=== PATIENT | female | born 1980 | race Caucasian/White ===

== ENCOUNTER 2021-01-16 18:05 | Emergency (ER) | payer OTHER, SELFPAY ==
[2021-01-16 19:24] VITALS: BP 138/78; PULSE 83; RESP 16; TEMP 36.1; O2SAT 100; BMI 36.2
[2021-01-16 20:00] LABS: COVID-19 Test Negative (Negative); IDNOW Serial# 9DD0AD1C
--- NOTE | 2021-01-16 20:04 | ED_ITS ---
HPI - General Adult General Chief complaint: General Medical Stated complaint: Medication making PT feel worse Time Seen by Provider: 01/16/21 20:04 Source: patient Mode of arrival: ambulatory Limitations: no limitations History of Present Illness HPI narrative: Patient history of hypertension been on medication for last 4 months started on lisinopril changed to amlodipine now changed to losartan for last 4-5 days as patient been come in complaining of cough with all 3 medications prior to taking this medication patient does not have any lung issues no cough no fever. 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 cough is mostly dry no other family member sick Related Data Previous Rx's Medication Instructions Recorded albuterol sulfate 90 mcg/actuation 2 puff INHALATION Q4-6H PRN #8.5 g 01/16/21 aerosol inhaler (ProAir HFA) benzonatate 100 mg capsule 100 mg PO TID PRN #20 cap 01/16/21 (Tessalon Perles) diltiazem HCl 120 mg 120 mg PO QAM #30 cap 01/16/21 capsule,extended release 24 hr (Cardizem CD) Allergies Allergy/AdvReac Type Severity Reaction Status Date / Time No Known Allergies Allergy Verified 01/16/21 19:35 Review of Systems Review of Systems: Yes all other systems are reviewed and are negative PMFSH Past Medical History Medical History HTN (hypertension) Prediabetes Social History Social History Advance Directives: No Advance Directives Information Provided: Yes Patient : No Physical Exam Vital Signs: Vital Signs: Last Vital Signs Temp 96.9 F 01/16/21 19:24 Pulse 83 01/16/21 19:24 Resp 16 01/16/21 19:24 BP 138/78 01/16/21 19:24 Pulse Ox 100 01/16/21 19:24 Body Mass Index 36.2 Appearance: Alert. Oriented X3. No acute distress. Eyes: No pallor icterus ENT: Pharynx normal. Oral Mucosa moist Neck: Normal inspection. Neck supple. CVS: Normal heart rate and rhythm. Pulses normal. Respiratory: No respiratory distress. Equal air entry bilateral, no wheezing/rales/rhonchi dry cough on deep inspiration Abdomen: Soft and nontender. Bowel sounds are present, no mass palpable, no CVA tenderness Skin: Skin warm and dry. Normal skin color. Normal skin turgor. Extremities: No lower extremity edema. No calf tenderness Neuro: Oriented X 3. Medical Decision Making Lab Data Labs: Lab Results 01/16/21 Range/Units 19:37 COVID-19 (SYLVIA) Negative (Negative) COVID-19 Clin Com See Note Discharge Plan Discharge Clinical Impression: Cough due to ADEOLA inhibitor Patient Disposition: Home, Self-Care Instructions: Chronic Cough (ED) Additional Instructions: Stop losartan and Start taking Cardizem 120 mg daily Medicine for cough and inhaler and advised Follow with PCP Detenga losart?n y Comience a fran Cardizem 120 mg al d?a Medicina para la tos e inhalador y aconsejado. Siga con quinn PCP Prescriptions: New diltiazem HCl [Cardizem CD] 120 mg capsule,extended release 24hr 120 mg PO QAM Qty: 30 RF: 0 benzonatate [Tessalon Perles] 100 mg capsule 100 mg PO TID PRN (Reason: cough) Qty: 20 RF: 0 albuterol sulfate [ProAir HFA] 90 mcg/actuation HFA aerosol inhaler 2 puff inhalation Q4-6H PRN (Reason: Wheezing) Qty: 8.5 RF: 0 Interventions: ED Discharge Assessment Last Done: 01/16/21 21:35 Discharge Date/Time: 01/16/21 21:36 Print Language: Cambodian
[2021-01-16] MEDS: guaiFEN/Codeine SF 200/20/10ML 10 ML LIQUID PO (20:42)
[2021-01-16] MEDS: Albuterol Sulfate 90 MCG 8 GM INHALER 4 PUFF INHALE (21:35)
== END 2021-01-16 21:36 | disposition home or self-care (01) ==
PROVIDERS: Emergency Provider Internal Medicine
DX: R05.9 Cough, unspecified (principal); Z20.822 Contact with and (suspected) exposure to COVID-19; Z79.899 Other long term (current) drug therapy
CPT/HCPCS: 36415; 87635; 99283; 99284

== ENCOUNTER 2022-02-10 13:21 | Emergency (ER) | payer OTHER, SELFPAY ==
[2022-02-10 13:33] VITALS: BP 142/88; PULSE 89; RESP 18; TEMP 37; O2SAT 98; BMI 35.9
--- NOTE | 2022-02-10 13:38 | ED.GENADULT ---
HPI - General Adult General Chief complaint: Urogenital-Female <Corina Melvin MD - Last Filed: 02/10/22 13:39> Stated complaint: vaginal itch. <Corina Melvin MD - Last Filed: 02/10/22 13:39> Time Seen by Provider: 02/10/22 14:06 <Corina Melvin MD - Last Filed: 02/10/22 13:39> Source: patient <PAKO Mohan - Last Filed: 02/10/22 16:32> Mode of arrival: ambulatory <PAKO Mohan - Last Filed: 02/10/22 16:32> Limitations: no limitations <PAKO Mohan - Last Filed: 02/10/22 16:32> History of Present Illness HPI narrative: 41-year-old female with a past medical history of yeast infections presenting to the ER with complaints of vaginal itching and dryness for the past few days worse today. She reports that she normally gets the intravaginal cream and the 2 pills of Diflucan and that usually helps her symptoms. She reports she needs both prescriptions usually. She reports she is sexually active with 1 partner. She denies any thoughts of STDs although is willing to be tested for gonorrhea chlamydia. She reports associated dysuria and increased urinary frequency/urgency. She admit to She denies any fevers, chills, abdominal pain, flank pain, back pain, hematuria, constipation or any other symptoms complaints or concerns at this time. <PAKO Mohan - Last Filed: 02/10/22 16:32> complaint: Vaginal symptoms <PAKO Mohan - Last Filed: 02/10/22 16:32> Related Data Home medications: Previous Rx's Medication Instructions Recorded albuterol sulfate 90 mcg/actuation 2 puff inhalation Q4-6H PRN 01/16/21 aerosol inhaler (ProAir HFA) Wheezing #8.5 grams benzonatate 100 mg capsule 100 mg PO TID PRN cough #20 caps 01/16/21 (Tessalon Perles) diltiazem HCl 120 mg 120 mg PO QAM #30 caps 01/16/21 capsule,extended release 24 hr (Cardizem CD) fluconazole 150 mg tablet 150 mg PO Q3D 2 doses #2 tabs 02/10/22 (Diflucan) metronidazole 500 mg tablet 500 mg PO BID 7 days #14 tabs 02/10/22 miconazole nitrate 200 mg/5 gram 1 appful vaginal BEDTIME 3 days 02/10/22 (4 %) vaginal cream #15 grams <Corina Melvin MD - Last Filed: 02/10/22 13:39> Allergies/adverse reactions: Allergies Allergy/AdvReac Type Severity Reaction Status Date / Time No Known Allergies Allergy Verified 01/16/21 19:35 <Corina Melvin MD - Last Filed: 02/10/22 13:39> Review of Systems Review of Systems: Constitutional : No Fever, No Chills ENT/Mouth : No sore throat, No Rhinorrhea Eyes: No Eye Pain, No Redness Cardiovascular : No Chest Pain, No SOB Respiratory : No Cough, No Sputum, No Wheezing Gastrointestinal : No Nausea, No Vomiting, + Diarrhea, No abdominal pain, Genitourinary : No irregular bleeding, + Dysuria, + Urinary Frequency, + vaginal discharge, No pelvic pain Musculoskeletal : No Myalgias Skin : No rash Neuro : No Weakness, No Headache Psych : No Anxiety/Panic, No Depression Heme/Lymph: No bruising, No Lymphadenopathy Endocrine : No Polyuria, No Polydipsia <PAKO Mohan - Last Filed: 02/10/22 16:32> Yes all other systems are reviewed and are negative <PAKO Mohan - Last Filed: 02/10/22 16:32> PMFSH Past Medical History Attestation statement: The following information was validated with the patient. <PAKO Mohan - Last Filed: 02/10/22 16:32> Source: old records reviewed and nursing notes reviewed <PAKO Mohan - Last Filed: 02/10/22 16:32> Medical History: Medical History HTN (hypertension) Prediabetes <Corina Melvin MD - Last Filed: 02/10/22 13:39> Social History Social History: Social History Advance Directives: No Advance Directives Information Provided: Yes <Corina Melvin MD - Last Filed: 02/10/22 13:39> Physical Exam ED Vital Signs: Vital Signs - 24 hr 02/10/22 13:33 Temperature 98.6 F Pulse Rate 89 Respiratory Rate 18 Blood Pressure 142/88 H Pulse Oximetry 98 Oxygen Delivery Method Room Air BMI result Body Mass Index 35.9 <Corina Melvin MD - Last Filed: 02/10/22 13:39> Vital Signs - 24 hr 02/10/22 13:33 Temperature 98.6 F Pulse Rate 89 Respiratory Rate 18 Blood Pressure 142/88 H Pulse Oximetry 98 Oxygen Delivery Method Room Air BMI result Body Mass Index 35.9 vital signs have been reviewed as normal and appeared to be correct. Blood pressure 142/88. Heart rate normal. Respiration rate normal. Temperature normal. Oxygen saturation normal. <PAKO Mohan - Last Filed: 02/10/22 16:32> Appearance: Alert. Oriented X3. No acute distress. Head: Normal external exam. Normocephalic. Atraumatic. Eyes: PERRLA. EOMI. Conjunctiva and sclera normal. Eyelids normal. ENT: Pharynx normal. Uvula midline. Moist mucous membranes. No lesions/ulcerations or masses noted on the tongue. Normal voice. No trismus noted. No drooling noted. No muffled voice noted. Neck: Normal inspection. Neck supple. FROM. No adenopathy. Thyroid Normal. No meningeal signs. CVS: Normal heart rate and rhythm. Respiratory: No respiratory distress. Painless inspiration. Abdomen: Soft and nontender. Bowel sounds normal in all 4 quadrants. No distention noted. No organomegaly noted. No visible injury noted. : Exam deferred pt refused wanted to self swab. Back: No CVA tenderness. Full range of motion noted. Nontender. No signs of trauma. Patient neuro intact bilaterally and distally on all 4 extremities. Patient's reflexes intact bilaterally and distally on all 4 extremities. No rashes/lesion/induration/fluctuance or signs of infection noted. Skin: Skin warm and dry. Normal skin color. Normal skin turgor. No rashes/lesions/lacerations noted. Extremities: Extremities exhibit normal range of motion and nontender. Neuro: Oriented X 3. No motor deficit. No sensory deficit. Reflexes normal. Normal steady gait. No focal neuro deficits noted. CN's II-XII intact bilaterally? <PAKO Mohan - Last Filed: 02/10/22 16:32> Course Reevaluation(s) Reevaluation #1: 41-year-old female came in with vaginal itching and dryness patient is prone to yeast infection, sexually active with 1 partner patient declined risk for STD, patient complaining of dysuria and frequency. <Corina Melvin MD - Last Filed: 02/10/22 13:39> Time: 13:38 <Corina Melvin MD - Last Filed: 02/10/22 13:39> Reevaluation #2: Patient wanted to self swab. Therefore she self swab for bacterial vaginosis/Trichomonas and yeast. She gave us a urine for gonorrhea chlamydia. UA returned and revealed trace of protein otherwise no evidence of UTI. Patient negative for . Gonorrhea/chlamydia/bacterial vaginal/Trichomonas and yeast pending. Will DC home with treatment for bacterial vaginosis and yeast and instructions to follow-up with PCP and to return if any new or worsening symptoms. Patient understands agrees with this plan. <PAKO Mohan - Last Filed: 02/10/22 16:32> Time: 16:30 <PAKO Mohan - Last Filed: 02/10/22 16:32> Medical Decision Making Medical Records Medical records reviewed: Yes I reviewed the patient's medical records. <PAKO Mohan - Last Filed: 02/10/22 16:32> Lab Data Lab results reviewed: Yes I reviewed the patient's lab results. <PAKO Mohan - Last Filed: 02/10/22 16:32> Labs: Lab Results 02/10/22 02/10/22 Range/Units 15:25 15:25 Urine Color Yellow Urine Appearance Clear Urine pH 5.5 (5.0-9.0) Ur Specific [place] 1.025 (1.005-1.025) Urine Protein Trace (Neg-Trace) mg/dL Urine Glucose (UA) Negative (Negative) mg/dL Urine Ketones Negative (Negative) mg/dL Urine Blood Negative (Negative) Urine Nitrite Negative (Negative) Ur Leukocyte Esterase Negative (Negative) Urine Test NEGATIVE (NEGATIVE) <Corina Melvin MD - Last Filed: 02/10/22 13:39> Lab Results 02/10/22 02/10/22 Range/Units 15:25 15:25 Urine Color Yellow Urine Appearance Clear Urine pH 5.5 (5.0-9.0) Ur Specific [place] 1.025 (1.005-1.025) Urine Protein Trace (Neg-Trace) mg/dL Urine Glucose (UA) Negative (Negative) mg/dL Urine Ketones Negative (Negative) mg/dL Urine Blood Negative (Negative) Urine Nitrite Negative (Negative) Ur Leukocyte Esterase Negative (Negative) Urine Test NEGATIVE (NEGATIVE) <PAKO Mohan - Last Filed: 02/10/22 16:32> Discharge Plan Discharge Clinical Impression: Vaginitis, Bacterial vaginosis <Corina Melvin MD - Last Filed: 02/10/22 13:39> Patient Disposition: Home, Self-Care <Corina Melvin MD - Last Filed: 02/10/22 13:39> Instructions: Bacterial Vaginosis (ED), Vaginal Discharge (ED) <Corina Melvin MD - Last Filed: 02/10/22 13:39> Additional Instructions: You have pending lab results if any are positive you will be contacted within 5-7 days. Tiene resultados de laboratorio pendientes, si alguno es positivo, lo contactaremos dentro de 5 a 7 d?as. <Corina Melvin MD - Last Filed: 02/10/22 13:39> Prescriptions: New fluconazole [Diflucan] 150 mg tablet 150 mg PO Q3D 0 Days Qty: 2 0RF Rx Instructions: may repeat second dose 72 hrs after first dose if symptoms persist metronidazole 500 mg tablet 500 mg PO BID 7 Days Qty: 14 0RF miconazole nitrate 200 mg/5 gram (4 %) cream 1 appful vaginal BEDTIME 3 Days Qty: 15 0RF No Action diltiazem HCl [Cardizem CD] 120 mg capsule,extended release 24hr 120 mg PO QAM Qty: 30 0RF benzonatate [Tessalon Perles] 100 mg capsule 100 mg PO TID PRN (Reason: cough) Qty: 20 0RF albuterol sulfate [ProAir HFA] 90 mcg/actuation HFA aerosol inhaler 2 puff inhalation Q4-6H PRN (Reason: Wheezing) Qty: 8.5 0RF <Corina Melvin MD - Last Filed: 02/10/22 13:39> Referrals: Physician,Nonstaff [Primary Care Provider] - 2 days (your pcp) <Corina Melvin MD - Last Filed: 02/10/22 13:39> Interventions: ED Discharge Assessment Last Done: 02/10/22 16:07 <Corina Melvin MD - Last Filed: 02/10/22 13:39> Discharge Date/Time: 02/10/22 16:08 <Corina Melvin MD - Last Filed: 02/10/22 13:39> Print Language: Croatian <Corina Melvin MD - Last Filed: 02/10/22 13:39>
--- OUTSIDE RECORDS SUMMARY | 2022-02-10 14:57 | XMS_ITS | Continuity of Care Document ---
:1980 Author Organization [facility] Address [address] [place] [id number]- Care Team Providers Name Role Phone Eric GRAY, Genesis Primary Care Physician Encounter [facility] Date(s): 01/16/21 - 02/26/[address] [address]- Attending Physician: Nannette Salmeron Admitting Physician: Nannette Salmeron Referring Physician: Nannette Salmeron Allergies, Adverse Reactions, Alerts Substance Reaction Severity Status codeine1 Active lisinopril2 Active amLODIPine3 [id number] after taking amlodipine 01/15. Medication discontinued, denied addl allergy sxs at that time. Immunizations Given and Recorded Vaccine Date Status Refusal Reason SARS-CoV-2 (COVID-19) mRNA BNT-162b2 vac 08/10/20 Recorde d SARS-CoV-2 (COVID-19) mRNA BNT-162b2 vac 07/20/20 Recorde d tetanus/diphtheria/pertussis, acel(Tdap) 11/17/19 Recorde d tetanus/diphtheria/pertussis, acel(Tdap) 04/30/18 Recorde d tetanus/diphtheria/pertussis, acel(Tdap) 11/16/17 Given influenza virus vaccine, inactivated 03/19/19 Recorded Not Given Vaccine Date Status Refusal Reason influenza virus vaccine, inactivated 02/12/20 Not Given Patient Refuses Medications cetirizine 10 mg oral tablet 1 tablet = 10 mg, By Mouth, Daily, # 90 tablet, 0 Refills, Maintenance, 01/20/21 16:11:00 EDT, Tablet, [id number], Partial fill upon patient request if the prescription is for a schedule II opioid drug., 175, cm, 01/20/21 15:42:00 EDT, Height Start Date: 01/20/21 Status: Orderedcyclobenzaprine 10 mg oral tablet 1, tablet, By Mouth, 3 times a day, PRN, # 30 tablet, Refills 1, NEEDED FOR SPASM, Route to Pharmacy Electronically, [id number], 175, cm, 08/26/20 13:36:00 EDT, Height Start Date: 11/13/20 Status: Ordereddocusate sodium 100 mg oral tablet 1 tablet = 100 mg, By Mouth, Daily, with plenty of water, # 30 tablet, 1 Refills, Maintenance, 01/04/19 13:17:03 EDT, Tablet Start Date: 01/04/19 Stop Date: 03/05/19 Status: Orderedduloxetine 30 mg oral enteric coated capsule See Instructions, TOME 1 CAPSULA POR VIA ORAL TODOS LOS MCRAE DO NOT CRUSH OR CHEW, # 30 capsule, 5 Refills, Maintenance, 02/10/21 11:58:00 EST, [id number], 175, cm, 01/20/21 15:42:00 EDT, Height Start Date: 02/10/21 Status: OrderedHome blood pressure machine and cuff Home blood pressure machine and cuff, See Instructions, # 1 each, Refills 0, Tot. Refills 0, Maintenance, Home blood pressure machine and cuff ICD 10: R03.0, 08/30/19 13:12:00 EDT, Supply Start Date: 08/30/19 Status: OrderedMiraLax oral powder for reconstitution = 17 Gm, By Mouth, Daily, PRN Constipation, dissolve in water before taking, # 255 Gm, 6 Refills, Maintenance, 07/05/18 8:11:28 EDT, REC Powder, 17 Gm By Mouth Daily,PRN:Constipation,Instr:dissolve in water before taking Start Date: 07/05/18 Status: OrderedNikki 3 mg-0.02 mg oral tablet See Instructions, TOME ODILIA TABLETA TODOS LOS MCRAE, # 28 tablet, 6 Refills, 12/26/20 10:00:00 EDT, [id number], 28, TOME ODILIA TABLETA TODOS LOS MCRAE, 175, cm, 12/26/20 9:15:00 EDT, Height Start Date: 12/26/20 Status: Orderedomeprazole 40 mg oral enteric coated capsule See Instructions, HUMERA HARTLEY CAPSULA DOS VECES AL BRANDIE, # 60 capsule, 2 Refills, [id number], 175, cm, 01/01/21 9:02:00 EDT, Height Start Date: 01/05/21 Status: Ordered Problem List Condition Effective Dates Status Health Status Informant Chronic constipation(Confirmed) Active Sigmoid diverticulosis(Confirmed) Active Endometrial thickening on Active ultrasound(Confirmed) Essential hypertension(Confirmed) Active Impaired fasting glucose(Confirmed) Active Hepatic cyst(Confirmed) Active Obesity(Confirmed) Active Pelvic pain(Confirmed) Active Post-nasal drip(Confirmed) Active Social History Social History Type Response Smoking Status Never (less than 100 in life time) entered on: 08/18/18 Sex Female
--- OUTSIDE RECORDS SUMMARY | 2022-02-10 14:57 | XMS_ITS | Continuity of Care Document ---
:1980 Author Organization [facility] Address [address] [place] [id number]- Care Team Providers Name Role Phone Eric GRAY, Genesis Primary Care Physician Encounter [facility] Date(s): 12/26/20 - 01/25/21 [facility] [address] [address]- Attending Physician: Kvng Lindsay Admitting Physician: AdmKvng dowling Referring Physician: Admtr ArYolanda Allergies, Adverse Reactions, Alerts Substance Reaction Severity Status codeine1 Active lisinopril2 Active amLODIPine3 Active [id number] itchy throat after taking amlodipine 01/15. [...] Refills, Maintenance, 01/20/21 16:11:00 EDT, Tablet, [id number], Partial fill upon patient request if the prescription is for a schedule II opioid drug., 175, cm, 01/20/21 15:42:00 EDT, Height Start Date: 01/20/21 Status: Orderedcyclobenzaprine 10 mg oral tablet 1, tablet, By Mouth, 3 times a day, PRN, # 30 tablet, Refills 1, NEEDED FOR SPASM, Route to Pharmacy Electronically, [id number], 175, cm, 08/26/20 13:36:00 EDT, Height Start Date: 11/13/20 Status: OrderedCymbalta 30 mg oral enteric coated capsule 1 capsule = 30 mg, By Mouth, Daily, do not crush or chew, # 30 capsule, 2 Refills, Maintenance, 11/17/20 14:33:00 EDT, CR Capsule, [facility] #[id number], Partial fill upon patient request if the prescription is for a schedule II opioid drug., 175, cm, 08... Start Date: 11/17/20 Status: Ordereddocusate sodium 100 mg oral tablet 1 tablet = 100 mg, By Mouth, Daily, with plenty of water, # 30 tablet, 1 Refills, Maintenance, 01/04/19 13:17:03 EDT, Tablet Start Date: 01/04/19 Stop Date: 03/05/19 Status: OrderedHome blood pressure machine and cuff Home blood pressure machine and cuff, See Instructions, # 1 each, Refills 0, Tot. Refills 0, Maintenance, Home blood pressure machine and cuff ICD 10: R03.0, 08/30/19 13:12:00 EDT, Supply Start Date: 08/30/19 Status: Orderedlosartan 25 mg oral tablet 25 mg, 1, tablet, By Mouth, Daily, # 90 tablet, Refills 0, Tot. Refills 0, Maintenance, 01/12/21 20:01:00 EDT, Route to Pharmacy Electronically, [facility] #[id number], Partial fill upon patient request ifthe prescription is for a schedule II opioid drug... Start Date: 01/12/21 Status: OrderedMiraLax oral powder for reconstitution = 17 Gm, By Mouth, Daily, PRN Constipation, dissolve in water before taking, # 255 Gm, 6 Refills, Maintenance, 07/05/18 8:11:28 EDT, REC Powder, 17 Gm By Mouth Daily,PRN:Constipation,Instr:dissolve in water before taking Start Date: 07/05/18 Status: OrderedNikki 3 mg-0.02 mg oral tablet See Instructions, HUMERA HARTLEY TABLETA TOS REJI MCRAE, # 28 tablet, 6 Refills, 12/26/20 10:00:00 EDT, [id number], 28, TOME ODILIA TABLETA TODOS LOS MCRAE, 175, cm, 12/26/20 9:15:00 EDT, Height Start Date: 12/26/20 Status: Orderedomeprazole 40 mg oral enteric coated capsule See Instructions, HUMERA HARTLEY CAPSULA DOS VECES AL BRANDIE, # 60 capsule, 2 Refills, [id number], 175, cm, 01/01/21 9:02:00 EDT, Height Start Date: 01/05/21 Status: Ordered Problem List Condition Effective Dates Status Health Status Informant Chronic constipation(Confirmed) Active Sigmoid diverticulosis(Confirmed) Active Endometrial thickening on Active ultrasound(Confirmed) Essential hypertension(Confirmed) Active Impaired fasting glucose(Confirmed) Active Hepatic cyst(Confirmed) Active Obesity(Confirmed) Active Pelvic pain(Confirmed) Active Social History Social History Type Response Smoking Status Never (less than 100 in life time) entered on: 08/18/18 Sex Female
--- OUTSIDE RECORDS SUMMARY | 2022-02-10 14:57 | XMS_ITS | Continuity of Care Document ---
:1980 Author Organization [facility] Address [address] [place] [address]- Care Team Providers Name Role Phone Milo WERNER, Uma Primary Care Physician Encounter [facility] Date(s): 10/16/19 - 11/15/[address] [id number]- [place] States Allergies, Adverse Reactions, Alerts Substance Reaction Severity Status codeine1 Active 1wheezes, chest congestion at [facility] Immunizations Given and Recorded Vaccine Date Status Refusal Reason tetanus/diphtheria/pertussis, acel(Tdap) 11/16/17 Given Medications docusate sodium 100 mg oral tablet 1 tablet [...] water before taking Start Date: 07/05/18 Status: Orderedomeprazole 20 mg oral enteric coated capsule 1 capsule = 20 mg, By Mouth, Daily, # 30 capsule, 2 Refills, Maintenance, 02/16/19 15:51:49 EST, EC Capsule, Instructions in [place] Start Date: 02/16/19 Status: OrderedYaz 3 mg-0.02 mg oral tablet 1 tablet, By Mouth, Daily, # 28 tablet, 11 Refills, Maintenance, 10/11/19 19:30:00 EDT, Tablet, [facility] #[id number], 1 tablet By Mouth Daily,x28 days, 175, cm, 09/25/19 9:27:00 EDT, Height Start Date: 10/11/19 Stop Date: 09/11/20 Status: Ordered Problem List Condition Effective Dates Status Health Status Informant Chronic constipation(Confirmed) Active Sigmoid diverticulosis(Confirmed) Active Endometrial thickening on Active ultrasound(Confirmed) Impaired fasting glucose(Confirmed) Active Non-Faroese speaking Active patient(Confirmed) Hepatic cyst(Confirmed) Active Obesity(Confirmed) Active Pelvic pain(Confirmed) Active Social History Social History Type Response Smoking Status Never (less than 100 in life time) entered on: 08/18/18 Sex Female
--- OUTSIDE RECORDS SUMMARY | 2022-02-10 14:57 | XMS_ITS | Continuity of Care Document ---
:1980 Author Organization [facility] Address [address] [place] [address]- Care Team Providers Name Role Phone Milo WERNER, Uma Primary Care Physician Encounter [facility] Date(s): 10/17/20 - 11/16/[address] [address]- Allergies, Adverse Reactions, Alerts Substance Reaction Severity Status codeine1 Active 1wheezes, chest congestion at [facility] Immunizations Given and Recorded Vaccine Date Status Refusal Reason SARS-CoV-2 (COVID-19) mRNA BNT-162b2 vac 07/20/20 Recorde d tetanus/diphtheria/pertussis, acel(Tdap) 11/17/19 Recorde d tetanus/diphtheria/pertussis, acel(Tdap) 04/30/18 Recorde d tetanus/diphtheria/pertussis, acel(Tdap) 11/16/17 Given influenza virus vaccine, inactivated 03/19/19 Recorded Not Given Vaccine Date Status Refusal Reason influenza virus vaccine, inactivated 02/12/20 Not Given Patient Refuses Medications cyclobenzaprine 10 mg oral tablet 1, tablet, By Mouth, 3 times a day, PRN, # 30 tablet, Refills 1, NEEDED FOR SPASM, Route to Pharmacy Electronically, [id number], 175, cm, 08/26/20 13:36:00 EDT, Height Start Date: 11/13/20 Status: OrderedDiflucan 150 mg oral tablet 1 tablet = 150 mg, By Mouth, Once, # 1 tablet, 0 Refills, Soft Stop, 04/27/20 20:58:00 EST, Tablet, [facility]/pharmacy #[id number], Partial fill upon patient request if the prescription is for a schedule II opioiddrug., 175, cm, 02/12/20 10:09:00 EST, Height Start Date: 04/27/20 Status: Ordereddocusate sodium 100 mg oral tablet [...] 13:12:00 EDT, Supply Start Date: 08/30/19 Status: Orderedlisinopril 10 mg oral tablet 10 mg, 1, tablet, By Mouth, Daily, # 30 tablet, Refills 2, Tot. Refills 2, Maintenance, 08/11/20 19:27:00 EDT, Route to Pharmacy Electronically, [facility]/pharmacy #[id number], Partial fill upon patient request ifthe prescription is for a schedule II opioid drug... Start Date: 08/11/20 Stop Date: 11/09/20 Status: OrderedMiraLax oral powder for reconstitution = 17 Gm, By Mouth, Daily, PRN Constipation, dissolve in water before taking, # 255 Gm, 6 Refills, Maintenance, 07/05/18 8:11:28 EDT, REC Powder, 17 Gm By Mouth Daily,PRN:Constipation,Instr:dissolve in water before taking Start Date: 07/05/18 Status: OrderedNikki 3 mg-0.02 mg oral tablet See Instructions, HUMERA ODILIA TABLETA TODOS LOS MCRAE, # 28 tablet, 6 Refills, Maintenance, [id number], 28, TOME ODILIA TABLETA TODOS LOS MCRAE, 175, cm, 08/26/20 13:36:00 EDT, Height Start Date: 10/17/20 Status: Orderedomeprazole 40 mg oral enteric coated capsule 1 capsule = 40 mg, By Mouth, 2 times a day, # 60 capsule, 2 Refills, Maintenance, 10/01/20 15:07:00 EDT, [id number], Partial fill upon patient request, please fill higher 40mg dose, 175, cm, 08/26/20 13:36:00 EDT, Height Start Date: 10/01/20 Stop Date: 12/30/20 Status: Ordered Problem List Condition Effective Dates Status Health Status Informant Chronic constipation(Confirmed) Active Sigmoid diverticulosis(Confirmed) Active Endometrial thickening on Active ultrasound(Confirmed) Essential hypertension(Confirmed) Active Impaired fasting glucose(Confirmed) Active Non-Ivorian speaking Active patient(Confirmed) Hepatic cyst(Confirmed) Active Obesity(Confirmed) Active Pelvic pain(Confirmed) Active Social History Social History Type Response Smoking Status Never (less than 100 in life time) entered on: 08/18/18 Sex Female
--- OUTSIDE RECORDS SUMMARY | 2022-02-10 14:57 | XMS_ITS | Continuity of Care Document ---
:1980 Author Organization [facility] Address [address] [place] [address]- Care Team Providers Name Role Phone Genesis Reyes NP Primary Care Physician Encounter [facility] Date(s): 10/07/21 - 11/08/[address] [address]- Attending Physician: Not on Staff, Attending MD Referring Physician: Genesis Reyes NP Allergies, Adverse Reactions, Alerts Substance Reaction Severity Status codeine1 Active lisinopril2 Active amLODIPine3 Active [facility], [id number] itchy throat after taking amlodipine 01/15. [...] inactivated 02/12/20 Not Given Patient Refuses Medications acetaminophen 325 mg oral tablet 650 mg, 2, tablet, By Mouth, Every 4 hours, PRN, not to exceed 4000 mg/day, # 30 tablet, Refills 0, Tot. Refills 0, Maintenance, Pain , Moderate, 07/27/22 16:56:00 EDT, Route to Pharmacy Electronically, [facility]/pharmacy #[id number], Partial fill upon patient re... Start Date: 10/21/21 Status: Orderedalbuterol 0.083% inhalation solution 3 mL = 2.5 mg, Inhalation, Every 6 hours, PRN for wheezing/shortness of breath, # 60 each, 0 Refills, Maintenance, 07/31/21 13:24:00 EDT, Solution, [facility]/pharmacy #[id number], Partial fill upon patient requestif the prescription is for a schedule II opioid d... Start Date: 07/31/21 Status: Orderedbaclofen 10 mg oral tablet 10 mg, 1, tablet, By Mouth, Daily at bedtime, # 90 tablet, Refills 2, Tot. Refills 2, Maintenance, 09/03/21 11:12:00 EDT, Route to Pharmacy Electronically, [id number], Partial fill upon patientrequest if the prescription is for a schedule II... Start Date: 09/03/21 Stop Date: 05/31/22 Status: Orderedcetirizine 10 mg oral tablet 1 tablet = 10 mg, By Mouth, Daily, # 30 tablet, 1 Refills, Maintenance, 08/17/21 13:33:00 EDT, Tablet, [facility]/pharmacy #[id number], Partial fill upon patient request if the prescription is for a schedule II opioid drug., 178, cm, 08/17/21 13:13:00 EDT, Height,... Start Date: 08/17/21 Status: Orderedclotrimazole 1% topical cream 1 application, Topically, 2 times a day, # 100 Gm, 0 Refills, Acute 11/20/21 18:43:00 EDT, 10/30/21 18:42:00 EDT, Cream, [id number], Partial fill upon patient request if the prescription is fora schedule II opioid drug., 1 application Topical... Start Date: 10/30/21 Stop Date: 11/20/21 Status: OrderedFlonase 50 mcg/inh nasal spray 1 sprays, Nares, Both, Daily in AM, # 16 Gm, 5 Refills, Maintenance, 08/17/21 14:11:00 EDT, Herod, [id number], Partial fill upon patient request if the prescription is for a schedule II opioid drug., 1 sprays Nares, Both Daily in AM, 178, cm,... Start Date: 08/17/21 Status: Orderedfluconazole 150 mg oral tablet 1 tablet = 150 mg, By Mouth, Once, epeat dose if still having symptoms in 72 hours, # 2 tablet, 0 Refills, Soft Stop, 10/30/21 18:39:00 EDT, Tablet, [facility]/pharmacy #[id number], Partial fill upon patient request if the prescription is for a schedule II opioid... Start Date: 10/30/21 Status: Orderedfluconazole 150 mg oral tablet 1 tablet = 150 mg, By Mouth, Once, # 1 tablet, 0 Refills, Soft Stop, 09/25/21 13:42:00 EDT, Tablet, [facility]/pharmacy #[id number], lithuanian instructions, 178, cm, 09/03/21 10:33:00 EDT, Height, 117.8, kg, 08/13/2209:43:00 EDT, Dry Weight Start Date: 09/25/21 Status: OrderedFLUoxetine 20 mg oral tablet 1 tablet = 20 mg, By Mouth, Daily, [place] bentley media tableta para bentley semana. Despues de bentley semana, tome bentley tableta completa., # 30 tablet, 2 Refills, Maintenance, 10/15/21 11:30:00 EDT, [facility]/pharmacy #[id number], Partial fill upon patient request if the pres... Start Date: 10/15/21 Stop Date: 01/13/22 Status: OrderedHome blood pressure machine and cuff Home blood pressure machine and cuff, See Instructions, # 1 each, Refills 0, Tot. Refills 0, Maintenance, Home blood pressure machine and cuff ICD 10: R03.0, 08/30/19 13:12:00 EDT, Supply Start Date: 08/30/19 Status: OrderedhydroCHLOROthiazide 12.5 mg oral capsule 1 capsule = 12.5 mg, By Mouth, Daily, # 30 capsule, 2 Refills, Maintenance, 09/03/21 11:10:00 EDT, [facility]/pharmacy #[id number], Partial fill upon patient request if the prescription is for a schedule II opioid drug., 178, cm, 09/03/21 10:33:00 EDT, Height, 117... Start Date: 09/03/21 Status: OrderedhydrOXYzine hydrochloride 50 mg oral tablet See Instructions, [place] bentley tableta antes de dormir y fang sea necesaria cada 6 horas para anxiedad luana al brandie., # 40 tablet, 0 Refills, Maintenance, 10/15/21 11:31:00 EDT, [facility]/pharmacy #[id number], Partial fill upon patient request if the prescription i... Start Date: 10/15/21 Status: Orderedibuprofen 600 mg oral tablet 600 mg, 1, tablet, By Mouth, Every 6 hours, PRN, not to exceed 3200 mg/day, # 30 tablet, Refills 0, Tot. Refills 0, Maintenance, Pain , Moderate, 10/21/21 16:57:00 EDT, Route to Pharmacy Electronically, [facility]/pharmacy #[id number], Partial fill upon patient re... Start Date: 10/21/21 Status: OrderedMapap Arthritis Pain 650 mg oral tablet, extended release 1 tablet = 650 mg, By Mouth, Every 8 hours, PRN Pain , Mild, # 50 tablet, 0 Refills, Acute 11/10/21 16:00:00 EDT, 10/26/21 16:00:00 EDT, ER Tablet, [facility]/pharmacy #[id number], Partial fill upon patient requestif the prescription is for a schedule II opioid d... Start Date: 10/26/21 Stop Date: 11/10/21 Status: OrderedmetFORMIN 500 mg oral tablet See Instructions, TOME BENTLEY TABLETA TODOS LOS MCRAE, # 30 tablet, 3 Refills, [id number], 178, cm,09/03/21 10:33:00 EDT, Height, 117.8, kg, 08/13/21 10:43:00 EDT, Dry Weight Start Date: 09/15/21 Status: OrderedmetFORMIN 500 mg oral tablet 1 tablet = 500 mg, By Mouth, Daily, # 30 tablet, 11 Refills, Maintenance, 09/15/21 12:13:00 EDT, [facility]/pharmacy #[id number], Partial fill upon patient request if the prescription is for a schedule II opioid drug., 178, cm, 09/03/21 10:33:00 EDT, Height, 117.8... Start Date: 09/15/21 Stop Date: 09/10/22 Status: Orderednorethindrone 0.35 mg oral tablet 1 tablet = 0.35 mg, By Mouth, Daily, # 28 tablet, 11 Refills, Maintenance, 09/03/21 11:11:00 EDT, Tablet, [facility]/pharmacy #[id number], Partial fill upon patient request if the prescription is for a schedule II opioid drug., 178, cm, 09/03/21 10:33:00 EDT, Heig... Start Date: 09/03/21 Status: Orderedomeprazole 40 mg oral enteric coated capsule See Instructions, HUMERA ROSENBERGA DOS VECES AL BRANDIE, # 60 capsule, 2 Refills, Maintenance, 03/31/21 12:25:00 EST, [facility]/pharmacy #[id number], 175, cm, 01/20/21 15:42:00 EDT, Height Start Date: 03/31/21 Status: Ordered Problem List Condition Effective Dates Status Health Status Informant Chronic constipation(Confirmed) Active Sigmoid diverticulosis(Confirmed) Active Endometrial thickening on Active ultrasound(Confirmed)1 Essential hypertension(Confirmed) Active Elevated hemoglobin A1c - 6.6 Active 05/19(Confirmed) Hepatic cyst(Confirmed) Active Obese class II(Confirmed) Active Sebaceous cyst of left Active axilla(Confirmed) 1In 2017, patient underwent a pelvic ultrasound that showed thickened endometrial stripe. She then underwent an EMB, which was negative for hyperplasia. Social History Social History Type Response Smoking Status Never (less than 100 in life time) entered on: 08/18/18 Sex Female
--- OUTSIDE RECORDS SUMMARY | 2022-02-10 14:57 | XMS_ITS | Continuity of Care Document ---
:1980 Author Organization [facility] Address [address] [place] [address]- Care Team Providers Name Role Phone Milo WERNER, Uma Primary Care Physician Encounter [facility] Date(s): 07/01/20 - 07/31/[address] [address]- Allergies, Adverse Reactions, Alerts Substance Reaction Severity Status codeine1 Active 1wheezes, chest congestion at [facility] Immunizations Given and Recorded Vaccine Date Status Refusal Reason tetanus/diphtheria/pertussis, acel(Tdap) 11/16/17 Given Not Given Vaccine Date Status Refusal Reason influenza virus vaccine, inactivated 02/12/20 Not Given Patient Refuses Medications cyclobenzaprine 10 mg oral tablet 10 mg, 1, tablet, By Mouth, 3 times a day, PRN, # 30 tablet, Refills 1, Tot. Refills 1, Maintenance,for spasm, 07/01/20 14:41:00 EDT, Route to Pharmacy Electronically, [facility]/pharmacy #[id number], Partial fillupon patient request if the prescription is for a... Start Date: 07/01/20 Status: OrderedDiflucan 150 mg oral tablet 1 tablet = 150 mg, By Mouth, Once, # 1 tablet, 0 Refills, Soft Stop, 04/27/20 20:58:00 EST, Tablet, [facility]/pharmacy #[id number], Partial fill upon patient request [...] before taking Start Date: 07/05/18 Status: Orderedomeprazole 40 mg oral enteric coated capsule 1 capsule = 40 mg, By Mouth, Daily, # 30 capsule, 2 Refills, Maintenance, 07/01/20 11:55:00 EDT, [id number], Partial fill upon patient request, please fill higher 40mg dose, 175, cm, 06/26/20 16:02:00 EDT, Height Start Date: 07/01/20 Stop Date: 09/29/20 Status: OrderedYaz 3 mg-0.02 mg oral tablet 1 tablet, By Mouth, Daily, # 28 tablet, 11 Refills, Maintenance, 10/11/19 19:30:00 EDT, Tablet, [id number], 1 tablet By Mouth Daily,x28 days, 175, cm, 09/25/19 9:27:00 EDT, Height Start Date: 10/11/19 Stop Date: 09/11/20 Status: Ordered Problem List Condition Effective Dates Status Health Status Informant Chronic constipation(Confirmed) Active Sigmoid diverticulosis(Confirmed) Active Endometrial thickening on Active ultrasound(Confirmed) Impaired fasting glucose(Confirmed) Active Non-Yoruba speaking Active patient(Confirmed) Hepatic cyst(Confirmed) Active Obesity(Confirmed) Active Pelvic pain(Confirmed) Active Social History Social History Type Response Smoking Status Never (less than 100 in life time) entered on: 08/18/18 Sex Female
--- OUTSIDE RECORDS SUMMARY | 2022-02-10 14:57 | XMS_ITS | Continuity of Care Document ---
:1980 Author Organization [facility] Address [address] [place] [address]- Care Team Providers Name Role Phone Uma Pedraza MD Primary Care Physician Encounter [facility] Date(s): 10/11/19 - 11/11/[address] [address]- [place] Attending Physician: Not on Staff, Attending MD Allergies, Adverse Reactions, Alerts Substance Reaction Severity Status codeine1 Active 1wheezes, chest congestion at [facility] Immunizations Given and Recorded Vaccine Date [...] 02/16/19 15:51:49 EST, EC Capsule, Instructions in Sinhala Start Date: 02/16/19 Status: OrderedYaz 3 mg-0.02 mg oral tablet 1 tablet, By Mouth, Daily, # 28 tablet, 11 Refills, Maintenance, 10/11/19 19:30:00 EDT, Tablet, [facility]/pharmacy #[id number], 1 tablet By Mouth Daily,x28 days, 175, cm, 09/25/19 9:27:00 EDT, Height Start Date: 10/11/19 Stop Date: 09/11/20 Status: Ordered Problem List Condition Effective Dates Status Health Status Informant Chronic constipation(Confirmed) Active Sigmoid diverticulosis(Confirmed) Active Endometrial thickening on Active ultrasound(Confirmed) Impaired fasting glucose(Confirmed) Active Non-Setswana speaking Active patient(Confirmed) Hepatic cyst(Confirmed) Active Obesity(Confirmed) Active Pelvic pain(Confirmed) Active Social History Social History Type Response Smoking Status Never (less than 100 in life time) entered on: 08/18/18 Sex Female
--- OUTSIDE RECORDS SUMMARY | 2022-02-10 14:57 | XMS_ITS | Continuity of Care Document ---
:1980 Author Organization [facility] Address [address] [place] [address]- Care Team Providers Name Role Phone Eric GRAY, Genesis Primary Care Physician Encounter [facility] Date(s): 10/09/21 - 11/11/[address] [address]- Attending Physician: Not on Staff, Attending MD Allergies, Adverse Reactions, Alerts Substance Reaction Severity Status codeine1 Active lisinopril2 Active amLODIPine3 [facility], [id number] after taking amlodipine 01/15. [...] Refills 0, Maintenance, Pain , Moderate, 10/21/21 16:56:00 EDT, Route to Pharmacy Electronically, [facility]/pharmacy #[id number], Partial fill upon patient re... Start Date: 10/21/21 Status: Orderedalbuterol 0.083% inhalation solution 3 mL = 2.5 mg, Inhalation, Every 6 hours, PRN for wheezing/shortness of breath, # 60 each, 0 Refills, Maintenance, 07/31/21 13:24:00 EDT, Solution, [facility]/pharmacy #[id number], Partial fill upon patient requestif the prescription is for a schedule II opioid d... Start Date: 07/31/21 Status: Orderedbaclofen 10 mg oral tablet 10 mg, 1, tablet, By Mouth, Daily at bedtime, # 90 tablet, Refills 2, Tot. Refills 2, Maintenance, 09/03/21 11:12:00 EDT, Route to Pharmacy Electronically, [facility]/pharmacy #[id number], Partial fill upon patientrequest if the prescription is for a schedule II... Start Date: 09/03/21 Stop Date: 05/31/22 Status: Orderedcetirizine 10 mg oral tablet 1 tablet = 10 mg, By Mouth, Daily, # 30 tablet, 1 Refills, Maintenance, 08/17/21 13:33:00 EDT, Tablet, [facility]/pharmacy #[id number], Partial fill upon patient request if the prescription is for a schedule II opioid drug., 178, cm, 08/17/21 13:13:00 EDT, Height,... Start Date: 08/17/21 Status: Orderedclotrimazole 1% topical cream 1 application, Topically, 2 times a day, # 100 Gm, 0 Refills, Acute 11/20/21 18:43:00 EDT, 10/30/21 18:42:00 EDT, Cream, [facility]/pharmacy #[id number], Partial fill upon patient request if the prescription is fora schedule II opioid drug., 1 application Topical... Start Date: 10/30/21 Stop Date: 11/20/21 Status: OrderedFlonase 50 mcg/inh nasal spray 1 sprays, Nares, Both, Daily in AM, # 16 Gm, 5 Refills, Maintenance, 08/17/21 14:11:00 EDT, [place], [facility]/pharmacy #[id number], Partial fill upon patient request if the prescription is for a schedule II opioid drug., 1 sprays Nares, Both Daily in AM, 178, cm,... Start Date: 08/17/21 Status: Orderedfluconazole 150 mg oral tablet 1 tablet = 150 mg, By Mouth, Once, epeat dose if still having symptoms in 72 hours, # 2 tablet, 0 Refills, Soft Stop, 10/30/21 18:39:00 EDT, Tablet, [facility]/pharmacy #[id number], Partial fill upon patient request if the prescription is for a schedule II opioid... Start Date: 10/30/21 Status: Orderedfluconazole 150 mg oral tablet 1 tablet = 150 mg, By Mouth, Once, # 1 tablet, 0 Refills, Soft Stop, 09/25/21 13:42:00 EDT, Tablet, [facility]/pharmacy #[id number], ukrainian instructions, 178, cm, 09/03/21 10:33:00 EDT, Height, 117.8, kg, 08/13/2209:43:00 EDT, Dry Weight Start Date: 09/25/21 Status: OrderedFLUoxetine 20 mg oral tablet 1 tablet = 20 mg, By Mouth, Daily, [place] bentley media tableta para bentley semana. Despues de bentley semana, tome bentley tableta completa., # 30 tablet, 2 Refills, Maintenance, 10/15/21 11:30:00 EDT, [id number], Partial fill upon patient request [...] capsule, 2 Refills, Maintenance, 09/03/21 11:10:00 EDT, [id number], Partial fill upon patient request if the prescription is for a schedule II opioid drug., 178, cm, 09/03/21 10:33:00 EDT, Height, 117... Start Date: 09/03/21 Status: OrderedhydrOXYzine hydrochloride 50 mg oral tablet See Instructions, [place] bentley tableta antes de dormir y fang sea necesaria cada 6 horas para anxiedad luana al brandie., # 40 tablet, 0 Refills, Maintenance, 10/15/21 11:31:00 EDT, [facility]/pharmacy #[id number], Partial fill upon patient request if the prescription i... Start Date: 10/15/21 Status: Orderedibuprofen 600 mg oral tablet 600 mg, 1, tablet, By Mouth, Every 6 hours, PRN, not to exceed 3200 mg/day, # 30 tablet, Refills 0, Tot. Refills 0, Maintenance, Pain , Moderate, 10/21/21 16:57:00 EDT, Route to Pharmacy Electronically, [facility]/pharmacy #[id number], Partial fill upon patient re... Start Date: 10/21/21 Status: OrderedmetFORMIN 500 mg oral tablet See Instructions, TOME BENTLEY TABLETA TODOS LOS MCRAE, # 30 tablet, 3 Refills, [id number], 178, cm,09/03/21 10:33:00 EDT, Height, 117.8, kg, 08/13/21 10:43:00 EDT, Dry Weight Start Date: 09/15/21 Status: OrderedmetFORMIN 500 mg oral tablet 1 tablet = 500 mg, By Mouth, Daily, # 30 tablet, 11 Refills, Maintenance, 09/15/21 12:13:00 EDT, [facility]/pharmacy #[id number], Partial fill upon patient request if the prescription is for a schedule II opioid drug., 178, cm, 09/03/21 10:33:00 EDT, Height, 117.8... Start Date: 09/15/21 Stop Date: 09/10/22 Status: Orderednorethindrone 0.35 mg oral tablet 1 tablet = 0.35 mg, By Mouth, Daily, # 28 tablet, 11 Refills, Maintenance, 09/03/21 11:11:00 EDT, Tablet, [facility]/pharmacy #[id number], Partial fill upon patient request if the prescription is for a schedule II opioid drug., 178, cm, 09/03/21 10:33:00 EDT, Heig... Start Date: 09/03/21 Status: Orderedomeprazole 40 mg oral enteric coated capsule See Instructions, HUMERA BENTLEY SHAKIRAA DOS VECES AL BRANDIE, # 60 capsule, 2 Refills, Maintenance, 03/31/21 12:25:00 EST, [id number], 175, cm, 01/20/21 15:42:00 EDT, Height [...]
--- OUTSIDE RECORDS SUMMARY | 2022-02-10 14:57 | XMS_ITS | Continuity of Care Document ---
:1980 Author Organization [facility] Address Unavailable , Care Team Providers Name Role Phone Eric GRAY, Genesis Primary Care Physician [place] [facility] [place] 07[place]14/21 [facility] Attending Physician: Pablo Coats MD Referring Physician: Nancy Lisa MD Allergies, Adverse Reactions, Alerts Substance Reaction Severity Status codeine1 Active lisinopril2 Active amLODIPine3 Active [facility]ezes[id number] itchy throat after taking amlodipine 01/15. [...] Refills, Maintenance, 01/20/21 16:11:00 EDT, Tablet, [id number], Partial fill upon patient request if the prescription is for a schedule II opioid drug., 175, cm, 01/20/21 15:42:00 EDT, Height Start Date: 01/20/21 Status: Orderedcyclobenzaprine 10 mg oral tablet 1, tablet, By Mouth, 3 times a day, PRN, # 30 tablet, Refills 1, NEEDED FOR SPASM, Route to Pharmacy Electronically, [id number], 175, cm, 08/26/20 13:36:00 EDT, Height Start [...] capsule, 5 Refills, Maintenance, 02/10/21 11:58:00 EST, [facility]/pharmacy #[id number], 175, cm, 01/20/21 15:42:00 EDT, Height Start Date: 02/10/21 Status: OrderedHome blood pressure machine and cuff Home blood pressure machine and cuff, See Instructions, # 1 each, Refills 0, Tot. Refills 0, Maintenance, Home blood pressure machine and cuff ICD 10: R03.0, 08/30/19 13:12:00 EDT, Supply Start Date: 08/30/19 Status: OrderedmetFORMIN 500 mg oral tablet 1 tablet = 500 mg, By Mouth, Daily, for 30 days, # 30 tablet, 3 Refills, Hard Stop 09/25/21 17:49:00EDT, 05/28/21 17:49:00 EST, [facility]/pharmacy #[id number], Partial fill upon patient request if the prescription is for a schedule II opioid drug., 175, cm, 0... Start Date: 05/28/21 Stop Date: 09/25/21 Status: OrderedmetFORMIN 500 mg oral tablet 1 tablet = 500 mg, By Mouth, Daily, # 30 tablet, 3 Refills, Maintenance, 09/25/21 17:49:00 EDT, [facility]/pharmacy #[id number], Partial fill upon patient request if the prescription is for a schedule II opioid drug., 175, cm, 04/30/21 10:06:00 EST, Height Start Date: 09/25/21 Stop Date: 01/23/22 Status: OrderedMiraLax oral powder for reconstitution = 17 Gm, By Mouth, Daily, PRN Constipation, dissolve in water before taking, # 255 Gm, 6 Refills, Maintenance, 07/05/18 8:11:28 EDT, REC Powder, 17 Gm By Mouth Daily,PRN:Constipation,Instr:dissolve in water before taking Start Date: 07/05/18 Status: OrderedNikki 3 mg-0.02 mg oral tablet See Instructions, TOME DOILIA TABLETA TODOS LOS MCRAE, # 28 tablet, 6 Refills, 12/26/20 10:00:00 EDT, [facility]/pharmacy #[id number], 28, TOME ODILAI TABLETA TODOS LOS MCRAE, 175, cm, 12/26/20 9:15:00 EDT, Height Start Date: 12/26/20 Status: Orderedomeprazole 40 mg oral enteric coated capsule See Instructions, TOME ODILIA CAPSULA DOS VECES AL BRANDIE, # 60 capsule, 2 Refills, Maintenance, 03/31/21 12:25:00 EST, [id number], 175, cm, 01/20/21 15:42:00 EDT, Height Start Date: 03/31/21 Status: Ordered Problem List Condition Effective Dates Status Health Status Informant Chronic constipation(Confirmed) Active COVID-19 virus infection(Confirmed) Active Sigmoid diverticulosis(Confirmed) Active Endometrial thickening on Active ultrasound(Confirmed) Essential hypertension(Confirmed) Active Elevated hemoglobin A1c(Confirmed) Active Hepatic cyst(Confirmed) Active Obese class II(Confirmed) Active Obesity(Confirmed) Active Sebaceous cyst of left Active axilla(Confirmed) Vital Signs Most recent to oldest [Reference Range]: 1 Height 178 cm (07/07/21 3:30 PM) Weight 119.6 kg (07/07/21 3:30 PM) Pulse Rate [55-90 bpm] 97 bpm *H* (07/07/21 3:30 PM) Body Mass Index [18.5-24.99] 37.75 *>HHI* (07/07/21 3:30 PM) Blood Pressure [90-138/55-84 mm Hg] 109/78 mm Hg (07/07/21 3:30 PM) Respiratory Rate [16-30 br/min] 16 br/min (07/07/21 3:30 PM) Temperature [96.8-100.4 DegF] 97.7 DegF (07/07/21 3:30 PM) Blood pressure sites Arm, left (07/07/21 3:30 PM) Temperature Route Temporal (07/07/21 3:30 PM) Weight Obtained Via Standing scale (07/07/21 3:30 PM) Social History Social History Type Response Smoking Status Never (less than 100 in life time) entered on: 08/18/18 Sex Female
--- OUTSIDE RECORDS SUMMARY | 2022-02-10 14:57 | XMS_ITS | Continuity of Care Document ---
:1980 Author Organization [facility] Address [address] [place] [address]- Care Team Providers Name Role Phone Eric GRAY, Genesis Primary Care Physician Encounter [facility] Date(s): 07/23/21 - 08/22/[address] [address]- Allergies, Adverse Reactions, Alerts Substance Reaction Severity Status codeine1 Active lisinopril2 Active amLODIPine3 Active [facility], [id number] itchy throat after taking amlodipine 01/15. [...] inactivated 02/12/20 Not Given Patient Refuses Medications albuterol 0.083% inhalation solution 3 mL = 2.5 mg, Inhalation, Every 6 hours, PRN for wheezing/shortness of breath, # 60 each, 0 Refills, Maintenance, 07/31/21 13:24:00 EDT, Solution, [id number], Partial fill upon patient requestif the prescription is for a schedule II opioid d... Start Date: 07/31/21 Status: Orderedcetirizine 10 mg oral tablet 1 tablet = 10 mg, By Mouth, Daily, # 30 tablet, 1 Refills, Maintenance, 08/17/21 13:33:00 EDT, Tablet, [facility]/pharmacy #[id number], Partial fill upon patient request if the prescription is for a schedule II opioid drug., 178, cm, 08/17/21 13:13:00 EDT, Height,... Start Date: 08/17/21 Status: Orderedduloxetine 30 mg oral enteric coated capsule See Instructions, TOME 1 CAPSULA POR VIA ORAL TODOS LOS MCRAE DO NOT CRUSH OR CHEW, # 30 capsule, 5 Refills, Maintenance, 02/10/21 11:58:00 EST, [facility]/pharmacy #[id number], 175, cm, 01/20/21 15:42:00 EDT, Height Start Date: 02/10/21 Status: OrderedFlonase 50 mcg/inh nasal spray 1 sprays, Nares, Both, Daily in AM, # 16 Gm, 5 Refills, Maintenance, 08/17/21 14:11:00 EDT, [place], [id number], Partial fill upon patient request if the prescription is for a schedule II opioid drug., 1 sprays Nares, Both Daily in AM, 178, cm,... Start Date: 08/17/21 Status: OrderedguaiFENesin 100 mg/5 mL oral liquid 10 mL = 200 mg, By Mouth, Every 4 hours, PRN for cough, for 10 days, SUGAR FREE please, # 240 mL, 0 Refills, Acute 08/27/21 13:46:00 EDT, 08/17/21 13:46:00 EDT, Liquid, [facility]/pharmacy #[id number], Partial fillupon patient request if the prescription is for a... Start Date: 08/17/21 Stop Date: 08/27/21 Status: OrderedHome blood pressure machine and cuff Home blood pressure machine and cuff, See Instructions, # 1 each, Refills 0, Tot. Refills 0, Maintenance, Home blood pressure machine and cuff ICD 10: R03.0, 08/30/19 13:12:00 EDT, Supply Start Date: 6/4/20 Status: Orderedibuprofen 600 mg oral tablet 600 mg, 1, tablet, By Mouth, 4 times a day, PRN, # 40 tablet, Refills 0, Tot. Refills 0, Maintenance, for pain, 07/31/21 13:23:00 EDT, [id number] fillupon patient request if the prescription is for a... Start Date: 07/31/21 Status: OrderedmetFORMIN 500 mg oral tablet 1 tablet = 500 mg, By Mouth, Daily, for 30 days, # 30 tablet, 3 Refills, Hard Stop 09/25/21 17:49:00EDT, 05/28/21 17:49:00 EST, [id number] Partial fill upon patient request if the prescription is for a schedule II opioid drug., 175, cm, 0... Start Date: 05/28/21 Stop Date: 09/25/21 Status: OrderedmetFORMIN 500 mg oral tablet 1 tablet = 500 mg, By Mouth, Daily, # 30 tablet, 3 Refills, Maintenance, 09/25/21 17:49:00 EDT, [id number] Partial fill upon patient request if the prescription is for a schedule II opioid drug., 175, cm, 04/30/21 10:06:00 EST, Height Start Date: 09/25/21 Stop Date: 01/23/22 Status: OrderedNikki 3 mg-0.02 mg oral tablet See Instructions, HUMERA ODILIA TABLETA TODOS LOS MCRAE, # 28 tablet, 6 Refills, 12/26/20 10:00:00 EDT, [facility]/pharmacy #[id number], 28, TOME ODILIA TABLETA TODOS LOS MCRAE, 175, cm, 12/26/20 9:15:00 EDT, Height Start Date: 12/26/20 Status: Orderedomeprazole 40 mg oral enteric coated capsule See Instructions, JAGDEEPE ODILIA CAPSULA DOS VECES AL BRANDIE, # 60 capsule, 2 Refills, Maintenance, 03/31/21 12:25:00 EST, [facility]/pharmacy #[id number], 175, cm, 01/20/21 15:42:00 EDT, Height Start Date: 03/31/21 Status: OrderedTylenol 325 mg oral tablet 650 mg, 2, tablet, By Mouth, Every 4 hours, PRN, May take scheduled for first few days, then as needed. Not to exceed 4000 mg/day, # 30 tablet, Refills 0, Tot. Refills 0, Maintenance, Pain , Mild, 08/13/21 13:10:00 EDT, Route to Pharmacy Electronicall... Start Date: 08/13/21 Status: Ordered Problem List Condition Effective Dates Status Health Status Informant Chronic constipation(Confirmed) Active COVID-19 virus infection(Confirmed) Active Sigmoid diverticulosis(Confirmed) Active Endometrial thickening on Active ultrasound(Confirmed) Essential hypertension(Confirmed) Active Elevated hemoglobin A1c(Confirmed) Active Hepatic cyst(Confirmed) Active Obese class II(Confirmed) Active Obesity(Confirmed) Active Sebaceous cyst of left Active axilla(Confirmed) Social History Social History Type Response Smoking Status Never (less than 100 in life time) entered on: 08/18/18 Sex Female
--- OUTSIDE RECORDS SUMMARY | 2022-02-10 14:57 | XMS_ITS | Continuity of Care Document ---
:1980 Author Organization [facility] Address [address] [place] [id number]- Care Team Providers Name Role Phone Eric GRAY, Genesis Primary Care Physician Encounter [facility] [place] Date(s): 12/26/20 - 01/02/21 [facility]ev [facility] [address] [address]- Attending Physician: Not on Staff, Attending MD Referring Physician: Uma Pedraza MD Allergies, Adverse Reactions, Alerts Substance Reaction Severity Status codeine1 Active 1wheezes, chest congestion at [facility] Immunizations Given and Recorded Vaccine [...] inactivated 02/12/20 Not Given Patient Refuses Medications amLODIPine 10 mg oral tablet 1 tablet = 10 mg, By Mouth, Daily, # 30 tablet, 6 Refills, Maintenance, 01/01/21 9:26:00 EDT, Tablet, [id number], Partial fill upon patient request if the prescription is for a schedule II opioid drug., 175, cm, 01/01/21 9:02:00 EDT, Height Start Date: 01/01/21 Stop Date: 07/30/21 Status: Orderedcyclobenzaprine 10 mg oral tablet 1, tablet, By Mouth, 3 times a day, PRN, # 30 tablet, Refills 1, NEEDED FOR SPASM, Route to Pharmacy Electronically, [id number], 175, cm, 08/26/20 13:36:00 EDT, Height Start Date: 11/13/20 Status: OrderedCymbalta 30 mg oral enteric coated capsule 1 capsule = 30 mg, By Mouth, Daily, do not crush or chew, # 30 capsule, 2 Refills, Maintenance, 11/17/20 14:33:00 EDT, CR Capsule, [facility]/pharmacy #[id number], Partial fill upon patient request if [...] 3 mg-0.02 mg oral tablet See Instructions, JAGDEEPE ODILIA TABLETA TODOS LOS MCRAE, # 28 tablet, 6 Refills, 12/26/20 10:00:00 EDT, [facility]/pharmacy #[id number], 28, TOME ODILIA TABLETA TODOS LOS MCRAE, 175, cm, 12/26/20 9:15:00 EDT, Height Start Date: 12/26/20 Status: Orderedomeprazole 40 mg oral enteric coated capsule 1 capsule = 40 mg, By Mouth, 2 times a day, # 60 capsule, 2 Refills, Maintenance, 10/01/20 15:07:00 EDT, [facility]/pharmacy #[id number], Partial fill upon patient request, please fill higher 40mg dose, 175, cm, 08/26/20 13:36:00 EDT, Height Start Date: 10/01/20 Stop Date: 12/30/20 Status: Ordered Problem List Condition Effective Dates Status Health Status Informant Chronic constipation(Confirmed) Active Sigmoid diverticulosis(Confirmed) Active Endometrial thickening on Active ultrasound(Confirmed) Essential hypertension(Confirmed) Active Impaired fasting glucose(Confirmed) Active Non-Colombian speaking Active patient(Confirmed) Hepatic cyst(Confirmed) Active Obesity(Confirmed) Active Pelvic pain(Confirmed) Active Vital Signs Most recent to oldest [Reference Range]: 1 Height 175 cm (12/26/20 9:15 AM) Weight 119.09 kg (12/26/20 9:15 AM) Body Mass Index [18.5-24.99] 38.89 *>HHI* (12/26/20 9:15 AM) Blood Pressure [90-138/55-84 mm Hg] 167/96 mm Hg *H* (12/26/20 9:15 AM) Blood pressure sites Arm, left (12/26/20 9:15 AM) Weight Obtained Via Standing scale (12/26/20 9:15 AM) Social History Social History Type Response Smoking Status Never (less than 100 in life time) entered on: 08/18/18 Sex Female
--- OUTSIDE RECORDS SUMMARY | 2022-02-10 14:57 | XMS_ITS | Continuity of Care Document ---
:1980 Author Organization [facility] Address [address] [place] [id number]- Care Team Providers Name Role Phone Eric GRAY, Genesis Primary Care Physician Encounter [facility] Date(s): 11/06/21 - 12/06/21 [facility] Bev [facility] [address] [address]- Attending Physician: Kvng Lindsay Admitting Physician: Kvng Lindsay Referring Physician: AdmtrKvng Allergies, Adverse Reactions, Alerts Substance Reaction Severity Status codeine1 Active lisinopril2 Active amLODIPine3 Active 1wheezes, chest congestion at [address] reports itchy throat after taking amlodipine 01/15. [...] 10/21/21 16:56:00 EDT, Route to Pharmacy Electronically, [facility]/pharmacy #[id number], Partial fill upon patient re... Start Date: 10/21/21 Status: Orderedalbuterol 0.083% inhalation solution 3 mL = 2.5 mg, Inhalation, Every 6 hours, PRN for wheezing/shortness of breath, # 60 each, 0 Refills, Maintenance, 07/31/21 13:24:00 EDT, Solution, [id number], Partial fill upon patient requestif the prescription is for a schedule II opioid d... Start Date: 07/31/21 Status: Orderedbaclofen 10 mg oral tablet 10 mg, 1, tablet, By Mouth, Daily at bedtime, # 90 tablet, Refills 2, Tot. Refills 2, Maintenance, 09/03/21 11:12:00 EDT, Route to Pharmacy Electronically, [facility]/pharmacy #[id number], Partial fill upon patientrequest if the prescription is for a schedule II... Start Date: 09/03/21 Stop Date: 05/31/22 Status: Orderedcetirizine 10 mg oral tablet 1 tablet = 10 mg, By Mouth, Daily, # 30 tablet, 1 Refills, Maintenance, 08/17/21 13:33:00 EDT, Tablet, [facility]/pharmacy #[id number], Partial fill upon patient request if the prescription is for a schedule II opioid drug., 178, cm, 08/17/21 13:13:00 EDT, Height,... Start Date: 08/17/21 Status: OrderedFlonase 50 mcg/inh nasal spray 1 sprays, Nares, Both, Daily in AM, # 16 Gm, 5 Refills, Maintenance, 08/17/21 14:11:00 EDT, [place], [id number], Partial fill upon patient request if the prescription is for a schedule II opioid drug., 1 sprays Nares, Both Daily in AM, 178, cm,... Start Date: 08/17/21 Status: Orderedfluconazole 150 mg oral tablet 1 tablet = 150 mg, By Mouth, Once, epeat dose if still having symptoms in 72 hours, # 2 tablet, 0 Refills, Soft Stop, 10/30/21 18:39:00 EDT, Tablet, [facility]/pharmacy #[id number], Partial fill upon patient request if the prescription is for a schedule II opioid... Start Date: 10/30/21 Status: Orderedfluconazole 150 mg oral tablet 1 tablet = 150 mg, By Mouth, Once, # 1 tablet, 0 Refills, Soft Stop, 09/25/21 13:42:00 EDT, Tablet, [facility]/pharmacy #[id number], mauritanian instructions, 178, cm, 09/03/21 10:33:00 EDT, Height, 117.8, kg, 08/13/2209:43:00 EDT, Dry Weight Start Date: 09/25/21 Status: OrderedFLUoxetine 20 mg oral tablet 1 tablet = 20 mg, By Mouth, Daily, [place] bentley media tableta para bentley semana. Despues de bentley semana, tome bentley tableta completa., # 30 tablet, 2 Refills, Maintenance, 10/15/21 11:30:00 EDT, [facility]/pharmacy #[id number], Partial fill upon patient request if [...] capsule, 2 Refills, Maintenance, 09/03/21 11:10:00 EDT, [facility]/pharmacy #[id number], Partial fill upon patient request if the prescription is for a schedule II opioid drug., 178, cm, 09/03/21 10:33:00 EDT, Height, 117... Start Date: 09/03/21 Status: OrderedhydrOXYzine hydrochloride 50 mg oral tablet See Instructions, [place] bentley tableta antes de dormir y fang sea necesaria cada 6 horas para anxiedad luana al brandie., # 40 tablet, 0 Refills, Maintenance, 10/15/21 11:31:00 EDT, [facility]/pharmacy #[id number], Partial fill upon patient request if the prescription i... Start Date: 10/15/21 Status: Orderedibuprofen 600 mg oral tablet 600 mg, 1, tablet, By Mouth, Every 6 hours, PRN, not to exceed 3200 mg/day, # 30 tablet, Refills 0, Tot. Refills 0, Maintenance, Pain , Moderate, 10/21/21 16:57:00 EDT, Route to Pharmacy Electronically, [facility]/pharmacy #[id number], Partial fill upon patient re... Start Date: 10/21/21 Status: OrderedmetFORMIN 500 mg oral tablet See Instructions, HUMERA BENTLEY TABLETA TODOS LOS MCRAE, # 30 tablet, 3 Refills, [id number], 178, cm,09/03/21 10:33:00 EDT, Height, 117.8, kg, 08/13/21 10:43:00 EDT, Dry Weight Start Date: 09/15/21 Status: OrderedmetFORMIN 500 mg oral tablet 1 tablet = 500 mg, By Mouth, Daily, # 30 tablet, 11 Refills, Maintenance, 09/15/21 12:13:00 EDT, [facility]/pharmacy #[id number], Partial fill upon patient request if the prescription is for a schedule II opioid drug., 178, cm, 09/03/21 10:33:00 EDT, Height, 117.8... Start Date: 09/15/21 Stop Date: 09/10/22 Status: Orderednorethindrone 0.35 mg oral tablet 1 tablet = 0.35 mg, By Mouth, Daily, # 28 tablet, 11 Refills, Maintenance, 09/03/21 11:11:00 EDT, Tablet, [facility]/pharmacy #[id number], Partial fill upon patient request if the prescription is for a schedule II opioid drug., 178, cm, 09/03/21 10:33:00 EDT, [place]... Start Date: 09/03/21 Status: Orderedomeprazole 40 mg oral enteric coated capsule See Instructions, JAGDEEPE BENTLEY CAPSULA DOS VECES AL BRANDIE, # 60 capsule, 2 Refills, Maintenance, 03/31/21 12:25:00 EST, [facility]/pharmacy #[id number], 175, cm, 01/20/21 15:42:00 EDT, Height [...] life time) entered on: 08/18/18 Sex Female Care Team PersonnelName: Genesis Reyes NP Address: [address] [place] [address]
--- OUTSIDE RECORDS SUMMARY | 2022-02-10 14:57 | XMS_ITS | Continuity of Care Document ---
:1980 Author Organization [facility] Address [address] [place] [id number]- Care Team Providers Name Role Phone Uma Pedraza MD [id number] - 09/26/[address] [address] [facility] Attending Physician: Not on Staff, Attending MD Referring Physician: Uma Pedraza MD Allergies, Adverse Reactions, Alerts Substance Reaction Severity Status codeine1 Active 1wheezes, chest congestion at [facility] Immunizations Given and Recorded Vaccine Date Status Refusal Reason tetanus/diphtheria/pertussis, acel(Tdap) 11/16/17 Given Medications acetaminophen 500 mg oral tablet 2 tablet = 1,000 mg, By Mouth, 3 times a day, PRN for fever, for 30 days, # 180 tablet, 0 Refills, Acute 10/11/19 12:30:00 EDT, 09/11/19 12:30:00 EDT, Tablet, [email or web address] #[id number], 175, cm, 06/13/19 13:09:00 EDT, Height Start Date: 09/11/19 Stop Date: 10/11/19 Status: Orderedcyclobenzaprine 10 mg oral tablet 10 mg, 1, tablet, By Mouth, Daily at bedtime, for 30 days, # 30 tablet, Refills 0, Tot. Refills 0, Acute 10/11/19 12:31:00 EDT, 09/11/19 12:31:00 EDT, Route to Pharmacy Electronically, [email or web address] #[id number], 175, cm, 06/13/19 13:09:00 EDT, Height Start Date: 09/11/19 Stop Date: 10/11/19 Status: Ordereddocusate sodium 100 mg oral tablet [...] 02/16/19 15:51:49 EST, EC Capsule, Instructions in Belarusian Start Date: 02/16/19 Status: OrderedYaz 3 mg-0.02 mg oral tablet 1 tablet, By Mouth, Daily, # 28 tablet, 11 Refills, Maintenance, 02/10/18 15:10:37 EST, Tablet, 1 tablet By Mouth Daily,x28 days Start Date: 02/10/18 Stop Date: 01/12/19 Status: Ordered Problem List Condition Effective Dates Status Health Status Informant Chronic constipation(Confirmed) Active Sigmoid diverticulosis(Confirmed) Active Endometrial thickening on Active ultrasound(Confirmed) Impaired fasting glucose(Confirmed) Active Non-Khmer speaking Active patient(Confirmed) Hepatic cyst(Confirmed) Active Obesity(Confirmed) Active Pelvic pain(Confirmed) Active Social History Social History Type Response Smoking Status Never (less than 100 in life time) entered on: 08/18/18 Sex
--- OUTSIDE RECORDS SUMMARY | 2022-02-10 14:57 | XMS_ITS | Continuity of Care Document ---
:1980 Author Organization [facility] Address [address] [place] [address]- Care Team Providers Name Role Phone Milo WERNER, Uma Primary Care Physician Encounter [facility] Date(s): 09/24/19 - 10/24/[address] [address]- [facility] Allergies, Adverse Reactions, Alerts Substance Reaction Severity Status codeine1 Active 1wheezes, chest congestion at [facility] Immunizations Given and Recorded Vaccine Date Status Refusal Reason tetanus/diphtheria/pertussis, acel(Tdap) 11/16/17 Given Medications cyclobenzaprine 10 mg oral tablet 10 mg, 1, tablet, By Mouth, Daily at bedtime, for 30 days, # 30 tablet, Refills 0, Tot. Refills 0, Acute 11/10/19 19:31:00 EDT, 10/11/19 19:31:00 EDT, Route to Pharmacy Electronically, [facility]/pharmacy #[id number], 175, cm, 09/25/19 9:27:00 EDT, Height Start Date: 10/11/19 Stop Date: 11/10/19 Status: Ordereddocusate sodium 100 mg oral tablet [...] 02/16/19 15:51:49 EST, EC Capsule, Instructions in Uzbek Start Date: 02/16/19 Status: OrderedYaz 3 mg-0.02 mg oral tablet 1 tablet, By Mouth, Daily, # 28 tablet, 11 Refills, Maintenance, 10/11/19 19:30:00 EDT, Tablet, [facility]/pharmacy #[id number], 1 tablet By Mouth Daily,x28 days, 175, cm, 09/25/19 9:27:00 EDT, Height Start Date: 10/11/19 Stop Date: 09/11/20 Status: Ordered Problem List Condition Effective Dates Status Health Status Informant Chronic constipation(Confirmed) Active Sigmoid diverticulosis(Confirmed) Active Endometrial thickening on Active ultrasound(Confirmed) Impaired fasting glucose(Confirmed) Active Non-Micronesian speaking Active patient(Confirmed) Hepatic cyst(Confirmed) Active Obesity(Confirmed) Active Pelvic pain(Confirmed) Active Social History Social History Type Response Smoking Status Never (less than 100 in life time) entered on: 08/18/18 Sex Female
--- OUTSIDE RECORDS SUMMARY | 2022-02-10 14:57 | XMS_ITS | Continuity of Care Document ---
:1980 Author Organization [facility] Address Unavailable , Care Team Providers Name Role Phone Eric GRAY, Genesis Primary Care Physician Encounter [place] Date(s): 08/10/21 - 09/26/21 [facility] Attending Physician: Vicente Spears Referring Physician: Genesis Reyes NP Allergies, Adverse Reactions, Alerts Substance Reaction Severity Status codeine1 Active lisinopril2 Active amLODIPine3 Active [facility]wheezes[id number] after taking amlodipine 01/15. [...] Refills, Maintenance, 07/31/21 13:24:00 EDT, Solution, [id number], Partial fill upon patient requestif the prescription is for a schedule II opioid d... Start Date: 07/31/21 Status: Orderedbaclofen 10 mg oral tablet 10 mg, 1, tablet, By Mouth, Daily at bedtime, # 90 tablet, Refills 2, Tot. Refills 2, Maintenance, 09/03/21 11:12:00 EDT, Route to Pharmacy Electronically, [facility]/pharmacy #[id number], Partial fill upon patientrequest if the prescription is for a schedule II... Start Date: 09/03/21 Stop Date: 05/31/22 Status: Orderedbenzocaine 20% topical cream 1 application, Topically, 4 times a day, PRN for itching, clean affected area before application, # 28 Gm, 0 Refills, Acute 10/31/21 13:54:00 EDT, 09/25/21 13:53:00 EDT, Cream, [facility]/pharmacy #[id number], welsh instructions, 1 application Topically 4 times... Start Date: 09/25/21 Stop Date: 10/31/21 Status: Orderedcetirizine 10 mg oral tablet 1 tablet = 10 mg, By Mouth, Daily, # 30 tablet, 1 Refills, Maintenance, 08/17/21 13:33:00 EDT, Tablet, [facility]/pharmacy #[id number], Partial fill upon patient request if the prescription is for a schedule II opioid drug., 178, cm, 08/17/21 13:13:00 EDT, Height,... Start Date: 08/17/21 Status: OrderedFlonase 50 mcg/inh nasal spray 1 sprays, Nares, Both, Daily in AM, # 16 Gm, 5 Refills, Maintenance, 08/17/21 14:11:00 EDT, [place], [facility]/pharmacy #[id number], Partial fill upon patient request if the prescription is for a schedule II opioid drug., 1 sprays Nares, Both Daily in AM, 178, cm,... Start Date: 08/17/21 Status: Orderedfluconazole 150 mg oral tablet 1 tablet = 150 mg, By Mouth, Once, # 1 tablet, 0 Refills, Soft Stop, 09/25/21 13:42:00 EDT, Tablet, [facility]/pharmacy #[id number], welsh instructions, 178, cm, 09/03/21 10:33:00 EDT, Height, 117.8, kg, 08/13/2209:43:00 EDT, Dry Weight Start Date: 09/25/21 Status: OrderedHome blood pressure machine and cuff Home blood pressure machine and cuff, See Instructions, # 1 each, Refills 0, Tot. Refills 0, Maintenance, Home blood pressure machine and cuff ICD 10: R03.0, 08/30/19 13:12:00 EDT, Supply Start Date: 08/30/19 Status: OrderedhydroCHLOROthiazide 12.5 mg oral capsule 1 capsule = 12.5 mg, By Mouth, Daily, # 30 capsule, 2 Refills, Maintenance, 09/03/21 11:10:00 EDT, [facility]/pharmacy #[id number], Partial fill upon patient request if the prescription is for a schedule II opioid drug., 178, cm, 09/03/21 10:33:00 EDT, Height, 117... Start Date: 09/03/21 Status: Orderedibuprofen 600 mg oral tablet 600 mg, 1, tablet, By Mouth, 4 times a day, PRN, # 40 tablet, Refills 0, Tot. Refills 0, Maintenance, for pain, 07/31/21 13:23:00 EDT, Route to Pharmacy Electronically, [facility]/pharmacy #[id number], Partial fillupon patient request if the prescription is for a... Start Date: 07/31/21 Status: OrderedmetFORMIN 500 mg oral tablet See Instructions, HUMERA PALUMBOA TODOS LOS MCRAE, # 30 tablet, 3 Refills, [id number], 178, cm,09/03/21 10:33:00 EDT, Height, 117.8, kg, 08/13/21 10:43:00 EDT, Dry Weight Start Date: 09/15/21 Status: OrderedmetFORMIN 500 mg oral tablet 1 tablet = 500 mg, By Mouth, Daily, # 30 tablet, 11 Refills, Maintenance, 09/15/21 12:13:00 EDT, [facility]/pharmacy #[id number], Partial fill upon patient request if the prescription is for a schedule II opioid drug., 178, cm, 09/03/21 10:33:00 EDT, Height, 117.8... Start Date: 09/15/21 Stop Date: 09/10/22 Status: Orderednorethindrone 0.35 mg oral tablet 1 tablet = 0.35 mg, By Mouth, Daily, # 28 tablet, 11 Refills, Maintenance, 09/03/21 11:11:00 EDT, Tablet, [facility]/pharmacy #[id number], Partial fill upon patient request if the prescription is for a schedule II opioid drug., 178, cm, 09/03/21 10:33:00 EDT, [place]... Start Date: 09/03/21 Status: Orderedomeprazole 40 mg oral enteric coated capsule See Instructions, HUMERA ODILIA CAPSULA DOS VECES AL BRANDIE, # 60 capsule, 2 Refills, Maintenance, 03/31/21 12:25:00 EST, [facility]/pharmacy #[id number], 175, cm, 01/20/21 15:42:00 [...]
--- OUTSIDE RECORDS SUMMARY | 2022-02-10 14:57 | XMS_ITS | Continuity of Care Document ---
:1980 Author Organization [facility] Address [address] [place] [address]- Care Team Providers Name Role Phone Genesis Reyes NP Primary Care Physician Encounter [facility] [place] Date(s): 02/23/21 - 03/27/[address] [address]- Attending Physician: Not on Staff, Attending MD Allergies, Adverse Reactions, Alerts Substance Reaction Severity Status codeine1 Active lisinopril2 Active amLODIPine3 Active 1wheezes, [id number] reports itchy throat after taking amlodipine 01/15. [...] Refills, Maintenance, 01/20/21 16:11:00 EDT, Tablet, [id number], Partial fill upon patient request if the prescription is for a schedule II opioid drug., 175, cm, 01/20/21 15:42:00 EDT, Height Start Date: 01/20/21 Status: Orderedcyclobenzaprine 10 mg oral tablet 1, tablet, By Mouth, 3 times a day, PRN, # 30 tablet, Refills 1, NEEDED FOR SPASM, Route to Pharmacy Electronically, [id number], 175, cm, 08/26/20 13:36:00 EDT, Height Start [...] capsule, 5 Refills, Maintenance, 02/10/21 11:58:00 EST, [facility]/pharmacy #[id number], 175, cm, 01/20/21 15:42:00 EDT, Height [...] 28 tablet, 6 Refills, 12/26/20 10:00:00 EDT, [facility]/pharmacy #[id number], 28, TOME ODILIA TABLETA TODOS LOS MCRAE, 175, cm, 12/26/20 9:15:00 EDT, Height Start Date: 12/26/20 Status: Orderedomeprazole 40 mg oral enteric coated capsule See Instructions, HUMERA THOMPSON AL BRANDIE, # 60 capsule, 2 Refills, [id number], 175, cm, 01/01/21 9:02:00 EDT, Height Start [...]
--- OUTSIDE RECORDS SUMMARY | 2022-02-10 14:57 | XMS_ITS | Continuity of Care Document ---
:1980 Author Organization [facility] Address [address] [place] [address]- Care Team Providers Name Role Phone Uma Pedraza MD Primary Care Physician [place] [facility] [place] - 07/10/[address] [address] Attending Physician: Marv Springer MD Admitting Physician: Marv Spirnger MD Referring Physician: Marv Springer MD Allergies, Adverse Reactions, Alerts Substance Reaction Severity Status codeine1 Active 1wheezes, chest congestion at [facility] Immunizations Given and Recorded Vaccine [...] 07/01/20 14:41:00 EDT, Route to Pharmacy Electronically, [facility]/pharmacy #[id number], Partial fillupon patient request if the prescription is for a... Start Date: 07/01/20 Status: OrderedDiflucan 150 mg oral tablet 1 tablet = 150 mg, By Mouth, Once, # 1 tablet, 0 Refills, Soft Stop, 04/27/20 20:58:00 EST, Tablet, [facility]/pharmacy #[id number], Partial fill upon [...] on Active ultrasound(Confirmed) Impaired fasting glucose(Confirmed) Active Non-Telugu speaking Active patient(Confirmed) Hepatic cyst(Confirmed) Active Obesity(Confirmed) Active Pelvic pain(Confirmed) Active Social History Social History Type Response Smoking Status Never (less than 100 in life time) entered on: 08/18/18 Sex Female
--- OUTSIDE RECORDS SUMMARY | 2022-02-10 14:57 | XMS_ITS | Continuity of Care Document ---
:1980 Author Organization [facility] Address [address] [place] [address]- Care Team Providers Name Role Phone Milo WERNER, Uma Primary Care Physician Encounter [facility] Date(s): 10/17/20 - 11/16/[address] [address]- Allergies, Adverse Reactions, Alerts Substance Reaction Severity Status codeine1 Active 1wheezes, chest congestion at [facility] Immunizations Given and Recorded Vaccine Date [...] NEEDED FOR SPASM, Route to Pharmacy Electronically, [id number], 175, cm, 08/26/20 13:36:00 EDT, Height Start Date: 11/13/20 Status: OrderedDiflucan 150 mg oral tablet 1 tablet = 150 mg, By Mouth, Once, # 1 tablet, 0 Refills, Soft Stop, 04/27/20 20:58:00 EST, Tablet, [facility]/pharmacy #[id number], Partial fill upon patient request if the [...] 08/11/20 19:27:00 EDT, Route to Pharmacy Electronically, [facility]/pharmacy #[id number], Partial fill upon patient request ifthe [...] 28 tablet, 6 Refills, Maintenance, [facility], 28, TOME ODILIA TABLETA TODOS LOS MCRAE, [...] Essential hypertension(Confirmed) Active Impaired fasting glucose(Confirmed) Active Non-Senegalese speaking Active patient(Confirmed) Hepatic cyst(Confirmed) Active Obesity(Confirmed) Active Pelvic pain(Confirmed) Active Social History Social History Type Response Smoking Status Never (less than 100 in life time) entered on: 08/18/18 Sex Female
--- OUTSIDE RECORDS SUMMARY | 2022-02-10 14:57 | XMS_ITS | Continuity of Care Document ---
:1980 Author Organization [facility] Address [address] [place] [address]- Care Team Providers Name Role Phone Milo WERNER, Uma Primary Care Physician Encounter [facility] Date(s): 05/22/20 - 06/21/[address] [address]- Allergies, Adverse Reactions, Alerts Substance Reaction Severity Status codeine1 Active 1wheezes, chest congestion at [facility] Immunizations Given and Recorded Vaccine Date Status Refusal Reason tetanus/diphtheria/pertussis, acel(Tdap) 11/16/17 Given Not Given Vaccine Date Status Refusal Reason influenza virus vaccine, inactivated 02/12/20 Not Given Patient Refuses Medications Diflucan 150 mg oral tablet 1 tablet = 150 mg, By Mouth, Once, # 1 tablet, 0 Refills, Soft Stop, 04/27/20 20:58:00 EST, Tablet, [id number], Partial fill upon patient request if the [...] mg, By Mouth, Daily, # 30 capsule, 1 Refills, Maintenance, 02/12/20 11:12:00 EST, [facility]/pharmacy #[id number], Partial fill upon patient request, please fill higher 40mg dose, 175, cm, 02/12/20 10:09:00 EST, Height Start Date: 02/12/20 Stop Date: 04/12/20 Status: OrderedYaz 3 mg-0.02 mg oral tablet 1 tablet, By Mouth, Daily, # 28 tablet, 11 Refills, Maintenance, 10/11/19 19:30:00 EDT, Tablet, [facility]/pharmacy #[id number], 1 tablet By Mouth Daily,x28 days, 175, cm, 09/25/19 9:27:00 EDT, Height Start Date: 10/11/19 Stop Date: 09/11/20 Status: Ordered Problem List Condition Effective Dates Status Health Status Informant Chronic constipation(Confirmed) Active Sigmoid diverticulosis(Confirmed) Active Endometrial thickening on Active ultrasound(Confirmed) Impaired fasting glucose(Confirmed) Active Non-Georgian speaking Active patient(Confirmed) Hepatic cyst(Confirmed) Active Obesity(Confirmed) Active Pelvic pain(Confirmed) Active Social History Social History Type Response Smoking Status Never (less than 100 in life time) entered on: 08/18/18 Sex Female
--- OUTSIDE RECORDS SUMMARY | 2022-02-10 14:57 | XMS_ITS | Continuity of Care Document ---
:1980 Author Organization [facility] Address [address] [place] [address]- Care Team Providers Name Role Phone Eric GRAY, Genesis Primary Care Physician Encounter [facility] Date(s): 01/09/21 - 02/08/[address] [address]- Allergies, Adverse Reactions, Alerts Substance Reaction Severity Status codeine1 Active lisinopril2 Active amLODIPine3 Active [facility]ezes, [id number] reports itchy throat after taking amlodipine 01/15. [...] Refills, Maintenance, 01/20/21 16:11:00 EDT, Tablet, [id number], Partial fill upon patient request if the prescription is for a schedule II opioid drug., 175, cm, 01/20/21 15:42:00 EDT, Height Start Date: 01/20/21 Status: Orderedcyclobenzaprine 10 mg oral tablet 1, tablet, By Mouth, 3 times a day, PRN, # 30 tablet, Refills 1, NEEDED FOR SPASM, Route to Pharmacy Electronically, [id number], 175, cm, 08/26/20 13:36:00 EDT, Height Start Date: 11/13/20 Status: OrderedCymbalta 30 mg oral enteric coated capsule 1 capsule = 30 mg, By Mouth, Daily, do not crush or chew, # 30 capsule, 2 Refills, Maintenance, 11/17/20 14:33:00 EDT, CR Capsule, [facility]/pharmacy #[id number], Partial fill upon patient request if [...] oral tablet See Instructions, HUMERA HARTLEY TABLETA TODOS LOS MCRAE, # 28 tablet, 6 Refills, 12/26/20 10:00:00 EDT, [facility]/pharmacy #[id number], 28, TOME ODIILA TABLETA TODOS LOS MCRAE, 175, cm, 12/26/20 9:15:00 EDT, Height Start Date: 12/26/20 Status: Orderedomeprazole 40 mg oral enteric coated capsule See Instructions, HUMERA ROSENBERGA DOS GREGORIO AL BRANDIE, # 60 capsule, 2 Refills, [facility], 175, cm, 01/01/21 9:02:00 EDT, Height Start [...]
--- OUTSIDE RECORDS SUMMARY | 2022-02-10 14:57 | XMS_ITS | Continuity of Care Document ---
:1980 Author Organization [facility] Address [address] [place] [address]- Care Team Providers Name Role Phone Eric GRAY, Genesis Primary Care Physician Encounter [facility] [place] Date(s): 12/02/20 - 01/01/[address] [address]- Allergies, Adverse Reactions, Alerts Substance Reaction Severity Status codeine1 Active 1wheezes, chest congestion at [facility] Immunizations Given and Recorded Vaccine [...] Refills, Maintenance, 01/01/21 9:26:00 EDT, Tablet, [id number], Partial fill upon patient request if the prescription is for a schedule II opioid drug., 175, cm, 01/01/21 9:02:00 EDT, Height Start Date: 01/01/21 Stop Date: 07/30/21 Status: Orderedcyclobenzaprine 10 mg oral tablet 1, tablet, By Mouth, 3 times a day, PRN, # 30 tablet, Refills 1, NEEDED FOR SPASM, Route to Pharmacy Electronically, [facility], 175, cm, 08/26/20 13:36:00 EDT, Height Start Date: 11/13/20 Status: OrderedCymbalta 30 mg oral enteric coated capsule 1 capsule = 30 mg, By Mouth, Daily, do not crush or chew, # 30 capsule, 2 Refills, Maintenance, 11/17/20 14:33:00 EDT, CR Capsule, [facility]/pharmacy #[id number], Partial fill upon patient request [...] tablet, 6 Refills, 12/26/20 10:00:00 EDT, [facility]/pharmacy #[id number], 28, TOME ODILIA TABLETA TODOS [...] Essential hypertension(Confirmed) Active Impaired fasting glucose(Confirmed) Active Non-Khmer speaking Active patient(Confirmed) Hepatic cyst(Confirmed) Active Obesity(Confirmed) Active Pelvic pain(Confirmed) Active Social History Social History Type Response Smoking Status Never (less than 100 in life time) entered on: 08/18/18 Sex Female
--- OUTSIDE RECORDS SUMMARY | 2022-02-10 14:57 | XMS_ITS | Continuity of Care Document ---
:1980 Author Organization [facility] Address [address] [place] [address]- Care Team Providers Name Role Phone Milo WERNER, Uma Primary Care Physician Encounter [facility] Date(s): 09/30/20 - 10/30/[address] [address]- Allergies, Adverse Reactions, Alerts Substance Reaction Severity Status codeine1 Active 1wheezes, chest congestion at [facility] Immunizations Given and Recorded Vaccine Date [...] 07/01/20 14:41:00 EDT, Route to Pharmacy Electronically, [facility]/pharmacy #[id number], Partial fillupon patient request if the prescription is for a... Start Date: 07/01/20 Status: OrderedDiflucan 150 mg oral tablet 1 tablet = 150 mg, By Mouth, Once, # 1 tablet, 0 Refills, Soft Stop, 04/27/20 20:58:00 EST, Tablet, [facility]/pharmacy #[id number], Partial fill upon patient request if the [...] 08/11/20 19:27:00 EDT, Route to Pharmacy Electronically, [facility]/pharmacy #[id number], Partial fill upon patient request [...] MCRAE, # 28 tablet, 6 Refills, Maintenance, [facility], 28, TOME ODILIA TABLETA TODOS LOS MCRAE, [...] Essential hypertension(Confirmed) Active Impaired fasting glucose(Confirmed) Active Non-Croatian speaking Active patient(Confirmed) Hepatic cyst(Confirmed) Active Obesity(Confirmed) Active Pelvic pain(Confirmed) Active Social History Social History Type Response Smoking Status Never (less than 100 in life time) entered on: 08/18/18 Sex Female
--- OUTSIDE RECORDS SUMMARY | 2022-02-10 14:58 | XMS_ITS | Continuity of Care Document ---
:1980 Author Organization [facility] Address [address] [place] [address]- Care Team Providers Name Role Phone Eric GRAY, Genesis Primary Care Physician Encounter [facility] Date(s): 05/20/21 - 06/19/[address] [address]- Allergies, Adverse Reactions, Alerts Substance Reaction Severity Status codeine1 Active lisinopril2 Active amLODIPine3 Active 1wheezes, chest congestion at [address] reports itchy throat after taking amlodipine [...] Refills, Maintenance, 01/20/21 16:11:00 EDT, Tablet, [id number], Partial fill upon patient request if the prescription is for a schedule II opioid drug., 175, cm, 01/20/21 15:42:00 EDT, Height Start Date: 01/20/21 Status: Orderedcyclobenzaprine 10 mg oral tablet 1, tablet, By Mouth, 3 times a day, PRN, # 30 tablet, Refills 1, NEEDED FOR SPASM, Route to Pharmacy Electronically, [facility], 175, cm, 08/26/20 13:36:00 EDT, Height Start [...] capsule, 5 Refills, Maintenance, 02/10/21 11:58:00 EST, [facility]/pharmacy #[id number], 175, cm, 01/20/21 15:42:00 [...] Daily, # 30 tablet, 3 Refills, Maintenance, 05/28/21 17:49:00 EST, [facility]/pharmacy #[id number], Partial fill upon patient request if the prescription is for a schedule II opioid drug., 175, cm, 04/30/21 10:06:00 EST, Height Start Date: 05/28/21 Stop Date: 09/25/21 Status: OrderedMiraLax oral powder for reconstitution = [...] 28 tablet, 6 Refills, 12/26/20 10:00:00 EDT, [facility]/pharmacy #[id number], 28, TOME ODILIA TABLETA [...]
--- OUTSIDE RECORDS SUMMARY | 2022-02-10 14:58 | XMS_ITS | Continuity of Care Document ---
:1980 Author Organization [facility] Address [address] [place] [address]- Care Team Providers Name Role Phone Uma Pedraza MD Primary Care Physician Encounter [facility] Date(s): 12/14/19 - 01/13/[address] [address] [place] Allergies, Adverse Reactions, Alerts Substance Reaction Severity Status codeine1 Active 1wheezes, chest congestion at [facility] Immunizations Given and Recorded Vaccine Date Status [...] 02/16/19 15:51:49 EST, EC Capsule, Instructions in Bahamian Start Date: 02/16/19 Status: OrderedYaz 3 mg-0.02 [...] on Active ultrasound(Confirmed) Impaired fasting glucose(Confirmed) Active Non-Wallisian speaking Active patient(Confirmed) Hepatic cyst(Confirmed) Active Obesity(Confirmed) Active Pelvic pain(Confirmed) Active Social History Social History Type Response Smoking Status Never (less than 100 in life time) entered on: 08/18/18 Sex Female
--- OUTSIDE RECORDS SUMMARY | 2022-02-10 14:58 | XMS_ITS | Continuity of Care Document ---
:1980 Author Organization [facility] Address [address] [place] [address]- Care Team Providers Name Role Phone Milo WERNER, Uma Primary Care Physician [place] [facility] [place] - 12/21/[address] [address]- Allergies, Adverse Reactions, Alerts Substance Reaction Severity Status codeine1 Active 1wheezes, chest congestion at [facility] Immunizations Given and Recorded Vaccine [...] NEEDED FOR SPASM, Route to Pharmacy Electronically, [facility], 175, cm, 08/26/20 13:36:00 EDT, Height Start Date: 11/13/20 Status: OrderedCymbalta 30 mg oral enteric coated capsule 1 capsule = 30 mg, By Mouth, Daily, do not crush or chew, # 30 capsule, 2 Refills, Maintenance, 11/17/20 14:33:00 EDT, CR Capsule, [facility]/pharmacy #[id number], Partial fill upon patient request if the [...] 28 tablet, 6 Refills, Maintenance, [facility], 28, TOME ODILIA TABLETA TODOS LOS MCRAE, [...] Essential hypertension(Confirmed) Active Impaired fasting glucose(Confirmed) Active Non-Albanian speaking Active patient(Confirmed) Hepatic cyst(Confirmed) Active Obesity(Confirmed) Active Pelvic pain(Confirmed) Active Social History Social History Type Response Smoking Status Never (less than 100 in life time) entered on: 08/18/18 Sex Female
--- OUTSIDE RECORDS SUMMARY | 2022-02-10 14:58 | XMS_ITS | Continuity of Care Document ---
:1980 Author Organization [facility] Address [address] [place] [address]- Care Team Providers Name Role Phone Milo WERNER, Uma Primary Care Physician [place] [facility] [place]12[place] - 11/11/[address] [address] [facility] Attending Physician: Kvng Lindsay Admitting Physician: Kvng Lindsay Referring Physician: AdmtrKvng Allergies, Adverse Reactions, Alerts Substance Reaction Severity Status codeine1 Active 1wheezes, chest congestion at [facility] Immunizations Given and Recorded Vaccine Date [...] 02/16/19 15:51:49 EST, EC Capsule, Instructions in [place] Start Date: 02/16/19 Status: OrderedYaz 3 mg-0.02 mg oral tablet 1 tablet, By Mouth, Daily, # 28 tablet, 11 Refills, Maintenance, 10/11/19 19:30:00 EDT, Tablet, [facility]/pharmacy #[id number], 1 tablet By Mouth Daily,x28 days, 175, cm, 09/25/19 9:27:00 EDT, Height Start Date: 10/11/19 Stop Date: 09/11/20 Status: Ordered Problem List Condition Effective Dates Status Health Status Informant Chronic constipation(Confirmed) Active Sigmoid diverticulosis(Confirmed) Active Endometrial thickening on Active ultrasound(Confirmed) Impaired fasting glucose(Confirmed) Active Non-Turkmen speaking Active patient(Confirmed) Hepatic cyst(Confirmed) Active Obesity(Confirmed) Active Pelvic pain(Confirmed) Active Social History Social History Type Response Smoking Status Never (less than 100 in life time) entered on: 08/18/18 Sex Female
--- OUTSIDE RECORDS SUMMARY | 2022-02-10 14:58 | XMS_ITS | Continuity of Care Document ---
:1980 Author Organization [facility] Address [address] [place] [address]- Care Team Providers Name Role Phone Eric GRAY, Genesis Primary Care Physician [place] [facility] [place] - 01/04/[address] [address]- Attending Physician: Genesis Reyes NP Admitting Physician: Genesis Reyes NP Allergies, Adverse Reactions, Alerts Substance Reaction Severity Status codeine1 Active 1wheezes, chest congestion at [facility] Immunizations Given and Recorded Vaccine Date [...] Refills, Maintenance, 01/01/21 9:26:00 EDT, Tablet, [id number], Partial fill upon patient request if the prescription is for a schedule II opioid drug., 175, cm, 01/01/21 9:02:00 EDT, Height Start Date: 01/01/21 Stop Date: 07/30/21 Status: Orderedcyclobenzaprine 10 mg oral tablet 1, tablet, By Mouth, 3 times a day, PRN, # 30 tablet, Refills 1, NEEDED FOR SPASM, Route to Pharmacy Electronically, [id number], 175, cm, 08/26/20 13:36:00 EDT, Height Start Date: 11/13/20 Status: OrderedCymbalta 30 mg oral enteric coated capsule 1 capsule = 30 mg, By Mouth, Daily, do not crush or chew, # 30 capsule, 2 Refills, Maintenance, 11/17/20 14:33:00 EDT, CR Capsule, [facility]/pharmacy #[id number], Partial fill upon patient [...] capsule, 2 Refills, Maintenance, 10/01/20 15:07:00 EDT, [facility]/pharmacy #[id number], Partial fill upon patient request, please fill higher 40mg dose, 175, cm, 08/26/20 13:36:00 EDT, Height Start Date: 10/01/20 Stop Date: 12/30/20 Status: Ordered Problem List Condition Effective Dates Status Health Status Informant Chronic constipation(Confirmed) Active Sigmoid diverticulosis(Confirmed) Active Endometrial thickening on Active ultrasound(Confirmed) Essential hypertension(Confirmed) Active Impaired fasting glucose(Confirmed) Active Non-Turkmen speaking Active patient(Confirmed) Hepatic cyst(Confirmed) Active Obesity(Confirmed) Active Pelvic pain(Confirmed) Active Social History Social History Type Response Smoking Status Never (less than 100 in life time) entered on: 08/18/18 Sex Female
--- OUTSIDE RECORDS SUMMARY | 2022-02-10 14:58 | XMS_ITS | Continuity of Care Document ---
:1980 [address] [facility] Address [address] [place] [address]- Care Team Providers Name Role Phone Milo WERNER, Uma Primary Care Physician Encounter [facility] [place] Date(s): 08/27/20 - 09/26/[address] [address]- Allergies, Adverse Reactions, Alerts Substance Reaction Severity Status codeine1 Active 1wheezes, chest congestion at [facility] Immunizations Given and Recorded Vaccine Date [...] 07/01/20 14:41:00 EDT, Route to Pharmacy Electronically, [facility]/pharmacy #[id number], Partial fillupon patient request if the prescription is for a... Start Date: 07/01/20 Status: OrderedDiflucan 150 mg oral tablet 1 tablet = 150 mg, By Mouth, Once, # 1 tablet, 0 Refills, Soft Stop, 04/27/20 20:58:00 EST, Tablet, [facility]/pharmacy #[id number], Partial fill upon [...] 08/11/20 19:27:00 EDT, Route to Pharmacy Electronically, [facility]/pharmacy #[id number], Partial fill upon [...] capsule, 2 Refills, Maintenance, 07/01/20 11:55:00 EDT, [facility]/pharmacy #[id number], Partial fill upon patient request, please fill [...] Essential hypertension(Confirmed) Active Impaired fasting glucose(Confirmed) Active Non-Kazakh speaking Active patient(Confirmed) Hepatic cyst(Confirmed) Active Obesity(Confirmed) Active Pelvic pain(Confirmed) Active Social History Social History Type Response Smoking Status Never (less than 100 in life time) entered on: 08/18/18 Sex Female
--- OUTSIDE RECORDS SUMMARY | 2022-02-10 14:58 | XMS_ITS | Continuity of Care Document ---
:1980 Author Organization [facility] Address [address] [place] [address]- Care Team Providers Name Role Phone Eric GRAY, Gneesis Primary Care Physician [place] [facility] [place] 08/[place]/[address] [address]- Attending Physician: Genesis Reyes NP Admitting Physician: Genesis Reyes NP Allergies, Adverse Reactions, Alerts Substance Reaction Severity Status codeine1 Active lisinopril2 Active amLODIPine3 Active [facility]ezes, [id number] itchy throat after taking amlodipine 01/15. [...] 1 Refills, Maintenance, 08/17/21 13:33:00 EDT, Tablet, [id number], Partial fill upon patient request if the prescription is for a schedule II opioid drug., 178, cm, 08/17/21 13:13:00 EDT, Height,... Start Date: 08/17/21 Status: Orderedduloxetine 30 mg oral enteric coated capsule See Instructions, TOME 1 CAPSULA POR VIA ORAL TODOS LOS MCRAE DO NOT CRUSH OR CHEW, # 30 capsule, 5 Refills, Maintenance, 02/10/21 11:58:00 EST, [facility]/pharmacy #[id number], 175, cm, 01/20/21 15:42:00 EDT, Height Start Date: 02/10/21 Status: OrderedFlonase 50 mcg/inh nasal spray 1 sprays, Nares, Both, Daily in AM, # 16 Gm, 5 Refills, Maintenance, 08/17/21 14:11:00 EDT, [place], [facility]/pharmacy #[id number], Partial fill upon patient request if the prescription is for a schedule II opioid drug., 1 sprays Nares, Both Daily in AM, 178, cm,... Start Date: 08/17/21 Status: OrderedHome blood pressure machine and cuff Home blood pressure machine and cuff, See Instructions, # 1 each, Refills 0, Tot. Refills 0, Maintenance, Home blood pressure machine and cuff ICD 10: R03.0, 08/30/19 13:12:00 EDT, Supply Start Date: 08/30/19 Status: Orderedibuprofen 600 mg oral tablet 600 mg, 1, tablet, By Mouth, 4 times a day, PRN, # 40 tablet, Refills 0, Tot. Refills 0, Maintenance, for pain, 07/31/21 13:23:00 EDT, Route to Pharmacy Electronically, [facility]/pharmacy #[id number], Partial fillupon patient request if the prescription is for a... Start Date: 07/31/21 Status: OrderedmetFORMIN 500 mg oral tablet 1 tablet = 500 mg, By Mouth, Daily, for 30 days, # 30 tablet, 3 Refills, Hard Stop 09/25/21 17:49:00EDT, 05/28/21 17:49:00 EST, [facility]/pharmacy #[id number], Partial fill upon patient request if the prescription is for a schedule II opioid drug., 175, cm, 0... Start Date: 05/28/21 Stop Date: 09/25/21 Status: OrderedmetFORMIN 500 mg oral tablet 1 tablet = 500 mg, By Mouth, Daily, # 30 tablet, 3 Refills, Maintenance, 09/25/21 17:49:00 EDT, [facility]/pharmacy #[id number], Partial fill upon patient request if the prescription is for a schedule II opioid drug., 175, cm, 04/30/21 10:06:00 EST, Height Start Date: 09/25/21 Stop Date: 01/23/22 Status: OrderedNikki 3 mg-0.02 mg oral tablet See Instructions, TOME ODILIA TABLETA TODOS LOS MCRAE, # 28 tablet, 6 Refills, 12/26/20 10:00:00 EDT, [facility]/pharmacy #[id number], 28, TOME ODILIA TABLETA TODOS LOS MCRAE, 175, cm, 12/26/20 9:15:00 EDT, Height Start Date: 12/26/20 Status: Orderedomeprazole 40 mg oral enteric coated capsule See Instructions, TOME ODILIA CAPSULA DOS VECES AL BRANDIE, # 60 capsule, 2 Refills, Maintenance, 03/31/21 12:25:00 EST, [facility]/pharmacy #[id number], 175, cm, 01/20/21 15:42:00 EDT, Height [...]
--- OUTSIDE RECORDS SUMMARY | 2022-02-10 14:58 | XMS_ITS | Continuity of Care Document ---
:1980 Author Organization [facility] Address [address] [place] [address]- Care Team Providers Name Role Phone Milo WERNER, Uma Primary Care Physician Encounter [facility] Date(s): 05/21/20 - 06/20/[address] [address]- Allergies, Adverse Reactions, Alerts Substance Reaction Severity Status codeine1 Active 1wheezes, chest congestion at [facility] Immunizations Given and Recorded Vaccine Date Status Refusal Reason tetanus/diphtheria/pertussis, acel(Tdap) 11/16/17 Given Not Given Vaccine Date Status Refusal Reason influenza virus vaccine, inactivated 02/12/20 Not Given Patient Refuses Medications Diflucan 150 mg oral tablet 1 tablet = 150 mg, By Mouth, Once, # 1 tablet, 0 Refills, Soft Stop, 04/27/20 20:58:00 EST, Tablet, [id number], Partial fill upon patient request if the [...] capsule, 1 Refills, Maintenance, 02/12/20 11:12:00 EST, [facility]/pharmacy #[id number], Partial fill upon patient request, please fill higher 40mg dose, 175, cm, 02/12/20 10:09:00 EST, Height Start Date: 02/12/20 Stop Date: 04/12/20 Status: OrderedYaz 3 mg-0.02 mg oral tablet 1 tablet, By Mouth, Daily, # 28 tablet, 11 Refills, Maintenance, 10/11/19 19:30:00 EDT, Tablet, [facility]/pharmacy #[id number], 1 tablet By Mouth Daily,x28 days, 175, cm, 09/25/19 9:27:00 EDT, Height Start Date: 10/11/19 Stop Date: 09/11/20 Status: Ordered Problem List Condition Effective Dates Status Health Status Informant Chronic constipation(Confirmed) Active Sigmoid diverticulosis(Confirmed) Active Endometrial thickening on Active ultrasound(Confirmed) Impaired fasting glucose(Confirmed) Active Non-Frisian speaking Active patient(Confirmed) Hepatic cyst(Confirmed) Active Obesity(Confirmed) Active Pelvic pain(Confirmed) Active Social History Social History Type Response Smoking Status Never (less than 100 in life time) entered on: 08/18/18 Sex Female
--- OUTSIDE RECORDS SUMMARY | 2022-02-10 14:58 | XMS_ITS | Continuity of Care Document ---
:1980 Author Organization [facility] [employer] [facility] Address [address] [place] [address]- Care Team Providers Name Role Phone Eric GRAY, Genesis Primary Care Physician Encounter [facility] [place] Date(s): 01/06/21 - 02/05/21 [facility] [employer] [address] [address]- Allergies, Adverse Reactions, Alerts Substance Reaction Severity Status codeine1 Active lisinopril2 Active amLODIPine3 Active 1wheezes, [id number] itchy throat after taking amlodipine 01/15. [...] Refills, Maintenance, 01/20/21 16:11:00 EDT, Tablet, [id number], Partial fill upon patient request if the prescription is for a schedule II opioid drug., 175, cm, 01/20/21 15:42:00 EDT, Height Start Date: 01/20/21 Status: Orderedcyclobenzaprine 10 mg oral tablet 1, tablet, By Mouth, 3 times a day, PRN, # 30 tablet, Refills 1, NEEDED FOR SPASM, Route to Pharmacy Electronically, [id number], 175, cm, 08/26/20 13:36:00 EDT, Height Start Date: 11/13/20 Status: OrderedCymbalta 30 mg oral enteric coated capsule 1 capsule = 30 mg, By Mouth, Daily, do not crush or chew, # 30 capsule, 2 Refills, Maintenance, 11/17/20 14:33:00 EDT, CR Capsule, [facility]/pharmacy #[id number], Partial fill upon patient request [...] tablet, 6 Refills, 12/26/20 10:00:00 EDT, [facility]/pharmacy #[id number], 28, TOME ODILIA TABLETA TODOS LOS MCRAE, 175, cm, 12/26/20 9:15:00 EDT, Height Start Date: 12/26/20 Status: Orderedomeprazole 40 mg oral enteric coated capsule See Instructions, HUMERA THOMPSON AL BRANDIE, # 60 capsule, 2 Refills, [id number], 175, cm, 01/01/21 9:02:00 EDT, Height Start [...]
--- OUTSIDE RECORDS SUMMARY | 2022-02-10 14:58 | XMS_ITS | Continuity of Care Document ---
:1980 Author Organization [facility] Address [address] [place] [id number]- Care Team Providers Name Role Phone Eric GRAY, Genesis Primary Care Physician Encounter [facility] [place] Date(s): 10/20/21 - 10/27/21 [facility] [employer] [address] [address]- Attending Physician: Miranda Beatty MD Referring Physician: Genesis Reyes NP Allergies, Adverse Reactions, Alerts Substance Reaction Severity Status codeine1 Active lisinopril2 Active amLODIPine3 Active [facility]ezes, [id number] reports itchy throat after taking amlodipine 01/15. [...] 10/21/21 16:56:00 EDT, Route to [facility], [id number], Partial fill upon patient re... Start [...] 10/31/21 13:54:00 EDT, 09/25/21 13:53:00 EDT, [place], [id number], malian instructions, 1 application Topically 4 times... Start [...] Gm, 5 Refills, Maintenance, 08/17/21 14:11:00 EDT, [place], [facility]/pharmacy #[id number], Partial fill upon patient request if the prescription is for a schedule II opioid drug., 1 sprays Nares, Both Daily in AM, 178, cm,... Start Date: 08/17/21 Status: Orderedfluconazole 150 mg oral tablet 1 tablet = 150 mg, By Mouth, Once, # 1 tablet, 0 Refills, Soft Stop, 09/25/21 13:42:00 EDT, Tablet, [facility]/pharmacy #[id number], malian instructions, 178, cm, 09/03/21 10:33:00 EDT, Height, 117.8, kg, 08/13/2209:43:00 EDT, Dry Weight Start Date: 09/25/21 Status: OrderedFLUoxetine 20 mg oral tablet 1 tablet = 20 mg, By Mouth, Daily, Spearfish bentley media tableta para bentley semana. Despues de bentley semana, tome bentley tableta completa., # 30 tablet, 2 Refills, Maintenance, 10/15/21 11:30:00 EDT, [facility]/pharmacy #[id number], Partial fill upon patient [...] capsule, 2 Refills, Maintenance, 09/03/21 11:10:00 EDT, [facility]/pharmacy #[id number], Partial fill upon patient request if the prescription is for a schedule II opioid drug., 178, cm, 09/03/21 10:33:00 EDT, Height, 117... Start Date: 09/03/21 Status: OrderedhydrOXYzine hydrochloride 50 mg oral tablet See Instructions, Spearfish bentley tableta antes de dormir y fang sea necesaria cada 6 horas para anxiedad luana al brandie., # 40 tablet, 0 Refills, Maintenance, 10/15/21 11:31:00 EDT, [facility]/pharmacy #[id number], Partial fill upon patient request if the prescription i... Start Date: 10/15/21 Status: Orderedibuprofen 600 mg oral tablet 600 mg, 1, tablet, By Mouth, Every 6 hours, PRN, not to exceed 3200 mg/day, # 30 tablet, Refills 0, Tot. Refills 0, Maintenance, Pain , Moderate, 10/21/21 16:57:00 EDT, Route to Pharmacy Electronically, [facility]/pharmacy #[id number], Partial fill upon patient re... Start Date: 10/21/21 Status: Orderedibuprofen 800 mg oral tablet 800 mg, 1, tablet, By Mouth, Every 8 hours, # 30 tablet, Refills 0, Tot. Refills 0, Acute 11/06/21 16:00:00 EDT, 10/26/21 16:02:00 EDT, Route to Pharmacy Electronically, [facility]/pharmacy #[id number], Partial fill upon patient request if the prescription is for... Start Date: 10/26/21 Stop Date: 11/06/21 Status: OrderedMapap Arthritis Pain 650 mg oral tablet, extended release 1 tablet = 650 mg, By Mouth, Every 8 hours, PRN Pain , Mild, # 50 tablet, 0 Refills, Acute 11/10/21 16:00:00 EDT, 10/26/21 16:00:00 EDT, ER Tablet, [facility]/pharmacy #[id number], Partial fill upon patient requestif the prescription is for a schedule II opioid d... Start Date: 10/26/21 Stop Date: 11/10/21 Status: OrderedmetFORMIN 500 mg oral tablet See Instructions, HUMERA PALUMBOA TODOS LOS MCRAE, # 30 tablet, 3 Refills, [id number], 178, cm,09/03/21 10:33:00 EDT, Height, 117.8, kg, 08/13/21 10:43:00 EDT, Dry Weight Start Date: 09/15/21 Status: OrderedmetFORMIN 500 mg oral tablet 1 tablet = 500 mg, By Mouth, Daily, # 30 tablet, 11 Refills, Maintenance, 09/15/21 12:13:00 EDT, [facility]/pharmacy #[id number], Partial fill upon patient request if the prescription is for a schedule II opioid drug., 178, cm, 09/03/21 10:33:00 EDT, Height, 117.8... Start Date: 09/15/21 Stop Date: 09/10/22 Status: Orderednorethindrone 0.35 mg oral tablet 1 tablet = 0.35 mg, By Mouth, Daily, # 28 tablet, 11 Refills, Maintenance, 09/03/21 11:11:00 EDT, Tablet, [facility]/pharmacy #[id number], Partial fill upon patient request if the prescription is for a schedule II opioid drug., 178, cm, 09/03/21 10:33:00 EDT, [place]... Start Date: 09/03/21 Status: Orderedomeprazole 40 mg oral enteric coated capsule See Instructions, HUMERA THOMPSON AL BRANDIE, # 60 capsule, 2 Refills, Maintenance, 03/31/21 12:25:00 EST, [facility]/pharmacy #[id number], 175, cm, 01/20/21 15:42:00 EDT, [...] an EMB, which was negative for hyperplasia. Vital Signs Most recent to oldest [Reference Range]: 1 Height 178 cm (10/20/21 2:00 PM) Weight 118.5 kg (10/20/21 2:00 PM) Pulse Rate [55-90 bpm] 94 bpm *H* (10/20/21 2:00 PM) Body Mass Index [18.5-24.99] 37.4 *>HHI* (10/20/21 2:00 PM) Blood Pressure [90-138/55-84 mm Hg] 133/83 mm Hg (10/20/21 2:00 PM) Blood pressure sites Arm, right (10/20/21 2:00 PM) Dry Weight 118.5 kg (10/20/21 2:00 PM) Weight Obtained Via Standing scale (10/20/21 2:00 PM) Dry Weight Obtained Via Standing scale (10/20/21 2:00 PM) Social History Social History Type Response Smoking Status Never (less than 100 in life time) entered on: 08/18/18 Sex Female
--- OUTSIDE RECORDS SUMMARY | 2022-02-10 14:58 | XMS_ITS | Continuity of Care Document ---
:1980 Author Organization [facility] Address [address] [place] [address]- Care Team Providers Name Role Phone Uma Pedraza MD Primary Care Physician Encounter [facility] [place] [place] Date(s): 01/02/20 - 02/01/[address] [address]- Allergies, Adverse Reactions, Alerts Substance Reaction Severity Status codeine1 Active 1wheezes, chest congestion at [facility] Immunizations Given and Recorded Vaccine [...] 02/16/19 15:51:49 EST, EC Capsule, Instructions in Eritrean Start Date: 02/16/19 Status: OrderedYaz 3 mg-0.02 [...] on Active ultrasound(Confirmed) Impaired fasting glucose(Confirmed) Active Non-Kuwaiti speaking Active patient(Confirmed) Hepatic cyst(Confirmed) Active Obesity(Confirmed) Active Pelvic pain(Confirmed) Active Social History Social History Type Response Smoking Status Never (less than 100 in life time) entered on: 08/18/18 Sex Female
--- OUTSIDE RECORDS SUMMARY | 2022-02-10 14:58 | XMS_ITS | Continuity of Care Document ---
:1980 Author Organization [facility] Address [address] [place] [address]- Care Team Providers Name Role Phone Eric GRAY, Genesis Primary Care Physician Encounter [facility] Date(s): 01/06/22 - 02/05/[address] [address]- Allergies, Adverse Reactions, Alerts Substance Reaction Severity Status codeine1 Active lisinopril2 Active amLODIPine3 Active 1wheezes, chest congestion at [address] reports itchy throat after taking amlodipine [...] 09/03/21 11:12:00 EDT, Route to Pharmacy Electronically, [facility]/pharmacy #[id number], Partial fill upon patientrequest if the prescription is for a schedule II... Start Date: 09/03/21 Stop Date: 05/31/22 Status: OrderedColace sodium 100 mg oral capsule 100 mg, 1, capsule, By Mouth, 2 times a day, PRN, # 60 capsule, Refills 3, Tot. Refills 3, Maintenance, for constipation, 01/13/22 11:55:00 EDT, [facility], [id number], Partial fill upon patient request if the prescriptio... Start Date: 01/13/22 Stop Date: 05/13/22 Status: Orderedferrous sulfate 325 mg oral enteric coated tablet 325 mg, 1, tablet, By Mouth, Daily, # 30 tablet, Refills 2, Tot. Refills 2, Maintenance, 01/13/22 11:56:00 EDT, Route to Pharmacy Electronically, [facility]/pharmacy #[id number], Partial fill upon patient request if the prescription is for a schedule II opioid nahun... Start Date: 01/13/22 Status: OrderedFLUoxetine 20 mg oral tablet 1 tablet = 20 mg, By Mouth, Daily, Welcome bentley media tableta para bentley semana. Despues [...] 08/30/19 Status: OrderedhydroCHLOROthiazide 12.5 mg oral capsule See Instructions, TOME BENTLEY CAPSULA TODOS LOS MCRAE, # 30 capsule, 2 Refills, Maintenance, 01/23/22 22:20:00 EDT, [id number], 178, cm, 12/08/21 13:45:00 EDT, Height, 118.5, kg, 10/20/21 14:00:00 EDT, Dry Weight Start Date: 01/23/22 Status: OrderedhydrOXYzine hydrochloride 50 mg oral tablet See Instructions, Welcome bentley tableta antes de dormir y fang sea necesaria cada 6 horas para anxiedad luana al brandie., # 40 tablet, 0 Refills, Maintenance, 10/15/21 11:31:00 EDT, [facility]/pharmacy #[id number], Partial fill upon patient request if the prescription i... Start Date: 10/15/21 Status: Orderednorethindrone 0.35 mg oral tablet 1 tablet = 0.35 mg, By Mouth, Daily, # 28 tablet, 11 Refills, Maintenance, 01/13/22 11:50:00 EDT, Tablet, [facility]/pharmacy #[id number], Partial fill upon patient request if the prescription is for a schedule II opioid drug., 178, cm, 12/08/21 13:45:00 EDT, Heig... Start Date: 01/13/22 Status: Orderedomeprazole 40 mg oral enteric coated capsule See Instructions, TOME BENTLEY CAPSULA DOS VECES AL BRANDIE, # 60 capsule, 2 Refills, Maintenance, 01/27/22 15:33:00 EDT, [id number], 178, cm, 12/08/21 13:45:00 EDT, Height, 118.5, kg, 10/20/21 14:00:00 EDT, Dry Weight Start Date: 01/27/22 Status: Ordered Problem List Condition Confirmation Course Effective Dates Status Health I nformant Status Chronic constipation Confirmed Active Sigmoid Confirmed Active diverticulosis Endometrial Confirmed Active thickening on ultrasound1 Essential Confirmed Active hypertension Elevated hemoglobin Confirmed Active A1c - 6.6 05/19 Hepatic cyst Confirmed Active Microcytic anemia Confirmed Active Obese class II Confirmed Active Sebaceous cyst of Confirmed Active left axilla 1In 2017, patient underwent a pelvic ultrasound that showed thickened endometrial stripe. She then underwent an EMB, which was negative for hyperplasia. Social History Social History Type Response Smoking Status Never (less than 100 in life time) entered on: 08/18/18 Sex Female Patient Care team information Care Team PersonnelName: Genesis Reyes NP Position: [facility] PCO Associate Professional Member Role: PCP Address: Address: [address] [place] [address]- Care Team Related PersonsName: AMY LEON Name: SANDRA ESTRELLA
--- OUTSIDE RECORDS SUMMARY | 2022-02-10 14:58 | XMS_ITS | Continuity of Care Document ---
:1980 Author Organization [facility] Address [address] [place] [address]- Care Team Providers Name Role Phone Eirc GRAY, Genesis Primary Care Physician [facility] Date(s): 08/14/21 - 09/13/[address] [address]- Allergies, Adverse Reactions, Alerts Substance Reaction Severity Status codeine1 Active lisinopril2 Active amLODIPine3 Active 1wheezes, chest congestion at [address]Pt reports itchy throat after taking amlodipine [...] 09/03/21 11:12:00 EDT, Route to Pharmacy Electronically, [facility]/pharmacy #[id number], Partial fill upon patientrequest if the prescription is for a schedule II... Start Date: 09/03/21 Stop Date: 05/31/22 Status: Orderedcetirizine 10 mg oral tablet 1 tablet = 10 mg, By Mouth, Daily, # 30 tablet, 1 Refills, Maintenance, 08/17/21 13:33:00 EDT, Tablet, [facility]/pharmacy #[id number], Partial fill upon patient request if the prescription is for a schedule II opioid drug., 178, cm, 08/17/21 13:13:00 EDT, Height,... Start Date: 08/17/21 Status: OrderedFlonase 50 mcg/inh nasal spray 1 sprays, Nares, Both, Daily in AM, # 16 Gm, 5 Refills, Maintenance, 08/17/21 14:11:00 EDT, [place], [facility]/pharmacy #[id number], Partial fill upon patient request [...] 07/31/21 13:23:00 EDT, [id number] Partial fillupon patient request if the prescription is for a... Start Date: 07/31/21 Status: OrderedmetFORMIN 500 mg oral tablet 1 tablet = 500 mg, By Mouth, Daily, for 30 days, # 30 tablet, 3 Refills, Hard Stop 09/25/21 17:49:00EDT, 05/28/21 17:49:00 EST, [id number] Partial fill upon patient request if the prescription is for a schedule II opioid drug., 175, cm, ... Start Date: 05/28/21 Stop Date: 09/25/21 Status: Orderednorethindrone 0.35 mg oral tablet 1 tablet = 0.35 mg, By Mouth, Daily, # 28 tablet, 11 Refills, Maintenance, 09/03/21 11:11:00 EDT, Tablet, [facility]/pharmacy #[id number], Partial fill upon patient request if the prescription is for a schedule II opioid drug., 178, cm, 09/03/21 10:33:00 EDT, [place]... Start Date: 09/03/21 Status: Orderedomeprazole 40 mg oral enteric coated capsule See Instructions, HUMERA ROSENBERGA DOS VECES AL BRANDIE, # 60 capsule, 2 Refills, Maintenance, 03/31/21 12:25:00 EST, [facility]/pharmacy #[id number], 175, cm, 01/20/21 15:42:00 EDT, [...]
--- OUTSIDE RECORDS SUMMARY | 2022-02-10 14:58 | XMS_ITS | Continuity of Care Document ---
:1980 Author Organization [facility] Address [address] [place] [address]- Care Team Providers Name Role Phone Eric GRAY, Genesis Primary Care Physician Encounter [facility] Date(s): 05/20/21 - 06/19/[address] [address]- Allergies, Adverse Reactions, Alerts Substance Reaction Severity Status codeine1 Active lisinopril2 Active amLODIPine3 Active 1wheezes, chest congestion at [address]3Pt reports itchy throat after taking amlodipine [...] Refills, Maintenance, 01/20/21 16:11:00 EDT, Tablet, [id number], Partial fill upon patient request if the prescription is for a schedule II opioid drug., 175, cm, 01/20/21 15:42:00 EDT, Height Start Date: 01/20/21 Status: Orderedcyclobenzaprine 10 mg oral tablet 1, tablet, By Mouth, 3 times a day, PRN, # 30 tablet, Refills 1, NEEDED FOR SPASM, Route to Pharmacy Electronically, [id number], 175, cm, 08/26/20 13:36:00 EDT, Height Start [...] capsule, 5 Refills, Maintenance, 02/10/21 11:58:00 EST, [facility]/pharmacy #[id number], 175, cm, 01/20/21 15:42:00 [...] tablet, 3 Refills, Maintenance, 05/28/21 17:49:00 EST, [facility]/pharmacy #[id number], Partial fill upon patient [...] 28 tablet, 6 Refills, 12/26/20 10:00:00 EDT, [facility]/pharmacy #[id number], 28, TOME ODILIA TABLETA TODOS [...]
--- OUTSIDE RECORDS SUMMARY | 2022-02-10 14:58 | XMS_ITS | Continuity of Care Document ---
:1980 Author Organization [facility] Address [address] [place] [address]- Care Team Providers Name Role Phone Eric GRAY, Genesis Primary Care Physician Encounter [facility] Date(s): 09/24/21 - 10/24/[address] [address]- Allergies, Adverse Reactions, Alerts Substance Reaction Severity Status codeine1 Active lisinopril2 Active amLODIPine3 Active 1wheezes, chest congestion at [address]3Pt reports itchy throat after taking amlodipine [...] 0 Refills, Maintenance, 07/31/21 13:24:00 EDT, Solution, [facility]/pharmacy #[id number], Partial fill upon patient requestif the prescription is for a schedule II opioid d... Start Date: 07/31/21 Status: Orderedbaclofen 10 mg oral tablet 10 mg, 1, tablet, By Mouth, Daily at bedtime, # 90 tablet, Refills 2, Tot. Refills 2, Maintenance, 09/03/21 11:12:00 EDT, Route to Pharmacy Electronically, [facility]/pharmacy #[id number], Partial fill upon patientrequest if the prescription is for a schedule II... Start Date: 09/03/21 Stop Date: 05/31/22 Status: Orderedbenzocaine 20% topical cream 1 application, Topically, 4 times a day, PRN for itching, clean affected area before application, # 28 Gm, 0 Refills, Acute 10/31/21 13:54:00 EDT, 09/25/21 13:53:00 EDT, Cream, [id number], [place] of [place] instructions, 1 application Topically 4 times... Start Date: 09/25/21 Stop Date: 10/31/21 Status: Orderedcetirizine 10 mg oral tablet 1 tablet = 10 mg, By Mouth, Daily, # 30 tablet, 1 Refills, Maintenance, 08/17/21 13:33:00 EDT, Tablet, [facility]/pharmacy #[id number], Partial fill upon patient request if the prescription is for a schedule II opioid drug., 178, cm, 08/17/21 13:13:00 EDT, Height,... Start Date: 08/17/21 Status: OrderedFlonase 50 mcg/inh nasal spray 1 sprays, Nares, Both, Daily in AM, # 16 Gm, 5 Refills, Maintenance, 08/17/21 14:11:00 EDT, [place], [id number], Partial fill upon patient request if the prescription is for a schedule II opioid drug., 1 sprays Nares, Both Daily in AM, 178, cm,... Start Date: 08/17/21 Status: Orderedfluconazole 150 mg oral tablet 1 tablet = 150 mg, By Mouth, Once, # 1 tablet, 0 Refills, Soft Stop, 09/25/21 13:42:00 EDT, Tablet, [facility]/pharmacy #[id number], [place] instructions, 178, cm, 09/03/21 10:33:00 EDT, Height, 117.8, kg, 08/13/2209:43:00 EDT, Dry Weight Start Date: 09/25/21 Status: OrderedFLUoxetine 20 mg oral tablet 1 tablet = 20 mg, By Mouth, Daily, Lavon bentley media tableta para bentley semana. Despues de bentley semana, tome bentley tableta completa., # 30 tablet, 2 Refills, Maintenance, 10/15/21 11:30:00 EDT, [facility]/pharmacy #[id number], Partial fill upon patient [...] capsule, 2 Refills, Maintenance, 09/03/21 11:10:00 EDT, [facility]/pharmacy #[id number], Partial fill upon patient request if the prescription is for a schedule II opioid drug., 178, cm, 09/03/21 10:33:00 EDT, Height, 117... Start Date: 09/03/21 Status: OrderedhydrOXYzine hydrochloride 50 mg oral tablet See Instructions, Lavon bentley tableta antes de dormir y fang sea necesaria cada 6 horas para anxiedad luana al brandie., # 40 tablet, 0 Refills, Maintenance, 10/15/21 11:31:00 EDT, [id number], Partial fill upon patient request if the prescription i... Start Date: 10/15/21 Status: Orderedibuprofen 600 mg oral tablet 600 mg, 1, tablet, By Mouth, Every 6 hours, PRN, not to exceed 3200 mg/day, # 30 tablet, Refills 0, Tot. Refills 0, Maintenance, Pain , Moderate, 10/21/21 16:57:00 EDT, Route to Pharmacy Electronically, [facility]/pharmacy #[id number], Partial fill upon patient re... Start Date: 10/21/21 Status: OrderedmetFORMIN 500 mg oral tablet See Instructions, HUMERA HARTLEY TABLETA TODOS LOS MCRAE, # 30 tablet, 3 Refills, [facility] STORE [id number], 178, cm,09/03/21 10:33:00 EDT, Height, 117.8, kg, 08/13/21 10:43:00 EDT, Dry Weight Start Date: 09/15/21 Status: OrderedmetFORMIN 500 mg oral tablet 1 tablet = 500 mg, By Mouth, Daily, # 30 tablet, 11 Refills, Maintenance, 09/15/21 12:13:00 EDT, [facility]/pharmacy #[id number], Partial fill upon patient request if the prescription is for a schedule II opioid drug., 178, cm, 09/03/21 10:33:00 EDT, Height, 117.8... Start Date: 09/15/21 Stop Date: 09/10/22 Status: Orderednorethindrone 0.35 mg oral tablet 1 tablet = 0.35 mg, By Mouth, Daily, # 28 tablet, 11 Refills, Maintenance, 09/03/21 11:11:00 EDT, Tablet, [facility]/pharmacy #[id number], Partial fill upon patient request if the prescription is for a schedule II opioid drug., 178, cm, 09/03/21 10:33:00 EDT, [place]... Start Date: 09/03/21 Status: Orderedomeprazole 40 mg oral enteric coated capsule See Instructions, HUMERA HARTLEY CAPSULA DOS VECES AL BRANDIE, # 60 capsule, 2 Refills, Maintenance, 03/31/21 12:25:00 EST, [facility]/pharmacy #[id number], 175, cm, 01/20/21 15:42:00 [...]
--- OUTSIDE RECORDS SUMMARY | 2022-02-10 14:58 | XMS_ITS | Continuity of Care Document ---
:1980 Author Organization [facility] Address [address] [place] [address]- Care Team Providers Name Role Phone Eric GRAY, Genesis Primary Care Physician Encounter [facility] Date(s): 08/03/21 - 09/02/[address] [address]- Allergies, Adverse Reactions, Alerts Substance Reaction Severity Status codeine1 Active lisinopril2 Active amLODIPine3 Active 1wheezes, chest congestion at [address]3Pt reports itchy throat after taking amlodipine [...] 1 Refills, Maintenance, 08/17/21 13:33:00 EDT, Tablet, [facility]/pharmacy #[id number], Partial fill upon patient request if the prescription is for a schedule II opioid drug., 178, cm, 08/17/21 13:13:00 EDT, Height,... Start Date: 08/17/21 Status: Orderedduloxetine 30 mg oral enteric coated capsule See Instructions, TOME 1 CAPSULA POR VIA ORAL TODOS LOS MCRAE DO NOT CRUSH OR CHEW, # 30 capsule, 5 Refills, Maintenance, 02/10/21 11:58:00 EST, [facility]/pharmacy #[id number], 175, cm, 01/20/21 15:42:00 EDT, Height Start Date: 02/10/21 Status: OrderedFlonase 50 mcg/inh nasal spray 1 sprays, Nares, Both, Daily in AM, # 16 Gm, 5 Refills, Maintenance, 08/17/21 14:11:00 EDT, [place], [facility]/pharmacy #[id number], Partial fill upon patient request [...] 07/31/21 13:23:00 EDT, Route to Pharmacy Electronically, [facility]/pharmacy #[id number], Partial fillupon patient request if the prescription is for a... Start Date: 07/31/21 Status: OrderedmetFORMIN 500 mg oral tablet 1 tablet = 500 mg, By Mouth, Daily, for 30 days, # 30 tablet, 3 Refills, Hard Stop 09/25/21 17:49:00EDT, 05/28/21 17:49:00 EST, [facility]/pharmacy #[id number], Partial fill upon patient request if the prescription is for a schedule II opioid drug., 175, cm, 0... Start Date: 05/28/21 Stop Date: 09/25/21 Status: OrderedmetFORMIN 500 mg oral tablet 1 tablet = 500 mg, By Mouth, Daily, # 30 tablet, 3 Refills, Maintenance, 09/25/21 17:49:00 EDT, [facility]/pharmacy #[id number], Partial fill upon patient request if the prescription is for a schedule II opioid drug., 175, cm, 04/30/21 10:06:00 EST, Height Start Date: 09/25/21 Stop Date: 01/23/22 Status: OrderedNikki 3 mg-0.02 mg oral tablet See Instructions, HUMERA ODILIA TABLETA TODOS LOS MCRAE, # 28 tablet, 6 Refills, 12/26/20 10:00:00 EDT, [facility]/pharmacy #[id number], 28, TOME ODILIA TABLETA TODOS LOS MCRAE, 175, cm, 12/26/20 9:15:00 EDT, Height Start Date: 12/26/20 Status: Orderedomeprazole 40 mg oral enteric coated capsule See Instructions, JAGDEEPE ODILIA CAPSULA DOS VECES AL BRANDIE, # 60 capsule, 2 Refills, Maintenance, 03/31/21 12:25:00 EST, [facility]/pharmacy #[id number], 175, cm, 01/20/21 15:42:00 EDT, [...]
--- OUTSIDE RECORDS SUMMARY | 2022-02-10 14:58 | XMS_ITS | Continuity of Care Document ---
:1980 Author Organization [facility] Address [address] [place] [address]- Care Team Providers Name Role Phone Eric GRAY, Genesis Primary Care Physician [facility]counter [facility] Date(s): 01/30/21 - 03/01/[address] [address]- Allergies, Adverse Reactions, Alerts Substance Reaction Severity Status codeine1 Active lisinopril2 Active amLODIPine3 Active [facility], [id number] after taking amlodipine 01/15. [...] Refills, Maintenance, 01/20/21 16:11:00 EDT, Tablet, [id number], Partial fill upon patient request if the prescription is for a schedule II opioid drug., 175, cm, 01/20/21 15:42:00 EDT, Height Start Date: 01/20/21 Status: Orderedcyclobenzaprine 10 mg oral tablet 1, tablet, By Mouth, 3 times a day, PRN, # 30 tablet, Refills 1, NEEDED FOR SPASM, Route to Pharmacy Electronically, [facility] STORE [id number], 175, cm, 08/26/20 13:36:00 EDT, Height Start [...] capsule, 5 Refills, Maintenance, 02/10/21 11:58:00 EST, [facility]/pharmacy #[id number], 175, cm, 01/20/21 15:42:00 [...] 28 tablet, 6 Refills, 12/26/20 10:00:00 EDT, [facility]/pharmacy #[id number], 28, TOME ODILIA TABLETA TODOS LOS MCRAE, 175, cm, 12/26/20 9:15:00 EDT, Height Start Date: 12/26/20 Status: Orderedomeprazole 40 mg oral enteric coated capsule See Instructions, HUMERA THOMPSON AL BRANDIE, # 60 capsule, 2 Refills, [id number], 175, cm, 01/01/21 9:02:00 EDT, Height Start [...]
--- OUTSIDE RECORDS SUMMARY | 2022-02-10 14:58 | XMS_ITS | Continuity of Care Document ---
:1980 Author Organization [facility] Address [address] [place] [address]- Care Team Providers Name Role Phone Milo WERNER, Uma Primary Care Physician Encounter [facility] Date(s): 11/19/20 - 12/19/[address] [address]- Allergies, Adverse Reactions, Alerts Substance Reaction Severity Status codeine1 Active 1wheezes, chest congestion at [facility] Immunizations Given and Recorded Vaccine Date [...] NEEDED FOR SPASM, Route to Pharmacy Electronically, [id number], 175, cm, 08/26/20 13:36:00 EDT, Height Start Date: 11/13/20 Status: OrderedCymbalta 30 mg oral enteric coated capsule 1 capsule = 30 mg, By Mouth, Daily, do not crush or chew, # 30 capsule, 2 Refills, Maintenance, 11/17/20 14:33:00 EDT, CR Capsule, [id number], Partial fill upon patient request if the [...] MCRAE, # 28 tablet, 6 Refills, Maintenance, [facility] ST[facility] [id number], 28, TOME ODILIA TABLETA TODOS LOS MCRAE, [...] Essential hypertension(Confirmed) Active Impaired fasting glucose(Confirmed) Active Non-Polish speaking Active patient(Confirmed) Hepatic cyst(Confirmed) Active Obesity(Confirmed) Active Pelvic pain(Confirmed) Active Social History Social History Type Response Smoking Status Never (less than 100 in life time) entered on: 08/18/18 Sex Female
--- OUTSIDE RECORDS SUMMARY | 2022-02-10 14:58 | XMS_ITS | Continuity of Care Document ---
:1980 Author Organization [facility] Address [address] [place] [address]- Care Team Providers Name Role Phone Uma Pedraza MD [id number] Date[facility] - 07/22/[address] [address] Attending Physician: Chuyita Garcia MD Admitting Physician: Chuyita Garcia MD Referring Physician: Uma Pedraza MD Allergies, Adverse Reactions, Alerts Substance Reaction Severity Status codeine1 Active 1wheezes, chest congestion at [facility] Immunizations Given and Recorded Vaccine Date Status Refusal Reason tetanus/diphtheria/pertussis, acel(Tdap) 11/16/17 Given Medications docusate sodium 100 mg oral tablet 1 tablet = 100 mg, By Mouth, Daily, with plenty of water, # 30 tablet, 1 Refills, Maintenance, 01/04/19 13:17:03 EDT, Tablet Start Date: 01/04/19 Stop Date: 03/05/19 Status: OrderedMiraLax oral powder for reconstitution = [...] 02/16/19 15:51:49 EST, EC Capsule, Instructions in Romanian Start Date: 02/16/19 Status: OrderedYaz 3 mg-0.02 mg oral tablet 1 tablet, By Mouth, Daily, # 28 tablet, 11 Refills, Maintenance, 02/10/18 15:10:37 EST, Tablet, 1 tablet By Mouth Daily,x28 days Start Date: 02/10/18 Stop Date: 01/12/19 Status: Ordered Problem List Condition Effective Dates Status Health Status Informant Chronic constipation(Confirmed) Active Sigmoid diverticulosis(Confirmed) Active Endometrial thickening on Active ultrasound(Confirmed) Non-Kiswahili speaking Active patient(Confirmed) Hepatic cyst(Confirmed) Active Obesity(Confirmed) Active Pelvic pain(Confirmed) Active Social History Social History Type Response Smoking Status Never (less than 100 in life time) entered on: 08/18/18 Sex
--- OUTSIDE RECORDS SUMMARY | 2022-02-10 14:58 | XMS_ITS | Continuity of Care Document ---
:1980 Author Organization [facility] Address [address] [place] [address]- Care Team Providers Name Role Phone Eric GRAY, Genesis Primary Care Physician [facility]counter [facility] Date(s): 08/25/21 - 10/16/[address] [address]- Attending Physician: Genesis Reyes NP Admitting Physician: Genesis Reyes NP Referring Physician: Genesis Reyes NP Allergies, Adverse Reactions, Alerts Substance Reaction Severity Status codeine1 Active lisinopril2 Active amLODIPine3 Active [facility]wheezes, [id number] reports itchy throat after taking amlodipine 01/15. [...] 09/03/21 11:12:00 EDT, Route to Pharmacy Electronically, [facility]/pharmacy #[id number], Partial fill upon patientrequest if the prescription is for a schedule II... Start Date: 09/03/21 Stop Date: 05/31/22 Status: Orderedbenzocaine 20% topical cream 1 application, Topically, 4 times a day, PRN for itching, clean affected area before application, # 28 Gm, 0 Refills, Acute 10/31/21 13:54:00 EDT, 09/25/21 13:53:00 EDT, Cream, [facility]/pharmacy #[id number], [place] instructions, 1 application Topically 4 times... Start Date: 09/25/21 Stop Date: 10/31/21 Status: Orderedcetirizine 10 mg oral tablet 1 tablet = 10 mg, By Mouth, Daily, # 30 tablet, 1 Refills, Maintenance, 08/17/21 13:33:00 EDT, Tablet, [facility]/pharmacy #[id number], Partial fill upon patient request if the prescription is for a schedule II opioid drug., 178, cm, 08/17/21 13:13:00 EDT, Height,... Start Date: 08/17/21 Status: OrderedFlonase 50 mcg/inh nasal spray 1 sprays, Nares, Both, Daily in AM, # 16 Gm, 5 Refills, Maintenance, 08/17/21 14:11:00 EDT, [place], [id number], Partial fill upon patient request if the prescription is for a schedule II opioid drug., 1 sprays Nares, Both Daily in AM, 178, cm,... Start Date: 08/17/21 Status: Orderedfluconazole 150 mg oral tablet 1 tablet = 150 mg, By Mouth, Once, # 1 tablet, 0 Refills, Soft Stop, 09/25/21 13:42:00 EDT, Tablet, [id number], [place] instructions, 178, cm, 09/03/21 10:33:00 EDT, Height, 117.8, kg, 08/13/2209:43:00 EDT, Dry Weight Start Date: 09/25/21 Status: OrderedFLUoxetine 20 mg oral tablet 1 tablet = 20 mg, By Mouth, Daily, Kief bentley media tableta para bentley semana. Despues de bentley semana, tome bentley tableta completa., # 30 tablet, 2 Refills, Maintenance, 10/15/21 11:30:00 EDT, [facility]/pharmacy #[id number], Partial fill upon patient [...] capsule, 2 Refills, Maintenance, 09/03/21 11:10:00 EDT, [facility]/pharmacy #[id number], Partial fill upon patient request if the prescription is for a schedule II opioid drug., 178, cm, 09/03/21 10:33:00 EDT, Height, 117... Start Date: 09/03/21 Status: OrderedhydrOXYzine hydrochloride 50 mg oral tablet See Instructions, Kief bentley tableta antes de dormir y fang sea necesaria cada 6 horas para anxiedad luana al brandie., # 40 tablet, 0 Refills, Maintenance, 10/15/21 11:31:00 EDT, [facility]/pharmacy #[id number], Partial fill upon patient request if the prescription i... Start Date: 10/15/21 Status: Orderedibuprofen 600 mg oral tablet 600 mg, 1, tablet, By Mouth, 4 times a day, PRN, # 40 tablet, Refills 0, Tot. Refills 0, Maintenance, for pain, 07/31/21 13:23:00 EDT, Route to Pharmacy Electronically, [facility]/pharmacy #[id number], Partial fillupon patient request if the prescription is for a... Start Date: 07/31/21 Status: OrderedmetFORMIN 500 mg oral tablet See Instructions, HUMERA REYNA MAYRA MENDOZA MCRAE, # 30 tablet, 3 Refills, [facility] STORE [id number], 178, cm,09/03/21 10:33:00 EDT, Height, 117.8, kg, 08/13/21 10:43:00 EDT, Dry Weight Start Date: 09/15/21 Status: OrderedmetFORMIN 500 mg oral tablet 1 tablet = 500 mg, By Mouth, Daily, # 30 tablet, 11 Refills, Maintenance, 09/15/21 12:13:00 EDT, [facility]/pharmacy #[id number], Partial fill upon patient request if the prescription is for a schedule II opioid drug., 178, cm, 09/03/21 10:33:00 EDT, Height, 117.8... Start Date: 09/15/21 Stop Date: 09/10/22 Status: Orderednorethindrone 0.35 mg oral tablet 1 tablet = 0.35 mg, By Mouth, Daily, # 28 tablet, 11 Refills, Maintenance, 09/03/21 11:11:00 EDT, Tablet, [facility]/pharmacy #[id number], Partial fill upon patient request if the prescription is for a schedule II opioid drug., 178, cm, 09/03/21 10:33:00 EDT, [place]... Start Date: 09/03/21 Status: Orderedomeprazole 40 mg oral enteric coated capsule See Instructions, HUMERA HARTLEY CAPSULA DOS VECES AL BRANDIE, # 60 capsule, 2 Refills, Maintenance, 03/31/21 12:25:00 EST, [facility]/pharmacy #[id number], 175, cm, 01/20/21 15:42:00 [...]
--- OUTSIDE RECORDS SUMMARY | 2022-02-10 14:58 | XMS_ITS | Continuity of Care Document ---
:1980 Author Organization [facility] Address [address] [place] [address]- Care Team Providers Name Role Phone Eric GRAY, Genesis Primary Care Physician [facility]counter [facility] Date(s): 12/19/20 - 01/18/[address] [address]- Allergies, Adverse Reactions, Alerts Substance Reaction Severity Status codeine1 Active lisinopril2 Active amLODIPine3 Active [facility]wheezes[id number] after taking amlodipine 01/15. [...] Refills, Maintenance, 01/01/21 9:26:00 EDT, Tablet, [id number], Partial fill upon patient request if the prescription is for a schedule II opioid drug., 175, cm, 01/01/21 9:02:00 EDT, Height Start Date: 01/01/21 Stop Date: 07/30/21 Status: Orderedcyclobenzaprine 10 mg oral tablet 1, tablet, By Mouth, 3 times a day, PRN, # 30 tablet, Refills 1, NEEDED FOR SPASM, Route to Pharmacy Electronically, [id number], 175, cm, 08/26/20 13:36:00 EDT, Height Start Date: 11/13/20 Status: OrderedCymbalta 30 mg oral enteric coated capsule 1 capsule = 30 mg, By Mouth, Daily, do not crush or chew, # 30 capsule, 2 Refills, Maintenance, 11/17/20 14:33:00 EDT, CR Capsule, [facility]/pharmacy #[id number], Partial fill upon patient request [...] 01/12/21 20:01:00 EDT, Route to Pharmacy Electronically, [facility]/pharmacy #[id number], Partial fill upon patient request ifthe [...] tablet See Instructions, HUMERA HARTLEY TABLETA TOS LOS MRCAE, # 28 tablet, 6 Refills, 12/26/20 10:00:00 EDT, [facility]/pharmacy #[id number], 28, TOMRobert ODILIA TABLETA TODOS LOS MCRAE, 175, cm, 12/26/20 9:15:00 EDT, Height Start Date: 12/26/20 Status: Orderedomeprazole 40 mg oral enteric coated capsule See Instructions, HUMERA HARTLEY CAPSULA DOS VECES AL BRANDIE, # 60 capsule, 2 Refills, [id number], 175, cm, 01/01/21 9:02:00 EDT, Height Start Date: 01/05/21 Status: Ordered Problem List Condition Effective Dates Status Health Status Informant Chronic constipation(Confirmed) Active Sigmoid diverticulosis(Confirmed) Active Endometrial thickening on Active ultrasound(Confirmed) Essential hypertension(Confirmed) Active Impaired fasting glucose(Confirmed) Active Non-Afghan speaking Active patient(Confirmed) Hepatic cyst(Confirmed) Active Obesity(Confirmed) Active Pelvic pain(Confirmed) Active Social History Social History Type Response Smoking Status Never (less than 100 in life time) entered on: 08/18/18 Sex Female
--- OUTSIDE RECORDS SUMMARY | 2022-02-10 14:58 | XMS_ITS | Continuity of Care Document ---
:1980 Author Organization [facility] Address [address] [place] [address]- Care Team Providers Name Role Phone Uma Pedraza MD Primary Care Physician Encounter [facility] Date(s): 12/04/19 - 01/12/[address] [address]- [place] States Attending Physician: Not on Staff, Attending MD Allergies, Adverse Reactions, Alerts Substance Reaction Severity Status codeine1 Active 1wheezes, chest congestion at [facility] Immunizations Given and Recorded Vaccine [...] 02/16/19 15:51:49 EST, EC Capsule, Instructions in Turkish Start Date: 02/16/19 Status: OrderedYaz 3 mg-0.02 mg oral tablet 1 tablet, By Mouth, Daily, # 28 tablet, 11 Refills, Maintenance, 10/11/19 19:30:00 EDT, Tablet, [facility]/pharmacy #[id number], 1 tablet By Mouth Daily,x28 days, 175, cm, 09/25/19 9:27:00 EDT, Height Start Date: 10/11/19 Stop Date: 09/11/20 Status: Ordered Problem List Condition Effective Dates Status Health Status Informant Chronic constipation(Confirmed) Active Sigmoid diverticulosis(Confirmed) Active Endometrial thickening on Active ultrasound(Confirmed) Impaired fasting glucose(Confirmed) Active Non-Tamazight speaking Active patient(Confirmed) Hepatic cyst(Confirmed) Active Obesity(Confirmed) Active Pelvic pain(Confirmed) Active Social History Social History Type Response Smoking Status Never (less than 100 in life time) entered on: 08/18/18 Sex Female
--- OUTSIDE RECORDS SUMMARY | 2022-02-10 14:58 | XMS_ITS | Continuity of Care Document ---
:1980 Author Organization [facility] Address [address] [place] [id number]- Care Team Providers Name Role Phone Not on Staff, PCP Primary Care Physician Unavailable Encounter [facility] Date(s): 10/11/19 - 10/11/[address] [address]- [facility] Discharge Disposition: A-D/C Home Attending Physician: Jb Pinto MD Admitting Physician: Jb Pinto MD Referring Physician: Not on Staff, Referring MD Allergies, Adverse Reactions, Alerts Substance Reaction Severity Status codeine1 Active 1wheezes, chest congestion at [facility] Immunizations Given and Recorded Vaccine Date Status Refusal Reason tetanus/diphtheria/pertussis, acel(Tdap) 11/16/17 Given Medications cyclobenzaprine 10 mg oral tablet 10 mg, 1, tablet, By Mouth, Daily at bedtime, for 30 days, # 30 tablet, Refills 0, Tot. Refills 0, Acute 11/10/19 19:31:00 EDT, 10/11/19 19:31:00 EDT, Route to Pharmacy Electronically, [facility]/pharmacy #[id number], 175, cm, 09/25/19 9:27:00 EDT, Height [...] 02/16/19 15:51:49 EST, EC Capsule, Instructions in Setswana Start Date: 02/16/19 Status: OrderedYaz 3 mg-0.02 mg oral tablet 1 tablet, By Mouth, Daily, # 28 tablet, 11 Refills, Maintenance, 10/11/19 19:30:00 EDT, Tablet, [facility]/pharmacy #[id number], 1 tablet By Mouth Daily,x28 days, 175, cm, 09/25/19 9:27:00 EDT, Height Start Date: 10/11/19 Stop Date: 09/11/20 Status: Ordered Problem List Condition Effective Dates Status Health Status Informant Chronic constipation(Confirmed) Active Sigmoid diverticulosis(Confirmed) Active Endometrial thickening on Active ultrasound(Confirmed) Impaired fasting glucose(Confirmed) Active Non-Omani speaking Active patient(Confirmed) Hepatic cyst(Confirmed) Active Obesity(Confirmed) Active Pelvic pain(Confirmed) Active Social History Social History Type Response Smoking Status Never (less than 100 in life time) entered on: 08/18/18 Sex Female
--- OUTSIDE RECORDS SUMMARY | 2022-02-10 14:58 | XMS_ITS | Continuity of Care Document ---
:1980 Author Organization [facility] Address Unavailable , Care Team Providers Name Role Phone Genesis Reyes NP Primary Care Physician Encounter [facility] Date(s): 08/27/21 - 09/26/21 [facility] Attending Physician: Admtr, Kvng Admitting Physician: Admtr, Ar8 Referring Physician: Admtr, Ar8 Allergies, Adverse Reactions, Alerts Substance Reaction Severity Status codeine1 Active lisinopril2 Active amLODIPine3 Active [facility]wheezes[id number] it[facility] throat after taking amlodipine 01/15. [...] Refills, Maintenance, 07/31/21 13:24:00 EDT, Solution, [id number], Partial fill upon patient requestif the prescription is for a schedule II opioid d... Start Date: 07/31/21 Status: Orderedbaclofen 10 mg oral tablet 10 mg, 1, tablet, By Mouth, Daily at bedtime, # 90 tablet, Refills 2, Tot. Refills 2, Maintenance, 09/03/21 11:12:00 EDT, Route to Pharmacy Electronically, [facility]/pharmacy #[id number], Partial fill upon patientrequest if the prescription is for a schedule II... Start Date: 09/03/21 Stop Date: 05/31/22 Status: Orderedbenzocaine 20% topical cream 1 application, Topically, 4 times a day, PRN for itching, clean affected area before application, # 28 Gm, 0 Refills, Acute 10/31/21 13:54:00 EDT, 09/25/21 13:53:00 EDT, Cream, [facility]/pharmacy #[id number], nauruan instructions, 1 application Topically 4 times... Start Date: 09/25/21 Stop Date: 10/31/21 Status: Orderedcetirizine 10 mg oral tablet 1 tablet = 10 mg, By Mouth, Daily, # 30 tablet, 1 Refills, Maintenance, 08/17/21 13:33:00 EDT, Tablet, [facility]/pharmacy #[id number], Partial fill upon patient request if the prescription is for a schedule II opioid drug., 178, cm, 08/17/21 13:13:00 EDT, Height,... Start Date: 08/17/21 Status: OrderedFlonase 50 mcg/inh nasal spray 1 sprays, Nares, Both, Daily in AM, # 16 Gm, 5 Refills, Maintenance, 08/17/21 14:11:00 EDT, [place], [facility]/pharmacy #[id number], Partial fill upon patient request if the prescription is for a schedule II opioid drug., 1 sprays Nares, Both Daily in AM, 178, cm,... Start Date: 08/17/21 Status: Orderedfluconazole 150 mg oral tablet 1 tablet = 150 mg, By Mouth, Once, # 1 tablet, 0 Refills, Soft Stop, 09/25/21 13:42:00 EDT, Tablet, [facility]/pharmacy #[id number], nauruan instructions, 178, cm, 09/03/21 10:33:00 EDT, Height, [...] capsule, 2 Refills, Maintenance, 09/03/21 11:10:00 EDT, [facility]/pharmacy #[id number], Partial fill upon patient request if the prescription is for a schedule II opioid drug., 178, cm, 09/03/21 10:33:00 EDT, Height, 117... Start Date: 09/03/21 Status: Orderedibuprofen 600 mg oral tablet 600 mg, 1, tablet, By Mouth, 4 times a day, PRN, # 40 tablet, Refills 0, Tot. Refills 0, Maintenance, for pain, 07/31/21 13:23:00 EDT, Route to Pharmacy Electronically, [facility]/pharmacy #[id number], Partial fillupon patient request if the prescription is for a... Start Date: 07/31/21 Status: OrderedmetFORMIN 500 mg oral tablet See Instructions, [facility], # 30 tablet, 3 Refills, [facility] STORE [id number], 178, cm,09/03/21 10:33:00 EDT, Height, 117.8, kg, 08/13/21 10:43:00 EDT, Dry Weight Start Date: 09/15/21 Status: OrderedmetFORMIN 500 mg oral tablet 1 tablet = 500 mg, By Mouth, Daily, # 30 tablet, 11 Refills, Maintenance, 09/15/21 12:13:00 EDT, [facility]/pharmacy #[id number], Partial fill upon patient request if the prescription is for a schedule II opioid drug., 178, cm, 09/03/21 10:33:00 EDT, Height, 117.8... Start Date: 09/15/21 Stop Date: 09/10/22 Status: Orderednorethindrone 0.35 mg oral tablet 1 tablet = 0.35 mg, By Mouth, Daily, # 28 tablet, 11 Refills, Maintenance, 09/03/21 11:11:00 EDT, Tablet, [facility]/pharmacy #[id number], Partial fill upon patient request if the prescription is for a schedule II opioid drug., 178, cm, 09/03/21 10:33:00 EDT, [place]... Start Date: 09/03/21 Status: Orderedomeprazole 40 mg oral enteric coated capsule See Instructions, HUMERA ODILIA CAPSULA DOS VECES AL BRANDIE, # 60 capsule, 2 Refills, Maintenance, 03/31/21 12:25:00 EST, [facility]/pharmacy #[id number], 175, cm, 01/20/21 15:42:00 [...]
--- OUTSIDE RECORDS SUMMARY | 2022-02-10 14:58 | XMS_ITS | Continuity of Care Document ---
:1980 Author Organization [facility] Address [address] [place] [address]- Care Team Providers Name Role Phone Eric GRAY, Genesis Primary Care Physician Encounter [facility] Date(s): 09/29/21 - 10/31/[address] [address]- Attending Physician: Nancy Lisa MD Admitting Physician: Nancy Lisa MD Allergies, Adverse Reactions, Alerts Substance Reaction Severity Status codeine1 Active lisinopril2 Active amLODIPine3 [facility], [id number] after taking amlodipine 01/15. [...] Gm, 5 Refills, Maintenance, 08/17/21 14:11:00 EDT, [place], [id number], Partial fill upon patient request if the prescription is for a schedule II opioid drug., 1 sprays Nares, Both Daily in AM, 178, cm,... Start Date: 08/17/21 Status: Orderedfluconazole 150 mg oral tablet 1 tablet = 150 mg, By Mouth, Once, epeat dose if still having symptoms in 72 hours, # 2 tablet, 0 Refills, Soft Stop, 10/30/21 18:39:00 EDT, Tablet, [facility]/pharmacy #[id number], Partial fill upon patient request if the prescription is for a schedule II opioid... Start Date: 10/30/21 Status: Orderedfluconazole 150 mg oral tablet 1 tablet = 150 mg, By Mouth, Once, # 1 tablet, 0 Refills, Soft Stop, 09/25/21 13:42:00 EDT, Tablet, [facility]/pharmacy #[id number], setswana instructions, 178, cm, 09/03/21 10:33:00 EDT, Height, 117.8, kg, 08/13/2209:43:00 EDT, Dry Weight Start Date: 09/25/21 Status: OrderedFLUoxetine 20 mg oral tablet 1 tablet = 20 mg, By Mouth, Daily, [place] bentley media tableta para bentley semana. Despues de bentley semana, tome bentley tableta completa., # 30 tablet, 2 Refills, Maintenance, 10/15/21 11:30:00 EDT, [facility]/pharmacy #[id number], Partial fill upon patient request if [...] capsule, 2 Refills, Maintenance, 09/03/21 11:10:00 EDT, [facility]/pharmacy #[id number], Partial fill upon patient request if the prescription is for a schedule II opioid drug., 178, cm, 09/03/21 10:33:00 EDT, Height, 117... Start Date: 09/03/21 Status: OrderedhydrOXYzine hydrochloride 50 mg oral tablet See Instructions, [place] bentley tableta antes de dormir y fang sea necesaria cada 6 horas para anxiedad luana al brandie., # 40 tablet, 0 Refills, Maintenance, 10/15/21 11:31:00 EDT, [facility]/pharmacy #[id number], Partial fill upon patient request if the prescription i... Start Date: 10/15/21 Status: Orderedibuprofen 600 mg oral tablet 600 mg, 1, tablet, By Mouth, Every 6 hours, PRN, not to exceed 3200 mg/day, # 30 tablet, Refills 0, Tot. Refills 0, Maintenance, Pain , Moderate, 10/21/21 16:57:00 EDT, Route to Pharmacy Electronically, [facility]/pharmacy #[id number], Partial fill upon patient re... Start Date: 10/21/21 Status: Orderedibuprofen 800 mg oral tablet 800 mg, 1, tablet, By Mouth, Every 8 hours, # 30 tablet, Refills 0, Tot. Refills 0, Acute 11/06/21 16:00:00 EDT, 10/26/21 16:02:00 EDT, Route to Pharmacy Electronically, [facility]/pharmacy #[id number], Partial fill upon patient request if the prescription is for... Start Date: 10/26/21 Stop Date: 11/06/21 Status: OrderedMapap Arthritis Pain 650 mg oral tablet, extended release 1 tablet = 650 mg, By Mouth, Every 8 hours, PRN Pain , Mild, # 50 tablet, 0 Refills, Acute 11/10/21 16:00:00 EDT, 10/26/21 16:00:00 EDT, ER Tablet, [id number], Partial fill upon patient requestif the prescription is for a schedule II opioid d... Start Date: 10/26/21 Stop Date: 11/10/21 Status: OrderedmetFORMIN 500 mg oral tablet See Instructions, [facility] TABLETA TODOS [facility] MCRAE, # 30 tablet, 3 Refills, [facility] [id number], 178, cm,09/03/21 10:33:00 EDT, Height, 117.8, kg, 08/13/21 10:43:00 EDT, Dry Weight Start Date: 09/15/21 Status: OrderedmetFORMIN 500 mg oral tablet 1 tablet = 500 mg, By Mouth, Daily, # 30 tablet, 11 Refills, Maintenance, 09/15/21 12:13:00 EDT, [id number], Partial fill upon patient request if the prescription is for a schedule II opioid drug., 178, cm, 09/03/21 10:33:00 EDT, Height, 117.8... Start Date: 09/15/21 Stop Date: 09/10/22 Status: Orderednorethindrone 0.35 mg oral tablet 1 tablet = 0.35 mg, By Mouth, Daily, # 28 tablet, 11 Refills, Maintenance, 09/03/21 11:11:00 EDT, Tablet, [id number], Partial fill upon patient request if the prescription is for a schedule II opioid drug., 178, cm, 09/03/21 10:33:00 EDT, Heig... Start Date: 09/03/21 Status: Orderedomeprazole 40 mg oral enteric coated capsule See Instructions, [facility]UMER[facility] BENT[facility] CAPSULA DOS VECES AL BRANDIE, # [...]
--- OUTSIDE RECORDS SUMMARY | 2022-02-10 14:58 | XMS_ITS | Continuity of Care Document ---
:1980 Author Organization [facility] Address [address] [place] [address]- Care Team Providers Name Role Phone Uma Pedraza MD Primary Care Physician Encounter [facility] Date(s): 02/08/20 - 03/09/[address] [address]- Allergies, Adverse Reactions, Alerts Substance Reaction Severity Status codeine1 Active 1wheezes, chest congestion at [facility] Immunizations Given and Recorded Vaccine Date Status Refusal Reason tetanus/diphtheria/pertussis, acel(Tdap) 11/16/17 Given Not Given Vaccine Date Status Refusal Reason influenza virus vaccine, inactivated 02/12/20 Not Given Patient Refuses Medications docusate sodium 100 mg oral tablet 1 tablet = 100 mg, By Mouth, Daily, with plenty of water, # 30 tablet, 1 Refills, Maintenance, 01/04/19 13:17:03 EDT, Tablet Start Date: 01/04/19 Stop Date: 03/05/19 [facility]: [facility] Home blood [...] on Active ultrasound(Confirmed) Impaired fasting glucose(Confirmed) Active Non-South Sudanese speaking Active patient(Confirmed) Hepatic cyst(Confirmed) Active Obesity(Confirmed) Active Pelvic pain(Confirmed) Active Social History Social History Type Response Smoking Status Never (less than 100 in life time) entered on: 08/18/18 Sex Female
--- OUTSIDE RECORDS SUMMARY | 2022-02-10 14:58 | XMS_ITS | Continuity of Care Document ---
:1980 Author Organization [facility] Address [address] [place] [address]- Care Team Providers Name Role Phone mUa Pedraza MD Primary Care Physician [place] [facility] Date(s): 05/09/20 - 06/11/[address] [address]- Attending Physician: Jessica Schwartz MD Admitting Physician: Jessica Schwartz MD Referring Physician: Uma Pedraza MD Allergies, Adverse Reactions, Alerts Substance Reaction Severity Status codeine1 Active 1wheezes, chest congestion at [facility] Immunizations Given and Recorded Vaccine Date Status Refusal Reason tetanus/diphtheria/pertussis, acel(Tdap) 11/16/17 Given Not Given Vaccine Date Status Refusal Reason influenza virus vaccine, inactivated 02/12/20 Not Given Patient Refuses Medications Diflucan 150 mg oral tablet 1 tablet = 150 mg, By Mouth, Once, # 1 tablet, 0 Refills, Soft Stop, 04/27/20 20:58:00 EST, Tablet, [facility]/pharmacy #[id number], Partial fill upon patient request if the [...] capsule, 1 Refills, Maintenance, 02/12/20 11:12:00 EST, [facility]/pharmacy #[id number], Partial fill upon patient request, [...] on Active ultrasound(Confirmed) Impaired fasting glucose(Confirmed) Active Non-Spanish speaking Active patient(Confirmed) Hepatic cyst(Confirmed) Active Obesity(Confirmed) Active Pelvic pain(Confirmed) Active Social History Social History Type Response Smoking Status Never (less than 100 in life time) entered on: 08/18/18 Sex Female
--- OUTSIDE RECORDS SUMMARY | 2022-02-10 14:59 | XMS_ITS | Continuity of Care Document ---
:1980 Author Organization [facility] Address [address] [place] [address]- Care Team Providers Name Role Phone Uma Pedraza MD [id number] 11[facility] - 11/18/[address] [address]- Discharge Disposition: A-D/C Walkout Attending Physician: Not on Staff, Attending MD Admitting Physician: Not on Staff, Admitting MD Referring Physician: Not on Staff, Referring MD Allergies, Adverse Reactions, Alerts Substance Reaction Severity Status codeine1 Active 1wheezes, chest congestion at [facility] Immunizations Given and Recorded Vaccine Date [...] NEEDED FOR SPASM, Route to Pharmacy Electronically, [id number], 175, cm, 08/26/20 13:36:00 EDT, Height Start Date: 11/13/20 Status: OrderedCymbalta 30 mg oral enteric coated capsule 1 capsule = 30 mg, By Mouth, Daily, do not crush or chew, # 30 capsule, 2 Refills, Maintenance, 11/17/20 14:33:00 EDT, CR Capsule, [facility]/pharmacy #[id number], Partial fill upon patient request if the [...] 28 tablet, 6 Refills, Maintenance, [id number], 28, TOME ODILIA TABLETA TODOS LOS MCRAE, 175, cm, 08/26/20 13:36:00 EDT, Height Start Date: 10/17/20 Status: Orderedomeprazole 40 mg oral enteric coated capsule 1 capsule = 40 mg, By Mouth, 2 times a day, # 60 capsule, 2 Refills, Maintenance, 10/01/20 15:07:00 EDT, [facility]/pharmacy #[id number], Partial fill upon patient request, please fill higher 40mg dose, 175, cm, 08/26/20 13:36:00 EDT, Height Start Date: 10/01/20 Stop Date: 12/30/20 Status: Ordered Problem List Condition Effective Dates Status Health Status Informant Chronic constipation(Confirmed) Active Sigmoid diverticulosis(Confirmed) Active Endometrial thickening on Active ultrasound(Confirmed) Essential hypertension(Confirmed) Active Impaired fasting glucose(Confirmed) Active Non-Arabic speaking Active patient(Confirmed) Hepatic cyst(Confirmed) Active Obesity(Confirmed) Active Pelvic pain(Confirmed) Active Vital Signs Most recent to oldest 1 2 3 [Reference Range]: Oxygen Saturation [94-100 %] 100 % 100 % 100 % (11/17/20 11:45 PM) (11/17/20 9:25 PM) (11/17/20 9: 03 PM) Pulse Rate [55-90 bpm] 80 bpm 75 bpm 82 bpm (11/17/20 11:45 PM) (11/17/20 9:25 PM) (11/17/20 9: 03 PM) Blood Pressure [90-138/55-84 132/69 mm Hg 136/81 mm Hg mm Hg] (11/17/20 11:45 PM) (11/17/20 9:25 PM) Respiratory Rate [16-30 16 br/min 18 br/min 18 br/mi n br/min] (11/17/20 11:45 PM) (11/17/20 9:25 PM) (11/17/20 9: 03 PM) Temperature [96.8-100.4 DegF] 98.1 DegF 98.2 DegF (11/17/20 11:45 PM) (11/17/20 9:25 PM) Mode of Delivery (Oxygen) Room air Room air Room a ir (11/17/20 11:45 PM) (11/17/20 9:25 PM) (11/17/20 9: 03 PM) Blood pressure sites Arm, left (11/17/20 11:45 PM) Temperature Route Oral Oral (11/17/20 11:45 PM) (11/17/20 9:25 PM) Social History Social History Type Response Smoking Status Never (less than 100 in life time) entered on: 08/18/18 Sex Female
--- OUTSIDE RECORDS SUMMARY | 2022-02-10 14:59 | XMS_ITS | Continuity of Care Document ---
:1980 Author Organization [facility] Address [address] [place] [address]- Care Team Providers Name Role Phone Eric GRAY, Genesis Primary Care Physician Encounter [facility] Date(s): 09/24/21 - 12/06/21 [facility] [address] [address]- Attending Physician: Ashley WERNER, Radha Jones Referring Physician: Nannette Salmeron Allergies, Adverse Reactions, Alerts Substance Reaction Severity Status codeine1 Active lisinopril2 Active amLODIPine3 Active 1wheezes, [id number] itchy throat after taking amlodipine 01/15. [...] 10/21/21 16:56:00 EDT, Route to Pharmacy Electronically, [facility]/pharmacy #[id number], Partial fill upon patient re... Start Date: 10/21/21 Status: Orderedalbuterol 0.083% inhalation solution 3 mL = 2.5 mg, Inhalation, Every 6 hours, PRN for wheezing/shortness of breath, # 60 each, 0 Refills, Maintenance, 07/31/21 13:24:00 EDT, Solution, [facility]/pharmacy #[id number], Partial fill upon patient requestif the prescription is for a schedule II opioid d... Start Date: 07/31/21 Status: Orderedbaclofen 10 mg oral tablet 10 mg, 1, tablet, By Mouth, Daily at bedtime, # 90 tablet, Refills 2, Tot. Refills 2, Maintenance, 09/03/21 11:12:00 EDT, Route to Pharmacy Electronically, [facility]/pharmacy #[id number], Partial fill upon patientrequest if the prescription is for a schedule II... Start Date: 09/03/21 Stop Date: 05/31/22 Status: Orderedcetirizine 10 mg oral tablet 1 tablet = 10 mg, By Mouth, Daily, # 30 tablet, 1 Refills, Maintenance, 08/17/21 13:33:00 EDT, Tablet, [facility]/pharmacy #[id number], Partial fill upon patient request if the prescription is for a schedule II opioid drug., 178, cm, 08/17/21 13:13:00 EDT, Height,... Start Date: 08/17/21 Status: OrderedFlonase 50 mcg/inh nasal spray 1 sprays, Nares, Both, Daily in AM, # 16 Gm, 5 Refills, Maintenance, 08/17/21 14:11:00 EDT, [place], [facility]/pharmacy #[id number], Partial fill upon patient request if the prescription is for a schedule II opioid drug., 1 sprays Nares, Both Daily in AM, 178, cm,... Start Date: 08/17/21 Status: Orderedfluconazole 150 mg oral tablet 1 tablet = 150 mg, By Mouth, Once, epeat dose if still having symptoms in 72 hours, # 2 tablet, 0 Refills, Soft Stop, 10/30/21 18:39:00 EDT, Tablet, [id number], Partial fill upon patient request if the prescription is for a schedule II opioid... Start Date: 10/30/21 Status: Orderedfluconazole 150 mg oral tablet 1 tablet = 150 mg, By Mouth, Once, # 1 tablet, 0 Refills, Soft Stop, 09/25/21 13:42:00 EDT, Tablet, [facility]/pharmacy #[id number], arabic instructions, 178, cm, 09/03/21 10:33:00 EDT, Height, 117.8, kg, 08/13/2209:43:00 EDT, Dry Weight Start Date: 09/25/21 Status: OrderedFLUoxetine 20 mg oral tablet 1 tablet = 20 mg, By Mouth, Daily, Orwin bentley media tableta para bentley semana. Despues de bentley semana, tome bentley tableta completa., # 30 tablet, 2 Refills, Maintenance, 10/15/21 11:30:00 EDT, [facility]/pharmacy #[id number], Partial fill upon patient request if [...] capsule, 2 Refills, Maintenance, 09/03/21 11:10:00 EDT, [facility]/pharmacy #[id number], Partial fill upon patient request if the prescription is for a schedule II opioid drug., 178, cm, 09/03/21 10:33:00 EDT, Height, 117... Start Date: 09/03/21 Status: OrderedhydrOXYzine hydrochloride 50 mg oral tablet See Instructions, Orwin bentley tableta antes de dormir y fang sea necesaria cada 6 horas para anxiedad luana al brandie., # 40 tablet, 0 Refills, Maintenance, 10/15/21 11:31:00 EDT, [facility]/pharmacy #[id number], Partial fill upon patient request if the prescription i... Start Date: 10/15/21 Status: Orderedibuprofen 600 mg oral tablet 600 mg, 1, tablet, By Mouth, Every 6 hours, PRN, not to exceed 3200 mg/day, # 30 tablet, Refills 0, Tot. Refills 0, Maintenance, Pain , Moderate, 10/21/21 16:57:00 EDT, Route to Pharmacy Electronically, [facility]/pharmacy #[id number], Partial fill upon patient re... Start Date: 10/21/21 Status: OrderedmetFORMIN 500 mg oral tablet See Instructions, HUMERA HARTLEY TABLETA TOS LOS MCRAE, # 30 tablet, 3 Refills, [facility] STORE [id number], 178, cm,09/03/21 10:33:00 EDT, Height, 117.8, kg, 08/13/21 10:43:00 EDT, Dry Weight Start Date: 09/15/21 Status: OrderedmetFORMIN 500 mg oral tablet 1 tablet = 500 mg, By Mouth, Daily, # 30 tablet, 11 Refills, Maintenance, 09/15/21 12:13:00 EDT, [facility]/pharmacy #[id number], Partial fill upon patient request if the prescription is for a schedule II opioid drug., 178, cm, 09/03/21 10:33:00 EDT, Height, 117.8... Start Date: 09/15/21 Stop Date: 09/10/22 Status: Orderednorethindrone 0.35 mg oral tablet 1 tablet = 0.35 mg, By Mouth, Daily, # 28 tablet, 11 Refills, Maintenance, 09/03/21 11:11:00 EDT, Tablet, [facility]/pharmacy #[id number], Partial fill upon patient request if the prescription is for a schedule II opioid drug., 178, cm, 09/03/21 10:33:00 EDT, [place]... Start Date: 09/03/21 Status: Orderedomeprazole 40 mg oral enteric coated capsule See Instructions, HUMERA HARTLEY CAPSULA DOS VECES AL BRADNIE, # 60 capsule, 2 Refills, Maintenance, 03/31/21 12:25:00 EST, [facility]/pharmacy #[id number], 175, cm, 01/20/21 15:42:00 EDT, Height [...] Care Team PersonnelName: Genesis Reyes NP Address: [address] [place] [address]
--- OUTSIDE RECORDS SUMMARY | 2022-02-10 14:59 | XMS_ITS | Continuity of Care Document ---
:1980 Author Organization [facility] Address [address] [place] [address]- Care Team Providers Name Role Phone Eric GRAY, Genesis Primary Care Physician Encounter [facility] [place] Date(s): 02/10/21 - 03/14/[address] [address]- Attending Physician: Nancy Lisa MD Admitting Physician: Nancy Lisa MD Allergies, Adverse Reactions, Alerts Substance Reaction Severity Status codeine1 Active lisinopril2 Active amLODIPine3 Active 1wheezes, [id number] itchy throat after taking amlodipine 01/15. [...] Refills, Maintenance, 01/20/21 16:11:00 EDT, Tablet, [id number], Partial fill upon patient request if the prescription is for a schedule II opioid drug., 175, cm, 01/20/21 15:42:00 EDT, Height Start Date: 01/20/21 Status: Orderedcyclobenzaprine 10 mg oral tablet 1, tablet, By Mouth, 3 times a day, PRN, # 30 tablet, Refills 1, NEEDED FOR SPASM, Route to Pharmacy Electronically, [facility] [id number], 175, cm, 08/26/20 13:36:00 EDT, Height Start [...] capsule, 5 Refills, Maintenance, 02/10/21 11:58:00 EST, [facility]/pharmacy #[id number], 175, cm, 01/20/21 15:42:00 EDT, Height [...] 28 tablet, 6 Refills, 12/26/20 10:00:00 EDT, [facility]/pharmacy #[id number], 28, TOME ODILIA TABLETA TODOS LOS MCRAE, 175, cm, 12/26/20 9:15:00 EDT, Height Start Date: 12/26/20 Status: Orderedomeprazole 40 mg oral enteric coated capsule See Instructions, HUMERA HARTLEY CAPSULA DOS VECES AL BRANDIE, # 60 capsule, 2 Refills, [id number], 175, cm, 01/01/21 9:02:00 EDT, Height Start [...]
--- OUTSIDE RECORDS SUMMARY | 2022-02-10 14:59 | XMS_ITS | Continuity of Care Document ---
:1980 Author Organization [facility] Address Unavailable , Care Team Providers Name Role Phone Eric GRAY, Genesis Primary Care Physician Encounter [facility] Date(s): 08/14/21 - 09/13/21 [facility] Allergies, Adverse Reactions, Alerts Substance Reaction Severity Status codeine1 Active lisinopril2 Active amLODIPine3 Active 1wheezes, [id number] reports itchy throat after taking amlodipine 01/15. [...] Refills, Maintenance, 07/31/21 13:24:00 EDT, Solution, [id number], Partial fill upon patient requestif the prescription is for a schedule II opioid d... Start Date: 07/31/21 Status: Orderedbaclofen 10 mg oral tablet 10 mg, 1, tablet, By Mouth, Daily at bedtime, # 90 tablet, Refills 2, Tot. Refills 2, Maintenance, 09/03/21 11:12:00 EDT, [id number] fill upon patientrequest if the prescription is for a schedule II... Start Date: 09/03/21 Stop Date: 05/31/22 Status: Orderedcetirizine 10 mg oral tablet 1 tablet = 10 mg, By Mouth, Daily, # 30 tablet, 1 Refills, Maintenance, 08/17/21 13:33:00 EDT, Tablet, [facility]/pharmacy #[id number], Partial fill upon patient request if the prescription is for a schedule II opioid drug., 178, cm, 08/17/21 13:13:00 EDT, Height,... Start Date: 08/17/21 Status: OrderedFlonase 50 mcg/inh nasal spray 1 sprays, Nares, Both, Daily in AM, # 16 Gm, 5 Refills, Maintenance, 08/17/21 14:11:00 EDT, [place], [facility]/pharmacy #[id number], Partial fill upon patient [...] capsule, 2 Refills, Maintenance, 09/03/21 11:10:00 EDT, [facility]/pharmacy #[id number], Partial fill upon patient [...] EDT, Route to Pharmacy Electronically, [facility]/pharmacy #[id number], Partial fillupon patient request if the prescription is for a... Start Date: 07/31/21 Status: OrderedmetFORMIN 500 mg oral tablet 1 tablet = 500 mg, By Mouth, Daily, for 30 days, # 30 tablet, 3 Refills, Hard Stop 09/25/21 17:49:00EDT, 05/28/21 17:49:00 EST, [facility]/pharmacy #[id number], Partial fill upon patient request if the prescription is for a schedule II opioid drug., 175, cm, ... Start Date: 05/28/21 Stop Date: 09/25/21 Status: Orderednorethindrone 0.35 mg oral tablet 1 tablet = 0.35 mg, By Mouth, Daily, # 28 tablet, 11 Refills, Maintenance, 09/03/21 11:11:00 EDT, Tablet, [facility]/pharmacy #[id number], Partial fill upon patient request if the prescription is for a schedule II opioid drug., 178, cm, 09/03/21 10:33:00 EDT, [place]ig... Start Date: 09/03/21 Status: Orderedomeprazole 40 mg oral enteric coated capsule See Instructions, HUMERA CRESPOES AL BRANDIE, # 60 capsule, 2 Refills, Maintenance, 03/31/21 12:25:00 EST, [facility]/pharmacy #[id number], 175, cm, 01/20/21 15:42:00 EDT, Height [...]
--- OUTSIDE RECORDS SUMMARY | 2022-02-10 14:59 | XMS_ITS | Continuity of Care Document ---
:1980 Author Organization [facility] Address [address] [place] [address]- Care Team Providers Name Role Phone Eric GRAY, Genesis Primary Care Physician Encounter [facility] Date(s): 09/24/21 - 10/31/[address] [address]- Attending Physician: Genesis Reyes NP Admitting Physician: Genesis Reyes NP Referring Physician: Genesis Reyes NP Allergies, Adverse Reactions, Alerts Substance Reaction Severity Status codeine1 Active lisinopril2 Active amLODIPine3 Active [facility]wheezes, [id number] itchy throat after taking amlodipine 01/15. [...] 10/21/21 16:56:00 EDT, Route to Pharmacy Electronically, [facility]/pharmacy #[id number], Partial fill upon patient re... Start Date: 10/21/21 Status: Orderedalbuterol 0.083% inhalation solution 3 mL = 2.5 mg, Inhalation, Every 6 hours, PRN for wheezing/shortness of breath, # 60 each, 0 Refills, Maintenance, 07/31/21 13:24:00 EDT, Solution, [facility]/pharmacy #[id number], Partial fill upon patient requestif the prescription is for a schedule II opioid d... Start Date: 07/31/21 Status: Orderedbaclofen 10 mg oral tablet 10 mg, 1, tablet, By Mouth, Daily at bedtime, # 90 tablet, Refills 2, Tot. Refills 2, Maintenance, 09/03/21 11:12:00 EDT, Route to Pharmacy Electronically, [facility]/pharmacy #[id number], Partial fill upon patientrequest if the prescription is for a schedule II... Start Date: 09/03/21 Stop Date: 05/31/22 Status: Orderedcetirizine 10 mg oral tablet 1 tablet = 10 mg, By Mouth, Daily, # 30 tablet, 1 Refills, Maintenance, 08/17/21 13:33:00 EDT, Tablet, [facility]/pharmacy #[id number], Partial fill upon patient request if the prescription is for a schedule II opioid drug., 178, cm, 08/17/21 13:13:00 EDT, Height,... Start Date: 08/17/21 Status: Orderedclotrimazole 1% topical cream 1 application, Topically, 2 times a day, # 100 Gm, 0 Refills, Acute 11/20/21 18:43:00 EDT, 10/30/21 18:42:00 EDT, Cream, [facility]/pharmacy #[id number], Partial fill upon patient request if the prescription is fora schedule II opioid drug., 1 application Topical... Start Date: 10/30/21 Stop Date: 11/20/21 Status: OrderedFlonase 50 mcg/inh nasal spray 1 sprays, Nares, Both, Daily in AM, # 16 Gm, 5 Refills, Maintenance, 08/17/21 14:11:00 EDT, [place], [facility]/pharmacy #[id number], Partial fill upon patient request if the prescription is for a schedule II opioid drug., 1 sprays Nares, Both Daily in AM, 178, cm,... Start Date: 08/17/21 Status: Orderedfluconazole 150 mg oral tablet 1 tablet = 150 mg, By Mouth, Once, epeat dose if still having symptoms in 72 hours, # 2 tablet, 0 Refills, Soft Stop, 10/30/21 18:39:00 EDT, Tablet, [facility]/pharmacy #[id number], Partial fill upon patient request if the prescription is for a schedule II opioid... Start Date: 10/30/21 Status: Orderedfluconazole 150 mg oral tablet 1 tablet = 150 mg, By Mouth, Once, # 1 tablet, 0 Refills, Soft Stop, 09/25/21 13:42:00 EDT, Tablet, [facility]/pharmacy #[id number], malian instructions, 178, cm, 09/03/21 10:33:00 EDT, Height, 117.8, kg, 08/13/2209:43:00 EDT, Dry Weight Start Date: 09/25/21 Status: OrderedFLUoxetine 20 mg oral tablet 1 tablet = 20 mg, By Mouth, Daily, Platina bentley media tableta para bentley semana. Despues [...] hydrochloride 50 mg oral tablet See Instructions, Platina bentley tableta antes de dormir y fang sea necesaria cada 6 horas para anxiedad luana al brandie., # 40 tablet, 0 Refills, Maintenance, 10/15/21 11:31:00 EDT, [facility]/pharmacy #[id number], Partial fill upon patient request if the prescription i... Start Date: 10/15/21 Status: Orderedibuprofen 600 mg oral tablet 600 mg, 1, tablet, By Mouth, Every 6 hours, PRN, not to exceed 3200 mg/day, # 30 tablet, Refills 0, Tot. Refills 0, Maintenance, Pain , Moderate, 10/21/21 16:57:00 EDT, Route to Pharmacy Electronically, [facility]/pharmacy #[id number], Partial fill upon patient re... Start Date: 10/21/21 Status: Orderedibuprofen 800 mg oral tablet 800 mg, 1, tablet, By Mouth, Every 8 hours, # 30 tablet, Refills 0, Tot. Refills 0, Acute 11/06/21 16:00:00 EDT, 10/26/21 16:02:00 EDT, Route to [facility]ically, [id number], [...] LOS MCRAE, # 30 tablet, 3 Refills, [facility] STORE [id number], 178, cm,09/03/21 10:33:00 EDT, Height, 117.8, kg, 08/13/21 10:43:00 EDT, Dry Weight Start Date: 09/15/21 Status: OrderedmetFORMIN 500 mg oral tablet 1 tablet = 500 mg, By Mouth, Daily, # 30 tablet, 11 Refills, Maintenance, 09/15/21 12:13:00 EDT, [facility]/pharmacy #[id number], Partial fill upon patient request [...]
--- OUTSIDE RECORDS SUMMARY | 2022-02-10 14:59 | XMS_ITS | Continuity of Care Document ---
:1980 Author Organization [facility] Address [address] [place] [address]- Care Team Providers Name Role Phone Eric GRAY, Genesis Primary Care Physician Encounter [facility] Date(s): 05/13/21 - 06/12/[address] [address]- Allergies, Adverse Reactions, Alerts Substance Reaction Severity Status codeine1 Active lisinopril2 Active amLODIPine3 Active [facility]ezes, [id number] itchy throat after taking amlodipine 01/15. [...] Refills, Maintenance, 01/20/21 16:11:00 EDT, Tablet, [id number], Partial fill upon patient request if the prescription is for a schedule II opioid drug., 175, cm, 01/20/21 15:42:00 EDT, Height Start Date: 01/20/21 Status: Orderedcyclobenzaprine 10 mg oral tablet 1, tablet, By Mouth, 3 times a day, PRN, # 30 tablet, Refills 1, NEEDED FOR SPASM, Route to Pharmacy Electronically, [facility] ST[id number], 175, cm, 08/26/20 13:36:00 EDT, Height Start [...] 5 Refills, Maintenance, 02/10/21 11:58:00 EST, [facility]/pharmacy #[id number], 175, cm, 01/20/21 15:42:00 EDT, [...] tablet, 3 Refills, Maintenance, 05/28/21 17:49:00 EST, [facility]/pharmacy #[id number], Partial fill upon patient request [...] 6 Refills, 12/26/20 10:00:00 EDT, [facility]/pharmacy #[id number], 28, TOME ODILIA TABLETA TODOS [...]
--- OUTSIDE RECORDS SUMMARY | 2022-02-10 14:59 | XMS_ITS | Continuity of Care Document ---
:1980 Author Organization [facility] Address [address] [place] [address]- Care Team Providers Name Role Phone Milo WERNER, Uma Primary Care Physician Encounter [facility] Date(s): 11/14/20 - 12/14/[address] [address]- Allergies, Adverse Reactions, Alerts Substance Reaction Severity Status codeine1 Active 1wheezes, chest congestion at [facility] Immunizations Given and Recorded Vaccine Date [...] NEEDED FOR SPASM, Route to Pharmacy Electronically, [id number], 175, cm, 08/26/20 13:36:00 EDT, Height Start Date: 11/13/20 Status: OrderedCymbalta 30 mg oral enteric coated capsule 1 capsule = 30 mg, By Mouth, Daily, do not crush or chew, # 30 capsule, 2 Refills, Maintenance, 11/17/20 14:33:00 EDT, CR Capsule, [facility]/pharmacy #[id number], Partial fill upon patient request if the [...] 28 tablet, 6 Refills, Maintenance, [facility], 28, TOME ODILIA TABLETA TODOS LOS MCRAE, [...] Essential hypertension(Confirmed) Active Impaired fasting glucose(Confirmed) Active Non-Romansh speaking Active patient(Confirmed) Hepatic cyst(Confirmed) Active Obesity(Confirmed) Active Pelvic pain(Confirmed) Active Social History Social History Type Response Smoking Status Never (less than 100 in life time) entered on: 08/18/18 Sex Female
--- OUTSIDE RECORDS SUMMARY | 2022-02-10 14:59 | XMS_ITS | Continuity of Care Document ---
:1980 Author Organization [facility] Address [address] [place] [address]- Care Team Providers Name Role Phone Milo WERNER, Uma Primary Care Physician Encounter [facility] Date(s): 10/17/20 - 11/16/[address] [address]- Allergies, Adverse Reactions, Alerts Substance Reaction Severity [...] NEEDED FOR SPASM, Route to Pharmacy Electronically, [id number], 175, cm, 08/26/20 13:36:00 EDT, Height Start Date: 11/13/20 Status: OrderedDiflucan 150 mg oral tablet 1 tablet = 150 mg, By Mouth, Once, # 1 tablet, 0 Refills, Soft Stop, 04/27/20 20:58:00 EST, Tablet, [facility]/pharmacy #[id number], Partial fill upon patient request if the [...] 08/11/20 19:27:00 EDT, Route to Pharmacy Electronically, [facility]/pharmacy #[id number], Partial fill upon patient request [...] 28 tablet, 6 Refills, Maintenance, [facility], 28, TOME ODILIA TABLETA TODOS LOS MCRAE, 175, cm, 08/26/20 13:36:00 EDT, Height Start Date: 10/17/20 Status: Orderedomeprazole 40 mg oral enteric coated capsule 1 capsule = 40 mg, By Mouth, 2 times a day, # 60 capsule, 2 Refills, Maintenance, 10/01/20 15:07:00 EDT, [facility]/pharmacy #[id number], Partial fill upon patient request, please fill higher 40mg dose, 175, cm, 08/26/20 13:36:00 EDT, Height Start Date: 10/01/20 Stop Date: 12/30/20 Status: Ordered Problem List Condition Effective Dates Status Health Status Informant Chronic constipation(Confirmed) Active Sigmoid diverticulosis(Confirmed) Active Endometrial thickening on Active ultrasound(Confirmed) Essential hypertension(Confirmed) Active Impaired fasting glucose(Confirmed) Active Non-[place] Islander speaking Active patient(Confirmed) Hepatic cyst(Confirmed) Active Obesity(Confirmed) Active Pelvic pain(Confirmed) Active Social History Social History Type Response Smoking Status Never (less than 100 in life time) entered on: 08/18/18 Sex Female
--- OUTSIDE RECORDS SUMMARY | 2022-02-10 14:59 | XMS_ITS | Continuity of Care Document ---
:1980 Author Organization [facility] Address [address] [place] [address]- Care Team Providers Name Role Phone Eric GRAY, Genesis Primary Care Physician Encounter [facility] Date(s): 07/24/21 - 08/23/[address] [address]- Allergies, Adverse Reactions, Alerts Substance Reaction Severity Status codeine1 Active lisinopril2 Active amLODIPine3 Active 1wheezes, [id number] reports itchy throat after taking amlodipine 01/15. [...] Refills, Maintenance, 07/31/21 13:24:00 EDT, Solution, [id number], Partial fill upon patient requestif the prescription is for a schedule II opioid d... Start Date: 07/31/21 Status: Orderedcetirizine 10 mg oral tablet 1 tablet = 10 mg, By Mouth, Daily, # 30 tablet, 1 Refills, Maintenance, 08/17/21 13:33:00 EDT, Tablet, [facility]/pharmacy #[id number], Partial fill upon patient request if the prescription is for a schedule II opioid drug., 178, cm, 08/17/21 13:13:00 EDT, Height,... Start Date: 08/17/21 Status: Orderedduloxetine 30 mg oral enteric coated capsule See Instructions, TOME 1 CAPSULA POR VIA ORAL TODOS LOS MCRAE DO NOT CRUSH OR CHEW, # 30 capsule, 5 Refills, Maintenance, 02/10/21 11:58:00 EST, [facility]/pharmacy #[id number], 175, cm, 01/20/21 15:42:00 EDT, Height Start Date: 02/10/21 Status: OrderedFlonase 50 mcg/inh nasal spray 1 sprays, Nares, Both, Daily in AM, # 16 Gm, 5 Refills, Maintenance, 08/17/21 14:11:00 EDT, [place], [id number], Partial fill upon patient request [...] 08/27/21 13:46:00 EDT, 08/17/21 13:46:00 EDT, Liquid, [facility]/pharmacy #[id number], Partial fillupon patient request if the [...] 07/31/21 13:23:00 EDT, [id number] Partial fillupon patient request if the prescription is for a... Start Date: 07/31/21 Status: OrderedmetFORMIN 500 mg oral tablet 1 tablet = 500 mg, By Mouth, Daily, for 30 days, # 30 tablet, 3 Refills, Hard Stop 09/25/21 17:49:00EDT, 05/28/21 17:49:00 EST, [id number] Partial fill upon patient request if the prescription is for a schedule II opioid drug., 175, cm, 0... Start Date: 05/28/21 Stop Date: 09/25/21 Status: OrderedmetFORMIN 500 mg oral tablet 1 tablet = 500 mg, By Mouth, Daily, # 30 tablet, 3 Refills, Maintenance, 09/25/21 17:49:00 EDT, [id number] Partial fill upon patient request if the prescription is for a schedule II opioid drug., 175, cm, 04/30/21 10:06:00 EST, Height Start Date: 09/25/21 Stop Date: 01/23/22 Status: OrderedNikki 3 mg-0.02 mg oral tablet See Instructions, HUMERA ODILIA TABLETA TODOS LOS MCRAE, # 28 tablet, 6 Refills, 12/26/20 10:00:00 EDT, [facility]/pharmacy #[id number], 28, TOME ODILIA TABLETA TODOS LOS MCRAE, 175, cm, 12/26/20 9:15:00 EDT, Height Start Date: 12/26/20 Status: Orderedomeprazole 40 mg oral enteric coated capsule See Instructions, JAGDEEPE ODILIA CAPSULA DOS VECES AL BRANDIE, # 60 capsule, 2 Refills, Maintenance, 03/31/21 12:25:00 EST, [facility]/pharmacy #[id number], 175, cm, 01/20/21 15:42:00 EDT, Height [...]
--- OUTSIDE RECORDS SUMMARY | 2022-02-10 14:59 | XMS_ITS | Continuity of Care Document ---
:1980 Author Organization [facility] Address Unavailable , Care Team Providers Name Role Phone Eric GRAY, Genesis Primary Care Physician Encounter [facility] [place] Date(s): 08/14/21 - 09/13/21 [facility] Allergies, Adverse Reactions, Alerts Substance Reaction Severity Status codeine1 Active lisinopril2 Active amLODIPine3 Active [facility]wheezes, [id number] reports itchy throat after taking amlodipine 01/15. [...] Refills, Maintenance, 07/31/21 13:24:00 EDT, Solution, [id number], Partial fill upon patient requestif the prescription is for a schedule II opioid d... Start Date: 07/31/21 Status: Orderedbaclofen 10 mg oral tablet 10 mg, 1, tablet, By Mouth, Daily at bedtime, # 90 tablet, Refills 2, Tot. Refills 2, Maintenance, 09/03/21 11:12:00 EDT, [id number] Partial fill upon patientrequest if the prescription is for a schedule II... Start Date: 09/03/21 Stop Date: 05/31/22 Status: Orderedcetirizine 10 mg oral tablet 1 tablet = 10 mg, By Mouth, Daily, # 30 tablet, 1 Refills, Maintenance, 08/17/21 13:33:00 EDT, Tablet, [facility]/pharmacy #[id number], Partial fill upon patient request if the prescription is for a schedule II opioid drug., 178, cm, 08/17/21 13:13:00 EDT, Height,... Start Date: 08/17/21 Status: OrderedFlonase 50 mcg/inh nasal spray 1 sprays, Nares, Both, Daily in AM, # 16 Gm, 5 Refills, Maintenance, 08/17/21 14:11:00 EDT, [place], [facility]/pharmacy #[id number], Partial fill upon patient [...] capsule, 2 Refills, Maintenance, 09/03/21 11:10:00 EDT, [facility]/pharmacy #[id number], Partial fill upon patient request if the prescription is for a schedule II opioid drug., 178, cm, 09/03/21 10:33:00 EDT, Height, 117... Start Date: 09/03/21 Status: Orderedibuprofen 600 mg oral tablet 600 mg, 1, tablet, By Mouth, 4 times a day, PRN, # 40 tablet, Refills 0, Tot. Refills 0, Maintenance, for pain, 07/31/21 13:23:00 EDT, Route to Pharmacy Electronically, [facility]/pharmacy #[id number], Partial fillupon patient request if the prescription is for a... Start Date: 07/31/21 Status: OrderedmetFORMIN 500 mg oral tablet 1 tablet = 500 mg, By Mouth, Daily, for 30 days, # 30 tablet, 3 Refills, Hard Stop 09/25/21 17:49:00EDT, 05/28/21 17:49:00 EST, [facility]/pharmacy #[id number], Partial fill upon patient request if the prescription is for a schedule II opioid drug., 175, cm, ... Start Date: 05/28/21 Stop Date: 09/25/21 Status: Orderednorethindrone 0.35 mg oral tablet 1 tablet = 0.35 mg, By Mouth, Daily, # 28 tablet, 11 Refills, Maintenance, 09/03/21 11:11:00 EDT, Tablet, [facility]/pharmacy #[id number], Partial fill upon patient request if the prescription is for a schedule II opioid drug., 178, cm, 09/03/21 10:33:00 EDT, [place]... Start Date: 09/03/21 Status: Orderedomeprazole 40 mg oral enteric coated capsule See Instructions, HUMERA CRESPOES AL BRANDIE, # 60 capsule, 2 Refills, Maintenance, 03/31/21 12:25:00 EST, [facility]/pharmacy #[id number], 175, cm, 01/20/21 15:42:00 [...]
--- OUTSIDE RECORDS SUMMARY | 2022-02-10 14:59 | XMS_ITS | Continuity of Care Document ---
:1980 Author Organization [facility] Address [address] [place] [address]- Care Team Providers Name Role Phone Uma Pedraza MD Primary Care Physician Encounter [facility] Date(s): 01/10/19 - 05/10/19 [facility] [address] [place] [address] [facility] Attending Physician: Kirk Del Real MD Admitting Physician: Kirk Del Real MD Referring Physician: Gisela Bowman MD Allergies, Adverse Reactions, Alerts Substance Reaction Severity Status codeine1 Active 1wheezes, chest congestion at [facility] Immunizations Given and Recorded Vaccine Date [...] 02/16/19 15:51:49 EST, EC Capsule, Instructions in Azeri Start Date: 02/16/19 Status: OrderedYaz 3 mg-0.02 mg oral tablet 1 tablet, By Mouth, Daily, # 28 tablet, 11 Refills, Maintenance, 02/10/18 15:10:37 EST, Tablet, 1 tablet By Mouth Daily,x28 days Start Date: 02/10/18 Stop Date: 01/12/19 Status: Ordered Problem List Condition Effective Dates Status Health Status Informant Chronic constipation(Confirmed) Active Sigmoid diverticulosis(Confirmed) Active Endometrial thickening on Active ultrasound(Confirmed) Non-Hebrew speaking Active patient(Confirmed) Hepatic cyst(Confirmed) Active Obesity(Confirmed) Active Pelvic pain(Confirmed) Active Care coordination [facility] Care 10/16/18 Active Management Vira Hazel, CC [phone](Confirmed) Social History Social History Type Response Smoking Status Never (less than 100 in life time) entered on: 08/18/18 Sex
--- OUTSIDE RECORDS SUMMARY | 2022-02-10 14:59 | XMS_ITS | Continuity of Care Document ---
:1980 Author Organization [facility] Address [address] [place] [id number]- Care Team Providers Name Role Phone Uma Pedraza MD Primary Care Physician [place] [facility] [place](s): 07/08/20 - 08/17/[address] [address] Attending Physician: Not on Staff, Attending MD Admitting Physician: Not on Staff, Attending MD Referring Physician: Gisela Bowman MD Allergies, Adverse Reactions, Alerts Substance Reaction Severity Status codeine1 Active 1wheezes, chest congestion at [facility] Immunizations Given and Recorded Vaccine [...] 07/01/20 14:41:00 EDT, Route to Pharmacy Electronically, [facility]/pharmacy #[id number], Partial fillupon patient request if the prescription is for a... Start Date: 07/01/20 Status: OrderedDiflucan 150 mg oral tablet 1 tablet = 150 mg, By Mouth, Once, # 1 tablet, 0 Refills, Soft Stop, 04/27/20 20:58:00 EST, Tablet, [facility]/pharmacy #[id number], Partial fill upon patient request [...] 08/11/20 19:27:00 EDT, Route to Pharmacy Electronically, [facility]/pharmacy #[id number], Partial fill upon patient request [...] capsule, 2 Refills, Maintenance, 07/01/20 11:55:00 EDT, [facility]/pharmacy #[id number], Partial fill upon patient request, please fill higher 40mg dose, 175, cm, 06/26/20 16:02:00 EDT, Height Start Date: 07/01/20 Stop Date: 09/29/20 Status: OrderedYaz 3 mg-0.02 mg oral tablet 1 tablet, By Mouth, Daily, # 28 tablet, 11 Refills, Maintenance, 10/11/19 19:30:00 EDT, Tablet, [facility]/pharmacy #[id number], 1 tablet By Mouth Daily,x28 days, 175, cm, 09/25/19 9:27:00 EDT, Height Start Date: 10/11/19 Stop Date: 09/11/20 Status: Ordered Problem List Condition Effective Dates Status Health Status Informant Chronic constipation(Confirmed) Active Sigmoid diverticulosis(Confirmed) Active Endometrial thickening on Active ultrasound(Confirmed) Essential hypertension(Confirmed) Active Impaired fasting glucose(Confirmed) Active Non-Lao speaking Active patient(Confirmed) Hepatic cyst(Confirmed) Active Obesity(Confirmed) Active Pelvic pain(Confirmed) Active Social History Social History Type Response Smoking Status Never (less than 100 in life time) entered on: 08/18/18 Sex Female
--- OUTSIDE RECORDS SUMMARY | 2022-02-10 14:59 | XMS_ITS | Continuity of Care Document ---
:1980 Author Organization [facility] Address Unavailable , Care Team Providers Name Role Phone Eric GRAY, Genesis Primary Care Physician Encounter [facility] Date(s): 07/07/21 - 08/06/21 [facility] Attending Physician: AdmKvng dowling Admitting Physician: AdmtrKvng Referring Physician: Admtr, Ar8 Allergies, Adverse Reactions, Alerts Substance Reaction Severity Status codeine1 Active lisinopril2 Active amLODIPine3 Active [facility]wheezes[id number] after taking amlodipine 01/15. [...] Refills, Maintenance, 07/31/21 13:24:00 EDT, [facility], [id number], Partial fill upon patient requestif the prescription is for a schedule II opioid d... Start Date: 07/31/21 Status: Orderedcetirizine 10 mg oral tablet 1 tablet = 10 mg, By Mouth, Daily, # 90 tablet, 0 Refills, Maintenance, 01/20/21 16:11:00 EDT, Tablet, [facility]/pharmacy #[id number], Partial fill upon patient request if the prescription is for a schedule II opioid drug., 175, cm, 01/20/21 15:42:00 EDT, Height Start Date: 01/20/21 Status: Orderedcyclobenzaprine 10 mg oral tablet 1, tablet, By Mouth, 3 times a day, PRN, # 30 tablet, Refills 1, NEEDED FOR SPASM, Route to Pharmacy Electronically, [id number], 175, cm, 08/26/20 13:36:00 EDT, Height Start [...] capsule, 5 Refills, Maintenance, 02/10/21 11:58:00 EST, [facility]/pharmacy #[id number], 175, cm, 01/20/21 15:42:00 EDT, Height Start Date: 02/10/21 Status: OrderedFlonase 50 mcg/inh nasal spray 1 sprays, Nares, Both, Daily in AM, # 16 Gm, 0 Refills, Maintenance, 07/23/21 9:30:00 EDT, [place], [facility]/pharmacy #[id number], Partial fill upon patient request if the prescription is for a schedule II opioid drug., 1 sprays Nares, Both Daily in AM, 178, cm, 0... Start Date: 07/23/21 Status: OrderedHome blood pressure machine and cuff [...] 07/31/21 13:23:00 EDT, Route to Pharmacy Electronically, [facility]/pharmacy #[id number], Partial fillupon patient request if the prescription is for a... Start Date: 07/31/21 Status: OrderedmetFORMIN 500 mg oral tablet 1 tablet = 500 mg, By Mouth, Daily, for 30 days, # 30 tablet, 3 Refills, Hard Stop 09/25/21 17:49:00EDT, 05/28/21 17:49:00 EST, [facility]/pharmacy #[id number], Partial fill upon patient request if the prescription is for a schedule II opioid drug., 175, cm, 020... Start Date: 05/28/21 Stop Date: 09/25/21 Status: OrderedmetFORMIN 500 mg oral tablet 1 tablet = 500 mg, By Mouth, Daily, # 30 tablet, 3 Refills, Maintenance, 09/25/21 17:49:00 EDT, [facility]/pharmacy #[id number], Partial fill upon patient request [...] tablet, 6 Refills, 12/26/20 10:00:00 EDT, [facility]/pharmacy #[id number], 28, TOME ODILIA TABLETA TODOS LOS MCRAE, 175, cm, 12/26/20 9:15:00 EDT, Height Start Date: 12/26/20 Status: Orderedomeprazole 40 mg oral enteric coated capsule See Instructions, HUMERA ROSENBERGA DOS VECES AL BRANDIE, # 60 capsule, 2 Refills, Maintenance, 03/31/21 12:25:00 EST, [id number], 175, cm, 01/20/21 15:42:00 EDT, Height Start Date: 03/31/21 Status: Orderedpenicillin V potassium 500 mg oral tablet 1 tablet = 500 mg, By Mouth, Every 8 hours, for 10 days, # 30 tablet, 0 Refills, Acute 08/10/21 13:21:00 EDT, 07/31/21 13:21:00 EDT, [id number], Partial fill upon patient request if the prescription is for a schedule II opioid drug., 178, cm,... Start Date: 07/31/21 Stop Date: 08/10/21 Status: OrderedZyrTEC-D 5 mg-120 mg oral tablet, extended release 1 tablet, By Mouth, Every 24 hours, # 30 tablet, 2 Refills, Maintenance, 07/23/21 9:30:00 EDT, ER Tablet, [id number], Partial fill upon patient request if the prescription is for a schedule II opioid drug., 1 tablet By Mouth Every 24 hours,x30... Start Date: 07/23/21 Stop Date: 10/21/21 Status: Ordered Problem List Condition Effective Dates [...]
--- OUTSIDE RECORDS SUMMARY | 2022-02-10 14:59 | XMS_ITS | Continuity of Care Document ---
:1980 Author Organization [facility] Address [address] [place] [address]- Care Team Providers Name Role Phone Eric GRAY, Genesis Primary Care Physician Encounter [facility] [place] Date(s): 08/13/21 - 08/13/[address] [address]- Discharge Disposition: A-D/C Home Attending Physician: Pablo Coats MD Admitting Physician: Pablo Coats MD Referring Physician: Pablo Coats MD Allergies, Adverse Reactions, Alerts Substance Reaction Severity Status codeine1 Active lisinopril2 Active amLODIPine3 Active [facility]zes, [id number] reports itchy throat after taking amlodipine 01/15. [...] 0 Refills, Maintenance, 07/31/21 13:24:00 EDT, Solution, [facility]/pharmacy #[id number], Partial fill upon patient requestif the prescription is for a schedule II opioid d... Start Date: 07/31/21 Status: Orderedcetirizine 10 mg oral tablet 1 tablet = 10 mg, By Mouth, Daily, # 90 tablet, 0 Refills, Maintenance, 01/20/21 16:11:00 EDT, Tablet, [facility]/pharmacy #[id number], Partial fill upon patient request if the prescription is for a schedule II opioid drug., 175, cm, 01/20/21 15:42:00 EDT, Height Start Date: 01/20/21 Status: Orderedcyclobenzaprine 10 mg oral tablet 1, tablet, By Mouth, 3 times a day, PRN, # 30 tablet, Refills 1, NEEDED FOR SPASM, Route to Pharmacy Electronically, [id number], 175, cm, 08/26/20 13:36:00 EDT, Height Start [...] capsule, 5 Refills, Maintenance, 02/10/21 11:58:00 EST, [facility]/pharmacy #[id number], 175, cm, 01/20/21 15:42:00 EDT, Height Start Date: 02/10/21 Status: OrderedFlonase 50 mcg/inh nasal spray 1 sprays, Nares, Both, Daily in AM, # 16 Gm, 0 Refills, Maintenance, 07/23/21 9:30:00 EDT, [place], [facility]/pharmacy #[id number], Partial fill upon [...] 07/31/21 13:23:00 EDT, Route to Pharmacy Electronically, [facility]/pharmacy #[id number], Partial fillupon patient request if the prescription is for a... Start Date: 07/31/21 Status: OrderedmetFORMIN 500 mg oral tablet 1 tablet = 500 mg, By Mouth, Daily, for 30 days, # 30 tablet, 3 Refills, Hard Stop 09/25/21 17:49:00EDT, 05/28/21 17:49:00 EST, [facility]/pharmacy #[id number], Partial fill upon patient request if the prescription is for a schedule II opioid drug., 175, cm, ... Start Date: 05/28/21 Stop Date: 09/25/21 Status: OrderedmetFORMIN 500 mg oral tablet 1 tablet = 500 mg, By Mouth, Daily, # 30 tablet, 3 Refills, Maintenance, 09/25/21 17:49:00 EDT, [facility]/pharmacy #[id number], Partial fill upon [...] 28 tablet, 6 Refills, 12/26/20 10:00:00 EDT, [facility]/pharmacy #[id number], 28, TOME ODILIA TABLETA TODOS LOS MCRAE, 175, cm, 12/26/20 9:15:00 EDT, Height Start Date: 12/26/20 Status: Orderedomeprazole 40 mg oral enteric coated capsule See Instructions, HUMERA HARTLEY CAPSULA DOS VECES AL BRANDIE, # 60 capsule, 2 Refills, Maintenance, 03/31/21 12:25:00 EST, [facility]/pharmacy #[id number], 175, cm, 01/20/21 15:42:00 EDT, Height Start Date: 03/31/21 Status: OrderedoxyCODONE 5 mg oral tablet 5 mg, 1, tablet, By Mouth, Every 6 hours, PRN, Take for pain not controlled with Tylenol and ibuprofen, # 3 tablet, Refills 0, Tot. Refills 0, Maintenance, Pain , Severe, 08/13/21 13:09:00 EDT, Route to Pharmacy Electronically, [facility]/pharmacy #[id number], Par... Start Date: 08/13/21 Status: OrderedTylenol 325 mg oral tablet 650 mg, 2, tablet, By Mouth, Every 4 hours, PRN, May take scheduled for first few days, then as needed. Not to exceed 4000 mg/day, # 30 tablet, Refills 0, Tot. Refills 0, Maintenance, Pain , Mild, 08/13/21 13:10:00 EDT, Route to Pharmacy Electronicall... Start Date: 08/13/21 Status: OrderedZyrTEC-D 5 mg-120 mg oral tablet, extended release 1 tablet, By Mouth, Every 24 hours, # 30 tablet, 2 Refills, Maintenance, 07/23/21 9:30:00 EDT, ER Tablet, [facility]/pharmacy #[id number], Partial fill upon [...] axilla(Confirmed) Vital Signs Most recent to oldest 1 2 3 [Reference Range]: Weight 117.8 kg (08/13/21 10:43 AM) Oxygen Saturation [94-100 %] 96 % 100 % 94 % (08/13/21 2:00 PM) (08/13/21 1:45 PM) (08/13/21 1:3 0 PM) Pulse Rate [55-90 bpm] 88 bpm (08/13/21 10:43 AM) Blood Pressure [90-138/55-84 130/85 mm Hg 130/85 mm Hg 136 /85 mm Hg mm Hg] (08/13/21 2:00 PM) (08/13/21 1:45 PM) (08/13/21 1:3 0 PM) Respiratory Rate [16-30 21 br/min 18 br/min 16 br/mi n br/min] (08/13/21 2:00 PM) (08/13/21 1:45 PM) (08/13/21 1:3 0 PM) Temperature [96.8-100.4 DegF] 98.2 DegF 98.1 DegF 98 .7 DegF (08/13/21 1:45 PM) (08/13/21 1:00 PM) (08/13/21 10: 43 AM) Mode of Delivery (Oxygen) Room air Room air Room a ir (08/13/21 1:45 PM) (08/13/21 1:30 PM) (08/13/21 1:1 5 PM) Blood pressure sites Arm, left (08/13/21 10:43 AM) Temperature Route Temporal Temporal Temporal (08/13/21 1:45 PM) (08/13/21 1:00 PM) (08/13/21 10: 43 AM) Dry Weight 117.8 kg (08/13/21 10:43 AM) Weight Obtained Via Standing scale (08/13/21 10:43 AM) Dry Weight Obtained Via Standing scale (08/13/21 10:43 AM) Social History Social History Type Response Smoking Status Never (less than 100 in life time) entered on: 08/18/18 Sex Female
--- OUTSIDE RECORDS SUMMARY | 2022-02-10 14:59 | XMS_ITS | Continuity of Care Document ---
:1980 Author Organization [facility] Address [address] [place] [address]- Care Team Providers Name Role Phone Eric GRAY, Genesis Primary Care Physician Encounter [facility] Date(s): 01/07/22 - 02/06/[address] [address]- Allergies, Adverse Reactions, Alerts Substance Reaction Severity Status codeine1 Active lisinopril2 Active amLODIPine3 Active 1wheezes, chest congestion at [address] reports itchy throat after taking amlodipine [...] 11:12:00 EDT, Route to Pharmacy Electronically, [facility]/pharmacy #[id number], Partial fill upon patientrequest if the prescription is for a schedule II... Start Date: 09/03/21 Stop Date: 05/31/22 Status: OrderedColace sodium 100 mg oral capsule 100 mg, 1, capsule, By Mouth, 2 times a day, PRN, # 60 capsule, Refills 3, Tot. Refills 3, Maintenance, for constipation, 01/13/22 11:55:00 EDT, Route to Pharmacy Electronically, [facility]/pharmacy #[id number], Partial fill upon patient request if the prescriptio... Start Date: 01/13/22 Stop Date: 05/13/22 Status: Orderedferrous sulfate 325 mg oral enteric coated tablet 325 mg, 1, tablet, By Mouth, Daily, # 30 tablet, Refills 2, Tot. Refills 2, Maintenance, 01/13/22 11:56:00 EDT, Route to Pharmacy Electronically, [facility]/pharmacy #[id number], Partial fill upon patient request if the prescription is for a schedule II opioid nahun... Start Date: 01/13/22 Status: OrderedFLUoxetine 20 mg oral tablet 1 tablet = 20 mg, By Mouth, Daily, [place] bentley media tableta para bentley semana. Despues [...] Refills, Maintenance, 01/23/22 22:20:00 EDT, [id number], 178, cm, 12/08/21 13:45:00 EDT, Height, 118.5, kg, 10/20/21 14:00:00 EDT, Dry Weight Start Date: 01/23/22 Status: OrderedhydrOXYzine hydrochloride 50 mg oral tablet See Instructions, [place] bentley tableta antes de dormir y fang sea necesaria cada 6 horas para anxiedad luana al brandie., # 40 tablet, 0 Refills, Maintenance, 10/15/21 11:31:00 EDT, [facility]/pharmacy #[id number], Partial fill upon patient request if the prescription i... Start Date: 10/15/21 Status: Orderednorethindrone 0.35 mg oral tablet 1 tablet = 0.35 mg, By Mouth, Daily, # 28 tablet, 11 Refills, Maintenance, 01/13/22 11:50:00 EDT, Tablet, [id number], Partial fill upon patient request if the prescription is for a schedule II opioid drug., 178, cm, 12/08/21 13:45:00 EDT, [place]... Start Date: 01/13/22 Status: Orderedomeprazole 40 mg oral enteric coated capsule See Instructions, TOME BENTLEY CAPSULA DOS VECES AL BRANDIE, # 60 capsule, 2 Refills, Maintenance, 01/27/22 15:33:00 EDT, [id number], 178, cm, 12/08/21 13:45:00 EDT, Height, 118.5, [...] Care Team PersonnelName: Genesis Reyes NP Position: [facility] PCO Associate Professional Member Role: PCP Address: Address: [address] [place] [address]- Care Team Related PersonsName: AMY LEON Name: SANDRA ESTRELLA
--- OUTSIDE RECORDS SUMMARY | 2022-02-10 14:59 | XMS_ITS | Continuity of Care Document ---
:1980 Author Organization [facility] p Address [address] [place] [address]- Care Team Providers Name Role Phone Eric GRAY, Genesis Primary Care Physician Encounter [facility] Date(s): 10/21/21 - 11/20/21 [facility] [address] [address]- Allergies, Adverse Reactions, Alerts Substance Reaction Severity Status codeine1 Active lisinopril2 Active amLODIPine3 Active 1wheezes, [id number] reports itchy throat after taking amlodipine 01/15. [...] 10/21/21 16:56:00 EDT, Route to Pharmacy Electronically, [facility]/pharmacy #[id number], Partial fill upon patient re... Start Date: 10/21/21 Status: Orderedalbuterol 0.083% inhalation solution 3 mL = 2.5 mg, Inhalation, Every 6 hours, PRN for wheezing/shortness of breath, # 60 each, 0 Refills, Maintenance, 07/31/21 13:24:00 EDT, Solution, [facility]/pharmacy #[id number], Partial fill upon patient requestif the prescription is for a schedule II opioid d... Start Date: 07/31/21 Status: Orderedbaclofen 10 mg oral tablet 10 mg, 1, tablet, By Mouth, Daily at bedtime, # 90 tablet, Refills 2, Tot. Refills 2, Maintenance, 09/03/21 11:12:00 EDT, Route to Pharmacy Electronically, [facility]/pharmacy #[id number], Partial fill upon patientrequest if the prescription is for a schedule II... Start Date: 09/03/21 Stop Date: 05/31/22 Status: Orderedcetirizine 10 mg oral tablet 1 tablet = 10 mg, By Mouth, Daily, # 30 tablet, 1 Refills, Maintenance, 08/17/21 13:33:00 EDT, Tablet, [facility]/pharmacy #[id number], Partial fill upon patient request if the prescription is for a schedule II opioid drug., 178, cm, 08/17/21 13:13:00 EDT, Height,... Start Date: 08/17/21 Status: OrderedFlonase 50 mcg/inh nasal spray 1 sprays, Nares, Both, Daily in AM, # 16 Gm, 5 Refills, Maintenance, 08/17/21 14:11:00 EDT, [place], [facility]/pharmacy #[id number], Partial fill [...] Refills, Soft Stop, 10/30/21 18:39:00 EDT, Tablet, [facility]/pharmacy #[id number], Partial fill upon patient request if the prescription is for a schedule II opioid... Start Date: 10/30/21 Status: Orderedfluconazole 150 mg oral tablet 1 tablet = 150 mg, By Mouth, Once, # 1 tablet, 0 Refills, Soft Stop, 09/25/21 13:42:00 EDT, Tablet, [id number], mongolian instructions, 178, cm, 09/03/21 10:33:00 EDT, Height, 117.8, kg, 08/13/2209:43:00 EDT, Dry Weight Start Date: 09/25/21 Status: OrderedFLUoxetine 20 mg oral tablet 1 tablet = 20 mg, By Mouth, Daily, [place] bentley media tableta para bentley semana. Despues de bentley semana, tome bentley tableta completa., # 30 tablet, 2 Refills, Maintenance, 10/15/21 11:30:00 EDT, [facility]/pharmacy #[id number], Partial fill [...] hydrochloride 50 mg oral tablet See Instructions, [place] bentley tableta antes de dormir y fang [...] 10/21/21 16:57:00 EDT, Route to Pharmacy Electronically, [facility]/pharmacy #[id number], Partial fill upon patient re... Start Date: 10/21/21 Status: OrderedmetFORMIN 500 mg oral tablet See Instructions, HUMERA HARTLEY TABLETA TOKODI LOS MCRAE, # 30 tablet, 3 Refills, [facility] STORE [id number], 178, cm,09/03/21 10:33:00 EDT, Height, 117.8, kg, 08/13/21 10:43:00 EDT, Dry Weight Start Date: 09/15/21 Status: OrderedmetFORMIN 500 mg oral tablet 1 tablet = 500 mg, By Mouth, Daily, # 30 tablet, 11 Refills, Maintenance, 09/15/21 12:13:00 EDT, [facility]/pharmacy #[id number], Partial fill upon patient request if the prescription is for a schedule II opioid drug., 178, cm, 09/03/21 10:33:00 EDT, Height, 117.8... Start Date: 09/15/21 Stop Date: 09/10/22 Status: Orderednorethindrone 0.35 mg oral tablet 1 tablet = 0.35 mg, By Mouth, Daily, # 28 tablet, 11 Refills, Maintenance, 09/03/21 11:11:00 EDT, Tablet, [facility]/pharmacy #[id number], Partial fill upon patient request if the prescription is for a schedule II opioid drug., 178, cm, 09/03/21 10:33:00 EDT, [place]... Start Date: 09/03/21 Status: Orderedomeprazole 40 mg oral enteric coated capsule See Instructions, HUMERA HARTLEY CAPSULA DOS VECES AL BRANDIE, # 60 capsule, 2 Refills, Maintenance, 03/31/21 12:25:00 EST, [facility]/pharmacy #[id number], 175, cm, 01/20/21 15:42:00 EDT, [...] Care Team PersonnelName: Genesis Reyes NP Address: [address] [place] [address]
--- OUTSIDE RECORDS SUMMARY | 2022-02-10 14:59 | XMS_ITS | Continuity of Care Document ---
:1980 Author Organization [facility] Address [address] [place] [address]- Care Team Providers Name Role Phone Eric GRAY, Genesis Primary Care Physician Encounter [facility] Date(s): 06/03/21 - 07/04/[address] [address]- Attending Physician: Not on Staff, Attending MD Allergies, Adverse Reactions, Alerts Substance Reaction Severity Status codeine1 Active lisinopril2 Active amLODIPine3 Active 1wheezes, [id number] reports itchy throat after taking amlodipine 01/15. [...] Refills, Maintenance, 01/20/21 16:11:00 EDT, Tablet, [id number], Partial fill upon patient request if the prescription is for a schedule II opioid drug., 175, cm, 01/20/21 15:42:00 EDT, Height Start Date: 01/20/21 Status: Orderedcyclobenzaprine 10 mg oral tablet 1, tablet, By Mouth, 3 times a day, PRN, # 30 tablet, Refills 1, NEEDED FOR SPASM, Route to Pharmacy Electronically, [id number], 175, cm, 08/26/20 13:36:00 EDT, Height Start [...] capsule, 5 Refills, Maintenance, 02/10/21 11:58:00 EST, [facility]/pharmacy #[id number], 175, cm, 01/20/21 15:42:00 [...] Hard Stop 09/25/21 17:49:00EDT, 05/28/21 17:49:00 EST, [facility]/pharmacy #[id number], Partial fill upon patient request if the prescription is for a schedule II opioid drug., 175, cm, 0... Start Date: 05/28/21 Stop Date: 09/25/21 Status: OrderedmetFORMIN 500 mg oral tablet 1 tablet = 500 mg, By Mouth, Daily, # 30 tablet, 3 Refills, Maintenance, 09/25/21 17:49:00 EDT, [facility]/pharmacy #[id number], Partial fill upon patient [...] 28 tablet, 6 Refills, 12/26/20 10:00:00 EDT, [facility]/pharmacy #[id number], 28, TOME ODILIA TABLETA TODOS LOS MCRAE, 175, cm, 12/26/20 9:15:00 EDT, Height Start Date: 12/26/20 Status: Orderedomeprazole 40 mg oral enteric coated capsule See Instructions, TOME ODILIA CAPSULA DOS VECES AL BRANDIE, # 60 capsule, 2 Refills, Maintenance, 03/31/21 12:25:00 EST, [facility]/pharmacy #[id number], 175, cm, 01/20/21 15:42:00 [...]
--- OUTSIDE RECORDS SUMMARY | 2022-02-10 14:59 | XMS_ITS | Continuity of Care Document ---
:1980 Author Organization [facility] Address [address] [place] [address]- Care Team Providers Name Role Phone Milo WERNER, Uma Primary Care Physician Encounter [facility] Date(s): 05/06/20 - 06/07/[address] [address]- Attending Physician: Nancy Lisa MD Admitting Physician: Nancy Lisa MD Allergies, Adverse Reactions, Alerts Substance Reaction Severity Status codeine1 Active 1wheezes, chest congestion at [facility] Immunizations Given and Recorded Vaccine Date Status Refusal Reason tetanus/diphtheria/pertussis, acel(Tdap) 11/16/17 Given Not Given Vaccine Date Status Refusal Reason influenza virus vaccine, inactivated 02/12/20 Not Given Patient Refuses Medications Diflucan 150 mg oral tablet 1 tablet = 150 mg, By Mouth, Once, # 1 tablet, 0 Refills, Soft Stop, 04/27/20 20:58:00 EST, Tablet, [facility]/pharmacy #[id number], Partial fill upon patient request if the [...] capsule, 1 Refills, Maintenance, 02/12/20 11:12:00 EST, [facility]/pharmacy #[id number], Partial fill upon patient request, please [...]
--- OUTSIDE RECORDS SUMMARY | 2022-02-10 14:59 | XMS_ITS | Continuity of Care Document ---
:1980 Author Organization [facility] Address [address] [place] [address]- Care Team Providers Name Role Phone Eric GRAY, Genesis Primary Care Physician Encounter [facility] Date(s): 01/09/21 - 02/08/[address] [address]- Allergies, Adverse Reactions, Alerts Substance Reaction Severity Status codeine1 Active lisinopril2 Active amLODIPine3 Active [facility]wheezes[id number] it[facility] throat after taking amlodipine 01/15. [...] Refills, Maintenance, 01/20/21 16:11:00 EDT, Tablet, [id number], Partial fill upon patient request if the prescription is for a schedule II opioid drug., 175, cm, 01/20/21 15:42:00 EDT, Height Start Date: 01/20/21 Status: Orderedcyclobenzaprine 10 mg oral tablet 1, tablet, By Mouth, 3 times a day, PRN, # 30 tablet, Refills 1, NEEDED FOR SPASM, Route to Pharmacy Electronically, [id number], 175, cm, 08/26/20 13:36:00 EDT, Height Start Date: 11/13/20 Status: OrderedCymbalta 30 mg oral enteric coated capsule 1 capsule = 30 mg, By Mouth, Daily, do not crush or chew, # 30 capsule, 2 Refills, Maintenance, 11/17/20 14:33:00 EDT, CR Capsule, [facility]/pharmacy #[id number], Partial fill upon patient request if [...] 28 tablet, 6 Refills, 12/26/20 10:00:00 EDT, [facility]/pharmacy #[id number], 28, TOME ODILIA TABLETA TODOS LOS MCRAE, 175, cm, 12/26/20 9:15:00 EDT, Height Start Date: 12/26/20 Status: Orderedomeprazole 40 mg oral enteric coated capsule See Instructions, HUMERA ROSENBERGA DOS GREGORIO AL BRANDIE, # 60 capsule, 2 Refills, [id number], 175, cm, 01/01/21 9:02:00 EDT, Height Start [...]
--- OUTSIDE RECORDS SUMMARY | 2022-02-10 14:59 | XMS_ITS | Continuity of Care Document ---
:1980 Author Organization [facility] Address [address] [place] [address]- Care Team Providers Name Role Phone Eric GRAY, Genesis Primary Care Physician Encounter [facility] Date(s): 06/02/21 - 07/02/[address] [address]- Allergies, Adverse Reactions, Alerts Substance Reaction Severity Status codeine1 Active lisinopril2 Active amLODIPine3 Active 1wheezes, chest congestion at [address] reports itchy throat after taking amlodipine [...] Refills, Maintenance, 01/20/21 16:11:00 EDT, Tablet, [id number], Partial fill upon patient request if the prescription is for a schedule II opioid drug., 175, cm, 01/20/21 15:42:00 EDT, Height Start Date: 01/20/21 Status: Orderedcyclobenzaprine 10 mg oral tablet 1, tablet, By Mouth, 3 times a day, PRN, # 30 tablet, Refills 1, NEEDED FOR SPASM, Route to Pharmacy Electronically, [facility] [id number], 175, cm, 08/26/20 13:36:00 EDT, Height Start [...] capsule, 5 Refills, Maintenance, 02/10/21 11:58:00 EST, [facility]/pharmacy #[id number], 175, cm, 01/20/21 15:42:00 EDT, Height [...] Hard Stop 09/25/21 17:49:00EDT, 05/28/21 17:49:00 EST, [facility]/pharmacy #[id number], Partial fill upon patient request if the prescription is for a schedule II opioid drug., 175, cm, 0... Start Date: 05/28/21 Stop Date: 09/25/21 Status: OrderedmetFORMIN 500 mg oral tablet 1 tablet = 500 mg, By Mouth, Daily, # 30 tablet, 3 Refills, Maintenance, 09/25/21 17:49:00 EDT, [facility]/pharmacy #[id number], Partial fill upon patient request if [...] 28 tablet, 6 Refills, 12/26/20 10:00:00 EDT, [facility]/pharmacy #[id number], 28, TOME ODILIA TABLETA TODOS LOS [...]
--- OUTSIDE RECORDS SUMMARY | 2022-02-10 14:59 | XMS_ITS | Continuity of Care Document ---
:1980 Author Organization [facility] Address [address] [place] [address]- Care Team Providers Name Role Phone Milo WERNER, Uma Primary Care Physician Encounter [facility] Date(s): 08/08/20 - 09/07/[address] [address]- Allergies, Adverse Reactions, Alerts Substance Reaction Severity Status codeine1 Active 1wheezes, chest congestion at [facility] Immunizations Given and Recorded Vaccine [...] 07/01/20 14:41:00 EDT, Route to Pharmacy Electronically, [facility]/pharmacy #[id number], Partial fillupon patient request if the prescription is for a... Start Date: 07/01/20 Status: OrderedDiflucan 150 mg oral tablet 1 tablet = 150 mg, By Mouth, Once, # 1 tablet, 0 Refills, Soft Stop, 04/27/20 20:58:00 EST, Tablet, [facility]/pharmacy #[id number], [...] 08/11/20 19:27:00 EDT, Route to Pharmacy Electronically, [facility]/pharmacy #[id number], Partial fill upon patient request ifthe [...] capsule, 2 Refills, Maintenance, 07/01/20 11:55:00 EDT, [facility]/pharmacy #[id number], Partial fill upon patient request, please fill [...] Essential hypertension(Confirmed) Active Impaired fasting glucose(Confirmed) Active Non-Spanish speaking Active patient(Confirmed) Hepatic cyst(Confirmed) Active Obesity(Confirmed) Active Pelvic pain(Confirmed) Active Social History Social History Type Response Smoking Status Never (less than 100 in life time) entered on: 08/18/18 Sex Female
--- OUTSIDE RECORDS SUMMARY | 2022-02-10 14:59 | XMS_ITS | Continuity of Care Document ---
:1980 Author Organization [facility] p Address [address] [place] [address]- Care Team Providers Name Role Phone Eric GRAY, Genesis Primary Care Physician Encounter [facility] Date(s): 10/21/21 - 11/20/21 [facility] [employer] [facility] [address] [place] [address]- Allergies, Adverse Reactions, Alerts Substance Reaction Severity Status codeine1 Active lisinopril2 Active amLODIPine3 Active 1wheezes, chest congestion at [address] reports itchy throat after taking amlodipine [...] 16:56:00 EDT, Route to Pharmacy Electronically, [facility]/pharmacy #[id number], Partial fill upon patient re... Start Date: 10/21/21 Status: Orderedalbuterol 0.083% inhalation solution 3 mL = 2.5 mg, Inhalation, Every 6 hours, PRN for wheezing/shortness of breath, # 60 each, 0 Refills, Maintenance, 07/31/21 13:24:00 EDT, Solution, [facility]/pharmacy #[id number], Partial fill upon patient requestif the prescription is for a schedule II opioid d... Start Date: 07/31/21 Status: Orderedbaclofen 10 mg oral tablet 10 mg, 1, tablet, By Mouth, Daily at bedtime, # 90 tablet, Refills 2, Tot. Refills 2, Maintenance, 09/03/21 11:12:00 EDT, Route to Pharmacy Electronically, [facility]/pharmacy #[id number], Partial fill upon patientrequest if the prescription is for a schedule II... Start Date: 09/03/21 Stop Date: 05/31/22 Status: Orderedcetirizine 10 mg oral tablet 1 tablet = 10 mg, By Mouth, Daily, # 30 tablet, 1 Refills, Maintenance, 08/17/21 13:33:00 EDT, Tablet, [facility]/pharmacy #[id number], Partial fill upon patient request if the prescription is for a schedule II opioid drug., 178, cm, 08/17/21 13:13:00 EDT, Height,... Start Date: 08/17/21 Status: OrderedFlonase 50 mcg/inh nasal spray 1 sprays, Nares, Both, Daily in AM, # 16 Gm, 5 Refills, Maintenance, 08/17/21 14:11:00 EDT, [place], [facility]/pharmacy #[id number], Partial fill upon [...] Refills, Soft Stop, 10/30/21 18:39:00 EDT, Tablet, [facility]/pharmacy #[id number], Partial fill upon patient request if the prescription is for a schedule II opioid... Start Date: 10/30/21 Status: Orderedfluconazole 150 mg oral tablet 1 tablet = 150 mg, By Mouth, Once, # 1 tablet, 0 Refills, Soft Stop, 09/25/21 13:42:00 EDT, Tablet, [facility]/pharmacy #[id number], tamazight instructions, 178, cm, 09/03/21 10:33:00 EDT, Height, 117.8, kg, 08/13/2209:43:00 EDT, Dry Weight Start Date: 09/25/21 Status: OrderedFLUoxetine 20 mg oral tablet 1 tablet = 20 mg, By Mouth, Daily, [place] bentley media tableta para bentley semana. Despues de bentley semana, tome bentley tableta completa., # 30 tablet, 2 Refills, Maintenance, 10/15/21 11:30:00 EDT, [facility]/pharmacy #[id number], Partial fill upon [...] 2 Refills, Maintenance, 09/03/21 11:10:00 EDT, [facility]/pharmacy #[id number], Partial fill upon patient request if the prescription is for a schedule II opioid drug., 178, cm, 09/03/21 10:33:00 EDT, Height, 117... Start Date: 09/03/21 Status: OrderedhydrOXYzine hydrochloride 50 mg oral tablet See Instructions, [place] bentley tableta antes de dormir y fang [...] 16:57:00 EDT, Route to Pharmacy Electronically, [facility]/pharmacy #[id number], Partial fill upon patient re... Start Date: 10/21/21 Status: OrderedmetFORMIN 500 mg oral tablet See Instructions, HUMERA HARTLEY TABLETA MAYRA MENDOZA MCRAE, # 30 tablet, 3 Refills, [id number], 178, cm,09/03/21 10:33:00 EDT, Height, 117.8, kg, 08/13/21 10:43:00 EDT, Dry Weight Start Date: 09/15/21 Status: OrderedmetFORMIN 500 mg oral tablet 1 tablet = 500 mg, By Mouth, Daily, # 30 tablet, 11 Refills, Maintenance, 09/15/21 12:13:00 EDT, [facility]/pharmacy #[id number], Partial fill upon patient request if the prescription is for a schedule II opioid drug., 178, cm, 09/03/21 10:33:00 EDT, Height, 117.8... Start Date: 09/15/21 Stop Date: 09/10/22 Status: Orderednorethindrone 0.35 mg oral tablet 1 tablet = 0.35 mg, By Mouth, Daily, # 28 tablet, 11 Refills, Maintenance, 09/03/21 11:11:00 EDT, Tablet, [facility]/pharmacy #[id number], Partial fill upon patient request if the prescription is for a schedule II opioid drug., 178, cm, 09/03/21 10:33:00 EDT, Heig... Start Date: 09/03/21 Status: Orderedomeprazole 40 mg oral enteric coated capsule See Instructions, HUMERA HARTLEY CAPSULA DOS VECES AL BRANDIE, # 60 capsule, 2 Refills, Maintenance, 03/31/21 12:25:00 EST, [facility]/pharmacy #[id number], 175, cm, [...] Care Team PersonnelName: Genesis Reyes NP Address: [address] [place] [address]
--- OUTSIDE RECORDS SUMMARY | 2022-02-10 14:59 | XMS_ITS | Continuity of Care Document ---
:1980 Author Organization [facility] Address [address] [place] [address]- Care Team Providers Name Role Phone Uma Pedraza MD Primary Care Physician Encounter [facility] Date(s): 08/07/20 - 09/07/[address] [address]- Attending Physician: Not on Staff, Attending MD Referring Physician: Uma Pedraza MD Allergies, Adverse Reactions, Alerts Substance Reaction Severity Status codeine1 Active 1wheezes, chest congestion at [facility] Immunizations Given and Recorded Vaccine [...] 07/01/20 14:41:00 EDT, Route to Pharmacy Electronically, [facility]/pharmacy #[id number], Partial fillupon patient request if the prescription is for a... Start Date: 07/01/20 Status: OrderedDiflucan 150 mg oral tablet 1 tablet = 150 mg, By Mouth, Once, # 1 tablet, 0 Refills, Soft Stop, 04/27/20 20:58:00 EST, Tablet, [facility]/pharmacy [...] 08/11/20 19:27:00 EDT, Route to Pharmacy Electronically, [facility]/pharmacy #[id number], Partial fill upon patient request ifthe [...] capsule, 2 Refills, Maintenance, 07/01/20 11:55:00 EDT, [facility]/pharmacy #[id number], Partial fill upon patient request, please fill higher 40mg dose, 175, cm, 06/26/20 16:02:00 EDT, Height Start Date: 07/01/20 Stop Date: 7/5/21 Status: OrderedYaz 3 mg-0.02 mg oral tablet 1 tablet, By Mouth, Daily, # 28 tablet, 11 Refills, Maintenance, 10/11/19 19:30:00 EDT, Tablet, [facility]/pharmacy #[id number], 1 tablet By Mouth Daily,x28 days, 175, cm, 09/25/19 9:27:00 EDT, Height Start Date: 10/11/19 Stop Date: 09/11/20 Status: Ordered Problem List Condition Effective Dates Status Health Status Informant Chronic constipation(Confirmed) Active Sigmoid diverticulosis(Confirmed) Active Endometrial thickening on Active ultrasound(Confirmed) Essential hypertension(Confirmed) Active Impaired fasting glucose(Confirmed) Active Non-Turkish speaking Active patient(Confirmed) Hepatic cyst(Confirmed) Active Obesity(Confirmed) Active Pelvic pain(Confirmed) Active Social History Social History Type Response Smoking Status Never (less than 100 in life time) entered on: 08/18/18 Sex Female
--- OUTSIDE RECORDS SUMMARY | 2022-02-10 14:59 | XMS_ITS | Continuity of Care Document ---
:1980 Author Organization [facility] Address [address] [place] [address]- Care Team Providers Name Role Phone Milo WERNER, Uma Primary Care Physician Encounter [facility] Date(s): 08/08/20 - 09/07/[address] [address]- Allergies, Adverse Reactions, Alerts Substance Reaction Severity Status codeine1 Active 1wheezes, chest congestion at [facility] Immunizations Given and Recorded Vaccine Date [...] 07/01/20 14:41:00 EDT, Route to Pharmacy Electronically, [facility]/pharmacy #[id number], Partial fillupon patient request if the prescription is for a... Start Date: 07/01/20 Status: OrderedDiflucan 150 mg oral tablet 1 tablet = 150 mg, By Mouth, Once, # 1 tablet, 0 Refills, Soft Stop, 04/27/20 20:58:00 EST, Tablet, [facility]/pharmacy #[id number], Partial fill upon [...] 08/11/20 19:27:00 EDT, Route to Pharmacy Electronically, [facility]/pharmacy #[id number], Partial fill upon [...] capsule, 2 Refills, Maintenance, 07/01/20 11:55:00 EDT, [facility]/pharmacy #[id number], Partial fill upon patient request, please fill [...] Essential hypertension(Confirmed) Active Impaired fasting glucose(Confirmed) Active Non-Ghanaian speaking Active patient(Confirmed) Hepatic cyst(Confirmed) Active Obesity(Confirmed) Active Pelvic pain(Confirmed) Active Social History Social History Type Response Smoking Status Never (less than 100 in life time) entered on: 08/18/18 Sex Female
--- OUTSIDE RECORDS SUMMARY | 2022-02-10 15:00 | XMS_ITS | Continuity of Care Document ---
:1980 [address] [facility] Address [address] [place] [address]- Care Team Providers Name Role Phone Eric GRAY, Genesis Primary Care Physician Encounter [facility] Date(s): 12/07/21 - 01/06/[address] [address]- Allergies, Adverse Reactions, Alerts Substance Reaction Severity Status codeine1 Active lisinopril2 Active amLODIPine3 Active 1wheezes, [facility] itchy throat after taking amlodipine 01/15. [...] Refills, Maintenance, 07/31/21 13:24:00 EDT, Solution, [id number], Partial fill upon patient requestif the prescription is for a schedule II opioid d... Start Date: 07/31/21 Status: Orderedbaclofen 10 mg oral tablet 10 mg, 1, tablet, By Mouth, Daily at bedtime, # 90 tablet, Refills 2, Tot. Refills 2, Maintenance, 09/03/21 11:12:00 EDT, Route to Pharmacy Electronically, [facility]/pharmacy #[id number], Partial fill upon patientrequest if the prescription is for a schedule II... Start Date: 09/03/21 Stop Date: 05/31/22 Status: Orderedcetirizine 10 mg oral tablet 1 tablet = 10 mg, By Mouth, Daily, # 30 tablet, 1 Refills, Maintenance, 08/17/21 13:33:00 EDT, Tablet, [facility]/pharmacy #[id number], Partial fill upon patient request if the prescription is for a schedule II opioid drug., 178, cm, 08/17/21 13:13:00 EDT, Height,... Start Date: 08/17/21 Status: OrderedFlonase 50 mcg/inh nasal spray 1 sprays, Nares, Both, Daily in AM, # 16 Gm, 5 Refills, Maintenance, 08/17/21 14:11:00 EDT, [place], [facility]/pharmacy #[id number], Partial fill upon patient [...] Refills, Soft Stop, 10/30/21 18:39:00 EDT, Tablet, [facility]/pharmacy #[id number], Partial fill upon patient request if the prescription is for a schedule II opioid... Start Date: 10/30/21 Status: Orderedfluconazole 150 mg oral tablet 1 tablet = 150 mg, By Mouth, Once, # 1 tablet, 0 Refills, Soft Stop, 09/25/21 13:42:00 EDT, Tablet, [facility]/pharmacy #[id number], arabic instructions, 178, cm, 09/03/21 10:33:00 EDT, Height, 117.8, kg, 08/13/2209:43:00 EDT, Dry Weight Start Date: 09/25/21 Status: OrderedFLUoxetine 20 mg oral tablet 1 tablet = 20 mg, By Mouth, Daily, [place] bent[place] media tableta para bentley semana. Despues de bentley semana, tome bentley tableta completa., # 30 tablet, 2 Refills, Maintenance, 10/15/21 11:30:00 EDT, [facility]/pharmacy #[id number], Partial fill upon patient [...] capsule, 2 Refills, Maintenance, 09/03/21 11:10:00 EDT, [facility]/pharmacy #[id number], Partial fill upon patient request if the prescription is for a schedule II opioid drug., 178, cm, 09/03/21 10:33:00 EDT, Height, 117... Start Date: 09/03/21 Status: OrderedhydrOXYzine hydrochloride 50 mg oral tablet See Instructions, [place] tableta antes de dormir y fang sea necesaria cada 6 horas para anxiedad luana al brandie., # 40 tablet, 0 Refills, Maintenance, 10/15/21 11:31:00 EDT, [facility]/pharmacy #[id number], Partial fill upon patient request if the prescription i... Start Date: 10/15/21 Status: OrderedmetFORMIN 500 mg oral tablet See Instructions, TOME BENTLEY TABLETA TODOS LOS MCRAE, # 30 tablet, 3 Refills, [id number], 178, cm,09/03/21 10:33:00 EDT, Height, 117.8, kg, [...] Date: 03/31/21 Status: Ordered Problem List Condition Confirmation Course Effective Dates Status Health I nformant Status Chronic constipation Confirmed Active Sigmoid Confirmed Active diverticulosis Endometrial Confirmed Active thickening on ultrasound1 Essential Confirmed Active hypertension Elevated hemoglobin Confirmed Active A1c - 6.6 05/19 Hepatic cyst Confirmed Active Obese class II Confirmed Active Sebaceous cyst of Confirmed Active left axilla 1In 2017, patient underwent a pelvic ultrasound that showed thickened endometrial stripe. She then underwent an EMB, which was negative for hyperplasia. Social History Social History Type Response Smoking Status Never (less than 100 in life time) entered on: 08/18/18 Sex Female Patient Care team information PersonnelName: Genesis Reyes NP Address: Address: [address] [place] [address]
--- OUTSIDE RECORDS SUMMARY | 2022-02-10 15:00 | XMS_ITS | Continuity of Care Document ---
:1980 Author Organization [facility] Address [address] [place] [address]- Care Team Providers Name Role Phone Milo WERNER, Uma Primary Care Physician Encounter [facility] Date(s): 04/10/19 - 04/20/19 [facility] [address] [place] [address]- [facility] Attending Physician: Kvng Lindsay Admitting Physician: AdmKvng dowling Referring Physician: Admtr Ar8 Allergies, Adverse Reactions, Alerts Substance Reaction Severity Status codeine1 Active 1wheezes, chest congestion at [facility] Immunizations Given and Recorded Vaccine [...] 02/16/19 15:51:49 EST, EC Capsule, Instructions in Lithuanian Start Date: 02/16/19 Status: OrderedYaz 3 mg-0.02 mg oral tablet 1 tablet, By Mouth, Daily, # 28 tablet, 11 Refills, Maintenance, 02/10/18 15:10:37 EST, Tablet, 1 tablet By Mouth Daily,x28 days Start Date: 02/10/18 Stop Date: 01/12/19 Status: Ordered Problem List Condition Effective Dates Status Health Status Informant Chronic constipation(Confirmed) Active Sigmoid diverticulosis(Confirmed) Active Endometrial thickening on Active ultrasound(Confirmed) Non-Bermudian speaking Active patient(Confirmed) Hepatic cyst(Confirmed) Active Obesity(Confirmed) Active Pelvic pain(Confirmed) Active Care coordination [facility] Care 10/16/18 Active Management Vira Hazel, CC [phone](Confirmed) Social History Social History Type Response Smoking Status Never (less than 100 in life time) entered on: 08/18/18 Sex
--- OUTSIDE RECORDS SUMMARY | 2022-02-10 15:00 | XMS_ITS | Continuity of Care Document ---
:1980 Author Organization [facility] Address [address] [place] [address]- Care Team Providers Name Role Phone Eric GRAY, Genesis Primary Care Physician Encounter [facility] Date(s): 06/19/21 - 07/22/[address] [address]- Attending Physician: Nikita Nuñez MD Admitting Physician: Nikita Nuñez MD Allergies, Adverse Reactions, Alerts Substance Reaction Severity Status codeine1 Active lisinopril2 Active amLODIPine3 Active 1wheezes, [facility] reports itchy throat after taking amlodipine 01/15. [...] NEEDED FOR SPASM, Route to Pharmacy Electronically, [id number], 175, cm, 08/26/20 13:36:00 EDT, Height Start [...] capsule, 5 Refills, Maintenance, 02/10/21 11:58:00 EST, [facility]/pharmacy #[id number], 175, cm, 01/20/21 15:42:00 EDT, [...] Hard Stop 09/25/21 17:49:00EDT, 05/28/21 17:49:00 EST, [facility]/pharmacy #[id number], Partial fill upon patient request if the prescription is for a schedule II opioid drug., 175, cm, 020... Start Date: 05/28/21 Stop Date: 09/25/21 Status: OrderedmetFORMIN 500 mg oral tablet 1 tablet = 500 mg, By Mouth, Daily, # 30 tablet, 3 Refills, Maintenance, 09/25/21 17:49:00 EDT, [facility]/pharmacy #[id number], Partial fill upon patient request [...] 28 tablet, 6 Refills, 12/26/20 10:00:00 EDT, [facility]/pharmacy #[id number], 28, TOME ODILIA TABLETA TODOS LOS MCRAE, 175, cm, 12/26/20 9:15:00 EDT, Height Start Date: 12/26/20 Status: Orderedomeprazole 40 mg oral enteric coated capsule See Instructions, TOME ODILIA CAPSULA DOS VECES AL BRANDIE, # 60 capsule, 2 Refills, Maintenance, 03/31/21 12:25:00 EST, [facility]/pharmacy #[id number], 175, cm, 01/20/21 15:42:00 EDT, [...]
--- OUTSIDE RECORDS SUMMARY | 2022-02-10 15:00 | XMS_ITS | Continuity of Care Document ---
:1980 Author Organization [facility] Address [address] [place] [address]- Care Team Providers Name Role Phone Milo WERNER, Uma Primary Care Physician [place] [facility] [place] 11/19/20 - 12/19/[address] [address]- Allergies, Adverse Reactions, Alerts Substance Reaction Severity Status codeine1 Active 1wheezes, chest congestion at [facility] Immunizations Given and Recorded Vaccine Date [...] NEEDED FOR SPASM, Route to Pharmacy Electronically, [id number], 175, cm, 08/26/20 13:36:00 EDT, Height Start Date: 11/13/20 Status: OrderedCymbalta 30 mg oral enteric coated capsule 1 capsule = 30 mg, By Mouth, Daily, do not crush or chew, # 30 capsule, 2 Refills, Maintenance, 11/17/20 14:33:00 EDT, CR Capsule, [id number], Partial fill upon patient request if the [...] MCRAE, # 28 tablet, 6 Refills, Maintenance, [id number], 28, TOME ODILIA TABLETA TODOS LOS MCRAE, [...] Essential hypertension(Confirmed) Active Impaired fasting glucose(Confirmed) Active Non-Slovenian speaking Active patient(Confirmed) Hepatic cyst(Confirmed) Active Obesity(Confirmed) Active Pelvic pain(Confirmed) Active Social History Social History Type Response Smoking Status Never (less than 100 in life time) entered on: 08/18/18 Sex Female
--- OUTSIDE RECORDS SUMMARY | 2022-02-10 15:00 | XMS_ITS | Continuity of Care Document ---
:1980 Author Organization [facility] Address [address] [place] [address]- Care Team Providers Name Role Phone Eric GRAY, Genesis Primary Care Physician Encounter [facility] Date(s): 01/06/21 - 02/05/[address] [address]- Allergies, Adverse Reactions, Alerts Substance Reaction Severity Status codeine1 Active lisinopril2 Active amLODIPine3 Active 1wheezes, [id number] reports itchy throat after taking amlodipine 01/15. [...] Refills, Maintenance, 01/20/21 16:11:00 EDT, Tablet, [id number], Partial fill upon patient request if the prescription is for a schedule II opioid drug., 175, cm, 01/20/21 15:42:00 EDT, Height Start Date: 01/20/21 Status: Orderedcyclobenzaprine 10 mg oral tablet 1, tablet, By Mouth, 3 times a day, PRN, # 30 tablet, Refills 1, NEEDED FOR SPASM, Route to Pharmacy Electronically, [id number], 175, cm, 08/26/20 13:36:00 EDT, Height Start Date: 11/13/20 Status: OrderedCymbalta 30 mg oral enteric coated capsule 1 capsule = 30 mg, By Mouth, Daily, do not crush or chew, # 30 capsule, 2 Refills, Maintenance, 11/17/20 14:33:00 EDT, CR Capsule, [facility]/pharmacy #[id number], Partial fill upon patient request if [...] 6 Refills, 12/26/20 10:00:00 EDT, [facility]/pharmacy #[id number], 28, TOME ODILIA TABLETA TODOS LOS MCRAE, 175, cm, 12/26/20 9:15:00 EDT, Height Start Date: 12/26/20 Status: Orderedomeprazole 40 mg oral enteric coated capsule See Instructions, HUMERA ROSENBERGA DOS GREGORIO AL BRANDIE, # 60 capsule, 2 Refills, [id number], 175, cm, 01/01/21 9:02:00 EDT, Height Start [...]
--- OUTSIDE RECORDS SUMMARY | 2022-02-10 15:00 | XMS_ITS | Continuity of Care Document ---
:1980 Author Organization [facility] Address [address] [place] [address]- Care Team Providers Name Role Phone Eric GRAY, Genesis Primary Care Physician Encounter [facility] Date(s): 07/31/21 - 09/16/[address] [address]- Attending Physician: Genesis Reyes NP Admitting Physician: Genesis Reyes NP Referring Physician: Genesis Reyes NP Allergies, Adverse Reactions, Alerts Substance Reaction Severity Status codeine1 Active lisinopril2 Active amLODIPine3 Active 1wheezes, [facility] reports itchy throat after taking amlodipine 01/15. [...] Gm, 5 Refills, Maintenance, 08/17/21 14:11:00 EDT, [place], [facility]/pharmacy #[id number], Partial fill [...] capsule, 2 Refills, Maintenance, 09/03/21 11:10:00 EDT, [facility]/pharmacy #[id number], Partial fill [...] 07/31/21 13:23:00 EDT, Route to Pharmacy Electronically, [facility]/pharmacy #[id number], Partial fillupon patient request if the prescription is for a... Start Date: 07/31/21 Status: OrderedmetFORMIN 500 mg oral tablet See Instructions, HUMERA HARTLEY TABLETA TODOS LOS MCRAE, # 30 tablet, 3 Refills, [facility] ST[facility] 35454, 178, cm,09/03/21 10:33:00 EDT, Height, 117.8, kg, 08/13/21 10:43:00 EDT, Dry Weight Start Date: 09/15/21 Status: OrderedmetFORMIN 500 mg oral tablet 1 tablet = 500 mg, By Mouth, Daily, # 30 tablet, 11 Refills, Maintenance, 09/15/21 12:13:00 EDT, [facility]/pharmacy #[id number], Partial fill [...]
--- OUTSIDE RECORDS SUMMARY | 2022-02-10 15:00 | XMS_ITS | Continuity of Care Document ---
:1980 Author Organization [facility] Address [address] [address]- Care Team Providers Name Role Phone Uma Pedraza MD Primary Care Physician Encounter [facility] Date(s): 06/10/20 - 07/10/[address] [address] Attending Physician: Admtr, Will8 Admitting Physician: Admtr, Ar8 Referring Physician: Admtr, [...] 07/01/20 14:41:00 EDT, Route to Pharmacy Electronically, [facility]/pharmacy #[id number], Partial fillupon patient request if the prescription is for a... Start Date: 07/01/20 Status: OrderedDiflucan 150 mg oral tablet 1 tablet = 150 mg, By Mouth, Once, # 1 tablet, 0 Refills, Soft Stop, 04/27/20 20:58:00 EST, Tablet, [facility]/pharmacy #[id number], Partial fill upon [...] on Active ultrasound(Confirmed) Impaired fasting glucose(Confirmed) Active Non-Romansh speaking Active patient(Confirmed) Hepatic cyst(Confirmed) Active Obesity(Confirmed) Active Pelvic pain(Confirmed) Active Social History Social History Type Response Smoking Status Never (less than 100 in life time) entered on: 08/18/18 Sex Female
--- OUTSIDE RECORDS SUMMARY | 2022-02-10 15:00 | XMS_ITS | Continuity of Care Document ---
:1980 Author Organization [facility] Address [address] [place] [address]- Care Team Providers Name Role Phone Eric GRAY, Genesis Primary Care Physician Encounter [facility] Date(s): 06/19/21 - 07/19/[address] [address]- Allergies, Adverse Reactions, Alerts Substance Reaction Severity Status codeine1 Active lisinopril2 Active amLODIPine3 Active 1wheezes, chest congestion at [address] reports itchy throat after taking amlodipine [...] Refills, Maintenance, 01/20/21 16:11:00 EDT, Tablet, [id number], Partial fill upon patient request if the prescription is for a schedule II opioid drug., 175, cm, 01/20/21 15:42:00 EDT, Height Start Date: 01/20/21 Status: Orderedcyclobenzaprine 10 mg oral tablet 1, tablet, By Mouth, 3 times a day, PRN, # 30 tablet, Refills 1, NEEDED FOR SPASM, Route to Pharmacy Electronically, [facility] [id number], 175, cm, 08/26/20 13:36:00 EDT, Height Start [...] capsule, 5 Refills, Maintenance, 02/10/21 11:58:00 EST, [facility]/pharmacy #[id number], 175, cm, 01/20/21 15:42:00 EDT, Height [...] Hard Stop 09/25/21 17:49:00EDT, 05/28/21 17:49:00 EST, [facility]/pharmacy #[id number], Partial fill upon patient request if the prescription is for a schedule II opioid drug., 175, cm, 0... Start Date: 05/28/21 Stop Date: 09/25/21 Status: OrderedmetFORMIN 500 mg oral tablet 1 tablet = 500 mg, By Mouth, Daily, # 30 tablet, 3 Refills, Maintenance, 09/25/21 17:49:00 EDT, [facility]/pharmacy #[id number], Partial fill upon patient request if [...] 28 tablet, 6 Refills, 12/26/20 10:00:00 EDT, [facility]/pharmacy #[id number], 28, TOME ODILIA TABLETA TODOS LOS [...]
--- OUTSIDE RECORDS SUMMARY | 2022-02-10 15:00 | XMS_ITS | Continuity of Care Document ---
:1980 Author Organization [facility] Address [address] [place] [address]- Care Team Providers Name Role Phone Milo WERNER, Uma Primary Care Physician [place] [facility] [place] Date(s): 09/11/20 - 10/11/[address] [address]- Allergies, Adverse Reactions, Alerts Substance Reaction Severity Status codeine1 Active 1wheezes, chest congestion at [facility] Immunizations Given and Recorded Vaccine Date Status [...] 07/01/20 14:41:00 EDT, Route to Pharmacy Electronically, [facility]/pharmacy #[id number], Partial fillupon patient request if the prescription is for a... Start Date: 07/01/20 Status: OrderedDiflucan 150 mg oral tablet 1 tablet = 150 mg, By Mouth, Once, # 1 tablet, 0 Refills, Soft Stop, 04/27/20 20:58:00 EST, Tablet, [facility]/pharmacy #[id number], Partial fill upon patient request if the [...] 08/11/20 19:27:00 EDT, Route to Pharmacy Electronically, [facility]/pharmacy #[id number], Partial fill upon patient request ifthe [...] capsule, 2 Refills, Maintenance, 10/01/20 15:07:00 EDT, [facility]/pharmacy #[id number], Partial fill upon patient request, please fill higher 40mg dose, 175, cm, 08/26/20 13:36:00 EDT, Height Start Date: 10/01/20 Stop Date: 12/30/20 Status: Orderedsimethicone 80 mg oral tablet, chewable 80 mg, 1, tablet, Chew, 3 times a day after meals and bedtime, PRN, for 14 days, # 100 tablet, Refills 1, Tot. Refills 1, Acute 10/29/20 15:08:00 EDT, as needed for gas, 10/01/20 15:08:00 EDT, Route toPharmacy Electronically, [facility]/pharmacy #[id number], Part... Start Date: 10/01/20 Stop Date: 10/29/20 Status: OrderedYaz 3 mg-0.02 mg oral tablet 1 tablet, By Mouth, Daily, # 28 tablet, 11 Refills, Maintenance, 10/11/19 19:30:00 EDT, Tablet, [facility]/pharmacy #[id number], 1 tablet By Mouth Daily,x28 days, 175, [...]
--- OUTSIDE RECORDS SUMMARY | 2022-02-10 15:00 | XMS_ITS | Continuity of Care Document ---
:1980 Author Organization [facility] Address Unavailable , Care Team Providers Name Role Phone Eric GRAY, Genesis Primary Care Physician Encounter [facility] [place] Date(s): 07/31/21 - 08/30/21 [facility] Allergies, Adverse Reactions, Alerts Substance Reaction Severity Status codeine1 Active lisinopril2 Active amLODIPine3 Active 1wheezes, [facility] reports itchy throat after taking amlodipine 01/15. [...] Refills, Maintenance, 07/31/21 13:24:00 EDT, [facility], [id number], Partial fill upon patient requestif the prescription [...] capsule, 5 Refills, Maintenance, 02/10/21 11:58:00 EST, [facility]/pharmacy #[id number], 175, cm, 01/20/21 15:42:00 EDT, Height Start Date: 02/10/21 Status: OrderedFlonase 50 mcg/inh nasal spray 1 sprays, Nares, Both, Daily in AM, # 16 Gm, 5 Refills, Maintenance, 08/17/21 14:11:00 EDT, [place], [facility]/pharmacy #[id number], Partial fill upon [...] 07/31/21 13:23:00 EDT, Route to Pharmacy Electronically, [facility]/pharmacy #[id number], Partial fillupon patient request if the prescription is for a... Start Date: 07/31/21 Status: OrderedmetFORMIN 500 mg oral tablet 1 tablet = 500 mg, By Mouth, Daily, for 30 days, # 30 tablet, 3 Refills, Hard Stop 09/25/21 17:49:00EDT, 05/28/21 17:49:00 EST, [facility]/pharmacy #[id number], Partial fill upon patient request if the prescription is for a schedule II opioid drug., 175, cm, 0... Start Date: 05/28/21 Stop Date: 09/25/21 Status: OrderedmetFORMIN 500 mg oral tablet 1 tablet = 500 mg, By Mouth, Daily, # 30 tablet, 3 Refills, Maintenance, 09/25/21 17:49:00 EDT, [facility]/pharmacy #[id number], Partial fill upon patient request if the prescription is for a schedule II opioid drug., 175, cm, 04/30/21 10:06:00 EST, Height Start Date: 09/25/21 Stop Date: 01/23/22 Status: OrderedNikki 3 mg-0.02 mg oral tablet See Instructions, HUMERA HARTLEY TABLETA TOS LOS MCRAE, # 28 tablet, 6 Refills, 12/26/20 10:00:00 EDT, [facility]/pharmacy #[id number], 28, JAGDEEPE ODILIA TABLETA TODOS LOS MCRAE, 175, cm, 12/26/20 9:15:00 EDT, Height Start Date: 12/26/20 Status: Orderedomeprazole 40 mg oral enteric coated capsule See Instructions, HUMERA HARTLEY CAPSULA DOS VECES AL BRANDIE, # 60 capsule, 2 Refills, Maintenance, 03/31/21 12:25:00 EST, [facility]/pharmacy #[id number], 175, cm, 01/20/21 15:42:00 EDT, [...]
--- OUTSIDE RECORDS SUMMARY | 2022-02-10 15:00 | XMS_ITS | Continuity of Care Document ---
:1980 Author Organization [facility] Address [address] [place] [address]- Care Team Providers Name Role Phone Eric GRAY, Genesis Primary Care Physician [place] [facility] Date(s): 10/15/21 - 01/17/[address] [address]- Attending Physician: Genesis Reyes NP Admitting Physician: Genesis Reyes NP Referring Physician: Genesis Reyes NP Allergies, Adverse Reactions, Alerts Substance Reaction Severity Status codeine1 Active lisinopril2 Active amLODIPine3 Active 1wheezes, [facility]xytt[facility]lpw8Merbq3Ml reports itchy throat after taking amlodipine 01/15. [...] 01/13/22 11:55:00 EDT, Route to Pharmacy Electronically, [facility]/pharmacy #[id number], Partial fill upon patient request if the prescriptio... Start Date: 01/13/22 Stop Date: 05/13/22 Status: Orderedferrous sulfate 325 mg oral enteric coated tablet 325 mg, 1, tablet, By Mouth, Daily, # 30 tablet, Refills 2, Tot. Refills 2, Maintenance, 01/13/22 11:56:00 EDT, [facility], [id number], Partial fill upon patient request if the prescription is for a schedule II opioid nahun... Start Date: 01/13/22 Status: OrderedFLUoxetine 20 mg oral tablet 1 tablet = 20 mg, By Mouth, Daily, [place] media tableta para bentley semana. Despues [...] hydrochloride 50 mg oral tablet See Instructions, [place] tableta antes de dormir y fang [...] Instructions, TOME BENTLEY CAPSULA DOS VECES AL BRANDEI, # 60 capsule, 2 Refills, Maintenance, 03/31/21 [...] information PersonnelName: Genesis Reyes NP Address: Address: [address] [place] [address]
--- OUTSIDE RECORDS SUMMARY | 2022-02-10 15:00 | XMS_ITS | Continuity of Care Document ---
:1980 Author Organization [facility] Address [address] [place] [address]- Care Team Providers Name Role Phone Eric GRAY, Genesis Primary Care Physician Encounter [facility] Date(s): 09/29/21 - 10/29/[address] [address]- Allergies, Adverse Reactions, Alerts Substance Reaction Severity Status codeine1 Active lisinopril2 Active amLODIPine3 Active 1wheezes, chest congestion at [address] reports itchy throat after taking amlodipine [...] 0 Refills, Maintenance, 07/31/21 13:24:00 EDT, Solution, [facility]/pharmacy #[id number], Partial fill upon patient requestif the prescription is for a schedule II opioid d... Start Date: 07/31/21 Status: Orderedbaclofen 10 mg oral tablet 10 mg, 1, tablet, By Mouth, Daily at bedtime, # 90 tablet, Refills 2, Tot. Refills 2, Maintenance, 09/03/21 11:12:00 EDT, Route to Pharmacy Electronically, [facility]/pharmacy #[id number], Partial fill upon patientrequest if the prescription is for a schedule II... Start Date: 09/03/21 Stop Date: 05/31/22 Status: Orderedbenzocaine 20% topical cream 1 application, Topically, 4 times a day, PRN for itching, clean affected area before application, # 28 Gm, 0 Refills, Acute 10/31/21 13:54:00 EDT, 09/25/21 13:53:00 EDT, Cream, [id number], romanian instructions, 1 application Topically 4 times... Start Date: 09/25/21 Stop Date: 10/31/21 Status: Orderedcetirizine 10 mg oral tablet 1 tablet = 10 mg, By Mouth, Daily, # 30 tablet, 1 Refills, Maintenance, 08/17/21 13:33:00 EDT, Tablet, [facility]/pharmacy #[id number], Partial fill upon patient request if the prescription is for a schedule II opioid drug., 178, cm, 08/17/21 13:13:00 EDT, Height,... Start Date: 08/17/21 Status: OrderedFlonase 50 mcg/inh nasal spray 1 sprays, Nares, Both, Daily in AM, # 16 Gm, 5 Refills, Maintenance, 08/17/21 14:11:00 EDT, Gile, [id number], Partial fill upon patient request if the prescription is for a schedule II opioid drug., 1 sprays Nares, Both Daily in AM, 178, cm,... Start Date: 08/17/21 Status: Orderedfluconazole 150 mg oral tablet 1 tablet = 150 mg, By Mouth, Once, # 1 tablet, 0 Refills, Soft Stop, 09/25/21 13:42:00 EDT, Tablet, [facility]/pharmacy #[id number], romanian instructions, 178, cm, 09/03/21 10:33:00 EDT, Height, 117.8, kg, 08/13/2209:43:00 EDT, Dry Weight Start Date: 09/25/21 Status: OrderedFLUoxetine 20 mg oral tablet 1 tablet = 20 mg, By Mouth, Daily, [place] media tableta para bentley semana. Despues de bentley semana, tome bentley tableta completa., # 30 tablet, 2 Refills, Maintenance, 10/15/21 11:30:00 EDT, [facility]/pharmacy #[id number], Partial fill upon patient request if [...] 2 Refills, Maintenance, 09/03/21 11:10:00 EDT, [facility]/pharmacy #[id number], Partial fill upon patient request if the prescription is for a schedule II opioid drug., 178, cm, 09/03/21 10:33:00 EDT, Height, 117... Start Date: 09/03/21 Status: OrderedhydrOXYzine hydrochloride 50 mg oral tablet See Instructions, [place] tableta antes de dormir y fang [...] 10/21/21 16:57:00 EDT, Route to Pharmacy Electronically, [facility]/pharmacy #[id number], Partial fill upon patient re... Start Date: 10/21/21 Status: Orderedibuprofen 800 mg oral tablet 800 mg, 1, tablet, By Mouth, Every 8 hours, # 30 tablet, Refills 0, Tot. Refills 0, Acute 11/06/21 16:00:00 EDT, 10/26/21 16:02:00 EDT, Route to Pharmacy Electronically, [facility]/pharmacy #[id number], Partial fill upon patient request if the prescription is for... Start Date: 10/26/21 Stop Date: 11/06/21 Status: OrderedMapap Arthritis Pain 650 mg oral tablet, extended release 1 tablet = 650 mg, By Mouth, Every 8 hours, PRN Pain , Mild, # 50 tablet, 0 Refills, Acute 11/10/21 16:00:00 EDT, 10/26/21 16:00:00 EDT, ER Tablet, [facility]/pharmacy #[id number], Partial fill upon patient requestif the prescription is for a schedule II opioid d... Start Date: 10/26/21 Stop Date: 11/10/21 Status: OrderedmetFORMIN 500 mg oral tablet See Instructions, HUMERA REYNA TODOS LOS MCRAE, # 30 tablet, 3 Refills, [id number], 178, cm,09/03/21 10:33:00 EDT, Height, 117.8, kg, [...] Refills, Maintenance, 09/03/21 11:11:00 EDT, Tablet, [facility]/pharmacy #[id number], Partial fill upon patient request if the prescription is for a schedule II opioid drug., 178, cm, 09/03/21 10:33:00 EDT, Heig... Start Date: 09/03/21 Status: Orderedomeprazole 40 mg oral enteric coated capsule See Instructions, HUMERA HARTLEY CAPSULA DOS VECES AL BRANDIE, # 60 capsule, 2 Refills, Maintenance, 03/31/21 12:25:00 EST, [facility]/pharmacy #[id number], 175, cm, 01/20/21 15:42:00 EDT, Height [...]
--- OUTSIDE RECORDS SUMMARY | 2022-02-10 15:00 | XMS_ITS | Continuity of Care Document ---
:1980 Author Organization [facility] Address [address] [place] [address]- Care Team Providers Name Role Phone Eric GRAY, Genesis Primary Care Physician Encounter [facility] Date(s): 04/08/21 - 05/08/[address] [address]- Allergies, Adverse Reactions, Alerts Substance Reaction Severity Status codeine1 Active lisinopril2 Active amLODIPine3 Active [facility], [id number] after taking amlodipine 01/15. [...] Refills, Maintenance, 01/20/21 16:11:00 EDT, Tablet, [id number], Partial fill upon patient request if the prescription is for a schedule II opioid drug., 175, cm, 01/20/21 15:42:00 EDT, Height Start Date: 01/20/21 Status: Orderedcyclobenzaprine 10 mg oral tablet 1, tablet, By Mouth, 3 times a day, PRN, # 30 tablet, Refills 1, NEEDED FOR SPASM, Route to Pharmacy Electronically, [id number], 175, cm, 08/26/20 13:36:00 EDT, Height Start [...] capsule, 5 Refills, Maintenance, 02/10/21 11:58:00 EST, [facility]/pharmacy #[id number], 175, cm, 01/20/21 15:42:00 EDT, Height [...] 28 tablet, 6 Refills, 12/26/20 10:00:00 EDT, [facility]/pharmacy #[id number], 28, TOME ODILIA TABLETA TODOS LOS MCRAE, 175, cm, 12/26/20 9:15:00 EDT, Height Start Date: 12/26/20 Status: Orderedomeprazole 40 mg oral enteric coated capsule See Instructions, HUMERA ROSENBERGA DOS VECES AL BRANDIE, # 60 capsule, 2 Refills, Maintenance, 03/31/21 12:25:00 EST, [facility]/pharmacy #[id number], 175, cm, 01/20/21 15:42:00 EDT, Height Start Date: 03/31/21 Status: Ordered Problem List Condition Effective Dates Status Health Status Informant Chronic constipation(Confirmed) Active COVID-19 virus infection(Confirmed) Active Sigmoid diverticulosis(Confirmed) Active Endometrial thickening on Active ultrasound(Confirmed) Essential hypertension(Confirmed) Active Impaired fasting glucose(Confirmed) Active Hepatic cyst(Confirmed) Active Obese class II(Confirmed) Active Obesity(Confirmed) Active Sebaceous cyst of left Active axilla(Confirmed) Social History Social History Type Response Smoking Status Never (less than 100 in life time) entered on: 08/18/18 Sex Female
--- OUTSIDE RECORDS SUMMARY | 2022-02-10 15:00 | XMS_ITS | Continuity of Care Document ---
:1980 Author Organization [facility] Address [address] [place] [address]- Care Team Providers Name Role Phone Milo WERNER, Uma Primary Care Physician [place] [facility] [place](s[place] 03/31/20 - 04/30/[address] [address]- Allergies, Adverse Reactions, Alerts Substance Reaction Severity Status codeine1 Active 1wheezes, chest congestion at [facility] Immunizations Given and Recorded Vaccine Date Status Refusal Reason tetanus/diphtheria/pertussis, acel(Tdap) 11/16/17 Given Not Given Vaccine Date Status Refusal Reason influenza virus vaccine, inactivated 02/12/20 Not Given Patient Refuses Medications Diflucan 150 mg oral tablet 1 tablet = 150 mg, By Mouth, Once, # 1 tablet, 0 Refills, Soft Stop, 04/27/20 20:58:00 EST, Tablet, [id number], Partial fill upon patient request if the [...] capsule, 1 Refills, Maintenance, 02/12/20 11:12:00 EST, [facility]/pharmacy #[id number], Partial fill upon patient request, please fill higher 40mg dose, 175, cm, 02/12/20 10:09:00 EST, Height Start Date: 02/12/20 Stop Date: 04/12/20 Status: OrderedYaz 3 mg-0.02 mg oral tablet 1 tablet, By Mouth, Daily, # 28 tablet, 11 Refills, Maintenance, 10/11/19 19:30:00 EDT, Tablet, [facility]/pharmacy #[id number], 1 tablet By Mouth Daily,x28 days, 175, cm, 09/25/19 9:27:00 EDT, Height Start Date: 10/11/19 Stop Date: 09/11/20 Status: Ordered Problem List Condition Effective Dates Status Health Status Informant Chronic constipation(Confirmed) Active Sigmoid diverticulosis(Confirmed) Active Endometrial thickening on Active ultrasound(Confirmed) Impaired fasting glucose(Confirmed) Active Non-Bolivian speaking Active patient(Confirmed) Hepatic cyst(Confirmed) Active Obesity(Confirmed) Active Pelvic pain(Confirmed) Active Social History Social History Type Response Smoking Status Never (less than 100 in life time) entered on: 08/18/18 Sex Female
--- OUTSIDE RECORDS SUMMARY | 2022-02-10 15:00 | XMS_ITS | Continuity of Care Document ---
:1980 Author Organization [facility] Address [address] [place] [address]- Care Team Providers Name Role Phone Eric GRAY, Genesis Primary Care Physician Encounter [facility] [place] Date(s): 06/19/21 - 07/22/[address] [address]- Attending Physician: Not on Staff, Attending MD Allergies, Adverse Reactions, Alerts Substance Reaction Severity Status codeine1 Active lisinopril2 Active amLODIPine3 Active [facility]ezes, [facility] after taking amlodipine 01/15. [...] Refills, Maintenance, 01/20/21 16:11:00 EDT, Tablet, [id number], Partial fill upon patient request if the prescription is for a schedule II opioid drug., 175, cm, 01/20/21 15:42:00 EDT, Height Start Date: 01/20/21 Status: Orderedcyclobenzaprine 10 mg oral tablet 1, tablet, By Mouth, 3 times a day, PRN, # 30 tablet, Refills 1, NEEDED FOR SPASM, Route to Pharmacy Electronically, [id number], 175, cm, 08/26/20 13:36:00 EDT, Height Start [...] capsule, 5 Refills, Maintenance, 02/10/21 11:58:00 EST, [facility]/pharmacy #[id number], 175, cm, 01/20/21 [...] Hard Stop 09/25/21 17:49:00EDT, 05/28/21 17:49:00 EST, [facility]/pharmacy #[id number], Partial fill upon patient request if the prescription is for a schedule II opioid drug., 175, cm, 0... Start Date: 05/28/21 Stop Date: 09/25/21 Status: OrderedmetFORMIN 500 mg oral tablet 1 tablet = 500 mg, By Mouth, Daily, # 30 tablet, 3 Refills, Maintenance, 09/25/21 17:49:00 EDT, [facility]/pharmacy #[id number], Partial fill upon [...] 28 tablet, 6 Refills, 12/26/20 10:00:00 EDT, [facility]/pharmacy #[id number], 28, TOME ODILIA TABLETA TODOS LOS MCRAE, 175, cm, 12/26/20 9:15:00 EDT, Height Start Date: 12/26/20 Status: Orderedomeprazole 40 mg oral enteric coated capsule See Instructions, TOME ODILIA CAPSULA DOS VECES AL BRANDIE, # 60 capsule, 2 Refills, Maintenance, 03/31/21 12:25:00 EST, [facility]/pharmacy #[id number], 175, cm, 01/20/21 [...]
--- OUTSIDE RECORDS SUMMARY | 2022-02-10 15:00 | XMS_ITS | Continuity of Care Document ---
:1980 Author Organization [facility] Address [address] [place] [address]- Care Team Providers Name Role Phone Milo WERNER, Uma Primary Care Physician Encounter [facility] Date(s): 09/14/19 - 11/11/[address] [address]- [facility] Attending Physician: Not on Staff, Attending MD Referring Physician: Juanita GRAY, Glenna Allergies, Adverse Reactions, Alerts Substance Reaction Severity Status codeine1 Active 1wheezes, chest congestion at [facility] Immunizations Given and Recorded Vaccine Date Status Refusal Reason tetanus/diphtheria/pertussis, acel(Tdap) 11/16/17 Given Medications docusate sodium 100 mg oral tablet 1 tablet = 100 mg, By Mouth, Daily, with plenty of water, # 30 tablet, 1 Refills, Maintenance, 01/04/19 13:17:03 EDT, Tablet Start Date: 01/04/19 Stop Date: 03/05/19 Status: [facility] Home [...] 02/16/19 15:51:49 EST, EC Capsule, Instructions in Tajik Start Date: 02/16/19 Status: OrderedYaz 3 mg-0.02 mg oral tablet 1 tablet, By Mouth, Daily, # 28 tablet, 11 Refills, Maintenance, 10/11/19 19:30:00 EDT, Tablet, [facility]/pharmacy #[id number], 1 tablet By Mouth Daily,x28 days, 175, cm, 09/25/19 9:27:00 EDT, Height Start Date: 10/11/19 Stop Date: 09/11/20 Status: Ordered Problem List Condition Effective Dates Status Health Status Informant Chronic constipation(Confirmed) Active Sigmoid diverticulosis(Confirmed) Active Endometrial thickening on Active ultrasound(Confirmed) Impaired fasting glucose(Confirmed) Active Non-Czech speaking Active patient(Confirmed) Hepatic cyst(Confirmed) Active Obesity(Confirmed) Active Pelvic pain(Confirmed) Active Social History Social History Type Response Smoking Status Never (less than 100 in life time) entered on: 08/18/18 Sex Female
--- OUTSIDE RECORDS SUMMARY | 2022-02-10 15:00 | XMS_ITS | Continuity of Care Document ---
:1980 Author Organization [facility] Address [address] [place] [address]- Care Team Providers Name Role Phone Milo WERNER, Uma Primary Care Physician [place] [facility] [place] Date(s): 08/27/20 - 09/26/[address] [address]- Attending Physician: Not on Staff, Attending MD Allergies, Adverse Reactions, Alerts Substance Reaction Severity Status codeine1 Active 1wheezes, chest congestion at [facility] Immunizations Given and Recorded Vaccine Date [...] 07/01/20 14:41:00 EDT, Route to Pharmacy Electronically, [facility]/pharmacy #[id number], Partial fillupon patient request if the prescription is for a... Start Date: 07/01/20 Status: OrderedDiflucan 150 mg oral tablet 1 tablet = 150 mg, By Mouth, Once, # 1 tablet, 0 Refills, Soft Stop, 04/27/20 20:58:00 EST, Tablet, [facility]/pharmacy #[id number], Partial fill upon patient [...] 08/11/20 19:27:00 EDT, Route to Pharmacy Electronically, [facility]/pharmacy #[id number], Partial fill upon patient request [...] capsule, 2 Refills, Maintenance, 07/01/20 11:55:00 EDT, [facility]/pharmacy #[id number], Partial fill upon patient request, please fill higher 40mg dose, 175, cm, 06/26/20 16:02:00 EDT, Height Start Date: 07/01/20 Stop Date: 09/29/20 Status: OrderedYaz 3 mg-0.02 mg oral tablet 1 tablet, By Mouth, Daily, # 28 tablet, 11 Refills, Maintenance, 10/11/19 19:30:00 EDT, Tablet, [facility]/pharmacy #[id number], 1 tablet By Mouth Daily,x28 days, 175, cm, 09/25/19 9:27:00 EDT, Height Start Date: 10/11/19 Stop Date: 09/11/20 Status: Ordered Problem List Condition Effective Dates Status Health Status Informant Chronic constipation(Confirmed) Active Sigmoid diverticulosis(Confirmed) Active Endometrial thickening on Active ultrasound(Confirmed) Essential hypertension(Confirmed) Active Impaired fasting glucose(Confirmed) Active Non-Panamanian speaking Active patient(Confirmed) Hepatic cyst(Confirmed) Active Obesity(Confirmed) Active Pelvic pain(Confirmed) Active Social History Social History Type Response Smoking Status Never (less than 100 in life time) entered on: 08/18/18 Sex Female
--- OUTSIDE RECORDS SUMMARY | 2022-02-10 15:00 | XMS_ITS | Continuity of Care Document ---
:1980 Author Organization [facility] Address [address] [place] [address]- Care Team Providers Name Role Phone Uma Pedraza MD Primary Care Physician Encounter [facility] [place] Date(s): 07/18/20 - 08/20/[address] [address]- Attending Physician: Alicia Balderas MD Admitting Physician: Alicia Balderas MD Referring Physician: Uma Pedraza MD Allergies, Adverse Reactions, Alerts Substance Reaction Severity Status codeine1 Active 1wheezes, chest congestion at [facility] Immunizations Given and Recorded Vaccine Date [...] 07/01/20 14:41:00 EDT, Route to Pharmacy Electronically, [facility]/pharmacy #[id number], Partial fillupon patient request if the prescription is for a... Start Date: 07/01/20 Status: OrderedDiflucan 150 mg oral tablet 1 tablet = 150 mg, By Mouth, Once, # 1 tablet, 0 Refills, Soft Stop, 04/27/20 20:58:00 EST, Tablet, [facility]/pharmacy #[id number], Partial fill upon patient [...] 08/11/20 19:27:00 EDT, Route to Pharmacy Electronically, [facility]/pharmacy #[id number], Partial fill upon patient request [...] capsule, 2 Refills, Maintenance, 07/01/20 11:55:00 EDT, [facility]/pharmacy #[id number], Partial fill upon patient request, please fill higher 40mg dose, 175, cm, 06/26/20 16:02:00 EDT, Height Start Date: 07/01/20 Stop Date: 7/5/21 Status: OrderedYaz 3 mg-0.02 mg oral tablet 1 tablet, By Mouth, Daily, # 28 tablet, 11 Refills, Maintenance, 10/11/19 19:30:00 EDT, Tablet, [facility]/pharmacy #[id number], 1 tablet By Mouth Daily,x28 days, 175, cm, 09/25/19 9:27:00 EDT, Height Start Date: 10/11/19 Stop Date: 09/11/20 Status: Ordered Problem List Condition Effective Dates Status Health Status Informant Chronic constipation(Confirmed) Active Sigmoid diverticulosis(Confirmed) Active Endometrial thickening on Active ultrasound(Confirmed) Essential hypertension(Confirmed) Active Impaired fasting glucose(Confirmed) Active Non-Armenian speaking Active patient(Confirmed) Hepatic cyst(Confirmed) Active Obesity(Confirmed) Active Pelvic pain(Confirmed) Active Social History Social History Type Response Smoking Status Never (less than 100 in life time) entered on: 08/18/18 Sex Female
--- OUTSIDE RECORDS SUMMARY | 2022-02-10 15:00 | XMS_ITS | Continuity of Care Document ---
:1980 Author Organization [facility] Address [address] [place] [address]- Care Team Providers Name Role Phone Milo WERNER, Uma Primary Care Physician [place] [facility] [place] [id number] Date(s): 10/01/20 - 10/31/[address] [address]- Attending Physician: Kvng Lindsay Admitting Physician: AdmKvng dowling Referring Physician: AdmtrKvng Allergies, Adverse Reactions, Alerts Substance Reaction Severity Status codeine1 Active 1wheezes, chest congestion at [facility] Immunizations Given and Recorded Vaccine Date [...] 07/01/20 14:41:00 EDT, Route to Pharmacy Electronically, [facility]/pharmacy #[id number], Partial fillupon patient request if the prescription is for a... Start Date: 07/01/20 Status: OrderedDiflucan 150 mg oral tablet 1 tablet = 150 mg, By Mouth, Once, # 1 tablet, 0 Refills, Soft Stop, 04/27/20 20:58:00 EST, Tablet, [facility]/pharmacy #[id number], Partial fill upon patient request if the [...] 08/11/20 19:27:00 EDT, Route to Pharmacy Electronically, [facility]/pharmacy #[id number], Partial fill upon patient [...] MCRAE, # 28 tablet, 6 Refills, Maintenance, [id number], 28, TOME ODILIA TABLETA TODOS LOS MCRAE, 175, cm, 08/26/20 13:36:00 EDT, Height Start Date: 10/17/20 Status: Orderedomeprazole 40 mg oral enteric coated capsule 1 capsule = 40 mg, By Mouth, 2 times a day, # 60 capsule, 2 Refills, Maintenance, 10/01/20 15:07:00 EDT, [facility]/pharmacy #[id number], Partial fill upon patient request, please fill higher 40mg dose, 175, cm, 08/26/20 13:36:00 EDT, Height Start Date: 10/01/20 Stop Date: 12/30/20 Status: Ordered Problem List Condition Effective Dates Status Health Status Informant Chronic constipation(Confirmed) Active Sigmoid diverticulosis(Confirmed) Active Endometrial thickening on Active ultrasound(Confirmed) Essential hypertension(Confirmed) Active Impaired fasting glucose(Confirmed) Active Non-Mohawk speaking Active patient(Confirmed) Hepatic cyst(Confirmed) Active Obesity(Confirmed) Active Pelvic pain(Confirmed) Active Social History Social History Type Response Smoking Status Never (less than 100 in life time) entered on: 08/18/18 Sex Female
--- OUTSIDE RECORDS SUMMARY | 2022-02-10 15:00 | XMS_ITS | Continuity of Care Document ---
:[address] [facility] Address [address] [place] [address]- Care Team Providers Name Role Phone Uma Pedraza MD Primary Care Physician [place] [facility] [place] [id number] Date(s): 02/12/20 - 03/13/[address] [address]- Attending Physician: Kvng Lindsay Admitting Physician: AdmKvng dowling Referring Physician: AdmtrKvng Allergies, Adverse Reactions, Alerts Substance Reaction Severity Status codeine1 Active 1wheezes, chest congestion at [facility] Immunizations Given and Recorded Vaccine Date [...] capsule, 1 Refills, Maintenance, 02/12/20 11:12:00 EST, [facility]/pharmacy #[id number], Partial fill upon patient request, please fill higher 40mg dose, 175, cm, 02/12/20 10:09:00 EST, Height Start Date: 02/12/20 Stop Date: 04/12/20 Status: OrderedYaz 3 mg-0.02 mg oral tablet 1 tablet, By Mouth, Daily, # 28 tablet, 11 Refills, Maintenance, 10/11/19 19:30:00 EDT, Tablet, [facility]/pharmacy #[id number], 1 tablet By Mouth Daily,x28 days, 175, cm, 09/25/19 9:27:00 EDT, Height Start Date: 10/11/19 Stop Date: 09/11/20 Status: Ordered Problem List Condition Effective Dates Status Health Status Informant Chronic constipation(Confirmed) Active Sigmoid diverticulosis(Confirmed) Active Endometrial thickening on Active ultrasound(Confirmed) Impaired fasting glucose(Confirmed) Active Non-Belarusian speaking Active patient(Confirmed) Hepatic cyst(Confirmed) Active Obesity(Confirmed) Active Pelvic pain(Confirmed) Active Social History Social History Type Response Smoking Status Never (less than 100 in life time) entered on: 08/18/18 Sex Female
--- OUTSIDE RECORDS SUMMARY | 2022-02-10 15:00 | XMS_ITS | Continuity of Care Document ---
:1980 Author Organization [facility] Address [address] [place] [address]- Care Team Providers Name Role Phone Milo WERNER, Uma Primary Care Physician [place] [facility] [place] - 11/08/[address] [address] [place] Allergies, Adverse Reactions, Alerts Substance Reaction Severity Status codeine1 Active 1wheezes, chest congestion at [facility] Immunizations Given and Recorded Vaccine Date Status Refusal Reason tetanus/diphtheria/pertussis, acel(Tdap) 11/16/17 Given Medications cyclobenzaprine 10 mg oral tablet 10 mg, 1, tablet, By Mouth, Daily at bedtime, for 30 days, # 30 tablet, Refills 0, Tot. Refills 0, Acute 11/10/19 19:31:00 EDT, 10/11/19 19:31:00 EDT, Route to Pharmacy Electronically, [facility]/pharmacy #[id number], 175, cm, 09/25/19 9:27:00 EDT, Height [...] 02/16/19 15:51:49 EST, EC Capsule, Instructions in [place]inean Start Date: 02/16/19 Status: OrderedYaz 3 mg-0.02 [...] on Active ultrasound(Confirmed) Impaired fasting glucose(Confirmed) Active Non-Moldovan speaking Active patient(Confirmed) Hepatic cyst(Confirmed) Active Obesity(Confirmed) Active Pelvic pain(Confirmed) Active Social History Social History Type Response Smoking Status Never (less than 100 in life time) entered on: 08/18/18 Sex Female
--- OUTSIDE RECORDS SUMMARY | 2022-02-10 15:00 | XMS_ITS | Continuity of Care Document ---
:1980 Author Organization [facility] Address [address] [place] [id number]- Care Team Providers Name Role Phone Uma Pedraza MD Primary Care Physician Encounter [id number] Date(s): 06/22/19 - 07/02/[address] [address]- [facility] Attending Physician: Kvng Lindsay Admitting Physician: Kvng Lindsay Referring Physician: Kvng Lindsay Allergies, Adverse Reactions, Alerts Substance Reaction Severity Status codeine1 Active 1wheezes, chest congestion at [facility] Immunizations Given and Recorded Vaccine Date Status [...] 02/16/19 15:51:49 EST, EC Capsule, Instructions in Malay Start Date: 02/16/19 Status: OrderedYaz 3 mg-0.02 mg oral tablet 1 tablet, By Mouth, Daily, # 28 tablet, 11 Refills, Maintenance, 02/10/18 15:10:37 EST, Tablet, 1 tablet By Mouth Daily,x28 days Start Date: 02/10/18 Stop Date: 01/12/19 Status: Ordered Problem List Condition Effective Dates Status Health Status Informant Chronic constipation(Confirmed) Active Sigmoid diverticulosis(Confirmed) Active Endometrial thickening on Active ultrasound(Confirmed) Non-Norwegian speaking Active patient(Confirmed) Hepatic cyst(Confirmed) Active Obesity(Confirmed) Active Pelvic pain(Confirmed) Active Social History Social History Type Response Smoking Status Never (less than 100 in life time) entered on: 08/18/18 Sex
--- OUTSIDE RECORDS SUMMARY | 2022-02-10 15:00 | XMS_ITS | Continuity of Care Document ---
:1980 Author Organization [facility] Address [address] [place] [address]- Care Team Providers Name Role Phone Eric GRAY, Genesis Primary Care Physician Encounter [facility] Date(s): 05/20/21 - 06/19/[address] [address]- Allergies, Adverse Reactions, Alerts Substance Reaction Severity Status codeine1 Active lisinopril2 Active amLODIPine3 Active 1wheezes, chest congestion at [address]Pt reports itchy throat after taking amlodipine [...] Refills, Maintenance, 01/20/21 16:11:00 EDT, Tablet, [id number], Partial fill upon patient request if the prescription is for a schedule II opioid drug., 175, cm, 01/20/21 15:42:00 EDT, Height Start Date: 01/20/21 Status: Orderedcyclobenzaprine 10 mg oral tablet 1, tablet, By Mouth, 3 times a day, PRN, # 30 tablet, Refills 1, NEEDED FOR SPASM, Route to Pharmacy Electronically, [id number], 175, cm, 08/26/20 13:36:00 EDT, Height Start [...] capsule, 5 Refills, Maintenance, 02/10/21 11:58:00 EST, [facility]/pharmacy #[id number], 175, cm, 01/20/21 15:42:00 EDT, Height [...] tablet, 3 Refills, Maintenance, 05/28/21 17:49:00 EST, [facility]/pharmacy #[id number], Partial fill upon patient request if [...] 28 tablet, 6 Refills, 12/26/20 10:00:00 EDT, [facility]/pharmacy #[id number], 28, TOME ODILIA TABLETA TODOS LOS [...]
--- OUTSIDE RECORDS SUMMARY | 2022-02-10 15:00 | XMS_ITS | Continuity of Care Document ---
:1980 Author Organization [facility] Address [address] [place] [address]- Care Team Providers Name Role Phone Milo WERNER, Uma Primary Care Physician Encounter [facility] Date(s): 06/25/20 - 07/25/[address] [address]- Allergies, Adverse Reactions, Alerts Substance Reaction Severity Status codeine1 Active 1wheezes, chest congestion at [facility] Immunizations Given and Recorded Vaccine Date Status Refusal Reason tetanus/diphtheria/pertussis, acel(Tdap) 11/16/17 Given Not Given Vaccine Date Status Refusal Reason influenza virus vaccine, inactivated 02/12/20 Not Given Patient Refuses Medications cyclobenzaprine 10 mg oral tablet 10 mg, 1, tablet, By Mouth, 3 times a day, PRN, # 30 tablet, Refills 1, Tot. Refills 1, Maintenance,for spasm, 07/01/20 14:41:00 EDT, Route to Pharmacy Electronically, [facility]/pharmacy #[id number], Partial fillupon patient request if the prescription is for a... Start Date: 07/01/20 Status: OrderedDiflucan 150 mg oral tablet 1 tablet = 150 mg, By Mouth, Once, # 1 tablet, 0 Refills, Soft Stop, 04/27/20 20:58:00 EST, Tablet, [facility]/pharmacy #[id number], Partial fill upon patient [...]
--- OUTSIDE RECORDS SUMMARY | 2022-02-10 15:01 | XMS_ITS | Continuity of Care Document ---
:1980 Author Organization [facility] Address Unavailable , Care Team Providers Name Role Phone Eric GRAY, Genesis Primary Care Physician Encounter [facility] Date(s): 05/13/21 - 07/05/21 [facility] Attending Physician: Pablo Coats MD Referring Physician: Genesis Reyes NP Allergies, Adverse Reactions, Alerts Substance Reaction Severity Status codeine1 Active lisinopril2 Active amLODIPine3 Active [facility], [id number] it[facility] after taking amlodipine 01/15. [...] Refills, Maintenance, 01/20/21 16:11:00 EDT, Tablet, [id number], Partial fill upon patient request if the prescription is for a schedule II opioid drug., 175, cm, 01/20/21 15:42:00 EDT, Height Start Date: 01/20/21 Status: Orderedcyclobenzaprine 10 mg oral tablet 1, tablet, By Mouth, 3 times a day, PRN, # 30 tablet, Refills 1, NEEDED FOR SPASM, Route to Pharmacy Electronically, [id number], 175, cm, 08/26/20 13:36:00 EDT, Height Start [...] 5 Refills, Maintenance, 02/10/21 11:58:00 EST, [facility]/pharmacy #[id number], 175, cm, 01/20/21 15:42:00 EDT, Height [...] Hard Stop 09/25/21 17:49:00EDT, 05/28/21 17:49:00 EST, [facility]/pharmacy #[id number], Partial fill upon patient request if the prescription is for a schedule II opioid drug., 175, cm, 0... Start Date: 05/28/21 Stop Date: 09/25/21 Status: OrderedmetFORMIN 500 mg oral tablet 1 tablet = 500 mg, By Mouth, Daily, # 30 tablet, 3 Refills, Maintenance, 09/25/21 17:49:00 EDT, [facility]/pharmacy #[id number], Partial fill upon patient request if [...] 6 Refills, 12/26/20 10:00:00 EDT, [facility]/pharmacy #[id number], 28, TOME ODILIA TABLETA TODOS LOS [...]
--- OUTSIDE RECORDS SUMMARY | 2022-02-10 15:01 | XMS_ITS | Continuity of Care Document ---
:1980 Author Organization [facility] Address [address] [place] [address]- Care Team Providers Name Role Phone Milo WERNER, Uma Primary Care Physician [place] [facility] [place](s): 08/27/20 - 10/02/[address] [address]- Attending Physician: Genesis Reyes NP Admitting Physician: Genesis Reyes NP Allergies, Adverse Reactions, Alerts Substance Reaction Severity Status codeine1 Active 1wheezes, chest congestion at [facility] Immunizations Given and Recorded Vaccine [...] 14:41:00 EDT, Route to Pharmacy Electronically, [facility]/pharmacy #[id number], Partial fillupon patient request if the prescription is for a... Start Date: 07/01/20 Status: OrderedDiflucan 150 mg oral tablet 1 tablet = 150 mg, By Mouth, Once, # 1 tablet, 0 Refills, Soft Stop, 04/27/20 20:58:00 EST, Tablet, [facility]/pharmacy #[id number], Partial fill upon patient request if the [...] 19:27:00 EDT, Route to Pharmacy Electronically, [facility]/pharmacy #[id number], Partial fill upon patient [...] 2 Refills, Maintenance, 10/01/20 15:07:00 EDT, [facility]/pharmacy #[id number], Partial fill upon patient request, [...] gas, 10/01/20 15:08:00 EDT, Route toPharmacy Electronically, [facility]/pharmacy #[id number], Part... Start Date: 10/01/20 Stop Date: 10/29/20 Status: OrderedYaz 3 mg-0.02 mg oral tablet 1 tablet, By Mouth, Daily, # 28 tablet, 11 Refills, Maintenance, 10/11/19 19:30:00 EDT, Tablet, [facility]/pharmacy #[id number], 1 tablet By Mouth Daily,x28 days, 175, cm, 09/25/19 9:27:00 EDT, Height Start Date: 10/11/19 Stop Date: 09/11/20 Status: Ordered Problem List Condition Effective Dates Status Health Status Informant Chronic constipation(Confirmed) Active Sigmoid diverticulosis(Confirmed) Active Endometrial thickening on Active ultrasound(Confirmed) Essential hypertension(Confirmed) Active Impaired fasting glucose(Confirmed) Active Non-Yi speaking Active patient(Confirmed) Hepatic cyst(Confirmed) Active Obesity(Confirmed) Active Pelvic pain(Confirmed) Active Social History Social History Type Response Smoking Status Never (less than 100 in life time) entered on: 08/18/18 Sex Female
--- OUTSIDE RECORDS SUMMARY | 2022-02-10 15:01 | XMS_ITS | Continuity of Care Document ---
:1980 Author Organization [facility] Address [address] [place] [address]- Care Team Providers Name Role Phone Eric GRAY, Genesis Primary Care Physician Encounter [facility] Date(s): 02/05/21 - 03/07/[address] [address]- Allergies, Adverse Reactions, Alerts Substance Reaction Severity Status codeine1 Active lisinopril2 Active amLODIPine3 Active 1wheezes, chest congestion at [address]Pt reports itchy throat after taking amlodipine [...] Refills, Maintenance, 01/20/21 16:11:00 EDT, Tablet, [id number], Partial fill upon patient request if the prescription is for a schedule II opioid drug., 175, cm, 01/20/21 15:42:00 EDT, Height Start Date: 01/20/21 Status: Orderedcyclobenzaprine 10 mg oral tablet 1, tablet, By Mouth, 3 times a day, PRN, # 30 tablet, Refills 1, NEEDED FOR SPASM, Route to Pharmacy Electronically, [id number], 175, cm, 08/26/20 13:36:00 EDT, Height Start [...] capsule, 5 Refills, Maintenance, 02/10/21 11:58:00 EST, [facility]/pharmacy #[id number], 175, cm, 01/20/21 15:42:00 EDT, Height [...] 28 tablet, 6 Refills, 12/26/20 10:00:00 EDT, [facility]/pharmacy #[id number], 28, TOME ODILIA TABLETA TODOS LOS MCRAE, 175, cm, 12/26/20 9:15:00 EDT, Height Start Date: 12/26/20 Status: Orderedomeprazole 40 mg oral enteric coated capsule See Instructions, HUMERA THOMPSON AL BRANDIE, # 60 capsule, 2 Refills, [id number], 175, cm, 01/01/21 9:02:00 EDT, Height Start [...]
--- OUTSIDE RECORDS SUMMARY | 2022-02-10 15:01 | XMS_ITS | Continuity of Care Document ---
:1980 Author Organization [facility] Address [address] [place] [address]- Care Team Providers Name Role Phone Milo WERNER, Uma Primary Care Physician Encounter [facility] Date(s): 07/01/20 - 07/31/[address] [address]- Allergies, Adverse Reactions, Alerts Substance Reaction Severity Status codeine1 Active 1wheezes, chest congestion at [facility] Immunizations Given and Recorded Vaccine Date Status [...] on Active ultrasound(Confirmed) Impaired fasting glucose(Confirmed) Active Non-Wolof speaking Active patient(Confirmed) Hepatic cyst(Confirmed) Active Obesity(Confirmed) Active Pelvic pain(Confirmed) Active Social History Social History Type Response Smoking Status Never (less than 100 in life time) entered on: 08/18/18 Sex Female
--- OUTSIDE RECORDS SUMMARY | 2022-02-10 15:01 | XMS_ITS | Continuity of Care Document ---
:1980 Author Organization [facility] Address [address] [place] [address]- Care Team Providers Name Role Phone Eric GRAY, Genesis Primary Care Physician Encounter [facility] Date(s): 09/22/21 - 10/22/[address] [address]- Allergies, Adverse Reactions, Alerts Substance Reaction Severity Status codeine1 Active lisinopril2 Active amLODIPine3 Active [facility]ezes, [id number] itchy throat after taking amlodipine 01/15. [...] 10/21/21 16:56:00 EDT, Route to Pharmacy Electronically, [facility]/pharmacy #[id number], Partial fill upon patient re... Start Date: 10/21/21 Status: Orderedalbuterol 0.083% inhalation solution 3 mL = 2.5 mg, Inhalation, Every 6 hours, PRN for wheezing/shortness of breath, # 60 each, 0 Refills, Maintenance, 07/31/21 13:24:00 EDT, Solution, [facility]/pharmacy #[id number], Partial fill upon patient requestif the prescription is for a schedule II opioid d... Start Date: 07/31/21 Status: Orderedbaclofen 10 mg oral tablet 10 mg, 1, tablet, By Mouth, Daily at bedtime, # 90 tablet, Refills 2, Tot. Refills 2, Maintenance, 09/03/21 11:12:00 EDT, Route to Pharmacy Electronically, [facility]/pharmacy #[id number], Partial fill upon patientrequest if the prescription is for a schedule II... Start Date: 09/03/21 Stop Date: 05/31/22 Status: Orderedbenzocaine 20% topical cream 1 application, Topically, 4 times a day, PRN for itching, clean affected area before application, # 28 Gm, 0 Refills, Acute 10/31/21 13:54:00 EDT, 09/25/21 13:53:00 EDT, Cream, [facility]/pharmacy #[id number], greenlandic instructions, 1 application Topically 4 times... Start Date: 09/25/21 Stop Date: 10/31/21 Status: Orderedcetirizine 10 mg oral tablet 1 tablet = 10 mg, By Mouth, Daily, # 30 tablet, 1 Refills, Maintenance, 08/17/21 13:33:00 EDT, Tablet, [facility]/pharmacy #[id number], Partial fill upon patient request if the prescription is for a schedule II opioid drug., 178, cm, 08/17/21 13:13:00 EDT, Height,... Start Date: 08/17/21 Status: OrderedFlonase 50 mcg/inh nasal spray 1 sprays, Nares, Both, Daily in AM, # 16 Gm, 5 Refills, Maintenance, 08/17/21 14:11:00 EDT, [place], [facility]/pharmacy #[id number], Partial fill upon patient request if the prescription is for a schedule II opioid drug., 1 sprays Nares, Both Daily in AM, 178, cm,... Start Date: 08/17/21 Status: Orderedfluconazole 150 mg oral tablet 1 tablet = 150 mg, By Mouth, Once, # 1 tablet, 0 Refills, Soft Stop, 09/25/21 13:42:00 EDT, Tablet, [facility]/pharmacy #[id number], greenlandic instructions, 178, cm, 09/03/21 10:33:00 EDT, Height, 117.8, kg, 08/13/2209:43:00 EDT, Dry Weight Start Date: 09/25/21 Status: OrderedFLUoxetine 20 mg oral tablet 1 tablet = 20 mg, By Mouth, Daily, [place] bentley media tableta para bentley semana. Despues de bentley semana, tome bentley tableta completa., # 30 tablet, 2 Refills, Maintenance, 10/15/21 11:30:00 EDT, [facility]/pharmacy #[id number], Partial fill upon patient [...] capsule, 2 Refills, Maintenance, 09/03/21 11:10:00 EDT, [facility]/pharmacy #[id number], Partial fill upon patient request if the prescription is for a schedule II opioid drug., 178, cm, 09/03/21 10:33:00 EDT, Height, 117... Start Date: 09/03/21 Status: OrderedhydrOXYzine hydrochloride 50 mg oral tablet See Instructions, [place] bent[place] tableta antes de dormir y fang [...] 10/21/21 16:57:00 EDT, Route to Pharmacy Electronically, [facility]/pharmacy #[id number], Partial fill upon patient re... Start Date: 10/21/21 Status: OrderedmetFORMIN 500 mg oral tablet See Instructions, HUMERA HARTLEY TABLETA MAYRA MENDOZA MCRAE, # 30 tablet, 3 Refills, [id number], 178, cm,09/03/21 10:33:00 EDT, Height, 117.8, kg, 08/13/21 10:43:00 EDT, Dry Weight Start Date: 09/15/21 Status: OrderedmetFORMIN 500 mg oral tablet 1 tablet = 500 mg, By Mouth, Daily, # 30 tablet, 11 Refills, Maintenance, 09/15/21 12:13:00 EDT, [facility]/pharmacy #[id number], Partial fill upon patient request if the prescription is for a schedule II opioid drug., 178, cm, 09/03/21 10:33:00 EDT, Height, 117.8... Start Date: 09/15/21 Stop Date: 09/10/22 Status: Orderednorethindrone 0.35 mg oral tablet 1 tablet = 0.35 mg, By Mouth, Daily, # 28 tablet, 11 Refills, Maintenance, 09/03/21 11:11:00 EDT, Tablet, [facility]/pharmacy #[id number], Partial fill upon patient request if the prescription is for a schedule II opioid drug., 178, cm, 09/03/21 10:33:00 EDT, [place]... Start Date: 09/03/21 Status: Orderedomeprazole 40 mg oral enteric coated capsule See Instructions, HUMERA HARTLEY CAPSULA DOS VECES AL BRANDIE, # 60 capsule, 2 Refills, Maintenance, 03/31/21 12:25:00 EST, [facility]/pharmacy #[id number], 175, cm, 01/20/21 15:42:00 [...]
--- OUTSIDE RECORDS SUMMARY | 2022-02-10 15:01 | XMS_ITS | Continuity of Care Document ---
:1980 Author Organization [facility] Address Unavailable , Care Team Providers Name Role Phone Milo WERNER, Uma Primary Care Physician Encounter [facility] [place] [place] Date(s): 11/25/20 - 12/25/20 [facility] Allergies, Adverse Reactions, Alerts Substance Reaction Severity Status codeine1 Active 1wheezes, chest congestion at [facility] Immunizations Given and Recorded Vaccine Date [...] NEEDED FOR SPASM, Route to Pharmacy Electronically, [id number], 175, cm, 08/26/20 13:36:00 EDT, Height Start Date: 11/13/20 Status: OrderedCymbalta 30 mg oral enteric coated capsule 1 capsule = 30 mg, By Mouth, Daily, do not crush or chew, # 30 capsule, 2 Refills, Maintenance, 11/17/20 14:33:00 EDT, CR Capsule, [facility]/pharmacy #[id number], Partial fill upon patient request [...] MCRAE, # 28 tablet, 6 Refills, Maintenance, [facility], 28, TOME ODILIA TABLETA TODOS LOS MCRAE, 175, cm, 08/26/20 13:36:00 EDT, Height Start Date: 10/17/20 Status: Orderedomeprazole 40 mg oral enteric coated capsule 1 capsule = 40 mg, By Mouth, 2 times a day, # 60 capsule, 2 Refills, Maintenance, 10/01/20 15:07:00 EDT, [id number], Partial fill upon patient request, please fill higher 40mg dose, 175, cm, 08/26/20 13:36:00 EDT, Height Start Date: 10/01/20 Stop Date: 12/30/20 Status: Ordered Problem List Condition Effective Dates Status Health Status Informant Chronic constipation(Confirmed) Active Sigmoid diverticulosis(Confirmed) Active Endometrial thickening on Active ultrasound(Confirmed) Essential hypertension(Confirmed) Active Impaired fasting glucose(Confirmed) Active Non-Lithuanian speaking Active patient(Confirmed) Hepatic cyst(Confirmed) Active Obesity(Confirmed) Active Pelvic pain(Confirmed) Active Social History Social History Type Response Smoking Status Never (less than 100 in life time) entered on: 08/18/18 Sex Female
[2022-02-10 15:35] LABS: Appearance Urine Clear; Color Urine Yellow; Glucose Urine UA Negative (Negative); Leukocyte Esterase Urine Negative (Negative); Nitrite Urine Negative (Negative); PH 5.5 (5.0-9.0); Specific Gravity - Urine 1.025 (1.005-1.025); Urine Blood Negative (Negative); Urine Ketones Negative (Negative); Urine Protein Trace mg/dL (Neg-Trace)
[2022-02-10 15:40] LABS: UPreg QC Valid YES; Urine Pregnancy NEGATIVE (NEGATIVE)
[2022-02-10 17:47] LABS: CT PCR NOT DETECTED (Not Detect.); NG PCR NOT DETECTED (Not Detect.)
[2022-02-11 10:16] LABS: BV Int Neg Control Negative (Negative); BV Int Pos Control Positive (Positive)
== END 2022-02-10 16:08 | disposition home or self-care (01) ==
PROVIDERS: Emergency Medicine; Emergency Provider Emergency Medicine Emergency Medical Services
DX: N76.0 Acute vaginitis (principal)
CPT/HCPCS: 81003; 81025; 87480; 87491; 87510; 87591; 87660; 99283

== ENCOUNTER 2022-03-29 13:29 | Emergency (ER) | payer OTHER, SELFPAY ==
--- NOTE | ~2022-03-29 | XR_ITS ---
EXAMINATION: XR CHEST CLINICAL INFORMATION: Dizziness COMPARISON: None TECHNIQUE: 2 views of the chest were obtained. FINDINGS: No significant abnormality is noted involving the heart, lungs, mediastinum, bony thorax or soft tissues. XR/XR chest 2V IMPRESSION: No acute disease.
--- NOTE | ~2022-03-29 | XR_ITS ---
EXAMINATION: RIGHT HAND AND WRIST CLINICAL INFORMATION: Pain COMPARISON: None TECHNIQUE: 4 views of the right hand and wrist FINDINGS: There is no evidence of acute fracture or dislocation of the right hand or wrist. Joint spaces are maintained. No destructive bony lesions. XR/XR hand wrist RT IMPRESSION: No significant bony abnormality of the right hand or wrist identified.
[2022-03-29 15:28] VITALS: BP 150/72; PULSE 71; RESP 18; TEMP 36.4; O2SAT 98; BMI 37.3
--- NOTE | 2022-03-29 15:28 | ED.UPPEXIN ---
HPI - Extremity Injury (Upper) General Chief Complaint: Extremity Injury, Upper <PAKO Mohan - Last Filed: 04/04/22 11:58> Stated Complaint: r wrist pain dizzy <PAKO Mohan - Last Filed: 04/04/22 11:58> Time Seen by Provider: 03/29/22 19:42 <PAKO Mohan - Last Filed: 04/04/22 11:58> Source: patient <Vik Linares MD - Last Filed: 04/04/22 17:13> Mode of arrival: ambulatory <Vik Linares MD - Last Filed: 04/04/22 17:13> Limitations: no limitations <Vik Linares MD - Last Filed: 04/04/22 17:13> History of Present Illness HPI narrative: Patient was apparently pulling mattress 3 days ago noticed pain in the dorsum of the right wrist since then no other injuries patient also is prediabetic feel dizzy for long time <Vik Linares MD - Last Filed: 04/04/22 17:13> Related Data Home Medications: Previous Rx's Medication Instructions Recorded albuterol sulfate 90 mcg/actuation 2 puff inhalation Q4-6H PRN 01/16/21 aerosol inhaler (ProAir HFA) Wheezing #8.5 grams benzonatate 100 mg capsule 100 mg PO TID PRN cough #20 caps 01/16/21 (Tessalon Perles) diltiazem HCl 120 mg 120 mg PO QAM #30 caps 01/16/21 capsule,extended release 24 hr (Cardizem CD) fluconazole 150 mg tablet 150 mg PO Q3D 2 doses #2 tabs 02/10/22 (Diflucan) metronidazole 500 mg tablet 500 mg PO BID 7 days #14 tabs 02/10/22 miconazole nitrate 200 mg/5 gram 1 appful vaginal BEDTIME 3 days 02/10/22 (4 %) vaginal cream #15 grams ferrous sulfate 325 mg (65 mg 325 mg PO DAILY #30 tabs 03/29/22 iron) tablet tramadol 50 mg tablet 50 mg PO Q6H PRN pain #20 tabs 03/29/22 <PAKO Mohan - Last Filed: 04/04/22 11:58> Allergies/Adverse Reactions: Allergies Allergy/AdvReac Type Severity Reaction Status Date / Time No Known Allergies Allergy Verified 01/16/21 19:35 <PAKO Mohan - Last Filed: 04/04/22 11:58> Review of Systems Review of Systems: Yes all other systems are reviewed and are negative <Vik Linares MD - Last Filed: 04/04/22 17:13> [facility] Past Medical History Medical History: Medical History HTN (hypertension) Prediabetes <PAKO Mohan - Last Filed: 04/04/22 11:58> Social History Social History: Social History Advance Directives: No Advance Directives Information Provided: No <PAKO Mohan - Last Filed: 04/04/22 11:58> Physical Exam Vital Signs: Vital Signs: Last Vital Signs Temp 97.5 F 03/29/22 15:28 Pulse 71 03/29/22 15:28 Resp 18 03/29/22 15:28 BP 150/72 H 03/29/22 15:28 Pulse Ox 98 03/29/22 15:28 O2 Del Method 03/29/22 15:28 BMI result Body Mass Index 37.3 <PAKO Mohan - Last Filed: 04/04/22 11:58> Vital Signs: Last Vital Signs Temp 97.5 F 03/29/22 15:28 Pulse 71 03/29/22 15:28 Resp 18 03/29/22 15:28 BP 150/72 H 03/29/22 15:28 Pulse Ox 98 03/29/22 15:28 O2 Del Method 03/29/22 15:28 BMI result Body Mass Index 37.3 <Vik Linares MD - Last Filed: 04/04/22 17:13> Appearance: Alert. Oriented X3. No acute distress. Eyes: PERRLA, No Nystagmus ENT: Pharynx normal. Oral Mucosa moist Neck: Normal inspection. Neck supple. CVS: Normal heart rate and rhythm. Pulses normal. Respiratory: No respiratory distress. Equal air entry bilateral, Abdomen: Soft and nontender. Skin: Skin warm and dry. Normal skin color. Normal skin turgor. Extremities: No lower extremity edema. No calf tenderness right wrist painful on wrist extension no bony deformity or swelling Neuro: Oriented X 3. <Vik Linares MD - Last Filed: 04/04/22 17:13> Course Course Course Narrative: RME- 15:30PM - 41-year-old female who is a prediabetic presenting to the ER with multiple complaints which include intermittent dizziness, generalized fatigue, malaise, headaches for the past few days worse today. Reports that she was prescribed metformin and not taking as prescribed. Also reports 3 days ago she was pulling a mattress and she injured her right hand/wrist and since then has been having pain. Reports that she would like her blood checked due to she is also anemic and was prescribed iron supplements and she finished a bottle although she is unsure if this was causing her symptoms. Otherwise denies any other symptoms. Plan: Will obtain labs, point of care, right hand and wrist x-ray and re-evaluate patient is able to go back to the waiting room to be evaluated in the ED. <PAKO Mohan - Last Filed: 04/04/22 11:58> Medications Administered Discontinued Medications Generic Name Dose Route Start Last Admin Trade Name Freq PRN Reason Stop Dose Admin Tramadol HCl 50 mg 03/29/22 19:55 03/29/22 20:24 Tramadol Hcl 50 Mg Tablet PO 03/29/22 19:56 50 mg ONCE ONE Administration <PAKO Mohan - Last Filed: 04/04/22 11:58> Medications Administered Discontinued Medications Generic Name Dose Route Start Last Admin Trade Name Freq PRN Reason Stop Dose Admin Tramadol HCl 50 mg 03/29/22 19:55 03/29/22 20:24 Tramadol Hcl 50 Mg Tablet PO 03/29/22 19:56 50 mg ONCE ONE Administration <Vik Linares MD - Last Filed: 04/04/22 17:13> Medical Decision Making Medical Decision Making [facility] Narrative: Patient x-rays and labs are normal clinically patient has right wrist extensor strain as a cause of her pain will give her a splint and ibuprofen for pain <Vik Linares MD - Last Filed: 04/04/22 17:13> Lab Data [facility] Lab Attestation statement: I reviewed the patient's lab results. <Vik Linares MD - Last Filed: 04/04/22 17:13> Result Diagrams: 03/29/22 17:49 03/29/22 17:49 <PAKO Mohan - Last Filed: 04/04/22 11:58> Labs: Lab Results 03/29/22 03/29/22 03/29/22 Range/Units 17:49 17:49 17:49 WBC 8.6 (4.8-10.8) X10*3/uL RBC 5.30 (4.20-5.50) X10*6/uL Hgb 11.2 L (12.0-16.0) g/dl Hct 37.6 (37.0-47.0) % MCV 70.9 L (80.0-98.0) fL MCH 21.1 L (27.0-33.0) pg MCHC 29.8 L (31.0-35.0) g/dl RDW 18.7 H (11.0-16.0) % Plt Count 494 H (160-400) X10*3/uL MPV 9.8 (9.4-12.3) fL Immature Gran % (Auto) 0.3 (0.0-0.4) % Neut % (Auto) 64.9 (45-73) % Lymph % (Auto) 28.9 (20-40) % [place] % (Auto) 4.0 (2-11) % Eos % (Auto) 1.2 (0-4) % Baso % (Auto) 0.7 (0-2) % Lymph # (Auto) 2.5 (1.2-4.9) X10*3/uL [place] # (Auto) 0.3 (0.1-1.2) X10*3/uL Eos # (Auto) 0.1 (0.0-0.4) X10*3/uL Baso # (Auto) 0.1 (0.0-0.2) X10*3/uL Abs Immat Gran (auto) 0.03 (0.00-0.03) X10*3/uL Absolute Neuts (auto) 5.6 (2.0-8.3) x10*3/uL Absolute Nucleated RBC 0.000 (0.0-0.012) X10*3/uL Nucleated RBC % (auto) 0.0 (0.0-0.2) /100WBC Sodium 138 (135-145) mmol/L Potassium 3.6 (3.3-5.1) mmol/L Chloride 101 (96-108) mmol/L Carbon Dioxide 26 (22-29) mmol/L Anion Gap 15 (12-20) BUN 10 (9-16) mg/dL Creatinine 0.85 (0.5-1.4) mg/dL Estim Creat Clear Calc 118.9 Estimated GFR > 60 Random Glucose 152 H (60-115) mg/dL Estimat Average Glucose mg/dL Hemoglobin A1c % % Calcium 9.7 (8.4-10.2) mg/dL Magnesium 1.9 (1.6-2.6) mg/dL Total Bilirubin 0.3 (0.0-1.0) mg/dL AST 13 (5-31) U/L ALT 24 (0-31) U/L Alkaline Phosphatase 90 (39-117) U/L Total Protein 7.9 (6.5-8.0) g/dL Albumin 4.5 (3.5-5.0) g/dL Beta HCG, Quant < 2 mIU/mL Urine Color Urine Appearance Urine pH (5.0-9.0) Ur Specific [place] (1.005-1.025) Urine Protein (Neg-Trace) mg/dL Urine Glucose (UA) (Negative) mg/dL Urine Ketones (Negative) mg/dL Urine Blood (Negative) Urine Nitrite (Negative) Ur Leukocyte Esterase (Negative) Influenza Type A (PCR) (Negative) Influenza Type B (PCR) (Negative) RSV RNA Qual (PCR) (Negative) SARS-CoV-2 RNA (RT-PCR) (Negative) 03/29/22 03/29/22 03/29/22 Range/Units 17:49 17:49 18:23 WBC (4.8-10.8) X10*3/uL RBC (4.20-5.50) X10*6/uL Hgb (12.0-16.0) g/dl Hct (37.0-47.0) % MCV (80.0-98.0) fL MCH (27.0-33.0) pg MCHC (31.0-35.0) g/dl RDW (11.0-16.0) % Plt Count (160-400) X10*3/uL MPV (9.4-12.3) fL Immature Gran % (Auto) (0.0-0.4) % Neut % (Auto) (45-73) % Lymph % (Auto) (20-40) % [place] % (Auto) (2-11) % Eos % (Auto) (0-4) % Baso % (Auto) (0-2) % Lymph # (Auto) (1.2-4.9) X10*3/uL [place] # (Auto) (0.1-1.2) X10*3/uL Eos # (Auto) (0.0-0.4) X10*3/uL Baso # (Auto) (0.0-0.2) X10*3/uL Abs Immat Gran (auto) (0.00-0.03) X10*3/uL Absolute Neuts (auto) (2.0-8.3) x10*3/uL Absolute Nucleated RBC (0.0-0.012) X10*3/uL Nucleated RBC % (auto) (0.0-0.2) /100WBC Sodium (135-145) mmol/L Potassium (3.3-5.1) mmol/L Chloride (96-108) mmol/L Carbon Dioxide (22-29) mmol/L Anion Gap (12-20) BUN (9-16) mg/dL Creatinine (0.5-1.4) mg/dL Estim Creat Clear Calc Estimated GFR Random Glucose (60-115) mg/dL Estimat Average Glucose 123 mg/dL Hemoglobin A1c % 5.9 % Calcium (8.4-10.2) mg/dL Magnesium (1.6-2.6) mg/dL Total Bilirubin (0.0-1.0) mg/dL AST (5-31) U/L ALT (0-31) U/L Alkaline Phosphatase (39-117) U/L Total Protein (6.5-8.0) g/dL Albumin (3.5-5.0) g/dL Beta HCG, Quant mIU/mL Urine Color Yellow Urine Appearance Clear Urine pH 5.5 (5.0-9.0) Ur Specific [place] 1.020 (1.005-1.025) Urine Protein Negative (Neg-Trace) mg/dL Urine Glucose (UA) Negative (Negative) mg/dL Urine Ketones Negative (Negative) mg/dL Urine Blood Negative (Negative) Urine Nitrite Negative (Negative) Ur Leukocyte Esterase Negative (Negative) Influenza Type A (PCR) NEGATIVE (Negative) Influenza Type B (PCR) NEGATIVE (Negative) RSV RNA Qual (PCR) NEGATIVE (Negative) SARS-CoV-2 RNA (RT-PCR) NEGATIVE (Negative) <PAKO Mohan - Last Filed: 04/04/22 11:58> Lab Results 03/29/22 03/29/22 03/29/22 Range/Units 17:49 17:49 17:49 WBC 8.6 (4.8-10.8) X10*3/uL RBC 5.30 (4.20-5.50) X10*6/uL Hgb 11.2 L (12.0-16.0) g/dl Hct 37.6 (37.0-47.0) % MCV 70.9 L (80.0-98.0) fL MCH 21.1 L (27.0-33.0) pg MCHC 29.8 L (31.0-35.0) g/dl RDW 18.7 H (11.0-16.0) % Plt Count 494 H (160-400) X10*3/uL MPV 9.8 (9.4-12.3) fL Immature Gran % (Auto) 0.3 (0.0-0.4) % Neut % (Auto) 64.9 (45-73) % Lymph % (Auto) 28.9 (20-40) % [place] % (Auto) 4.0 (2-11) % Eos % (Auto) 1.2 (0-4) % Baso % (Auto) 0.7 (0-2) % Lymph # (Auto) 2.5 (1.2-4.9) X10*3/uL [place] # (Auto) 0.3 (0.1-1.2) X10*3/uL Eos # (Auto) 0.1 (0.0-0.4) X10*3/uL Baso # (Auto) 0.1 (0.0-0.2) X10*3/uL Abs Immat Gran (auto) 0.03 (0.00-0.03) X10*3/uL Absolute Neuts (auto) 5.6 (2.0-8.3) x10*3/uL Absolute Nucleated RBC 0.000 (0.0-0.012) X10*3/uL Nucleated RBC % (auto) 0.0 (0.0-0.2) /100WBC Sodium 138 (135-145) mmol/L Potassium 3.6 (3.3-5.1) mmol/L Chloride 101 (96-108) mmol/L Carbon Dioxide 26 (22-29) mmol/L Anion Gap 15 (12-20) BUN 10 (9-16) mg/dL Creatinine 0.85 (0.5-1.4) mg/dL Estim Creat Clear Calc 118.9 Estimated GFR > 60 Random Glucose 152 H (60-115) mg/dL Estimat Average Glucose mg/dL Hemoglobin A1c % % Calcium 9.7 (8.4-10.2) mg/dL Magnesium 1.9 (1.6-2.6) mg/dL Total Bilirubin 0.3 (0.0-1.0) mg/dL AST 13 (5-31) U/L ALT 24 (0-31) U/L Alkaline Phosphatase 90 (39-117) U/L Total Protein 7.9 (6.5-8.0) g/dL Albumin 4.5 (3.5-5.0) g/dL Beta HCG, Quant < 2 mIU/mL Urine Color Urine Appearance Urine pH (5.0-9.0) Ur Specific [place] (1.005-1.025) Urine Protein (Neg-Trace) mg/dL Urine Glucose (UA) (Negative) mg/dL Urine Ketones (Negative) mg/dL Urine Blood (Negative) Urine Nitrite (Negative) Ur Leukocyte Esterase (Negative) Influenza Type A (PCR) (Negative) Influenza Type B (PCR) (Negative) RSV RNA Qual (PCR) (Negative) SARS-CoV-2 RNA (RT-PCR) (Negative) 03/29/22 03/29/22 03/29/22 Range/Units 17:49 17:49 18:23 WBC (4.8-10.8) X10*3/uL RBC (4.20-5.50) X10*6/uL Hgb (12.0-16.0) g/dl Hct (37.0-47.0) % MCV (80.0-98.0) fL MCH (27.0-33.0) pg MCHC (31.0-35.0) g/dl RDW (11.0-16.0) % Plt Count (160-400) X10*3/uL MPV (9.4-12.3) fL Immature Gran % (Auto) (0.0-0.4) % Neut % (Auto) (45-73) % Lymph % (Auto) (20-40) % [place] % (Auto) (2-11) % Eos % (Auto) (0-4) % Baso % (Auto) (0-2) % Lymph # (Auto) (1.2-4.9) X10*3/uL [place] # (Auto) (0.1-1.2) X10*3/uL Eos # (Auto) (0.0-0.4) X10*3/uL Baso # (Auto) (0.0-0.2) X10*3/uL Abs Immat Gran (auto) (0.00-0.03) X10*3/uL Absolute Neuts (auto) (2.0-8.3) x10*3/uL Absolute Nucleated RBC (0.0-0.012) X10*3/uL Nucleated RBC % (auto) (0.0-0.2) /100WBC Sodium (135-145) mmol/L Potassium (3.3-5.1) mmol/L Chloride (96-108) mmol/L Carbon Dioxide (22-29) mmol/L Anion Gap (12-20) BUN (9-16) mg/dL Creatinine (0.5-1.4) mg/dL Estim Creat Clear Calc Estimated GFR Random Glucose (60-115) mg/dL Estimat Average Glucose 123 mg/dL Hemoglobin A1c % 5.9 % Calcium (8.4-10.2) mg/dL Magnesium (1.6-2.6) mg/dL Total Bilirubin (0.0-1.0) mg/dL AST (5-31) U/L ALT (0-31) U/L Alkaline Phosphatase (39-117) U/L Total Protein (6.5-8.0) g/dL Albumin (3.5-5.0) g/dL Beta HCG, Quant mIU/mL Urine Color Yellow Urine Appearance Clear Urine pH 5.5 (5.0-9.0) Ur Specific [place] 1.020 (1.005-1.025) Urine Protein Negative (Neg-Trace) mg/dL Urine Glucose (UA) Negative (Negative) mg/dL Urine Ketones Negative (Negative) mg/dL Urine Blood Negative (Negative) Urine Nitrite Negative (Negative) Ur Leukocyte Esterase Negative (Negative) Influenza Type A (PCR) NEGATIVE (Negative) Influenza Type B (PCR) NEGATIVE (Negative) RSV RNA Qual (PCR) NEGATIVE (Negative) SARS-CoV-2 RNA (RT-PCR) NEGATIVE (Negative) <Vik Linares MD - Last Filed: 04/04/22 17:13> Discharge Plan Discharge Clinical Impression: Sprain and strain of wrist <PAKO Mohan - Last Filed: 04/04/22 11:58> Patient Disposition: Home, Self-Care <PAKO Mohan - Last Filed: 04/04/22 11:58> Instructions: Wrist Sprain (ED) <PAKO Mohan - Last Filed: 04/04/22 11:58> Additional Instructions: Apply ice pack Tramadol for pain <PAKO Mohan - Last Filed: 04/04/22 11:58> Prescriptions: New tramadol 50 mg tablet 50 mg PO Q6H PRN (Reason: pain) Qty: 20 0RF ferrous sulfate 325 mg (65 mg iron) tablet 325 mg PO DAILY Qty: 30 0RF No Action diltiazem HCl [Cardizem CD] 120 mg capsule,extended release 24hr 120 mg PO QAM Qty: 30 0RF benzonatate [Tessalon Perles] 100 mg capsule 100 mg PO TID PRN (Reason: cough) Qty: 20 0RF albuterol sulfate [ProAir HFA] 90 mcg/actuation HFA aerosol inhaler 2 puff inhalation Q4-6H PRN (Reason: Wheezing) Qty: 8.5 0RF fluconazole [Diflucan] 150 mg tablet 150 mg PO Q3D 0 Days Qty: 2 0RF Rx Instructions: may repeat second dose 72 hrs after first dose if symptoms persist metronidazole 500 mg tablet 500 mg PO BID 7 Days Qty: 14 0RF miconazole nitrate 200 mg/5 gram (4 %) cream 1 appful vaginal BEDTIME 3 Days Qty: 15 0RF <PAKO Mohan - Last Filed: 04/04/22 11:58> Interventions: ED Discharge Assessment Last Done: 03/29/22 20:31 <PAKO Mohan - Last Filed: 04/04/22 11:58> Discharge Date/Time: 03/29/22 20:31 <PAKO Mohan - Last Filed: 04/04/22 11:58>
--- OUTSIDE RECORDS SUMMARY | 2022-03-29 17:42 | XMS_ITS | Continuity of Care Document ---
:1980 Author Organization [facility] Address [address] [place] [address]- Care Team Providers Name Role Phone Eric GRAY, Genesis Primary Care Physician Encounter [facility] Date(s): 02/09/22 - 03/11/[address] [address]- Allergies, Adverse Reactions, Alerts Substance Reaction Severity Status codeine1 Active lisinopril2 Active amLODIPine3 Active [id number] reports itchy throat after taking amlodipine 01/15. [...] Refills, Maintenance, 07/31/21 13:24:00 EDT, Solution, [id number], Partial fill upon patient requestif the prescription is for a schedule II opioid d... Start Date: 07/31/21 Status: Orderedbaclofen 10 mg oral tablet 10 mg, 1, tablet, By Mouth, Daily at bedtime, # 90 tablet, Refills 2, Tot. Refills 2, Maintenance, 09/03/21 11:12:00 EDT, Route to Pharmacy Electronically, [facility]/pharmacy #[id number], Partial fill upon patientrequest if [...] tablet = 20 mg, By Mouth, Daily, [place] media tableta para bentley semana. Despues [...] capsule, 2 Refills, Maintenance, 01/23/22 22:20:00 EDT, [facility], 178, cm, 12/08/21 13:45:00 EDT, Height, 118.5, kg, 10/20/21 14:00:00 EDT, Dry Weight Start Date: 01/23/22 Status: OrderedhydrOXYzine hydrochloride 50 mg oral tablet See Instructions, TOME [place] TABLETA CADA SEIS HORAS CUANDO SEA NECESARIO PARA ANXIEDAD Y BENTLEY TABLETA ANTES DE DORMIR, # 40 tablet, 0 Refills, Maintenance, 03/04/22 14:44:00 EST, [facility], 178, cm, 12/08/21 13:45:00 EDT, Height, 118.5, kg, ... Start Date: 03/04/22 Status: Orderednorethindrone 0.35 mg oral tablet 1 tablet = 0.35 mg, By Mouth, Daily, # 28 tablet, 11 Refills, Maintenance, 01/13/22 11:50:00 EDT, Tablet, [facility]/pharmacy #[id number], Partial fill upon patient request if the prescription is for a schedule II opioid drug., 178, cm, 12/08/21 13:45:00 EDT, [facility]... Start Date: 01/13/22 Status: Orderedomeprazole 40 mg oral enteric coated capsule See Instructions, TOME BENTLEY CAPSULA DOS VECES AL BRANDIE, # 60 capsule, 2 Refills, Maintenance, 01/27/22 15:33:00 EDT, [facility], 178, cm, 12/08/21 13:45:00 EDT, Height, 118.5, [...] Care Team PersonnelName: Genesis Reyes NP Position: [facility] PCO Associate Professional Member Role: PCP Address: Address: [address] [place] [address]- Care Team Related PersonsName: AMY LEON Name: SANDRA ESTRELLA
--- OUTSIDE RECORDS SUMMARY | 2022-03-29 17:42 | XMS_ITS | Continuity of Care Document ---
:1980 Author Organization [facility] Address [address] [place] [address]- Care Team Providers Name Role Phone Eric GRAY, Genesis Primary Care Physician [place] [facility] 12/[place] - 02/26/[address] [address]- Attending Physician: Nancy Lisa MD Admitting Physician: Nancy Lisa MD Referring Physician: Genesis Reyes NP Allergies, Adverse Reactions, Alerts Substance Reaction Severity Status codeine1 Active lisinopril2 Active amLODIPine3 Active 1wheezes, [id number] reports itchy throat after taking amlodipine 01/15. [...] EDT, Route to Pharmacy Electronically, [facility]/pharmacy #[id number], Partial [...] tablet = 20 mg, By Mouth, Daily, [place] bentley media tableta para bentley semana. Despues [...] Refills, Maintenance, 01/23/22 22:20:00 EDT, [facility], 178, cm, 12/08/21 13:45:00 EDT, Height, 118.5, kg, 10/20/21 14:00:00 EDT, Dry Weight Start Date: 01/23/22 Status: OrderedhydrOXYzine hydrochloride 50 mg oral tablet See Instructions, [place] bentley tableta antes de dormir y fang [...] Refills, Maintenance, 01/27/22 15:33:00 EDT, [facility], 178, cm, 12/08/21 13:45:00 EDT, Height, 118.5, [...] cyst of Confirmed Active left axilla 1In 2018, patient underwent a pelvic ultrasound that showed thickened endometrial stripe. She then underwent an EMB, which was negative for hyperplasia. Social History Social History Type Response Smoking Status Never (less than 100 in life time) entered on: 08/18/18 Sex Female Patient Care team information Care Team PersonnelName: Genesis Reyes NP Position: [facility] PCO Associate Professional Member Role: PCP Address: Address: [address] [place] [address]- Care Team Related PersonsName: AMY LEON Name: SANDRA ESTRELLA
--- OUTSIDE RECORDS SUMMARY | 2022-03-29 17:42 | XMS_ITS | Continuity of Care Document ---
:1980 Author Organization [facility] Address [address] [place] [address]- Care Team Providers Name Role Phone Eric GRAY, Genesis Primary Care Physician Encounter [facility] Date(s): 02/09/22 - 03/11/[address] [address]- Attending Physician: Admtr, Will8 Admitting Physician: Admtr, Ar8 Referring Physician: Admtr, Ar8 Allergies, Adverse Reactions, Alerts Substance Reaction Severity Status codeine1 Active lisinopril2 Active amLODIPine3 Active [facility]wheezes, [id number] reports itchy throat after taking amlodipine 01/15. [...] 01/13/22 11:55:00 EDT, Route to Pharmacy Electronically, [facility]/pharmacy #[id number], Partial fill upon patient request if the prescriptio... Start Date: 01/13/22 Stop Date: 05/13/22 Status: Orderedferrous sulfate 325 mg oral enteric coated tablet 325 mg, 1, tablet, By Mouth, Daily, # 30 tablet, Refills 2, Tot. Refills 2, Maintenance, 01/13/22 11:56:00 EDT, Route to Pharmacy Electronically, [facility]/pharmacy #[id number], Partial fill upon patient request if the prescription is for a schedule II opioid nahun... Start Date: 01/13/22 Status: OrderedFLUoxetine 20 mg oral tablet 1 tablet = 20 mg, By Mouth, Daily, [place] bentley media tableta para bentley semana. Despues [...] Refills, Maintenance, 01/23/22 22:20:00 EDT, [facility], 178, cm, 12/08/21 13:45:00 EDT, Height, 118.5, kg, 10/20/21 14:00:00 EDT, Dry Weight Start Date: 01/23/22 Status: OrderedhydrOXYzine hydrochloride 50 mg oral tablet See Instructions, TOME B[place] TABLETA CADA SEIS HORAS CUANDO SEA NECESARIO PARA ANXIEDAD Y BENTLEY TABLETA ANTES DE DORMIR, # 40 tablet, 0 Refills, Maintenance, 03/04/22 14:44:00 EST, [facility], 178, cm, 12/08/21 13:45:00 EDT, Height, 118.5, kg, ... Start Date: 03/04/22 Status: Orderednorethindrone 0.35 mg oral tablet 1 tablet = 0.35 mg, By Mouth, Daily, # 28 tablet, 11 Refills, Maintenance, 01/13/22 11:50:00 EDT, Tablet, [facility]/pharmacy #[id number], Partial fill upon patient request if the prescription is for a schedule II opioid drug., 178, cm, 12/08/21 13:45:00 EDT, [facility]... Start Date: 01/13/22 Status: Orderedomeprazole 40 mg oral enteric coated capsule See Instructions, TOME BENT[place] CAPSULA DOS VECES AL BRANDIE, # 60 capsule, 2 Refills, Maintenance, 01/27/22 15:33:00 EDT, [facility], 178, cm, 12/08/21 13:45:00 EDT, Height, 118.5, [...] Care Team PersonnelName: Genesis Reyes NP Position: S PCO Associate Professional Member Role: PCP Address: Address: [address] [place] [address]- Care Team Related PersonsName: AMY LEON Name: SANDRA ESTRELLA
--- OUTSIDE RECORDS SUMMARY | 2022-03-29 17:42 | XMS_ITS | Continuity of Care Document ---
:1980 Author Organization [facility] Address [address] [place] [address]- Care Team Providers Name Role Phone Eric GRAY, Genesis Primary Care Physician Encounter [facility] Date(s): 01/11/22 - 02/10/[address] [address]- Allergies, Adverse Reactions, Alerts Substance Reaction Severity Status codeine1 Active lisinopril2 Active amLODIPine3 Active 1wheezes, chest congestion at [address]3Pt reports itchy throat after taking amlodipine [...] 09/03/21 11:12:00 EDT, Route to Pharmacy Electronically, [facility]/pharmacy #[id number], Partial fill upon patientrequest if the prescription is for a schedule II... Start Date: 09/03/21 Stop Date: 05/31/22 Status: OrderedColace sodium 100 mg oral capsule 100 mg, 1, capsule, By Mouth, 2 times a day, PRN, # 60 capsule, Refills 3, Tot. Refills 3, Maintenance, for constipation, 01/13/22 11:55:00 EDT, Route to Pharmacy Electronically, [facility]/pharmacy #[id number], Partial fill upon patient request if the prescriptio... Start Date: 01/13/22 Stop Date: 05/13/22 Status: Orderedferrous sulfate 325 mg oral enteric coated tablet 325 mg, 1, tablet, By Mouth, Daily, # 30 tablet, Refills 2, Tot. Refills 2, Maintenance, 01/13/22 11:56:00 EDT, Route to Pharmacy Electronically, [facility]/pharmacy #[id number], Partial fill upon patient request if the prescription is for a schedule II opioid nahun... Start Date: 01/13/22 Status: OrderedFLUoxetine 20 mg oral tablet 1 tablet = 20 mg, By Mouth, Daily, [place] media tableta para bentley semana. Despues [...] Refills, Maintenance, 01/23/22 22:20:00 EDT, [id number], 178, cm, 12/08/21 13:45:00 EDT, Height, 118.5, kg, 10/20/21 14:00:00 EDT, Dry Weight Start Date: 01/23/22 Status: OrderedhydrOXYzine hydrochloride 50 mg oral tablet See Instructions, [place] tableta antes de dormir y fang sea necesaria cada 6 horas para anxiedad luana al brandie., # 40 tablet, 0 Refills, Maintenance, 10/15/21 11:31:00 EDT, [facility]/pharmacy #[id number], Partial fill upon patient request if the prescription i... Start Date: 10/15/21 Status: Orderednorethindrone 0.35 mg oral tablet 1 tablet = 0.35 mg, By Mouth, Daily, # 28 tablet, 11 Refills, Maintenance, 01/13/22 11:50:00 EDT, Tablet, [facility]/pharmacy #[id number], Partial fill upon patient request if the prescription is for a schedule II opioid drug., 178, cm, 12/08/21 13:45:00 EDT, Heig... Start Date: 01/13/22 Status: Orderedomeprazole 40 mg oral enteric coated capsule See Instructions, TOME [place]ENT[place] CAPSULA DOS VECES AL BRANDIE, # 60 capsule, 2 Refills, Maintenance, 01/27/22 15:33:00 EDT, [id number], 178, cm, 12/08/21 13:45:00 EDT, Height, 118.5, kg, 10/20/21 14:00:00 EDT, Dry Weight Start Date: 01/27/22 Status: Orderedondansetron 4 mg oral tablet 1 tablet = 4 mg, By Mouth, Every 8 hours, for 3 days, # 9 tablet, 0 Refills, Acute 02/12/22 10:12:00EST, 02/09/22 10:12:00 EST, Tablet, [facility]/pharmacy #[id number], Partial fill upon patient request if the prescription is for a schedule II opioid drug., 178,... Start Date: 02/09/22 Stop Date: 02/12/22 Status: Ordered Problem List Condition Confirmation Course [...] Reyes NP Position: [facility] Associate Professional Member Role: PCP Address: Address: [address] [place] [address] Care Team Related PersonsName: AMY LEON Name: SANDRA ESTRELLA
[2022-03-29 18:05] LABS: MANUAL DIFF FLAG NO
[2022-03-29 18:20] LABS: Basophils Absolute Auto 0.1 X10*3/uL (0.0-0.2); Basophils Percent Auto 0.7 % (0-2); Eosinophils Absolute Auto 0.1 X10*3/uL (0.0-0.4); Eosinophils Percent Auto 1.2 % (0-4); Estimated Average Glucose 123 mg/dL; Hematocrit 37.6 % (37.0-47.0); Hemoglobin 11.2 g/dl (12.0-16.0); Hemoglobin A1c % 5.9 %; Imm Gran Abs Auto 0.03 X10*3/uL (0.00-0.03); Imm Gran Pct Auto 0.3 % (0.0-0.4); Lymphocytes Absolute Auto 2.5 X10*3/uL (1.2-4.9); Lymphocytes Percent Auto 28.9 % (20-40); Mean Corpuscular HGB Conc 29.8 g/dl (31.0-35.0); Mean Corpuscular Hemoglobin 21.1 pg (27.0-33.0); Mean Corpuscular Volume 70.9 fL (80.0-98.0); Mean Platelet Volume 9.8 fL (9.4-12.3); Monocytes Absolute Auto 0.3 X10*3/uL (0.1-1.2); Neutrophils Absolute Auto 5.6 x10*3/uL (2.0-8.3); Neutrophils Percent Auto 64.9 % (45-73); Platelet Count 494 X10*3/uL (160-400); Red Cell Distribution Width 18.7 % (11.0-16.0); White Blood Count 8.6 X10*3/uL (4.8-10.8)
[2022-03-29 18:22] LABS: Alanine Aminotransferase 24 U/L (0-31); Albumin Level 4.5 g/dL (3.5-5.0); Alkaline Phosphatase 90 U/L (39-117); Anion Gap 15 (12-20); Aspartate Amino Transferase 13 U/L (5-31); Bilirubin Total 0.3 mg/dL (0.0-1.0); Blood Urea Nitrogen 10 mg/dL (9-16); Calcium 9.7 mg/dL (8.4-10.2); Carbon Dioxide 26 mmol/L (22-29); Chloride 101 mmol/L (96-108); Creatinine Clr Calc Pharmacy 118.9; Estimated Glomerular Filt Rate > 60; Glucose Random 152 mg/dL (60-115); Magnesium 1.9 mg/dL (1.6-2.6); Potassium 3.6 mmol/L (3.3-5.1); Sodium 138 mmol/L (135-145); Total Protein 7.9 g/dL (6.5-8.0)
[2022-03-29 18:29] LABS: Appearance Urine Clear; Color Urine Yellow; Glucose Urine UA Negative (Negative); Leukocyte Esterase Urine Negative (Negative); Nitrite Urine Negative (Negative); PH 5.5 (5.0-9.0); Urine Blood Negative (Negative); Urine Ketones Negative (Negative); Urine Protein Negative (Neg-Trace)
[2022-03-29 18:33] LABS: Influenza A PCR NEGATIVE (Negative); Influenza B PCR NEGATIVE (Negative); Resp Syncy Virus RNA Qual PCR NEGATIVE (Negative); SARS COV2 PCR INHOUSE NEGATIVE (Negative)
[2022-03-29 18:37] LABS: HCG Quantitative < 2 mIU/mL
--- NOTE | 2022-03-29 19:59 | ED.EXTPRO ---
HPI - Extremity Problem General Chief complaint: Extremity Injury, Upper Stated complaint: r wrist pain dizzy Time Seen by Provider: 03/29/22 19:42 Source: patient Mode of arrival: ambulatory Limitations: no limitations History of Present Illness HPI Narrative: Patient pulled the matters about 3 days ago complaining of pain in the right wrist since then no other injury also patient does have dizziness and history of iron deficiency anemia Related Data Previous Rx's Medication Instructions Recorded albuterol sulfate 90 mcg/actuation 2 puff inhalation Q4-6H PRN 01/16/21 aerosol inhaler (ProAir HFA) Wheezing #8.5 grams benzonatate 100 mg capsule 100 mg PO TID PRN cough #20 caps 01/16/21 (Tessalon Perles) diltiazem HCl 120 mg 120 mg PO QAM #30 caps 01/16/21 capsule,extended release 24 hr (Cardizem CD) fluconazole 150 mg tablet 150 mg PO Q3D 2 doses #2 tabs 02/10/22 (Diflucan) metronidazole 500 mg tablet 500 mg PO BID 7 days #14 tabs 02/10/22 miconazole nitrate 200 mg/5 gram 1 appful vaginal BEDTIME 3 days 02/10/22 (4 %) vaginal cream #15 grams ferrous sulfate 325 mg (65 mg 325 mg PO DAILY #30 tabs 03/29/22 iron) tablet tramadol 50 mg tablet 50 mg PO Q6H PRN pain #20 tabs 03/29/22 Allergies Allergy/AdvReac Type Severity Reaction Status Date / Time No Known Allergies Allergy Verified 01/16/21 19:35 Review of Systems Review of Systems: Yes all other systems are reviewed and are negative [facility] Past Medical History Medical History HTN (hypertension) Prediabetes Social History Social History Advance Directives: No Advance Directives Information Provided: No Physical Exam Vital Signs: Vital Signs: Last Vital Signs Temp 97.5 F 03/29/22 15:28 Pulse 71 03/29/22 15:28 Resp 18 03/29/22 15:28 BP 150/72 H 03/29/22 15:28 Pulse Ox 98 03/29/22 15:28 O2 Del Method 03/29/22 15:28 BMI result Body Mass Index 37.3 Appearance: Alert. Oriented X3. No acute distress. ENT: Pharynx normal. Oral Mucosa moist Neck: Normal inspection. Neck supple. CVS: Normal heart rate and rhythm. Pulses normal. Respiratory: No respiratory distress. Equal air entry bilateral, no wheezing/rales/rhonchi Abdomen: Soft and nontender. Bowel sounds are present, no mass palpable, no CVA tenderness Skin: Skin warm and dry. Normal skin color. Normal skin turgor. Extremities: No lower extremity edema. No calf tenderness, tenderness in right wrist extensor muscle area no bony deformity neurovascular intact Neuro: Oriented X 3. No motor deficit. Medical Decision Making Medical Decision Making [facility] Narrative: X-ray negative for any bony deformity, hemoglobin 11.2 will discharge patient home on tramadol and ferrous sulfate Lab Data [facility] Lab Attestation statement: I reviewed the patient's lab results. Result Diagrams: 03/29/22 17:49 03/29/22 17:49 Labs: Lab Results 03/29/22 03/29/22 03/29/22 Range/Units 17:49 17:49 17:49 WBC 8.6 (4.8-10.8) X10*3/uL RBC 5.30 (4.20-5.50) X10*6/uL Hgb 11.2 L (12.0-16.0) g/dl Hct 37.6 (37.0-47.0) % MCV 70.9 L (80.0-98.0) fL MCH 21.1 L (27.0-33.0) pg MCHC 29.8 L (31.0-35.0) g/dl RDW 18.7 H (11.0-16.0) % Plt Count 494 H (160-400) X10*3/uL MPV 9.8 (9.4-12.3) fL Immature Gran % (Auto) 0.3 (0.0-0.4) % Neut % (Auto) 64.9 (45-73) % Lymph % (Auto) 28.9 (20-40) % Brown % (Auto) 4.0 (2-11) % Eos % (Auto) 1.2 (0-4) % Baso % (Auto) 0.7 (0-2) % Lymph # (Auto) 2.5 (1.2-4.9) X10*3/uL Brown # (Auto) 0.3 (0.1-1.2) X10*3/uL Eos # (Auto) 0.1 (0.0-0.4) X10*3/uL Baso # (Auto) 0.1 (0.0-0.2) X10*3/uL Abs Immat Gran (auto) 0.03 (0.00-0.03) X10*3/uL Absolute Neuts (auto) 5.6 (2.0-8.3) x10*3/uL Absolute Nucleated RBC 0.000 (0.0-0.012) X10*3/uL Nucleated RBC % (auto) 0.0 (0.0-0.2) /100WBC Sodium 138 (135-145) mmol/L Potassium 3.6 (3.3-5.1) mmol/L Chloride 101 (96-108) mmol/L Carbon Dioxide 26 (22-29) mmol/L Anion Gap 15 (12-20) BUN 10 (9-16) mg/dL Creatinine 0.85 (0.5-1.4) mg/dL Estim Creat Clear Calc 118.9 Estimated GFR > 60 Random Glucose 152 H (60-115) mg/dL Estimat Average Glucose mg/dL Hemoglobin A1c % % Calcium 9.7 (8.4-10.2) mg/dL Magnesium 1.9 (1.6-2.6) mg/dL Total Bilirubin 0.3 (0.0-1.0) mg/dL AST 13 (5-31) U/L ALT 24 (0-31) U/L Alkaline Phosphatase 90 (39-117) U/L Total Protein 7.9 (6.5-8.0) g/dL Albumin 4.5 (3.5-5.0) g/dL Beta HCG, Quant < 2 mIU/mL Urine Color Urine Appearance Urine pH (5.0-9.0) Ur Specific [place] (1.005-1.025) Urine Protein (Neg-Trace) mg/dL Urine Glucose (UA) (Negative) mg/dL Urine Ketones (Negative) mg/dL Urine Blood (Negative) Urine Nitrite (Negative) Ur Leukocyte Esterase (Negative) Influenza Type A (PCR) (Negative) Influenza Type B (PCR) (Negative) RSV RNA Qual (PCR) (Negative) SARS-CoV-2 RNA (RT-PCR) (Negative) 03/29/22 03/29/22 03/29/22 Range/Units 17:49 17:49 18:23 WBC (4.8-10.8) X10*3/uL RBC (4.20-5.50) X10*6/uL Hgb (12.0-16.0) g/dl Hct (37.0-47.0) % MCV (80.0-98.0) fL MCH (27.0-33.0) pg MCHC (31.0-35.0) g/dl RDW (11.0-16.0) % Plt Count (160-400) X10*3/uL MPV (9.4-12.3) fL Immature Gran % (Auto) (0.0-0.4) % Neut % (Auto) (45-73) % Lymph % (Auto) (20-40) % Brown % (Auto) (2-11) % Eos % (Auto) (0-4) % Baso % (Auto) (0-2) % Lymph # (Auto) (1.2-4.9) X10*3/uL Brown # (Auto) (0.1-1.2) X10*3/uL Eos # (Auto) (0.0-0.4) X10*3/uL Baso # (Auto) (0.0-0.2) X10*3/uL Abs Immat Gran (auto) (0.00-0.03) X10*3/uL Absolute Neuts (auto) (2.0-8.3) x10*3/uL Absolute Nucleated RBC (0.0-0.012) X10*3/uL Nucleated RBC % (auto) (0.0-0.2) /100WBC Sodium (135-145) mmol/L Potassium (3.3-5.1) mmol/L Chloride (96-108) mmol/L Carbon Dioxide (22-29) mmol/L Anion Gap (12-20) BUN (9-16) mg/dL Creatinine (0.5-1.4) mg/dL Estim Creat Clear Calc Estimated GFR Random Glucose (60-115) mg/dL Estimat Average Glucose 123 mg/dL Hemoglobin A1c % 5.9 % Calcium (8.4-10.2) mg/dL Magnesium (1.6-2.6) mg/dL Total Bilirubin (0.0-1.0) mg/dL AST (5-31) U/L ALT (0-31) U/L Alkaline Phosphatase (39-117) U/L Total Protein (6.5-8.0) g/dL Albumin (3.5-5.0) g/dL Beta HCG, Quant mIU/mL Urine Color Yellow Urine Appearance Clear Urine pH 5.5 (5.0-9.0) Ur Specific [place] 1.020 (1.005-1.025) Urine Protein Negative (Neg-Trace) mg/dL Urine Glucose (UA) Negative (Negative) mg/dL Urine Ketones Negative (Negative) mg/dL Urine Blood Negative (Negative) Urine Nitrite Negative (Negative) Ur Leukocyte Esterase Negative (Negative) Influenza Type A (PCR) NEGATIVE (Negative) Influenza Type B (PCR) NEGATIVE (Negative) RSV RNA Qual (PCR) NEGATIVE (Negative) SARS-CoV-2 RNA (RT-PCR) NEGATIVE (Negative) Discharge Plan Discharge Clinical Impression: Sprain and strain of wrist Patient Disposition: Home, Self-Care Instructions: Wrist Sprain (ED) Additional Instructions: Apply ice pack Tramadol for pain Prescriptions: New tramadol 50 mg tablet 50 mg PO Q6H PRN (Reason: pain) Qty: 20 0RF ferrous sulfate 325 mg (65 mg iron) tablet 325 mg PO DAILY Qty: 30 0RF No Action diltiazem HCl [Cardizem CD] 120 mg capsule,extended release 24hr 120 mg PO QAM Qty: 30 0RF benzonatate [Tessalon Perles] 100 mg capsule 100 mg PO TID PRN (Reason: cough) Qty: 20 0RF albuterol sulfate [ProAir HFA] 90 mcg/actuation HFA aerosol inhaler 2 puff inhalation Q4-6H PRN (Reason: Wheezing) Qty: 8.5 0RF fluconazole [Diflucan] 150 mg tablet 150 mg PO Q3D 0 Days Qty: 2 0RF Rx Instructions: may repeat second dose 72 hrs after first dose if symptoms persist metronidazole 500 mg tablet 500 mg PO BID 7 Days Qty: 14 0RF miconazole nitrate 200 mg/5 gram (4 %) cream 1 appful vaginal BEDTIME 3 Days Qty: 15 0RF
[2022-03-29] MEDS: traMADoL HCL 50 MG TABLET PO (20:24)
== END 2022-03-29 20:31 | disposition home or self-care (01) ==
PROVIDERS: Physician Assistant Medical; Emergency Provider Internal Medicine
DX: S63.501A Unspecified sprain of right wrist, initial encounter (principal); S66.911A Strain of unspecified muscle, fascia and tendon at wrist and hand level, right hand, initial encounter; X50.0XXA Overexertion from strenuous movement or load, initial encounter; I10 Essential (primary) hypertension; R73.03 Prediabetes; Z20.828 Contact with and (suspected) exposure to other viral communicable diseases; Y93.E9 Activity, other interior property and clothing maintenance; Y92.032 Bedroom in apartment as the place of occurrence of the external cause; Y99.9 Unspecified external cause status; Z79.899 Other long term (current) drug therapy
CPT/HCPCS: 0241U; 36415; 71046; 73110; 73130; 80053; 81003; 83036; 83735; 84702; 85025; 99283

== ENCOUNTER 2022-05-15 15:51 | Emergency (ER) | payer OTHER, SELFPAY ==
[2022-05-15 15:57] VITALS: BP 118/74; PULSE 88; RESP 16; TEMP 36.8; O2SAT 98; BMI 35.9
--- NOTE | 2022-05-15 17:01 | ED_ITS ---
HPI - General Adult General Chief complaint: General Medical Stated complaint: lower back pain,laceration left pinky Time Seen by Provider: 05/15/22 16:42 History of Present Illness HPI narrative: Patient complains of low back pain and a cut from a kitchen knife on her left pinky finger sustained yesterday She denies any redness pain or swelling in the cut but is concerned as she has not had a tetanus shot in many years The back pain is worse with movement, no numbness no weakness no tingling, no changes to bowel or bladder no incontinence no dysuria, she does not recall any injury but just woke up with the pain in her back, she has had pain in the back before The pain radiates from the left low back to the left gluteal area Related Data Previous Rx's Medication Instructions Recorded albuterol sulfate 90 mcg/actuation 2 puff inhalation Q4-6H PRN 01/16/21 aerosol inhaler (ProAir HFA) Wheezing #8.5 grams benzonatate 100 mg capsule 100 mg PO TID PRN cough #20 caps 01/16/21 (Tessalon Estefanía) diltiazem HCl 120 mg 120 mg PO QAM #30 caps 01/16/21 capsule,extended release 24 hr (Cardizem CD) fluconazole 150 mg tablet 150 mg PO Q3D 2 doses #2 tabs 02/10/22 (Diflucan) metronidazole 500 mg tablet 500 mg PO BID 7 days #14 tabs 02/10/22 miconazole nitrate 200 mg/5 gram 1 appful vaginal BEDTIME 3 days 02/10/22 (4 %) vaginal cream #15 grams ferrous sulfate 325 mg (65 mg 325 mg PO DAILY #30 tabs 03/29/22 iron) tablet tramadol 50 mg tablet 50 mg PO Q6H PRN pain #20 tabs 03/29/22 acetaminophen 500 mg capsule 1,000 mg PO Q8H PRN pain #30 caps 05/15/22 cyclobenzaprine 5 mg tablet 5 mg PO TID PRN muscle spasm #14 05/15/22 tabs ibuprofen 600 mg tablet 600 mg PO Q6H PRN pain #20 tabs 05/15/22 oxycodone 5 mg tablet 5 mg PO Q6H PRN pain #14 tabs 05/15/22 Allergies Allergy/AdvReac Type Severity Reaction Status Date / Time No Known Allergies Allergy Verified 01/16/21 19:35 [facility] Past Medical History Source: nursing notes reviewed Medical History HTN (hypertension) Prediabetes Social History Social History Advance Directives: No Advance Directives Information Provided: No Physical Exam ED Vital Signs: Vital Signs - 24 hr 05/15/22 15:57 Temperature 98.3 F Pulse Rate 88 Respiratory Rate 16 Blood Pressure 118/74 Pulse Oximetry 98 Oxygen Delivery Method Room Air BMI result Body Mass Index 35.9 General appearance no distress Head is normocephalic atraumatic Neck is supple nontender Chest wall nontender no respiratory distress The abdomen soft nontender The back and left-sided lower lumbar and upper gluteal tenderness, skin of the back was normal no redness no bruising no swelling no rash no wounds, there was no focal bony tenderness all tenderness was lateral soft tissue tenderness, no CVA tenderness Pain in the back was improved with sitting in a comfortable position and worse with movement Extremities full range of motion x4 The left pinky finger had a superficial laceration over the palmar mid phalanx, flexion was intact and full in all joints of the finger, no evidence of a tendon deficit, neurovascular intact distal there is no redness no swelling no signs of infection Neuro motor is 5/5 x4 sensation is intact and symmetrical patient can walk on toes walk on heels and gait and balance were normal Course Course Course Narrative: Patient with small laceration of left pinky finger which shows no sign of infection is given a tetanus shot for that She is treated with analgesics and muscle relaxer for musculoskeletal low back pain with no accompanying neurologic deficit no changes to bowel or bladder no fever no IV drug use Discharge Plan Discharge Clinical Impression: Back pain, Finger laceration Patient Disposition: Home, Self-Care Additional Instructions: The cut on the finger does not look infected or serious and we did give you a tetanus shot today all The back pain is likely from strain muscles in the back which usually get better on its own within a reasonable amount of time If not improved in a week follow with primary doctor Use pain medicine and muscle relaxer as prescribed, do not take tramadol while using oxycodone or cyclobenzaprine Return any time for any worse condition or any concerns Prescriptions: New oxycodone 5 mg tablet 5 mg PO Q6H PRN (Reason: pain) Qty: 14 0RF Rx Instructions: Partial Fill upon patient request. ibuprofen 600 mg tablet 600 mg PO Q6H PRN (Reason: pain) Qty: 20 0RF acetaminophen 500 mg capsule 1,000 mg PO Q8H PRN (Reason: pain) Qty: 30 0RF cyclobenzaprine 5 mg tablet 5 mg PO TID PRN (Reason: muscle spasm) Qty: 14 0RF No Action diltiazem HCl [Cardizem CD] 120 mg capsule,extended release 24hr 120 mg PO QAM Qty: 30 0RF benzonatate [Tessalon Perles] 100 mg capsule 100 mg PO TID PRN (Reason: cough) Qty: 20 0RF albuterol sulfate [ProAir HFA] 90 mcg/actuation HFA aerosol inhaler 2 puff inhalation Q4-6H PRN (Reason: Wheezing) Qty: 8.5 0RF fluconazole [Diflucan] 150 mg tablet 150 mg PO Q3D 0 Days Qty: 2 0RF Rx Instructions: may repeat second dose 72 hrs after first dose if symptoms persist metronidazole 500 mg tablet 500 mg PO BID 7 Days Qty: 14 0RF miconazole nitrate 200 mg/5 gram (4 %) cream 1 appful vaginal BEDTIME 3 Days Qty: 15 0RF tramadol 50 mg tablet 50 mg PO Q6H PRN (Reason: pain) Qty: 20 0RF ferrous sulfate 325 mg (65 mg iron) tablet 325 mg PO DAILY Qty: 30 0RF
--- OUTSIDE RECORDS SUMMARY | 2022-05-15 17:03 | XMS_ITS | Continuity of Care Document ---
:1980 Author Organization [facility] Address [address] [place] [address]- Care Team Providers Name Role Phone Eric GRAY, Genesis Primary Care Physician [facility]counter [facility] Date(s): 03/19/22 - 04/18/[address] [address]- Allergies, Adverse Reactions, Alerts Substance Reaction Severity Status codeine1 Active lisinopril2 Active amLODIPine3 Active [facility]ezes[id number] it[facility] after taking amlodipine 01/15. [...] Refills, Maintenance, 07/31/21 13:24:00 EDT, [id number] fill upon patient requestif the prescription is for a schedule II opioid d... Start Date: 07/31/21 Status: Orderedbaclofen 10 mg oral tablet 10 mg, 1, tablet, By Mouth, Daily at bedtime, # 90 tablet, Refills 2, Tot. Refills 2, Maintenance, 09/03/21 11:12:00 EDT, Route to Pharmacy Electronically, [facility]/pharmacy #[id number], Partial fill upon patientrequest if the [...] tablet = 20 mg, By Mouth, Daily, [place] media tableta para bentley semana. Despues [...] capsule, 2 Refills, Maintenance, 01/23/22 22:20:00 EDT, [id number], 178, cm, 12/08/21 13:45:00 EDT, Height, 118.5, kg, 10/20/21 14:00:00 EDT, Dry Weight Start Date: 01/23/22 Status: OrderedhydrOXYzine hydrochloride 50 mg oral tablet See Instructions, [place] TABLETA CADA SEIS HORAS CUANDO SEA NECESARIO PARA ANXIEDAD Y [place] TABLETA ANTES DE DORMIR, # 40 tablet, 0 Refills, Maintenance, 03/04/22 14:44:00 EST, [id number], 178, cm, 12/08/21 13:45:00 EDT, Height, 118.5, kg, ... Start Date: 03/04/22 Status: Orderednorethindrone 0.35 mg oral tablet 1 tablet = 0.35 mg, By Mouth, Daily, # 28 tablet, 11 Refills, Maintenance, 01/13/22 11:50:00 EDT, Tablet, [facility]/pharmacy #[id number], Partial fill upon patient request if the prescription is for a schedule II opioid drug., 178, cm, 12/08/21 13:45:00 EDT, Heig... Start Date: 01/13/22 Status: Orderedomeprazole 40 mg oral enteric coated capsule See Instructions, [place] CAPSULA DOS VECES AL BRANDIE, # 60 capsule, 2 Refills, Maintenance, 01/27/22 15:33:00 EDT, [id number], 178, cm, 12/08/21 13:45:00 EDT, Height, 118.5, [...] Care Team PersonnelName: Genesis Reyes NP Position: [facility] Associate Professional Member Role: PCP Address: Address: [address] [place] [address]- Care Team Related PersonsName: AMY LEON Name: SANDRA ESTRELLA
[2022-05-15] MEDS: Ketorolac Tromethamine 30 MG/ML VIAL IM (17:19)
[2022-05-15] MEDS: Diphth,Pertus(ACell),Tet Adult 0.5 ML SYRINGE IM (17:19)
== END 2022-05-15 17:26 | disposition home or self-care (01) ==
PROVIDERS: Emergency Provider Emergency Medicine; PCP Internal Medicine
DX: M54.50 Low back pain, unspecified (principal); S61.217A Laceration without foreign body of left little finger without damage to nail, initial encounter; W26.0XXA Contact with knife, initial encounter; I10 Essential (primary) hypertension; R73.03 Prediabetes; Y93.9 Activity, unspecified; Y92.030 Kitchen in apartment as the place of occurrence of the external cause; Y99.9 Unspecified external cause status
CPT/HCPCS: 90471; 90715; 96372; 99283; 99284; J1885

== ENCOUNTER 2022-09-14 13:24 | Emergency (ER) | payer OTHER, SELFPAY ==
[2022-09-14 14:00] VITALS: BP 136/88; PULSE 92; RESP 18; TEMP 36.4; O2SAT 94; BMI 38.9
--- NOTE | 2022-09-14 14:02 | ED_ITS ---
HPI - General Adult General Chief complaint: General Medical Stated complaint: urinary pain, congested Time Seen by Provider: 09/14/22 16:44 Source: patient Mode of arrival: ambulatory Limitations: language barrier (Monegasque is the patient's 1st language, she understands some [place] Islander, pond scaler used) History of Present Illness HPI narrative: 41-year-old female who presents emergency department for evaluation nasal congestion, cough x2 weeks, lower abdominal pain, urinary frequency and dysuria. Patient states she has been sick for approximately 2 weeks with upper respiratory symptoms. She states she has nasal congestion. She states she has a cough which is occasionally productive. She has had subjective fever and chills. She has had rhinorrhea and sore throat. She denied chest pain, shortness of breath, dyspnea on exertion. She did have nausea and vomiting x2 days but these symptoms resolved. She denied diarrhea. She denied myalgias arthralgias. Patient did speak to her PCP who told her to take Zyrtec and she states this medication is not helped her. Patient also complains of lower abdominal pain. She describes this pain is a sharp, pressure-like pain which is intermittent. Pain is 8/10. She points to her suprapubic area when asked to localize the pain. She has had urinary frequency and dysuria. She denied vaginal discharge. She states she is not sexually active. Related Data Previous Rx's Medication Instructions Recorded albuterol sulfate 90 mcg/actuation 2 puff inhalation Q4-6H PRN 01/16/21 aerosol inhaler (ProAir HFA) Wheezing #8.5 grams benzonatate 100 mg capsule 100 mg PO TID PRN cough #20 caps 01/16/21 (Tessalon Perles) diltiazem HCl 120 mg 120 mg PO QAM #30 caps 01/16/21 capsule,extended release 24 hr (Cardizem CD) fluconazole 150 mg tablet 150 mg PO Q3D 2 doses #2 tabs 02/10/22 (Diflucan) metronidazole 500 mg tablet 500 mg PO BID 7 days #14 tabs 02/10/22 miconazole nitrate 200 mg/5 gram 1 appful vaginal BEDTIME 3 days 02/10/22 (4 %) vaginal cream #15 grams ferrous sulfate 325 mg (65 mg 325 mg PO DAILY #30 tabs 03/29/22 iron) tablet tramadol 50 mg tablet 50 mg PO Q6H PRN pain #20 tabs 03/29/22 acetaminophen 500 mg capsule 1,000 mg PO Q8H PRN pain #30 caps 05/15/22 cyclobenzaprine 5 mg tablet 5 mg PO TID PRN muscle spasm #14 05/15/22 tabs ibuprofen 600 mg tablet 600 mg PO Q6H PRN pain #20 tabs 05/15/22 oxycodone 5 mg tablet 5 mg PO Q6H PRN pain #14 tabs 05/15/22 Allergies Allergy/AdvReac Type Severity Reaction Status Date / Time No Known Allergies Allergy Verified 09/14/22 14:03 Review of Systems Review of Systems: Yes all other systems are reviewed and are negative [facility] Past Medical History [facility] Narrative: Past medical history: Pre diabetes. Past surgical history: Cholecystectomy, bilateral tubal ligation, tonsillectomy. Social history: She denies tobacco, alcohol and drug use. Medical History HTN (hypertension) Prediabetes Social History Social History Advance Directives: No Advance Directives Information Provided: No Physical Exam ED Vital Signs: Vital Signs - 24 hr 09/14/22 14:00 Temperature 97.6 F Pulse Rate 92 Respiratory Rate 18 Blood Pressure 136/88 Pulse Oximetry 94 Oxygen Delivery Method Room Air BMI result Body Mass Index 38.9 Const General: cooperative and no acute distress Orientation/consciousness: oriented to person and oriented to place Limitations: no limitations HENMT Head: Yes normal to inspection, Yes normocephalic and Yes atraumatic Ears: external ears normal General nose exam: Normal external nose present Face and sinus: Yes normal facial exam Mouth: Normal oral and palatal mucosa present Throat: Yes posterior oropharynx normal Eyes General: appearance normal, both eyes and all related structures Pupils: Equal, round and reactive pupils present Neck Neck: Yes normal visual inspection, Yes no lymphadenopathy, Yes trachea midline and Yes supple Chest Chest palpation & inspection: normal inspection of the chest and normal palpation of entire chest wall Resp Effort & Inspection: normal respiratory effort and able to speak in complete sentences Auscultation: clear to auscultation bilaterally Cardio Rate: regular rate Rhythm: regular rhythm Heart sounds: S1 normal heart sound present, S2 normal heart sound present and no murmurs GI Other: Normoactive bowel sounds, moderate suprapubic and pelvic tenderness, [id number] left lower and right lower quadrant tenderness, no rebound, no voluntary or involuntary guarding General: Yes no CVA tenderness Back/Spine/Pelvis Back: no CVA tenderness Skin General skin exam: no rashes or lesions noted Neuro General: oriented to person and oriented to place Cranial nerves: Yes CN's II-XII intact bilaterally and Yes Equal, round and reactive pupils present Extrem General: Yes normal to inspection Psych Appearance: grossly normal Speech and movement: Normal speech and movement present Affect: normal affect Medical Decision Making Medical Decision Making MDM Narrative: RME- 41-year-old female presents for evaluation of congestion, sore throat and burning with urination. Symptoms started a days ago. Plan for viral swabs, rapid strep test and UA 41-year-old female who presented to the emergency department for evaluation of URI like symptoms times 2 weeks and lower abdominal/pelvic pain with frequency, urgency, dysuria with no vaginal discharge. Patient's physical examination was concerning for suprapubic tenderness as well as bilateral lower abdominal tenderness. The following was ordered by provider at triage: Rapid strep, urinalysis, COVID-19, influenza. These tests were all negative. I told the patient that she most likely has a viral URI it would take maybe 1-2 more weeks before she felt better. I was concerned about her suprapubic/pelvic pain and her frequency and dysuria. Given her negative urinalysis I discussed pelvic examination with the patient to evaluate her for possible pelvic inflammatory disease. I asked the emergency department geotechnical engineering technician to set the patient up for the pelvic exam and the geotechnical engineering technician then told me that the patient eloped from the department without giving a reason. Differential Diagnosis Differential diagnosis for includes was not limited to viral URI, bacterial URI, bronchitis Differential diagnosis for the patient's pelvic pain and dysuria include urinary tract infection, pelvic inflammatory disease, GC/chlamydia, Trichomonas, BV Lab Data [facility] Lab Attestation statement: I reviewed the patient's lab results. My interpretation patient's laboratory evaluation as follows: Urinalysis was negative and not supportive of a urinary tract infection. COVID-19 and influenza were negative. Rapid strep was negative. Labs: Lab Results 09/14/22 09/14/22 09/14/22 Range/Units 14:07 14:07 14:08 Urine Color Urine Appearance Urine pH (5.0-9.0) Ur Specific [place] (1.005-1.025) Urine Protein (Neg-Trace) mg/dL Urine Glucose (UA) (Negative) mg/dL Urine Ketones (Negative) mg/dL Urine Blood (Negative) Urine Nitrite (Negative) Ur Leukocyte Esterase (Negative) Urine RBC (0-2) /HPF Urine WBC (0-5) /HPF Ur Squamous Epith Cells (0-2) /HPF Urine Bacteria (None Seen) Hyaline Casts (0-2) /LPF COVID-19 (SYLVIA) Negative (Negative) COVID-19 [employer] Com See Note Influenza Type A (JOSH) Negative (Negative) Influenza Type B (JOSH) Negative (Negative) Influenza A & B Note See Note S. pyogenes GrpA JOSH Negative (Negative) 09/14/22 Range/Units 14:26 Urine Color Yellow Urine Appearance Cloudy Urine pH 6.0 (5.0-9.0) Ur Specific [place] >= 1.030 H (1.005-1.025) Urine Protein 30 (1+) H (Neg-Trace) mg/dL Urine Glucose (UA) Negative (Negative) mg/dL Urine Ketones Trace (Negative) mg/dL Urine Blood Negative (Negative) Urine Nitrite Negative (Negative) Ur Leukocyte Esterase Negative (Negative) Urine RBC 0-2 (0-2) /HPF Urine WBC 0-5 (0-5) /HPF Ur Squamous Epith Cells >20 (0-2) /HPF Urine Bacteria Trace (None Seen) Hyaline Casts 0-2 (0-2) /LPF COVID-19 (SYLVIA) (Negative) COVID-19 Clin Com Influenza Type A (JOSH) (Negative) Influenza Type B (JOSH) (Negative) Influenza A & B Note S. pyogenes GrpA JOSH (Negative) Discharge Plan Discharge Clinical Impression: Pelvic pain, Upper respiratory infection, viral, Dysuria Patient Disposition: Elopement Prescriptions: No Action diltiazem HCl [Cardizem CD] 120 mg capsule,extended release 24hr 120 mg PO QAM Qty: 30 0RF benzonatate [Tessalon Perles] 100 mg capsule 100 mg PO TID PRN (Reason: cough) Qty: 20 0RF albuterol sulfate [ProAir HFA] 90 mcg/actuation HFA aerosol inhaler 2 puff inhalation Q4-6H PRN (Reason: Wheezing) Qty: 8.5 0RF fluconazole [Diflucan] 150 mg tablet 150 mg PO Q3D 0 Days Qty: 2 0RF Rx Instructions: may repeat second dose 72 hrs after first dose if symptoms persist metronidazole 500 mg tablet 500 mg PO BID 7 Days Qty: 14 0RF miconazole nitrate 200 mg/5 gram (4 %) cream 1 appful vaginal BEDTIME 3 Days Qty: 15 0RF tramadol 50 mg tablet 50 mg PO Q6H PRN (Reason: pain) Qty: 20 0RF ferrous sulfate 325 mg (65 mg iron) tablet 325 mg PO DAILY Qty: 30 0RF oxycodone 5 mg tablet 5 mg PO Q6H PRN (Reason: pain) Qty: 14 0RF Rx Instructions: Partial Fill upon patient request. ibuprofen 600 mg tablet 600 mg PO Q6H PRN (Reason: pain) Qty: 20 0RF acetaminophen 500 mg capsule 1,000 mg PO Q8H PRN (Reason: pain) Qty: 30 0RF cyclobenzaprine 5 mg tablet 5 mg PO TID PRN (Reason: muscle spasm) Qty: 14 0RF Discharge Date/Time: 09/14/22 17:54
[2022-09-14 14:38] LABS: Appearance Urine Cloudy; Color Urine Yellow; Glucose Urine UA Negative (Negative); Leukocyte Esterase Urine Negative (Negative); Nitrite Urine Negative (Negative); Specific Gravity - Urine >= 1.030 (1.005-1.025); UMIC TRIGGER UACC YES; Urine Blood Negative (Negative); Urine Ketones Trace mg/dL (Negative); Urine Protein 30 (1+) mg/dL (Neg-Trace)
[2022-09-14 14:43] LABS: Bacteria Urine Trace (None Seen); Hyaline Casts Urine 0-2 /LPF (0-2); RBC Urine 0-2 /HPF (0-2); Squamous Epithelial Cell Urine >20 /HPF (0-2); WBC Urine 0-5 /HPF (0-5)
[2022-09-14 14:53] LABS: IDNOW Serial# 08D9AD1C; Strep A Nucleic Acid Negative (Negative)
[2022-09-14 15:05] LABS: COVID-19 Test Negative (Negative); IDNOW Serial# 9DB6401D
[2022-09-14 15:06] LABS: IDNOW Serial# BCCEAD1C; Influenza A Negative (Negative); Influenza B2 Negative (Negative)
--- OUTSIDE RECORDS SUMMARY | 2022-09-14 17:02 | XMS_ITS | Continuity of Care Document ---
Author Name Unknown Organization [facility] Address [address] [place] [address]- Care Team Providers Care Billing Customer Service Representative Name Role Phone Eric GRAY, Genesis Primary Care Physician [place] [facility] [place] 05/28/[address] [address]- Allergies, Adverse Reactions, Alerts Substance Reaction Severity Status codeine 1 Active lisinopril 2 Active amLODIPine 3 Active 1wheezes, chest congestion at [facility] 2Cough 3Pt reports itchy throat after taking amlodipine 01/15. Medication discontinued, denied addl allergysxs at that time. Immunizations Given and Recorded Vaccine Date Status Refusal Reason hepatitis B adult vaccine 04/19/22 Given SARS-CoV-2 (COVID-19) mRNA BNT-162b2 vac 08/10/20 Recorded SARS-CoV-2 (COVID-19) mRNA BNT-162b2 vac 07/20/20 Recorded tetanus/diphtheria/pertussis, acel(Tdap) 11/17/19 Recorded tetanus/diphtheria/pertussis, acel(Tdap) 04/30/18 Recorded tetanus/diphtheria/pertussis, acel(Tdap) 11/16/17 Given influenza virus vaccine, inactivated 03/19/19 Rocky rded Not Given Vaccine Date Status Refusal Reason influenza virus vaccine, inactivated 02/12/20 Not Given Patient Refuses Medications albuterol 0.083% inhalation solution 3 mL = 2.5 mg, Inhalation, Every 6 hours, PRN for wheezing/shortness of breath, # 60 each, 0 Refills, Maintenance, 07/31/21 13:24:00 EDT, Solution, [id number], Partial fill upon patient request if the prescription is for a schedule II opioid d... Start Date: 07/31/21 Status: Ordered baclofen 10 mg oral tablet 10 mg, 1, tablet, By Mouth, Daily at bedtime, # 90 tablet, Refills 2, Tot. Refills 2, Maintenance, 09/03/21 11:12:00 EDT, Route to Pharmacy Electronically, [id number], Partial fill upon patient request if the prescription is for a schedule II... Start Date: 09/03/21 Stop Date: 05/31/22 Status: Ordered Colace sodium 100 mg oral capsule 100 mg, 1, capsule, By Mouth, 2 times a day, PRN, # 60 capsule, Refills 3, Tot. Refills 3, Maintenance, for constipation, 01/13/22 11:55:00 EDT, Route to Pharmacy Electronically, [id number], Partial fill upon patient request if the prescriptio... Start Date: 01/13/22 Stop Date: 05/13/22 Status: Ordered ferrous sulfate 325 mg oral enteric coated tablet 325 mg, 1, tablet, By Mouth, Daily, # 30 tablet, Refills 2, Tot. Refills 2, Maintenance, 01/13/22 11:56:00 EDT, Route to Pharmacy Electronically, [id number], Partial fill upon patient requestif the prescription is for a schedule II opioid nahun... Start Date: 01/13/22 Status: Ordered fluconazole 150 mg oral tablet 1 tablet = 150 mg, By Mouth, Once, # 1 tablet, 0 Refills, Soft Stop, 05/21/22 16:40:00 EST, Tablet,[id number], Partial fill upon patient request if the prescription is for a schedule II opioid drug., 178, cm, 05/20/22 14:59:00 EST, Height, 11... Start Date: 05/21/22 Status: Ordered FLUoxetine 20 mg oral tablet 1 tablet = 20 mg, By Mouth, Daily, [place] bentley media tableta para bentley semana. Despues de bentley semana, tome bentley tableta completa., # 30 tablet, 2 Refills, Maintenance, 10/15/21 11:30:00 EDT, [id number], Partial fill upon patient request if the pres... Start Date: 10/15/21 Stop Date: 01/13/22 Status: Ordered Home blood pressure machine and cuff Home blood pressure machine and cuff, See Instructions, # 1 each, Refills 0, Tot. Refills 0, Maintenance, Home blood pressure machine and cuff ICD 10: R03.0, 08/30/19 13:12:00 EDT, Supply Start Date: 08/30/19 Status: Ordered hydroCHLOROthiazide 12.5 mg oral capsule 1 capsule = 12.5 mg, By Mouth, Daily, # 30 capsule, 11 Refills, Maintenance, 04/22/22 11:58:00 EST,[id number], 178, cm, 04/22/22 11:40:00 EST, Height, 118.5, kg, 10/20/21 14:00:00 EDT, Dry Weight Start Date: 04/22/22 Stop Date: 04/17/23 Status: Ordered hydrOXYzine hydrochloride 50 mg oral tablet See Instructions, TOME BENTLEY TABLETA CADA SEIS HORAS CUANDO SEA NECESARIO PARA ANXIEDAD Y BENTLEY TABLETAANTES DE DORMIR, # 40 tablet, 0 Refills, Maintenance, 03/04/22 14:44:00 EST, [id number], 178, cm, 12/08/21 13:45:00 EDT, Height, 118.5, kg, ... Start Date: 03/04/22 Status: Ordered naproxen 500 mg oral tablet 1 tablet = 500 mg, By Mouth, 2 times a day, PRN for pain, for 10 days, # 20 tablet, 0 Refills, Acute 05/30/22 15:21:00 EST, 05/20/22 15:21:00 EST, Tablet, [id number], Partial fill upon patient request if the prescription is for a schedule II o... Start Date: 05/20/22 Stop Date: 05/30/22 Status: Ordered norethindrone 0.35 mg oral tablet 1 tablet = 0.35 mg, By Mouth, Daily, # 28 tablet, 11 Refills, Maintenance, 01/13/22 11:50:00 EDT, Tablet, [id number], Partial fill upon patient request if the prescription is for a schedule II opioid drug., 178, cm, 12/08/21 13:45:00 EDT, Heig... Start Date: 01/13/22 Status: Ordered omeprazole 40 mg oral enteric coated capsule See Instructions, JAGDEEPRobert HARTLEY SHAKIRAA DOS VECES AL BRANDIE, # 60 capsule, 2 Refills, Maintenance, 01/27/2215:33:00 EDT, [id number], 178, cm, 12/08/21 13:45:00 EDT, Height, 118.5, kg, 10/20/21 14:00:00EDT, Dry Weight Start Date: 01/27/22 Status: Ordered Problem List Condition Confirmation Course Effective Dates Status H ealth Status Informant Anemia Confirmed Active Chronic constipation Confirmed Active Sigmoid diverticulosis Confirmed Active Endometrial thickening on ultrasound 1 Confirmed Active Essential hypertension Confirmed Active Elevated hemoglobin A1c - 6.6 05/19 Confirmed Active Joint stiffness Confirmed Active Hepatic cyst Confirmed Active Microcytic anemia Confirmed Active Pre-diabetes Confirmed Active Sebaceous cyst of left axilla Confirmed Active Severe obesity (BMI 35.0-39.9) with comorbidity Confirmed Active Finger swelling Confirmed Active 1In 2017, patient underwent a pelvic ultrasound that showed thickened endometrial stripe. She then underwent an EMB, which was negative for hyperplasia. Social History Social History Type Response Smoking Status Never (less than 100 in lifetime) entered on: 08/18/18 Sex Female Patient Care team information Care Team Personnel Name: Genesis Reyes NP Position: [facility] PCO Associate Professional Member Role: PCP Address: Address: [address] [place] [address] Care Team Related Persons Name: AMY LEON Name: SANDRA ESTRELLA
--- OUTSIDE RECORDS SUMMARY | 2022-09-14 17:02 | XMS_ITS | Continuity of Care Document ---
Author Name Unknown Organization [facility] Address [address] [place] [address]- Care Team Providers Care Heating Equipment Installer Name Role Phone Eric GRAY, Genesis Primary Care Physician En[place] [facility] [place] Date(s): 04/19/22 - 06/20/[address] [address]- Attending Physician: Not on Staff, Attending MD Allergies, Adverse Reactions, Alerts Substance Reaction Severity Status codeine 1 Active lisinopril 2 Active amLODIPine 3 Active 1wheezes, chest congestion at [facility] 2Cough 3Pt reports itchy throat after [...] By Mouth, Daily, # 90 tablet, Refills 2, Tot. Refills 2, Maintenance, 06/15/22 9:28:00 EDT, Route to Pharmacy Electronically, [id number], Partial fill upon patient request if the prescription is for a schedule II opioid drug... Start Date: 06/15/22 Stop Date: 03/12/23 Status: Ordered FLUoxetine 20 mg oral tablet 1 tablet = 20 mg, By Mouth, Daily, [place] bentley media tableta para bentley semana. Despues [...] pressure machine and cuff ICD 10: R03.0, 06/15/22 12:58:00 EDT, Supply Start Date: 06/15/22 Status: Ordered hydroCHLOROthiazide 12.5 mg oral capsule 1 capsule = 12.5 mg, By Mouth, Daily, # 30 capsule, 11 Refills, Maintenance, 04/22/22 11:58:00 EST,[id number], 178, cm, 04/22/22 11:40:00 EST, Height, 118.5, kg, 10/20/21 14:00:00 EDT, Dry Weight Start Date: 04/22/22 Stop Date: 04/17/23 Status: Ordered hydrOXYzine hydrochloride 50 mg oral tablet See Instructions, TOME BENTLEY TABLETA CADA SEIS HORAS CUANDO SEA NECESARIO PARA ANXIEDAD Y BENTLEY TABLETAANTES DE DORMIR, # 40 tablet, 0 Refills, Maintenance, 03/04/22 14:44:00 EST, [id number], 178, cm, 12/08/21 13:45:00 EDT, Height, 118.5, kg, ... Start Date: 03/04/22 Status: Ordered norethindrone 0.35 mg oral tablet [...] 2 Refills, Maintenance, 01/27/2215:33:00 EDT, [id number], 178, cm, 12/08/21 13:45:00 EDT, Height, 118.5, kg, 10/20/21 14:00:00EDT, Dry Weight Start Date: 01/27/22 Status: Ordered Problem List Condition Confirmation Course Effective Dates Status H ealth Status Informant Chronic constipation Confirmed Active Sigmoid diverticulosis Confirmed Active Endometrial thickening on ultrasound 1 Confirmed Active Essential hypertension Confirmed Active Elevated hemoglobin A1c - 6.6 05/19 Confirmed Active Joint stiffness Confirmed Active Hepatic cyst Confirmed Active Pre-diabetes Confirmed Active Sebaceous cyst [...] Team Personnel Name: Genesis Reyes NP Position: [facility] PCO Associate Professional Member Role: PCP Address: Address: [address] [place] [address]- Care Team Related Persons Name: AMY LEON Name: SANDRA ESTRELLA
--- OUTSIDE RECORDS SUMMARY | 2022-09-14 17:02 | XMS_ITS | Continuity of Care Document ---
Author Name Unknown Organization [facility] Address [address] [place] [address]- Care Team Providers Care Fire Technician Name Role Phone Eirc GRAY, Genesis Primary Care Physician [phone] [place] [facility] [place] 05/20/22 - 06/19/[address] [address]- Allergies, Adverse Reactions, Alerts Substance Reaction Severity Status codeine 1 Active lisinopril 2 Active amLODIPine 3 Active 1wheezes, chest congestion at [facility] 2Cough 3Pt reports itchy throat after [...] tablet = 20 mg, By Mouth, Daily, [place] bentley media tableta para bentley semana. Despues [...] Refills, Maintenance, 03/04/22 14:44:00 EST, [id number], 178, cm, 12/08/21 13:45:00 EDT, Height, 118.5, [...] 2 Refills, Maintenance, 01/27/2215:33:00 EDT, [id number], 178, cm, 12/08/21 13:45:00 EDT, Height, 118.5, [...] Team Personnel Name: Genesis Reyes NP Position: [facility] PCO Associate Professional Member Role: PCP Address: Address: [address] [place] [address]- Care Team Related Persons Name: AMY LEON Name: SANDRA ESTRELLA
--- OUTSIDE RECORDS SUMMARY | 2022-09-14 17:02 | XMS_ITS | Continuity of Care Document ---
Author Name Unknown Organization [facility] Address [address] [place] [address]- Care Team Providers Care Belt Cutter Name Role Phone Eric GRAY, Genesis [id number] - 07/21/[address] [address]- Attending Physician: Isabel Paz MD, I Admitting Physician: Isabel Paz MD, I Allergies, Adverse Reactions, Alerts Substance Reaction Severity Status codeine 1 Active lisinopril 2 Active amLODIPine 3 Active 1wheezes, chest congestion at [facility] 2Cough 3Pt reports itchy throat after [...] tablet 325 mg, 1, tablet, By Mouth, 2 times a day, # 180 tablet, Refills 0, Tot. Refills 0, Maintenance, 06/24/22 14:29:00 EDT, Route to Pharmacy Electronically, [id number], Partial fill upon patient request if the prescription is for a schedule II o... Start Date: 06/24/22 Stop Date: 09/22/22 Status: Ordered FLUoxetine 20 mg oral tablet 1 tablet = 20 mg, By Mouth, Daily, [place] bentley media tableta para bentley semana. Despues de bentley semana, tome bentley tableta completa., # 30 tablet, 2 Refills, Maintenance, 10/15/21 11:30:00 EDT, [id number], Partial fill upon patient request if the pres... Start Date: 10/15/21 Stop Date: 01/13/22 Status: Ordered Freestyle Lite Lancets See Instructions, # 100 each, Refills 11, Tot. Refills 11, Maintenance, Utilize para chequear la azucar si tiene sintomas de hypoglycemia, bentley vez al brandie., 07/08/22 18:46:00 EDT, Supply, 178, cm, 06/15/22 8:57:00 EDT, Height, 118.5, kg, 10/20/21 14:00... Start Date: 07/08/22 Status: Ordered Freestyle Lite Monitor See Instructions, # 100 each, Refills 11, Tot. Refills 11, Maintenance, Utilize para chequear la azucar si tiene sintomas de hypoglycemia, bentley vez al brandie., 07/08/22 18:46:00 EDT, Supply, 178, cm, 06/15/22 8:57:00 EDT, Height, 118.5, kg, 10/20/21 14:00... Start Date: 07/08/22 Status: Ordered Freestyle Lite Test Strips See Instructions, # 100 each, Refills 11, Tot. Refills 11, Maintenance, Utilize para chequear la azucar si tiene sintomas de hypoglycemia, bentley vez al brandie., 07/08/22 18:46:00 EDT, Supply, 178, cm, 06/15/22 8:57:00 EDT, Height, 118.5, kg, 10/20/21 14:00... Start Date: 07/08/22 Status: Ordered Home blood pressure machine and cuff Home blood pressure machine and cuff, See Instructions, # 1 each, Refills 0, Tot. Refills 0, Maintenance, Home blood pressure machine and cuff ICD 10: R03.0. Fax to [facility], 07/12/22 14:10:00 EDT, Supply Start Date: 07/12/22 Status: Ordered hydroCHLOROthiazide 12.5 mg oral capsule [...] Refills, Maintenance, 03/04/22 14:44:00 EST, [facility], 178, cm, 12/08/21 13:45:00 EDT, Height, 118.5, kg, ... Start Date: 03/04/22 Status: Ordered metFORMIN 500 mg oral tablet 1 tablet = 500 mg, By Mouth, Daily, # 90 tablet, 1 Refills, Maintenance, 07/08/22 18:41:00 EDT, [facility]/pharm[facility] #[id number], Partial fill upon patient request if the prescription is for a schedule II opioid drug., 178, cm, 06/15/22 8:57:00 EDT, Height, 118.5,... Start Date: 07/08/22 Stop Date: 01/04/23 Status: Ordered norethindrone 0.35 mg oral tablet [...] 2 Refills, Maintenance, 01/27/2215:33:00 EDT, [facility], 178, cm, 12/08/21 13:45:00 EDT, Height, 118.5, kg, 10/20/21 14:00:00EDT, Dry Weight Start Date: 01/27/22 Status: Ordered Problem List Condition Confirmation Course Effective Dates Status H ealth Status Informant Chronic constipation Confirmed Active Sigmoid diverticulosis Confirmed Active Endometrial thickening on ultrasound 1 Confirmed Active Essential hypertension Confirmed Active Elevated hemoglobin A1c - 6.6 05/19 Confirmed Active Iron deficiency anemia Confirmed Active Joint stiffness Confirmed Active Hepatic [...] Associate Professional Member Role: PCP Address: Address: [address] [place] [address]- Care Team Related Persons Name: AMY LEON Name: SANDRA ESTRELLA
--- OUTSIDE RECORDS SUMMARY | 2022-09-14 17:02 | XMS_ITS | Continuity of Care Document ---
Author Name Unknown Organization [facility] Address [address] [place] [address]- Care Team Providers Care Seismic Survey Assistant Name Role Phone Eric GRAY, Genesis Primary Care Physician [phone] [place] [facility] [place] 04/26/22 - 05/26/[address] [address]- Allergies, Adverse Reactions, Alerts Substance Reaction Severity Status codeine 1 Active lisinopril 2 Active amLODIPine 3 Active 1wheezes, chest congestion at [facility] 2Cough 3Pt reports itchy throat after [...] 01/13/22 11:55:00 EDT, Route to Pharmacy Electronically, [facility]/pharmacy #[id number], Partial fill upon patient request if the prescriptio... Start Date: 01/13/22 Stop Date: 05/13/22 Status: Ordered ferrous sulfate 325 mg oral enteric coated tablet 325 mg, 1, tablet, By Mouth, Daily, # 30 tablet, Refills 2, Tot. Refills 2, Maintenance, 01/13/22 11:56:00 EDT, Route to Pharmacy Electronically, [facility]/pharmacy #[id number], Partial fill upon patient requestif the prescription is for a schedule II opioid nahun... Start Date: 01/13/22 Status: Ordered fluconazole 150 mg oral tablet 1 tablet = 150 mg, By Mouth, Once, # 1 tablet, 0 Refills, Soft Stop, 05/21/22 16:40:00 EST, Tablet,[facility]/pharmacy #[id number], Partial fill upon patient request if the prescription is for a schedule II opioid drug., 178, cm, 05/20/22 14:59:00 EST, Height, 11... Start Date: 05/21/22 Status: Ordered FLUoxetine 20 mg oral tablet 1 tablet = 20 mg, By Mouth, Daily, [place] bentley media tableta para bentley semana. Despues de bentley semana, tome bentley tableta completa., # 30 tablet, 2 Refills, Maintenance, 10/15/21 11:30:00 EDT, [facility]/pharmacy #[id number], Partial fill upon patient request [...] 30 capsule, 11 Refills, Maintenance, 04/22/22 11:58:00 EST,[facility]/pharmacy #[id number], 178, cm, 04/22/22 11:40:00 EST, Height, 118.5, kg, 10/20/21 14:00:00 EDT, Dry Weight Start Date: 04/22/22 Stop Date: 04/17/23 Status: Ordered hydrOXYzine hydrochloride 50 mg oral tablet See Instructions, TOME BENTLEY TABLETA CADA SEIS HORAS CUANDO SEA NECESARIO PARA ANXIEDAD Y BENTLEY TABLETAANTES DE DORMIR, # 40 tablet, 0 Refills, Maintenance, 03/04/22 14:44:00 EST, [facility] STORE [id number], 178, cm, 12/08/21 13:45:00 EDT, Height, 118.5, kg, ... Start Date: 03/04/22 Status: Ordered naproxen 500 mg oral tablet 1 tablet = 500 mg, By Mouth, 2 times a day, PRN for pain, for 10 days, # 20 tablet, 0 Refills, Acute 05/30/22 15:21:00 EST, 05/20/22 15:21:00 EST, Tablet, [facility]/pharmacy #[id number], Partial fill upon patient request if the prescription is for a schedule II o... Start Date: 05/20/22 Stop Date: 05/30/22 Status: Ordered norethindrone 0.35 mg oral tablet 1 tablet = 0.35 mg, By Mouth, Daily, # 28 tablet, 11 Refills, Maintenance, 01/13/22 11:50:00 EDT, Tablet, [facility]/pharmacy #[id number], Partial fill upon patient request if the prescription is for a schedule II opioid drug., 178, cm, 12/08/21 13:45:00 EDT, [facility]... Start Date: 01/13/22 Status: Ordered omeprazole 40 mg oral enteric coated capsule See Instructions, HUMERA HARTLEY SHAKIRAA DOS VECES AL BRANDIE, # 60 capsule, 2 Refills, Maintenance, 01/27/2215:33:00 EDT, [id number], 178, cm, 12/08/21 13:45:00 EDT, Height, 118.5, kg, 10/20/21 14:00:00EDT, Dry Weight Start Date: 01/27/22 Status: Ordered terconazole topical 0.4% cream 1 application, Vaginally, Daily at bedtime, for 7 days, # 45 Gm, 0 Refills, Acute 05/28/22 16:40:00EST, 05/21/22 16:40:00 EST, Cream, [facility]/pharmacy #[id number], Partial fill upon patient request if the prescription is for a schedule II opioid drug., 1 appli... Start Date: 05/21/22 Stop Date: 05/28/22 Status: Ordered Problem List Condition Confirmation Course [...] Associate Professional Member Role: PCP Address: Address: [address] [place] [address]- Care Team Related Persons Name: AMY LEON Name: SANDRA ESTRELLA
--- OUTSIDE RECORDS SUMMARY | 2022-09-14 17:02 | XMS_ITS | Continuity of Care Document ---
Author Name Unknown Organization [facility] Address [address] [place] [address]- Care Team Providers Care Associate Juvenile Court Judge Name Role Phone Eric GRAY, Genesis Primary Care Physician Encounter [facility] [place] [facility] [place] [id number] Date(s): 06/01/22 - 07/07/[address] [address]- Attending Physician: Not on Staff, Attending MD Allergies, Adverse Reactions, Alerts Substance Reaction Severity Status codeine 1 Active lisinopril 2 Active amLODIPine 3 Active 1wheezes, chest congestion at [facility] 2Cough 3Pt reports itchy throat after [...] 01/13/22 11:55:00 EDT, Route to Pharmacy Electronically, [facility]/pharmacy #[id number], Partial fill upon [...] tablet = 20 mg, By Mouth, Daily, [place] bentley media tableta para bentley semana. Despues [...] 30 capsule, 11 Refills, Maintenance, 04/22/22 11:58:00 EST,[facility]/pharmacy #[id number], 178, cm, 04/22/22 11:40:00 EST, Height, 118.5, kg, 10/20/21 14:00:00 EDT, Dry Weight Start Date: 04/22/22 Stop Date: 04/17/23 Status: Ordered hydrOXYzine hydrochloride 50 mg oral tablet See Instructions, TOME BENTLEY TABLETA CADA SEIS HORAS CUANDO SEA NECESARIO PARA ANXIEDAD Y BENTLEY TABLETAANTES DE DORMIR, # 40 tablet, 0 Refills, Maintenance, 03/04/22 14:44:00 EST, [id number], 178, cm, 12/08/21 13:45:00 EDT, Height, 118.5, [...] 2 Refills, Maintenance, 01/27/2215:33:00 EDT, [id number], 178, cm, 12/08/21 13:45:00 EDT, Height, 118.5, [...] Team Personnel Name: Genesis Reyes NP Position: [facility] Associate Professional Member Role: PCP Address: Address: [address] [place] [address] Care Team Related Persons Name: AMY LEON Name: SANDRA ESTRELLA
--- OUTSIDE RECORDS SUMMARY | 2022-09-14 17:03 | XMS_ITS | Continuity of Care Document ---
Author Name Unknown Organization [facility] Address [address] [place] [address]- Care Team Providers Care Collections Director Name Role Phone Eric GRAY, Genesis Primary Care Physician [phone] [place] [facility] [place] 07/01/[address] [address]- Allergies, Adverse Reactions, Alerts Substance Reaction Severity Status codeine 1 Active lisinopril 2 Active amLODIPine 3 Active 1wheezes, chest congestion at [facility] 2Cough 3Pt reports itchy throat after [...] 11:12:00 EDT, Route to Pharmacy Electronically, [facility]/pharmacy #[id number], Partial fill upon patient request if the prescription is for a schedule II... Start Date: 09/03/21 Stop Date: 05/31/22 Status: Ordered Colace sodium 100 mg oral capsule 100 mg, 1, capsule, By Mouth, 2 times a day, PRN, # 60 capsule, Refills 3, Tot. Refills 3, Maintenance, for constipation, 01/13/22 11:55:00 EDT, Route to Pharmacy Electronically, [facility]/pharmacy #[id number], Partial fill upon patient request if the prescriptio... Start Date: 01/13/22 Stop Date: 05/13/22 Status: Ordered ferrous sulfate 325 mg oral enteric coated tablet 325 mg, 1, tablet, By Mouth, 2 times a day, # 180 tablet, Refills 0, Tot. Refills 0, Maintenance, 06/24/22 14:29:00 EDT, Route to Pharmacy Electronically, [facility]/pharmacy #[id number], Partial fill upon patient request if the prescription is for a schedule II o... Start Date: 06/24/22 Stop Date: 09/22/22 Status: Ordered FLUoxetine 20 mg oral tablet 1 tablet = 20 mg, By Mouth, Daily, [place] bentley media tableta para bentley semana. Despues [...] 30 capsule, 11 Refills, Maintenance, 04/22/22 11:58:00 EST,[facility]/pharmacy #[id number], 178, cm, 04/22/22 11:40:00 EST, Height, 118.5, kg, 10/20/21 14:00:00 EDT, Dry Weight Start Date: 04/22/22 Stop Date: 04/17/23 Status: Ordered hydrOXYzine hydrochloride 50 mg oral tablet See Instructions, TOME BENTLEY TABLETA CADA SEIS HORAS CUANDO SEA NECESARIO PARA ANXIEDAD Y BENTLEY TABLETAANTES DE DORMIR, # 40 tablet, 0 Refills, Maintenance, 03/04/22 14:44:00 EST, [id number], 178, cm, 12/08/21 13:45:00 EDT, Height, 118.5, kg, ... Start Date: 03/04/22 Status: Ordered norethindrone 0.35 mg oral tablet 1 tablet = 0.35 mg, By Mouth, Daily, # 28 tablet, 11 Refills, Maintenance, 01/13/22 11:50:00 EDT, Tablet, [facility]/pharmacy #[id number], Partial fill upon patient request if the prescription is for a schedule II opioid drug., 178, cm, 12/08/21 13:45:00 EDT, Heig... Start Date: 01/13/22 Status: Ordered omeprazole 40 mg oral enteric coated capsule See Instructions, TOME BENTLEY CAPSULA DOS VECES AL BRANDIE, # 60 capsule, 2 Refills, Maintenance, 01/27/2215:33:00 EDT, [id number], 178, cm, 12/08/21 13:45:00 EDT, Height, 118.5, [...] Team Personnel Name: Genesis Reyes NP Position: [facility] Associate Professional Member Role: PCP Address: Address: [address] [place] [address]- Care Team Related Persons Name: AMY LEON Name: SANDRA ESTRELLA
--- OUTSIDE RECORDS SUMMARY | 2022-09-14 17:03 | XMS_ITS | Continuity of Care Document ---
Author Name Unknown Organization [facility] Address [address] [place] [address]- Care Team Providers Care Body Design Checker Name Role Phone Eric GRAY, Genesis Primary Care Physician [place] [facility] [place](s): 08/05/22 - 09/04/[address] [address]- Allergies, Adverse Reactions, Alerts Substance Reaction Severity Status codeine 1 Active lisinopril 2 Active amLODIPine 3 Active 1wheezes, chest congestion at [facility] 2Cough 3Pt reports itchy throat after [...] 01/13/22 11:55:00 EDT, Route to Pharmacy Electronically, [facility]/pharmacy #[id number], Partial fill upon patient request if the prescriptio... Start Date: 01/13/22 Stop Date: 05/13/22 Status: Ordered ferrous sulfate 325 mg oral enteric coated tablet 325 mg, 1, tablet, By Mouth, 2 times a day, # 180 tablet, Refills 0, Tot. Refills 0, Maintenance, 07/27/22 11:47:00 EDT, Route to Pharmacy Electronically, [facility]/pharmacy #[id number], Partial fill upon patient request if the prescription is for a schedule II o... Start Date: 07/27/22 Stop Date: 10/25/22 Status: Ordered FLUoxetine 20 mg oral tablet 1 tablet = 20 mg, By Mouth, Daily, [facility] para anxieded/depresion, # 30 tablet, 11 Refills, Maintenance, 07/27/22 11:48:00 EDT, [id number], Partial fill upon patient request if the prescription is for a schedule II opioid drug., 178, cm, ... Start Date: 07/27/22 Stop Date: 07/22/23 Status: Ordered Freestyle Lite Lancets See Instructions, [...] azucar si tiene sintomas de hypoglycemia, bentley rai al brandie., 07/08/22 18:46:00 EDT, Supply, 178, cm, 06/15/22 8:57:00 EDT, Height, 118.5, kg, 10/20/21 14:00... Start Date: 07/08/22 Status: Ordered Freestyle Lite Test Strips See Instructions, # 100 each, Refills 11, Tot. Refills 11, Maintenance, Utilize para chequear la azucar si tiene sintomas de hypoglycemia, bentley rai al brandie., 07/08/22 18:46:00 EDT, Supply, 178, [...] Refills, Maintenance, 03/04/22 14:44:00 EST, [facility], 178, cm, 12/08/21 13:45:00 EDT, Height, 118.5, kg, ... Start Date: 03/04/22 Status: Ordered metFORMIN 500 mg oral tablet 1 tablet = 500 mg, By Mouth, Daily, # 90 tablet, 1 Refills, Maintenance, 07/08/22 18:41:00 EDT, [facility]/pharmacy #[id number], Partial fill upon patient request if the prescription is for a schedule II opioid drug., 178, cm, 06/15/22 8:57:00 EDT, Height, 118.5,... Start Date: 07/08/22 Stop Date: 01/04/23 Status: Ordered norethindrone 0.35 mg oral tablet 1 tablet = 0.35 mg, By Mouth, Daily, # 28 tablet, 11 Refills, Maintenance, 01/13/22 11:50:00 EDT, Tablet, [facility]/pharmacy #[id number], Partial fill upon patient request if the prescription is for a schedule II opioid drug., 178, cm, 12/08/21 13:45:00 EDT, Heig... Start Date: 01/13/22 Status: Ordered omeprazole 40 mg oral enteric coated capsule See Instructions, TOME BENTLEY CAPSULA DOS VECES AL BRANDIE, # 60 capsule, 2 Refills, Maintenance, 238:40:00 EDT, [facility]/pharmacy #[id number], 178, cm, 06/15/22 8:57:00 EDT, Height, 118.5, kg, 10/20/21 14:00:00 EDT, Dry Weight Start Date: 09/03/22 Status: Ordered Problem List Condition Confirmation Course Effective Dates Status H ealth Status Informant Chronic constipation Confirmed Active Sigmoid diverticulosis Confirmed Active Endometrial thickening on ultrasound 1 Confirmed Active Essential hypertension Confirmed Active Elevated hemoglobin A1c - 6.6 05/19 Confirmed Active Iron deficiency anemia Confirmed Active Hepatic cyst Confirmed Active Anxiety and depression Confirmed Active Pre-diabetes Confirmed Active Sebaceous cyst of left axilla Confirmed Active Severe obesity (BMI 35.0-39.9) with comorbidity Confirmed Active 1In 2017, patient underwent a pelvic ultrasound that showed thickened endometrial stripe. She then underwent an EMB, which was negative for hyperplasia. Social History Social History Type Response Smoking Status Never (less than 100 in lifetime) entered on: 08/18/18 Sex Female Patient Care team information Care Team Personnel Name: Genesis Reyes NP Position: [facility] Associate Professional Member Role: PCP Address: Address: [address] [place] [address] Care Team Related Persons Name: AMY LEON Name: SANDRA ESTRELLA
--- OUTSIDE RECORDS SUMMARY | 2022-09-14 17:03 | XMS_ITS | Continuity of Care Document ---
Author Name Unknown Organization [facility] Address [address] [place] [address]- Care Team Providers Care Order Expediter Name Role Phone Eric GRAY, Genesis Primary Care Physician [place] [facility] [place] Date(s): 03/12/22 - 04/11/[address] [address]- Allergies, Adverse Reactions, Alerts Substance Reaction Severity Status codeine 1 Active lisinopril 2 Active amLODIPine 3 Active 1wheezes, chest congestion at [facility] 2Cough 3Pt reports itchy throat after taking amlodipine 01/15. Medication discontinued, denied addl allergysxs at that time. Immunizations Given and Recorded Vaccine Date Status Refusal Reason SARS-CoV-2 (COVID-19) mRNA BNT-162b2 vac 08/10/20 Recorded [...] 09/03/21 11:12:00 EDT, Route to Pharmacy Electronically, [facility]/pharmacy #[id number], Partial fill upon [...] 01/13/22 11:56:00 EDT, Route to Pharmacy Electronically, [facility]/pharmacy #[id number], Partial fill upon patient requestif the prescription is for a schedule II opioid nahun... Start Date: 01/13/22 Status: Ordered FLUoxetine 20 mg oral tablet 1 tablet = 20 mg, By Mouth, Daily, [place] bentley media tableta para bentley semana. Despues [...] Status: Ordered hydroCHLOROthiazide 12.5 mg oral capsule See Instructions, TOME BENTLEY CAPSULA TODOS LOS MCRAE, # 30 capsule, 2 Refills, Maintenance, 01/23/22 22:20:00 EDT, [facility], 178, cm, 12/08/21 13:45:00 EDT, Height, 118.5, kg, 10/20/21 14:00:00 EDT, Dry Weight Start Date: 01/23/22 Status: Ordered hydrOXYzine hydrochloride 50 mg oral tablet See Instructions, TOME BENTLEY TABLETA CADA SEIS HORAS CUANDO SEA NECESARIO PARA ANXIEDAD Y BENTLEY TABLETAANTES DE DORMIR, # 40 tablet, 0 Refills, Maintenance, 03/04/22 14:44:00 EST, [facility], 178, cm, 12/08/21 13:45:00 EDT, Height, 118.5, kg, ... Start Date: 03/04/22 Status: Ordered norethindrone 0.35 mg oral tablet 1 tablet = 0.35 mg, By Mouth, Daily, # 28 tablet, 11 Refills, Maintenance, 01/13/22 11:50:00 EDT, Tablet, [facility]/pharmacy #[id number], Partial fill upon patient request if the prescription is for a schedule II opioid drug., 178, cm, 12/08/21 13:45:00 EDT, Heig... Start Date: 01/13/22 Status: Ordered omeprazole 40 mg oral enteric coated capsule See Instructions, TOME BENTLEY CAPSULA DOS VECES AL BRANDIE, # 60 capsule, 2 Refills, Maintenance, 01/27/2215:33:00 EDT, [id number], 178, cm, 12/08/21 13:45:00 EDT, Height, 118.5, kg, 10/20/21 14:00:00EDT, Dry Weight Start Date: 01/27/22 Status: Ordered Problem List Condition Confirmation Course Effective Dates Status H ealth Status Informant Chronic constipation Confirmed Active Sigmoid diverticulosis Confirmed Active Endometrial thickening on ultrasound 1 Confirmed Active Essential hypertension Confirmed Active Elevated hemoglobin A1c - 6.6 05/19 Confirmed Active Hepatic cyst Confirmed Active Microcytic anemia Confirmed Active Obese class II Confirmed Active Sebaceous cyst of left axilla Confirmed Active 1In 2017, patient underwent a pelvic ultrasound that showed thickened endometrial stripe. She then underwent an EMB, which was negative for hyperplasia. Social History Social History Type Response Smoking Status Never (less than 100 in lifetime) entered on: 08/18/18 Sex Female Patient Care team information Care Team Personnel Name: Genesis Reyes NP Position: [facility] Associate Professional Member Role: PCP Address: Address: [address] [place] [address]- Care Team Related Persons Name: AMY LEON Name: SANDRA ESTRELLA
--- OUTSIDE RECORDS SUMMARY | 2022-09-14 17:03 | XMS_ITS | Continuity of Care Document ---
Author Name Unknown Organization [facility] Address [address] [place] [address]- Care Team Providers Care Die Maker Name Role Phone Eric GRAY, Genesis Primary Care Physician [phone] Encounter [facility] [place] Date(s): 06/18/22 - 07/18/[address] [address]- Allergies, Adverse Reactions, Alerts Substance Reaction Severity Status codeine 1 Active lisinopril 2 Active amLODIPine 3 Active 1wheezes, chest congestion at [facility] 2Cough 3Pt reports itchy throat after taking [...] EDT, Route to Pharmacy Electronically, [facility]/pharmacy #[id number], Partial fill upon patient request if the prescription is for a schedule II... Start Date: 09/03/21 Stop Date: 05/31/22 Status: Ordered Colace sodium 100 mg oral capsule 100 mg, 1, capsule, By Mouth, 2 times a day, PRN, # 60 capsule, Refills 3, Tot. Refills 3, Maintenance, for constipation, 01/13/22 11:55:00 EDT, Route to Pharmacy Electronically, [facility]/pharmacy #[id number], Partial fill upon patient request if the prescriptio... Start Date: 01/13/22 Stop Date: 05/13/22 Status: Ordered ferrous sulfate 325 mg oral enteric coated tablet 325 mg, 1, tablet, By Mouth, 2 times a day, # 180 tablet, Refills 0, Tot. Refills 0, Maintenance, 06/24/22 14:29:00 EDT, Route to Pharmacy Electronically, [facility]/pharmacy #[id number], Partial fill upon patient request if the prescription is for a schedule II o... Start Date: 06/24/22 Stop Date: 09/22/22 Status: Ordered FLUoxetine 20 mg oral tablet 1 tablet = 20 mg, By Mouth, Daily, [place] bentley media tableta para bentley semana. Despues [...] tablet, 0 Refills, Maintenance, 03/04/22 14:44:00 EST, [facility] STORE [id number], 178, cm, 12/08/21 13:45:00 EDT, Height, 118.5, kg, ... Start Date: 03/04/22 Status: Ordered metFORMIN 500 mg oral tablet 1 tablet = 500 mg, By Mouth, Daily, # 90 tablet, 1 Refills, Maintenance, 07/08/22 18:41:00 EDT, [facility]/pharmacy #[id number], Partial fill upon patient request if the prescription is for a schedule II opioid drug., 178, cm, 06/15/22 8:57:00 EDT, Height, 118.5,... Start Date: 07/08/22 Stop Date: 01/04/23 Status: Ordered norethindrone 0.35 mg oral tablet 1 tablet = 0.35 mg, By Mouth, Daily, # 28 tablet, 11 Refills, Maintenance, 01/13/22 11:50:00 EDT, Tablet, [facility]/pharmacy #[id number], Partial fill upon patient request if the prescription is for a schedule II opioid drug., 178, cm, 12/08/21 13:45:00 EDT, Heig... Start Date: 01/13/22 Status: Ordered omeprazole 40 mg oral enteric coated capsule See Instructions, TOME BENTLEY CAPSULA DOS VECES AL BRANDIE, # 60 capsule, 2 Refills, Maintenance, 01/27/2215:33:00 EDT, [facility] ST[facility] [id number], 178, cm, 12/08/21 13:45:00 EDT, Height, 118.5, [...] Associate Professional Member Role: PCP Address: Address: [address] [place] [address]- Care Team Related Persons Name: AMY LEON Name: SANDRA ESTRELLA
--- OUTSIDE RECORDS SUMMARY | 2022-09-14 17:03 | XMS_ITS | Continuity of Care Document ---
Author Name Unknown Organization [facility] Address [address] [place] [address]- Care Team Providers Care Wire Roller Name Role Phone Eric GRAY, Genesis Primary Care Physician En[place] [facility] [place] Date(s): 06/22/22 - 07/22/[address] [address]- Allergies, Adverse Reactions, Alerts Substance Reaction Severity Status codeine 1 Active lisinopril 2 Active amLODIPine 3 Active 1wheezes, chest congestion at [facility] 2Cough 3Pt reports itchy throat after taking [...] 14:29:00 EDT, Route to Pharmacy Electronically, [facility]/pharmacy #[id number], Partial fill upon patient request if the prescription is for a schedule II o... Start Date: 06/24/22 Stop Date: 09/22/22 Status: Ordered FLUoxetine 20 mg oral tablet 1 tablet = 20 mg, By Mouth, Daily, [place] bentley media tableta para bentley semana. Despues [...] 0 Refills, Maintenance, 03/04/22 14:44:00 EST, [facility] STORE [id number], 178, cm, 12/08/21 13:45:00 EDT, Height, 118.5, kg, ... Start Date: 03/04/22 Status: Ordered metFORMIN 500 mg oral tablet 1 tablet = 500 mg, By Mouth, Daily, # 90 tablet, 1 Refills, Maintenance, 07/08/22 18:41:00 EDT, [facility]/pharmacy #[id number], Partial fill upon patient request if the prescription is for a schedule II opioid drug., 178, cm, 06/15/22 8:57:00 EDT, Height, 118.5,... Start Date: 07/08/22 Stop Date: 01/04/23 Status: Ordered norethindrone 0.35 mg oral tablet 1 tablet = 0.35 mg, By Mouth, Daily, # 28 tablet, 11 Refills, Maintenance, 01/13/22 11:50:00 EDT, Tablet, [facility]/pharmacy #[id number], Partial fill upon patient request if the prescription is for a schedule II opioid drug., 178, cm, 12/08/21 13:45:00 EDT, Heig... Start Date: 01/13/22 Status: Ordered omeprazole 40 mg oral enteric coated capsule See Instructions, TOME BENTLEY CAPSULA DOS VECES AL BRANDIE, # 60 capsule, 2 Refills, Maintenance, 01/27/2215:33:00 EDT, [facility] ST[id number], 178, cm, 12/08/21 13:45:00 EDT, Height, 118.5, [...] Professional Member Role: PCP Address: Address: [address] [place] [address]- Care Team Related Persons Name: AMY LEON Name: SANDRA ESTRELLA
--- OUTSIDE RECORDS SUMMARY | 2022-09-14 17:03 | XMS_ITS | Continuity of Care Document ---
Author Name Unknown Organization [facility] Address [address] [place] [address]- Care Team Providers Care Needle Bar Molder Name Role Phone Eric GRAY, Genesis Primary Care Physician Encounter [facility] Date(s): 03/30/22 - 05/09/[address] [address]- Attending Physician: Not on Staff, Attending MD Allergies, Adverse Reactions, Alerts Substance Reaction Severity Status codeine 1 Active lisinopril 2 Active amLODIPine 3 Active 1wheezes, chest congestion at [facility] 2Cough 3Pt reports itchy throat after taking [...] tablet = 20 mg, By Mouth, Daily, [place] bentley media tableta para bentley semana. Despues [...] 30 capsule, 11 Refills, Maintenance, 04/22/22 11:58:00 EST,[facility]/pharmacy #[id number], 178, cm, 04/22/22 11:40:00 EST, Height, 118.5, kg, 10/20/21 14:00:00 EDT, Dry Weight Start Date: 04/22/22 Stop Date: 04/17/23 Status: Ordered hydrOXYzine hydrochloride 50 mg oral tablet See Instructions, TOME BENTLEY TABLETA CADA SEIS HORAS CUANDO SEA NECESARIO PARA ANXIEDAD Y BENTLEY TABLETAANTES DE DORMIR, # 40 tablet, 0 Refills, Maintenance, 03/04/22 14:44:00 EST, [facility] STORE [id number], 178, cm, 12/08/21 13:45:00 EDT, Height, 118.5, kg, ... Start Date: 03/04/22 Status: Ordered Macrobid macrocrystals-monohydrate 100 mg oral capsule 1 capsule = 100 mg, By Mouth, 2 times a day, for 7 days, # 14 capsule, 0 Refills, Acute 05/11/22 11:27:00 EST, 05/04/22 11:27:00 EST, Capsule, [facility]/pharmacy #[id number], Partial fill upon patient request ifthe prescription is for a schedule II opioid drug.,... Start Date: 05/04/22 Stop Date: 05/11/22 Status: Ordered norethindrone 0.35 mg oral tablet [...] 2 Refills, Maintenance, 01/27/2215:33:00 EDT, [id number], 178, cm, 12/08/21 13:45:00 EDT, Height, 118.5, [...] Team Personnel Name: Genesis Reyes NP Position: [facility] Associate Professional Member Role: PCP Address: Address: [address] [place] [address] Care Team Related Persons Name: AMY LEON Name: SANDRA ESTRELLA
--- OUTSIDE RECORDS SUMMARY | 2022-09-14 17:03 | XMS_ITS | Continuity of Care Document ---
Author Name Unknown Organization [facility] Address [address] [place] [address]- Care Team Providers Care Computer Science Instructor Name Role Phone Eric GRAY, Genesis Primary Care Physician Encounter [facility] Date(s): 03/18/22 - 04/17/[address] [address]- Allergies, Adverse Reactions, Alerts Substance Reaction Severity Status codeine 1 Active lisinopril 2 Active amLODIPine 3 Active 1wheezes, chest congestion at [facility] 2Cough 3Pt reports itchy throat after [...] 09/03/21 11:12:00 EDT, Route to Pharmacy Electronically, [facility]/pharmacy #[id number], Partial fill upon patient request if the prescription is for a schedule II... Start Date: 09/03/21 Stop Date: 05/31/22 Status: Ordered Colace sodium 100 mg oral capsule 100 mg, 1, capsule, By Mouth, 2 times a day, PRN, # 60 capsule, Refills 3, Tot. Refills 3, Maintenance, for constipation, 01/13/22 11:55:00 EDT, Route to Pharmacy Electronically, [facility]/pharmacy #[id number], Partial fill upon patient request if the prescriptio... Start Date: 01/13/22 Stop Date: 05/13/22 Status: Ordered ferrous sulfate 325 mg oral enteric coated tablet 325 mg, 1, tablet, By Mouth, Daily, # 30 tablet, Refills 2, Tot. Refills 2, Maintenance, 01/13/22 11:56:00 EDT, Route to Pharmacy Electronically, [facility]/pharmacy #[id number], Partial fill upon patient requestif the prescription is for a schedule II opioid nahun... Start Date: 01/13/22 Status: Ordered FLUoxetine 20 mg oral tablet 1 tablet = 20 mg, By Mouth, Daily, [place] bentley media tableta para bentley semana. Despues [...] capsule, 2 Refills, Maintenance, 01/23/22 22:20:00 EDT, [facility] ST[facility] [id number], 178, cm, 12/08/21 13:45:00 EDT, Height, 118.5, kg, 10/20/21 14:00:00 EDT, Dry Weight Start Date: 01/23/22 Status: Ordered hydrOXYzine hydrochloride 50 mg oral tablet See Instructions, TOME BENTLEY TABLETA CADA SEIS HORAS CUANDO SEA NECESARIO PARA ANXIEDAD Y BENTLEY TABLETAANTES DE DORMIR, # 40 tablet, 0 Refills, Maintenance, 03/04/22 14:44:00 EST, [facility] STORE 41591, 178, cm, 12/08/21 13:45:00 EDT, Height, 118.5, kg, ... Start Date: 03/04/22 Status: Ordered norethindrone 0.35 mg oral tablet 1 tablet = 0.35 mg, By Mouth, Daily, # 28 tablet, 11 Refills, Maintenance, 01/13/22 11:50:00 EDT, Tablet, [facility]/pharmacy #[id number], Partial fill upon patient request if the prescription is for a schedule II opioid drug., 178, cm, 12/08/21 13:45:00 EDT, [facility]... Start Date: 01/13/22 Status: Ordered omeprazole 40 mg oral enteric coated capsule See Instructions, TOME BENTLEY CAPSULA DOS VECES AL BRANDIE, # 60 capsule, 2 Refills, Maintenance, 01/27/2215:33:00 EDT, [facility] STORE [address]40, 178, cm, 12/08/21 13:45:00 EDT, Height, 118.5, [...] Team Personnel Name: Genesis Reyes NP Position: [facility] Associate Professional Member Role: PCP Address: Address: [address] [place] [address]- Care Team Related Persons Name: AMY LEON Name: SANDRA ESTRELLA
--- OUTSIDE RECORDS SUMMARY | 2022-09-14 17:03 | XMS_ITS | Continuity of Care Document ---
Author Name Unknown Organization [facility] Address [address] [place] [address]- Care Team Providers Care Tactical Air Control Party Manager Name Role Phone Eric GRAY, Genesis Primary Care Physician Encounter [facility] Date(s): 05/13/22 - 06/12/[address] [address]- Allergies, Adverse Reactions, Alerts Substance Reaction Severity Status codeine 1 Active lisinopril 2 Active amLODIPine 3 Active 1wheezes, chest congestion at [facility] 2Cough 3Pt reports itchy throat [...] 01/13/22 11:55:00 EDT, Route to Pharmacy Electronically, [facility]/pharmacy #[id number], Partial fill upon patient request if the prescriptio... Start Date: 01/13/22 Stop Date: 05/13/22 Status: Ordered ferrous sulfate 325 mg oral enteric coated tablet 325 mg, 1, tablet, By Mouth, Daily, # 30 tablet, Refills 2, Tot. Refills 2, Maintenance, 01/13/22 11:56:00 EDT, Route to Pharmacy Electronically, [facility]/pharmacy #[id number], Partial fill upon patient requestif the prescription is for a schedule II opioid nahun... Start Date: 01/13/22 Status: Ordered fluconazole 150 mg oral tablet 1 tablet = 150 mg, By Mouth, Once, # 1 tablet, 0 Refills, Soft Stop, 05/21/22 16:40:00 EST, Tablet,[facility]/pharmacy #[id number], Partial fill upon patient request if the prescription is for a schedule II opioid drug., 178, cm, 05/20/22 14:59:00 EST, Height, 11... Start Date: 05/21/22 Status: Ordered FLUoxetine 20 mg oral tablet 1 tablet = 20 mg, By Mouth, Daily, [place] bentley media tableta para bentley semana. Despues de bentley semana, tome bentley tableta completa., # 30 tablet, 2 Refills, Maintenance, 10/15/21 11:30:00 EDT, [facility]/pharmacy #[id number], Partial fill upon patient request [...] 30 capsule, 11 Refills, Maintenance, 04/22/22 11:58:00 EST,[facility]/pharmacy #[id number], 178, cm, 04/22/22 11:40:00 EST, Height, 118.5, kg, 10/20/21 14:00:00 EDT, Dry Weight Start Date: 04/22/22 Stop Date: 04/17/23 Status: Ordered hydrOXYzine hydrochloride 50 mg oral tablet See Instructions, TOME BENTLEY TABLETA CADA SEIS HORAS CUANDO SEA NECESARIO PARA ANXIEDAD Y BENTLEY TABLETAANTES DE DORMIR, # 40 tablet, 0 Refills, Maintenance, 03/04/22 14:44:00 EST, [facility] STORE 41225, 178, cm, 12/08/21 13:45:00 EDT, Height, 118.5, kg, ... Start Date: 03/04/22 Status: Ordered norethindrone 0.35 mg oral tablet 1 tablet = 0.35 mg, By Mouth, Daily, # 28 tablet, 11 Refills, Maintenance, 01/13/22 11:50:00 EDT, Tablet, [facility]/pharmacy #[id number], Partial fill upon patient request if the prescription is for a schedule II opioid drug., 178, cm, 12/08/21 13:45:00 EDT, [facility]... Start Date: 01/13/22 Status: Ordered omeprazole 40 mg oral enteric coated capsule See Instructions, TOME BENTLEY CAPSULA DOS VECES AL BRANDIE, # 60 capsule, 2 Refills, Maintenance, 01/27/2215:33:00 EDT, [facility] STORE [id number], 178, cm, 12/08/21 13:45:00 EDT, Height, 118.5, [...] Associate Professional Member Role: PCP Address: Address: [address] [place] [address] Care Team Related Persons Name: AMY LEON Name: SANDRA ESTRELLA
--- OUTSIDE RECORDS SUMMARY | 2022-09-14 17:04 | XMS_ITS | Continuity of Care Document ---
Author Name Unknown Organization [facility] Address [address] [place] [address]- Care Team Providers Care Supervisor Garment Manufacturing Name Role Phone Eric GRAY, Genesis Primary Care Physician Encounter [facility] Date(s): 03/09/22 - 04/08/[address] [address]- Allergies, Adverse Reactions, Alerts Substance Reaction Severity Status codeine 1 Active lisinopril 2 Active amLODIPine 3 Active 1wheezes, chest congestion at [facility] 2Cough 3Pt reports itchy throat after taking [...] 09/03/21 11:12:00 EDT, Route to Pharmacy Electronically, [facility]/pharmacy #[id number], Partial fill upon patient request if the prescription is for a schedule II... Start Date: 09/03/21 Stop Date: 05/31/22 Status: Ordered Colace sodium 100 mg oral capsule 100 mg, 1, capsule, By Mouth, 2 times a day, PRN, # 60 capsule, Refills 3, Tot. Refills 3, Maintenance, for constipation, 01/13/22 11:55:00 EDT, Route to Pharmacy Electronically, [facility]/pharmacy #[id number], Partial fill upon patient request if the prescriptio... Start Date: 01/13/22 Stop Date: 05/13/22 Status: Ordered ferrous sulfate 325 mg oral enteric coated tablet 325 mg, 1, tablet, By Mouth, Daily, # 30 tablet, Refills 2, Tot. Refills 2, Maintenance, 01/13/22 11:56:00 EDT, Route to Pharmacy Electronically, [facility]/pharmacy #[id number], Partial fill upon patient requestif the prescription is for a schedule II opioid nahun... Start Date: 01/13/22 Status: Ordered FLUoxetine 20 mg oral tablet 1 tablet = 20 mg, By Mouth, Daily, [place] bentley media tableta para bentley semana. Despues [...] capsule, 2 Refills, Maintenance, 01/23/22 22:20:00 EDT, [facility] STORE [id number], 178, cm, 12/08/21 13:45:00 EDT, Height, 118.5, kg, 10/20/21 14:00:00 EDT, Dry Weight Start Date: 01/23/22 Status: Ordered hydrOXYzine hydrochloride 50 mg oral tablet See Instructions, TOME BENTLEY TABLETA CADA SEIS HORAS CUANDO SEA NECESARIO PARA ANXIEDAD Y BENTLEY TABLETAANTES DE DORMIR, # 40 tablet, 0 Refills, Maintenance, 03/04/22 14:44:00 EST, [facility], 178, cm, 12/08/21 13:45:00 EDT, Height, 118.5, kg, ... Start Date: 03/04/22 Status: Ordered norethindrone 0.35 mg oral tablet 1 tablet = 0.35 mg, By Mouth, Daily, # 28 tablet, 11 Refills, Maintenance, 01/13/22 11:50:00 EDT, Tablet, [facility]/pharmacy #[id number], Partial fill upon patient request if the prescription is for a schedule II opioid drug., 178, cm, 12/08/21 13:45:00 EDT, [facility]... Start Date: 01/13/22 Status: Ordered omeprazole 40 mg oral enteric coated capsule See Instructions, TOME BENTLEY CAPSULA DOS VECES AL BRANDIE, # 60 capsule, 2 Refills, Maintenance, 01/27/2215:33:00 EDT, [facility] STORE [id number], 178, cm, 12/08/21 13:45:00 EDT, Height, 118.5, [...] Team Personnel Name: Genesis Reyes NP Position: [facility] Associate Professional Member Role: PCP Address: Address: [address] [place] [address]- Care Team Related Persons Name: AMY LEON Name: SANDRA ESTRELLA
--- OUTSIDE RECORDS SUMMARY | 2022-09-14 17:04 | XMS_ITS | Continuity of Care Document ---
Author Name Unknown Organization [facility] Address [address] [place] [address]- Care Team Providers Care Primary Care Nurse Practitioner Name Role Phone Eric GRAY, Genesis Primary Care Physician Encounter [facility] Date(s): 04/28/22 - 05/30/[address] [address]- Attending Physician: Not on Staff, Attending MD Allergies, Adverse Reactions, Alerts Substance Reaction Severity Status codeine 1 Active lisinopril 2 Active amLODIPine 3 Active 1wheezes, chest congestion at [facility] 2Cough 3Pt reports itchy throat after taking [...] 0 Refills, Soft Stop, 05/21/22 16:40:00 EST, Tablet,[id number], Partial fill upon patient request if the prescription is for a schedule II opioid drug., 178, cm, 05/20/22 14:59:00 EST, Height, 11... Start Date: 05/21/22 Status: Ordered FLUoxetine 20 mg oral tablet 1 tablet = 20 mg, By Mouth, Daily, [place] bentley media tableta para bentley semana. Despues de bentley semana, tome bentley tableta completa., # 30 tablet, 2 Refills, Maintenance, 10/15/21 11:30:00 EDT, [facility]/pharmacy #[id number], [...] 30 capsule, 11 Refills, Maintenance, 04/22/22 11:58:00 EST,[facility]/pharmacy #[id number], 178, cm, 04/22/22 11:40:00 EST, Height, 118.5, kg, 10/20/21 14:00:00 EDT, Dry Weight Start Date: 04/22/22 Stop Date: 04/17/23 Status: Ordered hydrOXYzine hydrochloride 50 mg oral tablet See Instructions, TOME BENTLEY TABLETA CADA SEIS HORAS CUANDO SEA NECESARIO PARA ANXIEDAD Y BENTLEY TABLETAANTES DE DORMIR, # 40 tablet, 0 Refills, Maintenance, 03/04/22 14:44:00 EST, [facility], 178, cm, 12/08/21 13:45:00 EDT, Height, 118.5, kg, ... Start Date: 03/04/22 Status: Ordered norethindrone 0.35 mg oral tablet 1 tablet = 0.35 mg, By Mouth, Daily, # 28 tablet, 11 Refills, Maintenance, 01/13/22 11:50:00 EDT, Tablet, [facility]/pharmacy #[id number], Partial fill upon patient request if the prescription is for a schedule II opioid drug., 178, cm, 12/08/21 13:45:00 EDT, [facility]... Start Date: 01/13/22 Status: Ordered omeprazole 40 mg oral enteric coated capsule See Instructions, TOME BENTLEY CAPSULA DOS VECES AL BRANDIE, # 60 capsule, 2 Refills, Maintenance, 01/27/2215:33:00 EDT, [id number], 178, cm, 12/08/21 13:45:00 EDT, Height, 118.5, [...] Team Personnel Name: Genesis Reyes NP Position: [facility] PC[facility] Associate Professional Member Role: PCP Address: Address: [address] [place] [address] Care Team Related Persons Name: AYM LEON Name: SANDRA ESTRELLA
--- OUTSIDE RECORDS SUMMARY | 2022-09-14 17:04 | XMS_ITS | Continuity of Care Document ---
Author Name Unknown Organization [facility] Address [address] [place] [address]- Care Team Providers Care Plant Director Name Role Phone Eric GRAY, Genesis Primary Care Physician [phone] Encounter [facility] Date(s): 06/22/22 - 07/22/[address] [address]- Allergies, Adverse Reactions, Alerts Substance Reaction Severity Status codeine 1 Active lisinopril 2 Active amLODIPine 3 Active 1wheezes, chest congestion at [facility] 2Cough 3Pt reports itchy throat [...] 09/03/21 11:12:00 EDT, Route to Pharmacy Electronically, [facility] [...] 06/24/22 14:29:00 EDT, Route to Pharmacy Electronically, [facility]/pharmacy #[id number], Partial fill upon patient request if the prescription is for a schedule II o... Start Date: 06/24/22 Stop Date: 09/22/22 Status: Ordered FLUoxetine 20 mg oral tablet 1 tablet = 20 mg, By Mouth, Daily, [place] bentley media tableta para bentley semana. Despues [...] 03/04/22 14:44:00 EST, [facility] STORE 77977, 178, cm, 12/08/21 13:45:00 EDT, Height, 118.5, kg, ... Start Date: 03/04/22 Status: Ordered metFORMIN 500 mg oral tablet 1 tablet = 500 mg, By Mouth, Daily, # 90 tablet, 1 Refills, Maintenance, 07/08/22 18:41:00 EDT, [facility]/pharmacy #[id number], Partial fill [...] 60 capsule, 2 Refills, Maintenance, 01/27/2215:33:00 EDT, [facility] STORE 61301, 178, cm, 12/08/21 13:45:00 EDT, Height, 118.5, [...] Team Personnel Name: Genesis Reyes NP Position: [facility] Associate Professional Member Role: PCP Address: Address: [address] [place] [address]- Care Team Related Persons Name: AMY LEON Name: SANDRA ESTRELLA
--- OUTSIDE RECORDS SUMMARY | 2022-09-14 17:04 | XMS_ITS | Continuity of Care Document ---
Author Name Unknown Organization [facility] Address [address] [place] [address]- Care Team Providers Care Representative Phlebotomy Services Name Role Phone Eric GRAY, Genesis Primary Care Physician [phone] Encounter [facility] Date(s): 06/28/22 - 07/28/[address] [address]- Allergies, Adverse Reactions, Alerts Substance Reaction Severity Status codeine 1 Active lisinopril 2 Active amLODIPine 3 Active 1wheezes, chest congestion at [facility] 2Cough 3Pt reports itchy throat after taking [...] 09/03/21 11:12:00 EDT, Route to Pharmacy Electronically, [facility]/pharmacy #[id number], Partial fill upon patient request if the prescription is for a schedule II... Start Date: 09/03/21 Stop Date: 05/31/22 Status: Ordered Colace sodium 100 mg oral capsule 100 mg, 1, capsule, By Mouth, 2 times a day, PRN, # 60 capsule, Refills 3, Tot. Refills 3, Maintenance, for constipation, 01/13/22 11:55:00 EDT, Route to Pharmacy Electronically, [facility]/pharmacy #[id number], Partial fill upon patient request if the prescriptio... Start Date: 01/13/22 Stop Date: 05/13/22 Status: Ordered ferrous sulfate 325 mg oral enteric coated tablet 325 mg, 1, tablet, By Mouth, 2 times a day, # 180 tablet, Refills 0, Tot. Refills 0, Maintenance, 07/27/22 11:47:00 EDT, Route to Pharmacy Electronically, [facility]/pharmacy #[id number], Partial fill [...] tablet, 0 Refills, Maintenance, 03/04/22 14:44:00 EST, [facility] STORE 32377, 178, cm, 12/08/21 13:45:00 EDT, Height, 118.5, kg, ... Start Date: 03/04/22 Status: Ordered metFORMIN 500 mg oral tablet 1 tablet = 500 mg, By Mouth, Daily, # 90 tablet, 1 Refills, Maintenance, 07/08/22 18:41:00 EDT, [facility]/pharmacy #[id number], Partial fill upon patient request if the prescription is for a schedule II opioid drug., 178, cm, 06/15/22 8:57:00 EDT, Height, 118.5,... Start Date: 07/08/22 Stop Date: 01/04/23 Status: Ordered norethindrone 0.35 mg oral tablet 1 tablet = 0.35 mg, By Mouth, Daily, # 28 tablet, 11 Refills, Maintenance, 01/13/22 11:50:00 EDT, Tablet, [facility]/pharmacy #[id number], Partial fill upon patient request if the prescription is for a schedule II opioid drug., 178, cm, 12/08/21 13:45:00 EDT, [facility]... Start Date: 01/13/22 Status: Ordered omeprazole 40 mg oral enteric coated capsule See Instructions, [place] BENTLEY CAPSULA DOS VECES AL BRANDIE, # 60 capsule, 2 Refills, Maintenance, 01/27/2215:33:00 EDT, [facility] STORE 98621, 178, cm, 12/08/21 13:45:00 EDT, Height, 118.5, [...] Team Personnel Name: Genesis Reyes NP Position: [facility] PCO Associate Professional Member Role: PCP Address: Address: [address] [place] [address]- Care Team Related Persons Name: AMY LEON Name: SANDRA ESTRELLA
--- OUTSIDE RECORDS SUMMARY | 2022-09-14 17:04 | XMS_ITS | Continuity of Care Document ---
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 Start Date: 09/03/21 Stop Date: 05/31/22 Status: Ordered Colace sodium 100 mg oral capsule 100 mg, 1, capsule, By Mouth, 2 times a day, PRN, # 60 capsule, Refills 3, Tot. Refills 3, Maintenance, for constipation, 01/13/22 11:55:00 EDT, Route to Pharmacy Electronically, [facility]/pharmacy #[id number], Partial fill upon patient request if the prescriptio... Start Date: 01/13/22 Stop Date: 05/13/22 Status: Ordered ferrous sulfate 325 mg oral enteric coated tablet 325 mg, 1, tablet, By Mouth, 2 times a day, # 180 tablet, Refills 0, Tot. Refills 0, Maintenance, 06/24/22 14:29:00 EDT, Route to Pharmacy Electronically, [facility]/pharmacy #[id number], Partial fill upon patient request if the prescription is for a schedule II o... Start Date: 06/24/22 Stop Date: 09/22/22 Status: Ordered FLUoxetine 20 mg oral tablet 1 tablet = 20 mg, By Mouth, Daily, [place] bentley media tableta para bentley semana. Despues [...] tablet, 0 Refills, Maintenance, 03/04/22 14:44:00 EST, [facility] STORE 71958, 178, cm, 12/08/21 13:45:00 EDT, Height, 118.5, kg, ... Start Date: 03/04/22 Status: Ordered metFORMIN 500 mg oral tablet 1 tablet = 500 mg, By Mouth, Daily, # 90 tablet, 1 Refills, Maintenance, 07/08/22 18:41:00 EDT, [facility]/pharmacy #[id number], Partial fill upon patient request if the prescription is for a schedule II opioid drug., 178, cm, 06/15/22 8:57:00 EDT, Height, 118.5,... Start Date: 07/08/22 Stop Date: 01/04/23 Status: Ordered norethindrone 0.35 mg oral tablet 1 tablet = 0.35 mg, By Mouth, Daily, # 28 tablet, 11 Refills, Maintenance, 01/13/22 11:50:00 EDT, Tablet, [facility]/pharmacy #[id number], Partial fill upon patient request if the prescription is for a schedule II opioid drug., 178, cm, 12/08/21 13:45:00 EDT, [facility]... Start Date: 01/13/22 Status: Ordered omeprazole 40 mg oral enteric coated capsule See Instructions, TOME BENTLEY CAPS[place]A DOS VECES AL BRANDIE, # 60 capsule, 2 Refills, Maintenance, 01/27/2215:33:00 EDT, [facility] STORE 44894, 178, cm, 12/08/21 13:45:00 EDT, Height, 118.5, [...] NP Position: [facility] PCO Associate Professional Member Role: PCP Address: Address: [address] [place] [address]- Care Team Related Persons Name: AMY LEON Name: SANDRA ESTRELLA
--- OUTSIDE RECORDS SUMMARY | 2022-09-14 17:04 | XMS_ITS | Continuity of Care Document ---
Author Name Unknown Organization [facility] Address [address] [place] [address]- Care Team Providers Care Agile Qa Tester Name Role Phone Eric GRAY, Genesis Primary Care Physician [place] [facility] [place] - 07/01/[address] [address]- Allergies, Adverse Reactions, Alerts Substance Reaction Severity Status codeine 1 Active lisinopril 2 Active amLODIPine 3 Active 1wheezes, chest congestion at [facility] 2Cough 3Pt reports itchy throat [...] 09/03/21 11:12:00 EDT, Route to Pharmacy Electronically, [facility]/pharmacy #[id number], Partial fill upon patient request if the prescription is for a schedule II... Start Date: 09/03/21 Stop Date: 05/31/22 Status: Ordered Colace sodium 100 mg oral capsule 100 mg, 1, capsule, By Mouth, 2 times a day, PRN, # 60 capsule, Refills 3, Tot. Refills 3, Maintenance, for constipation, 01/13/22 11:55:00 EDT, Route to Pharmacy Electronically, [facility]/pharmacy #[id number], Partial fill upon patient request if the prescriptio... Start Date: 01/13/22 Stop Date: 05/13/22 Status: Ordered ferrous sulfate 325 mg oral enteric coated tablet 325 mg, 1, tablet, By Mouth, 2 times a day, # 180 tablet, Refills 0, Tot. Refills 0, Maintenance, 06/24/22 14:29:00 EDT, Route to Pharmacy Electronically, [facility]/pharmacy #[id number], Partial fill upon patient request if the prescription is for a schedule II o... Start Date: 06/24/22 Stop Date: 09/22/22 Status: Ordered FLUoxetine 20 mg oral tablet 1 tablet = 20 mg, By Mouth, Daily, [place] bentley media tableta para bentley semana. Despues [...] 30 capsule, 11 Refills, Maintenance, 04/22/22 11:58:00 EST,[facility]/pharmacy #[id number], 178, cm, 04/22/22 11:40:00 EST, Height, 118.5, kg, 10/20/21 14:00:00 EDT, Dry Weight Start Date: 04/22/22 Stop Date: 04/17/23 Status: Ordered hydrOXYzine hydrochloride 50 mg oral tablet See Instructions, TOME BENTLEY TABLETA CADA SEIS HORAS CUANDO SEA NECESARIO PARA ANXIEDAD Y BENTLEY TABLETAANTES DE DORMIR, # 40 tablet, 0 Refills, Maintenance, 03/04/22 14:44:00 EST, [id number], 178, cm, 12/08/21 13:45:00 EDT, Height, 118.5, kg, ... Start Date: 03/04/22 Status: Ordered norethindrone 0.35 mg oral tablet 1 tablet = 0.35 mg, By Mouth, Daily, # 28 tablet, 11 Refills, Maintenance, 01/13/22 11:50:00 EDT, Tablet, [facility]/pharmacy #[id number], Partial fill upon patient request if the prescription is for a schedule II opioid drug., 178, cm, 12/08/21 13:45:00 EDT, [facility]... Start Date: 01/13/22 Status: Ordered omeprazole 40 mg oral enteric coated capsule See Instructions, TOME BENTLEY CAPSULA DOS VECES AL BRANDIE, # 60 capsule, 2 Refills, Maintenance, 01/27/2215:33:00 EDT, [id number], 178, cm, 12/08/21 13:45:00 EDT, Height, 118.5, [...] Team Personnel Name: Genesis Reyes NP Position: [facility] Associate Professional Member Role: PCP Address: Address: [address] [place] [address]- Care Team Related Persons Name: AMY LEON Name: SANDRA ESTRELLA
--- OUTSIDE RECORDS SUMMARY | 2022-09-14 17:04 | XMS_ITS | Continuity of Care Document ---
Author Name Unknown Organization [facility] Address [address] [place] [address]- Care Team Providers Care Site Specialist Name Role Phone Eric GRAY, Genesis Primary Care Physician [phone] Encounter [facility] [place] Date(s): 05/18/22 - 06/17/[address] [address]- Allergies, Adverse Reactions, Alerts Substance Reaction Severity Status codeine 1 Active lisinopril 2 Active amLODIPine 3 Active 1wheezes, chest congestion at [facility] 2Cough 3Pt reports itchy throat after taking [...] 11:12:00 EDT, Route to Pharmacy Electronically, [facility]/pharmacy #[id number], Partial fill upon patient request [...] 06/15/22 9:28:00 EDT, Route to Pharmacy Electronically, [facility]/pharmacy #[id number], Partial fill upon patient request if the prescription is for a schedule II opioid drug... Start Date: 06/15/22 Stop Date: 03/12/23 Status: Ordered FLUoxetine 20 mg oral tablet 1 tablet = 20 mg, By Mouth, Daily, [place] bentley media tableta para bentley semana. Despues [...] capsule, 11 Refills, Maintenance, 04/22/22 11:58:00 EST,[facility]/pharmacy #[id number], 178, cm, 04/22/22 11:40:00 EST, Height, 118.5, kg, 10/20/21 14:00:00 EDT, Dry Weight Start Date: 04/22/22 Stop Date: 04/17/23 Status: Ordered hydrOXYzine hydrochloride 50 mg oral tablet See Instructions, TOME BENTLEY TABLETA CADA SEIS HORAS CUANDO SEA NECESARIO PARA ANXIEDAD Y BENTLEY TABLETAANTES DE DORMIR, # 40 tablet, 0 Refills, Maintenance, 03/04/22 14:44:00 EST, [facility], 178, cm, 12/08/21 13:45:00 EDT, Height, 118.5, kg, ... Start Date: 03/04/22 Status: Ordered norethindrone 0.35 mg oral tablet 1 tablet = 0.35 mg, By Mouth, Daily, # 28 tablet, 11 Refills, Maintenance, 01/13/22 11:50:00 EDT, Tablet, [facility]/pharmacy #[id number], Partial fill upon patient request if the prescription is for a schedule II opioid drug., 178, cm, 12/08/21 13:45:00 EDT, [facility]... Start Date: 01/13/22 Status: Ordered omeprazole 40 mg oral enteric coated capsule See Instructions, TOME BENTLEY CAPSULA DOS VECES AL BRANDIE, # 60 capsule, 2 Refills, Maintenance, 01/27/2215:33:00 EDT, [id number], 178, cm, 12/08/21 13:45:00 EDT, Height, 118.5, [...] Team Personnel Name: Genesis Reyes NP Position: [facility] Associate Professional Member Role: PCP Address: Address: [address] [place] [address] Care Team Related Persons Name: AMY LEON Name: SANDRA ESTRELLA
--- OUTSIDE RECORDS SUMMARY | 2022-09-14 17:04 | XMS_ITS | Continuity of Care Document ---
Author Name Unknown Organization [facility] Address [address] [place] [address]- Care Team Providers Care Reworker Name Role Phone Eric GRAY, Genesis Primary Care Physician Encounter [facility] [place] Date(s): 06/30/22 - 07/30/[address] [address]- Allergies, Adverse Reactions, Alerts Substance Reaction Severity Status codeine 1 Active lisinopril 2 Active amLODIPine 3 Active 1wheezes, chest congestion at [facility] 2Cough 3Pt reports itchy [...] Route to Pharmacy Electronically, [facility]/pharmacy #[id number], Partial fill upon patient request if the prescription is for a schedule II... Start Date: 09/03/21 Stop Date: 05/31/22 Status: Ordered Colace sodium 100 mg oral capsule 100 mg, 1, capsule, By Mouth, 2 times a day, PRN, # 60 capsule, Refills 3, Tot. Refills 3, Maintenance, for constipation, 01/13/22 11:55:00 EDT, Route to Pharmacy Electronically, [facility]/pharmacy #[id number], Partial fill upon patient request if the prescriptio... Start Date: 01/13/22 Stop Date: 05/13/22 Status: Ordered ferrous sulfate 325 mg oral enteric coated tablet 325 mg, 1, tablet, By Mouth, 2 times a day, # 180 tablet, Refills 0, Tot. Refills 0, Maintenance, 07/27/22 11:47:00 EDT, Route to Pharmacy Electronically, [facility]/pharmacy #[id number], Partial fill upon patient request if [...] Refills, Maintenance, 03/04/22 14:44:00 EST, [facility] STORE [facility]4866, 178, cm, 12/08/21 13:45:00 EDT, Height, 118.5, kg, ... Start Date: 03/04/22 Status: Ordered metFORMIN 500 mg oral tablet 1 tablet = 500 mg, By Mouth, Daily, # 90 tablet, 1 Refills, Maintenance, 07/08/22 18:41:00 EDT, [facility]/pharmacy #[id number], Partial fill upon patient request if the prescription is for a schedule II opioid drug., 178, cm, 06/15/22 8:57:00 EDT, Height, 118.5,... Start Date: 07/08/22 Stop Date: 01/04/23 Status: Ordered norethindrone 0.35 mg oral tablet 1 tablet = 0.35 mg, By Mouth, Daily, # 28 tablet, 11 Refills, Maintenance, 01/13/22 11:50:00 EDT, Tablet, [facility]/pharmacy #[id number], Partial fill upon patient request if the prescription is for a schedule II opioid drug., 178, cm, 12/08/21 13:45:00 EDT, [facility]... Start Date: 01/13/22 Status: Ordered omeprazole 40 mg oral enteric coated capsule See Instructions, JAGDEEPE BENTLEY CAPSULA DOS VECES AL BRANDIE, # 60 capsule, 2 Refills, Maintenance, 01/27/2215:33:00 EDT, [facility] STORE [facility]4966, 178, cm, 12/08/21 13:45:00 EDT, Height, 118.5, [...] Team Personnel Name: Genesis Reyes NP Position: [facility] Associate Professional Member Role: PCP Address: Address: [address] [place] [address]- Care Team Related Persons Name: AMY LEON Name: SANDRA ESTRELLA
--- OUTSIDE RECORDS SUMMARY | 2022-09-14 17:04 | XMS_ITS | Continuity of Care Document ---
Author Name Unknown Organization [facility] Address [address] [place] [address]- Care Team Providers Care Fireworks Assembly Supervisor Name Role Phone Eric GRAY, Genesis Primary Care Physician [place] [facility] [place] 06/08/[place] - 07/08/[address] [address]- Allergies, Adverse Reactions, Alerts Substance Reaction Severity Status codeine 1 Active lisinopril 2 Active amLODIPine 3 Active 1wheezes, chest congestion at [facility] 2Cough 3Pt reports itchy throat after [...] 11:12:00 EDT, Route to Pharmacy Electronically, [facility]/pharmacy #[id number], Partial fill upon patient request if the prescription is for a schedule II... Start Date: 09/03/21 Stop Date: 05/31/22 Status: Ordered Colace sodium 100 mg oral capsule 100 mg, 1, capsule, By Mouth, 2 times a day, PRN, # 60 capsule, Refills 3, Tot. Refills 3, Maintenance, for constipation, 01/13/22 11:55:00 EDT, Route to Pharmacy Electronically, [facility]/pharmacy #[id number], Partial fill upon patient request if the prescriptio... Start Date: 01/13/22 Stop Date: 05/13/22 Status: Ordered ferrous sulfate 325 mg oral enteric coated tablet 325 mg, 1, tablet, By Mouth, 2 times a day, # 180 tablet, Refills 0, Tot. Refills 0, Maintenance, 06/24/22 14:29:00 EDT, Route to Pharmacy Electronically, [facility]/pharmacy #[id number], Partial fill upon patient request if the prescription is for a schedule II o... Start Date: 06/24/22 Stop Date: 09/22/22 Status: Ordered FLUoxetine 20 mg oral tablet 1 tablet = 20 mg, By Mouth, Daily, [place] bentley media tableta para bentley semana. Despues [...] capsule, 11 Refills, Maintenance, 04/22/22 11:58:00 EST,[facility]/pharmacy #[id number], 178, cm, 04/22/22 11:40:00 EST, Height, 118.5, kg, 10/20/21 14:00:00 EDT, Dry Weight Start Date: 04/22/22 Stop Date: 04/17/23 Status: Ordered hydrOXYzine hydrochloride 50 mg oral tablet See Instructions, TOME BENTLEY TABLETA CADA SEIS HORAS CUANDO SEA NECESARIO PARA ANXIEDAD Y BENTLEY TABLETAANTES DE DORMIR, # 40 tablet, 0 Refills, Maintenance, 03/04/22 14:44:00 EST, [facility], 178, cm, 12/08/21 13:45:00 EDT, Height, 118.5, kg, ... Start Date: 03/04/22 Status: Ordered metFORMIN 500 mg oral tablet 1 tablet = 500 mg, By Mouth, Daily, # 90 tablet, 1 Refills, Maintenance, 07/08/22 18:41:00 EDT, [facility]/pharmacy #[id number], Partial fill upon patient request if the prescription is for a schedule II opioid drug., 178, cm, 06/15/22 8:57:00 EDT, Height, 118.5,... Start Date: 07/08/22 Stop Date: 01/04/23 Status: Ordered norethindrone 0.35 mg oral tablet 1 tablet = 0.35 mg, By Mouth, Daily, # 28 tablet, 11 Refills, Maintenance, 01/13/22 11:50:00 EDT, Tablet, [facility]/pharmacy #[id number], Partial fill upon patient request if the prescription is for a schedule II opioid drug., 178, cm, 12/08/21 13:45:00 EDT, [facility]... Start Date: 01/13/22 Status: Ordered omeprazole 40 mg oral enteric coated capsule See Instructions, HUMERA BENTLEY CAPSULA DOS VECES AL BRANDIE, # 60 capsule, 2 Refills, Maintenance, 01/27/2215:33:00 EDT, [id number], 178, cm, 12/08/21 13:45:00 EDT, Height, 118.5, [...] Professional Member Role: PCP Address: Address: [address] [place] [address]- Care Team Related Persons Name: AMY LEON Name: SANDRA ESTRELLA
--- OUTSIDE RECORDS SUMMARY | 2022-09-14 17:04 | XMS_ITS | Continuity of Care Document ---
Author Name Unknown Organization [facility] Address [address] [place] [address]- Care Team Providers Care Rebrander Name Role Phone Eric GRAY, Genesis Primary Care Physician Encounter [facility] [place] Date(s): 05/04/22 - 06/03/[address] [address]- Allergies, Adverse Reactions, Alerts Substance Reaction Severity Status codeine 1 Active lisinopril 2 Active amLODIPine 3 Active 1wheezes, chest congestion at [facility] 2Cough 3Pt reports itchy throat [...] 09/03/21 11:12:00 EDT, Route to Pharmacy Electronically, [facility]/pharmacy #[id number], Partial fill upon patient request if the prescription is for a schedule II... Start Date: 09/03/21 Stop Date: 05/31/22 Status: Ordered Colace sodium 100 mg oral capsule 100 mg, 1, capsule, By Mouth, 2 times a day, PRN, # 60 capsule, Refills 3, Tot. Refills 3, Maintenance, for constipation, 01/13/22 11:55:00 EDT, Route to Pharmacy Electronically, [facility]/pharmacy #[id number], Partial fill upon patient request if the prescriptio... Start Date: 01/13/22 Stop Date: 05/13/22 Status: Ordered ferrous sulfate 325 mg oral enteric coated tablet 325 mg, 1, tablet, By Mouth, Daily, # 30 tablet, Refills 2, Tot. Refills 2, Maintenance, 01/13/22 11:56:00 EDT, Route to Pharmacy Electronically, [facility]/pharmacy #[id number], Partial fill upon patient requestif the prescription is for a schedule II opioid nahun... Start Date: 01/13/22 Status: Ordered fluconazole 150 mg oral tablet 1 tablet = 150 mg, By Mouth, Once, # 1 tablet, 0 Refills, Soft Stop, 05/21/22 16:40:00 EST, Tablet,[facility]/pharmacy #[id number], Partial fill upon patient request if the prescription is for a schedule II opioid drug., 178, cm, 05/20/22 14:59:00 EST, Height, 11... Start Date: 05/21/22 Status: Ordered FLUoxetine 20 mg oral tablet 1 tablet = 20 mg, By Mouth, Daily, [place] bentley media tableta para bentley semana. Despues de bentley semana, tome bentley tableta completa., # 30 tablet, 2 Refills, Maintenance, 10/15/21 11:30:00 EDT, [facility]/pharmacy #[id number], Partial fill upon patient [...] 30 capsule, 11 Refills, Maintenance, 04/22/22 11:58:00 EST,[facility]/pharmacy #[id number], 178, cm, 04/22/22 11:40:00 EST, Height, 118.5, kg, 10/20/21 14:00:00 EDT, Dry Weight Start Date: 04/22/22 Stop Date: 04/17/23 Status: Ordered hydrOXYzine hydrochloride 50 mg oral tablet See Instructions, TOME BENTLEY TABLETA CADA SEIS HORAS CUANDO SEA NECESARIO PARA ANXIEDAD Y BENTLEY TABLETAANTES DE DORMIR, # 40 tablet, 0 Refills, Maintenance, 03/04/22 14:44:00 EST, [facility] ST[facility] [id number], 178, cm, 12/08/21 13:45:00 EDT, Height, 118.5, kg, ... Start Date: 03/04/22 Status: Ordered norethindrone 0.35 mg oral tablet 1 tablet = 0.35 mg, By Mouth, Daily, # 28 tablet, 11 Refills, Maintenance, 01/13/22 11:50:00 EDT, Tablet, [facility]/pharmacy #[id number], Partial fill upon patient request if the prescription is for a schedule II opioid drug., 178, cm, 12/08/21 13:45:00 EDT, [facility]... Start Date: 01/13/22 Status: Ordered omeprazole 40 mg oral enteric coated capsule See Instructions, TOME BENTLEY CAPSULA DOS VECES AL BRANDIE, # 60 capsule, 2 Refills, Maintenance, 01/27/2215:33:00 EDT, [id number], 178, cm, 12/08/21 13:45:00 EDT, Height, 118.5, [...] Professional Member Role: PCP Address: Address: [address] [place] [address] Care Team Related Persons Name: AMY LEON Name: SANDRA ESTRELLA
--- OUTSIDE RECORDS SUMMARY | 2022-09-14 17:04 | XMS_ITS | Continuity of Care Document ---
Author Name Unknown Organization [facility] Address [address] [place] [address]- Care Team Providers Care Audit Lead Name Role Phone Eric GRAY, Genesis Primary Care Physician Encounter [facility] [place] Date(s): 04/22/22 - 08/26/[address] [address]- Encounter Diagnosis Iron deficiency anemia(Discharge Diagnosis) - 07/27/22 Episode of dizziness(Discharge Diagnosis) - 07/27/22 Pre-diabetes(Discharge Diagnosis) - 07/27/22 Anxiety and depression(Discharge Diagnosis) - 07/27/22 Attending Physician: Nancy Lisa MD Admitting Physician: Nancy Lisa MD Allergies, Adverse Reactions, Alerts Substance Reaction Severity Status codeine 1 Active lisinopril 2 Active amLODIPine 3 Active 1wheezes, chest congestion at [facility] 2Cough 3Pt reports itchy throat after [...] 07/27/22 11:47:00 EDT, [facility] to [facility], [id number], [...] a schedule II opioid drug., 178, cm, 03/... Start Date: 07/27/22 Stop Date: 07/22/23 Status: [...] 30 capsule, 11 Refills, Maintenance, 04/22/22 11:58:00 EST,[facility]/pharmacy #[id number], 178, cm, 04/22/22 11:40:00 EST, Height, 118.5, kg, 10/20/21 14:00:00 EDT, Dry Weight Start Date: 04/22/22 Stop Date: 04/17/23 Status: Ordered hydrOXYzine hydrochloride 50 mg oral tablet See Instructions, TOME BENTLEY TABLETA CADA SEIS HORAS CUANDO SEA NECESARIO PARA ANXIEDAD Y BENTLEY TABLETAANTES DE DORMIR, # 40 tablet, 0 Refills, Maintenance, 03/04/22 14:44:00 EST, [facility], 178, cm, 12/08/21 13:45:00 EDT, Height, 118.5, kg, ... Start Date: 03/04/22 Status: Ordered metFORMIN 500 mg oral tablet 1 tablet = 500 mg, By Mouth, Daily, # 90 tablet, 1 Refills, Maintenance, 07/08/22 18:41:00 EDT, [facility]/pharmacy #[id number], Partial fill upon patient request if the prescription is for a schedule II opioid drug., 178, cm, 06/15/22 8:57:00 EDT, Height, 118.5,... Start Date: 07/08/22 Stop Date: 01/04/23 Status: Ordered norethindrone 0.35 mg oral tablet 1 tablet = 0.35 mg, By Mouth, Daily, # 28 tablet, 11 Refills, Maintenance, 01/13/22 11:50:00 EDT, Tablet, [facility]/pharmacy #[id number], Partial fill upon patient request if the prescription is for a schedule II opioid drug., 178, cm, 12/08/21 13:45:00 EDT, [facility]... Start Date: 01/13/22 Status: Ordered omeprazole 40 mg oral enteric coated capsule See Instructions, TOME BENTLEY CAPSULA DOS VECES AL RBANDIE, # 60 capsule, 2 Refills, Maintenance, 01/27/2215:33:00 EDT, [id number], 178, cm, 12/08/21 13:45:00 EDT, Height, 118.5, [...] an EMB, which was negative for hyperplasia. Diagnosis Diagnosis Type Effective Dates Health Status Clinical Service Informant Iron deficiency anemia Discharge Diagnosis 07/27/22 Episode of dizziness Discharge Diagnosis 07/27/22 Pre-diabetes Discharge Diagnosis 07/27/22 Anxiety and depression Discharge Diagnosis 07/27/22 Social History Social History Type Response Smoking Status Never (less than 100 in lifetime) entered on: 08/18/18 Sex Female Patient Care team information Care Team Personnel Name: Genesis Reyes NP Position: [facility] Associate Professional Member Role: PCP Address: Address: [address] [place] [address] Care Team Related Persons Name: AMY LEON Name: SANDRA ESTRELLA
--- OUTSIDE RECORDS SUMMARY | 2022-09-14 17:05 | XMS_ITS | Continuity of Care Document ---
Author Name Unknown Organization [facility] Address [address] [place] [address]- Care Team Providers Care Service Desk Director Name Role Phone Eric GRAY, Genesis Primary Care Physician [phone] [place]counter [facility] [place](s[place] 07/30/22 - 08/29/[address] [address]- Allergies, Adverse Reactions, Alerts Substance Reaction Severity Status codeine 1 Active lisinopril 2 Active amLODIPine 3 Active 1wheezes, chest congestion at [facility] 2Cough 3Pt reports itchy throat after [...] 01/13/22 11:55:00 EDT, Route to Pharmacy Electronically, [facility]/pharmacy #[id number], Partial fill upon patient request if the prescriptio... Start Date: 01/13/22 Stop Date: 05/13/22 Status: Ordered ferrous sulfate 325 mg oral enteric coated tablet 325 mg, 1, tablet, By Mouth, 2 times a day, # 180 tablet, Refills 0, Tot. Refills 0, Maintenance, 07/27/22 11:47:00 EDT, Route to Pharmacy Electronically, [facility]/pharmacy #[id number], Partial fill upon patient request [...] tablet, 0 Refills, Maintenance, 03/04/22 14:44:00 EST, [facility], 178, cm, 12/08/21 13:45:00 EDT, Height, 118.5, kg, ... Start Date: 03/04/22 Status: Ordered metFORMIN 500 mg oral tablet 1 tablet = 500 mg, By Mouth, Daily, # 90 tablet, 1 Refills, Maintenance, 07/08/22 18:41:00 EDT, [facility]/pharmacy #[id number], Partial fill upon patient request if the prescription is for a schedule II opioid drug., 178, cm, 06/15/22 8:57:00 EDT, Height, 118.5,... Start Date: 07/08/22 Stop Date: 01/04/23 Status: Ordered norethindrone 0.35 mg oral tablet 1 tablet = 0.35 mg, By Mouth, Daily, # 28 tablet, 11 Refills, Maintenance, 01/13/22 11:50:00 EDT, Tablet, [facility]/pharmacy #[id number], Partial fill upon patient request if the prescription is for a schedule II opioid drug., 178, cm, 12/08/21 13:45:00 EDT, [facility]... Start Date: 01/13/22 Status: Ordered omeprazole 40 mg oral enteric coated capsule See Instructions, TOME BENTLEY CAPSULA DOS VECES AL BRANDIE, # 60 capsule, 2 Refills, Maintenance, 01/27/2215:33:00 EDT, [facility], 178, cm, 12/08/21 13:45:00 EDT, Height, 118.5, [...] Team Personnel Name: Genesis Reyes NP Position: [facility] Associate Professional Member Role: PCP Address: Address: [address] [place] [address]- Care Team Related Persons Name: AMY LEON Name: SANDRA ESTRELLA
--- OUTSIDE RECORDS SUMMARY | 2022-09-14 17:05 | XMS_ITS | Continuity of Care Document ---
Author Name Unknown Organization [facility] Address [address] [place] [address]- Care Team Providers Care Cook House Supervisor Name Role Phone Eric GRAY, Genesis Primary Care Physician [place] [facility] [place] Date(s[place] 03/30/22 - 04/29/[address] [address]- Allergies, Adverse Reactions, Alerts Substance Reaction Severity Status codeine 1 Active lisinopril 2 Active amLODIPine 3 Active 1wheezes, chest congestion at [facility] 2Cough 3Pt reports itchy throat [...] tablet = 20 mg, By Mouth, Daily, [place] bentley media tableta para bentley semana. Despues [...] 30 capsule, 11 Refills, Maintenance, 04/22/22 11:58:00 EST,[facility]/pharmacy #[id number], 178, cm, 04/22/22 11:40:00 EST, Height, 118.5, kg, 10/20/21 14:00:00 EDT, Dry Weight Start Date: 04/22/22 Stop Date: 04/17/23 Status: Ordered hydrOXYzine hydrochloride 50 mg oral tablet See Instructions, TOME BENTLEY TABLETA CADA SEIS HORAS CUANDO SEA NECESARIO PARA ANXIEDAD Y BENTLEY TABLETAANTES DE DORMIR, # 40 tablet, 0 Refills, Maintenance, 03/04/22 14:44:00 EST, [facility], 178, cm, 12/08/21 13:45:00 EDT, Height, 118.5, kg, ... Start Date: 03/04/22 Status: Ordered norethindrone 0.35 mg oral tablet 1 tablet = 0.35 mg, By Mouth, Daily, # 28 tablet, 11 Refills, Maintenance, 01/13/22 11:50:00 EDT, Tablet, [facility]/pharmacy #[id number], Partial fill upon patient request if the prescription is for a schedule II opioid drug., 178, cm, 12/08/21 13:45:00 EDT, [facility]... Start Date: 01/13/22 Status: Ordered omeprazole 40 mg oral enteric coated capsule See Instructions, TOME BENTLEY CAPSULA DOS VECES AL BRANDIE, # 60 capsule, 2 Refills, Maintenance, 01/27/2215:33:00 EDT, [id number], 178, cm, 12/08/21 13:45:00 EDT, Height, 118.5, [...] Team Personnel Name: Genesis Reyes NP Position: [facility] Associate Professional Member Role: PCP Address: Address: [address] [place] [address]- Care Team Related Persons Name: AMY LEON Name: SANDRA ESTRELLA
--- OUTSIDE RECORDS SUMMARY | 2022-09-14 17:05 | XMS_ITS | Continuity of Care Document ---
Author Name Unknown Organization [facility] Address [address] [place] [address]- Care Team Providers Care Biometrics Technician Name Role Phone Eric GRAY, Genesis Primary Care Physician [phone] Encounter [facility] [place] Date(s): 06/24/22 - 07/24/[address] [address]- Allergies, Adverse Reactions, Alerts Substance Reaction Severity Status codeine 1 Active lisinopril 2 Active amLODIPine 3 Active 1wheezes, chest congestion at [facility] 2Cough 3Pt reports itchy throat [...] 09/03/21 11:12:00 EDT, Route to Pharmacy Electronically, [facility]/pharmacy #[id number], Partial fill upon patient request if the prescription is for a schedule II... Start Date: 09/03/21 Stop Date: 05/31/22 Status: Ordered Colace sodium 100 mg oral capsule 100 mg, 1, capsule, By Mouth, 2 times a day, PRN, # 60 capsule, Refills 3, Tot. Refills 3, Maintenance, for constipation, 01/13/22 11:55:00 EDT, Route to Pharmacy Electronically, [facility]/pharmacy #[id number], Partial fill upon patient request if the prescriptio... Start Date: 01/13/22 Stop Date: 05/13/22 Status: Ordered ferrous sulfate 325 mg oral enteric coated tablet 325 mg, 1, tablet, By Mouth, 2 times a day, # 180 tablet, Refills 0, Tot. Refills 0, Maintenance, 06/24/22 14:29:00 EDT, Route to Pharmacy Electronically, [facility]/pharmacy #[id number], Partial fill upon patient request if the prescription is for a schedule II o... Start Date: 06/24/22 Stop Date: 09/22/22 Status: Ordered FLUoxetine 20 mg oral tablet 1 tablet = 20 mg, By Mouth, Daily, [place] bentley media tableta para bentley semana. Despues [...] tablet, 0 Refills, Maintenance, 03/04/22 14:44:00 EST, [facility] STORE [id number], 178, cm, 12/08/21 13:45:00 EDT, Height, 118.5, [...] 60 capsule, 2 Refills, Maintenance, 01/27/2215:33:00 EDT, [facility] STORE [id number], 178, cm, 12/08/21 13:45:00 EDT, Height, 118.5, [...] Team Personnel Name: Genesis Reyes NP Position: [facility] Associate Professional Member Role: PCP Address: Address: [address] [place] [address]- Care Team Related Persons Name: AMY LEON Name: SANDRA ESTRELLA
--- OUTSIDE RECORDS SUMMARY | 2022-09-14 17:05 | XMS_ITS | Continuity of Care Document ---
Author Name Unknown Organization [facility] Address [address] [place] [address]- Care Team Providers Care Sample Washer Name Role Phone Eric GRAY, Genesis Primary Care Physician [phone] Encounter [facility] R [id number] Date(s): 08/10/22 - 09/11/[address] [address]- Attending Physician: Not on Staff, Attending MD Allergies, Adverse Reactions, Alerts Substance Reaction Severity Status codeine 1 Active lisinopril 2 Active amLODIPine 3 Active 1wheezes, chest congestion at [facility] 2Cough 3Pt reports itchy throat after [...] 09/03/21 11:12:00 EDT, Route to Pharmacy Electronically, [facility]/pharmacy #[id number], Partial fill upon patient request if the prescription is for a schedule II... Start Date: 09/03/21 Stop Date: 05/31/22 Status: Ordered benzonatate 200 mg oral capsule 1 capsule = 200 mg, By Mouth, 3 times a day, for 7 days, # 21 capsule, 0 Refills, Acute 09/17/22 14:33:00 EDT, 09/10/22 14:33:00 EDT, Capsule, [facility]/pharmacy #[id number], Partial fill upon patient request ifthe prescription is for a schedule II opioid drug.,... Start Date: 09/10/22 Stop Date: 09/17/22 Status: Ordered cetirizine 10 mg oral tablet, chewable 1 tablet = 10 mg, By Mouth, Daily, PRN for allergy symptoms, # 30 tablet, 0 Refills, Maintenance, 09/10/22 14:34:00 EDT, Chew Tablet, [facility]/pharmacy #[id number], Partial fill upon patient request if the prescription is for a schedule II opioid drug., 178, cm,... Start Date: 09/10/22 Status: Ordered Colace sodium 100 mg oral [...] 07/27/22 11:47:00 EDT, Route to Pharmacy Electronically, [facility]/pharmacy #[id number], Partial fill upon patient request if the prescription is for a schedule II o... Start Date: 07/27/22 Stop Date: 10/25/22 Status: Ordered FLUoxetine 20 mg oral tablet 1 tablet = 20 mg, By Mouth, Daily, medicina para anxieded/depresion, # 30 tablet, 11 Refills, Maintenance, 07/27/22 11:48:00 EDT, [facility]/pharmacy #[id number], Partial fill [...] 30 capsule, 11 Refills, Maintenance, 04/22/22 11:58:00 EST,[facility]/pharmacy #[id number], 178, cm, 04/22/22 11:40:00 EST, Height, 118.5, kg, 10/20/21 14:00:00 EDT, Dry Weight Start Date: 04/22/22 Stop Date: 04/17/23 Status: Ordered hydrOXYzine hydrochloride 50 mg oral tablet See Instructions, TOME BENTLEY TABLETA CADA SEIS HORAS CUANDO SEA NECESARIO PARA ANXIEDAD Y BENTLEY TABLETAANTES DE DORMIR, # 40 tablet, 0 Refills, Maintenance, 09/10/22 14:33:00 EDT, [facility]/pharmacy #[id number], 178, cm, 06/15/22 8:57:00 EDT, Height, 118.5, kg, 09/26... Start Date: 09/10/22 Status: Ordered ibuprofen 600 mg oral tablet 600 mg, 1, tablet, By Mouth, 4 times a day, PRN, # 40 tablet, Refills 0, Tot. Refills 0, Maintenance, for pain, 09/10/22 14:33:00 EDT, Route to Pharmacy Electronically, [facility]/pharmacy #[id number], Partial fill upon patient request if the prescription is for a... Start Date: 09/10/22 Status: Ordered metFORMIN 500 mg oral tablet 1 tablet = 500 mg, By Mouth, Daily, # 90 tablet, 1 Refills, Maintenance, 07/08/22 18:41:00 EDT, [facility]/pharmacy #[id number], Partial fill upon patient request if the prescription is for a schedule II opioid drug., 178, cm, 06/15/22 8:57:00 EDT, Height, 118.5,... Start Date: 07/08/22 Stop Date: 01/04/23 Status: Ordered norethindrone 0.35 mg oral tablet 1 tablet = 0.35 mg, By Mouth, Daily, # 28 tablet, 11 Refills, Maintenance, 01/13/22 11:50:00 EDT, Tablet, [facility]/pharmacy #[id number], Partial fill upon patient request if the prescription is for a schedule II opioid drug., 178, cm, 12/08/21 13:45:00 EDT, Heig... Start Date: 01/13/22 Status: Ordered omeprazole 40 mg oral enteric coated capsule See Instructions, HUMERA ROSENBERGA DOS VECES AL BRANDIE, # 60 capsule, 2 Refills, Maintenance, 09/10/2313:33:00 EDT, [facility]/pharmacy #[id number], 178, cm, 06/15/22 8:57:00 EDT, Height, 118.5, kg, 10/20/21 14:00:00 EDT, Dry Weight Start Date: 09/10/22 Status: Ordered Problem List Condition Confirmation Course [...] Team Personnel Name: Genesis Reyes NP Position: [facility] Associate Professional Member Role: PCP Address: Address: [address] [place] [address]- Care Team Related Persons Name: AMY LEON Name: SANDRA ESTRELLA
--- OUTSIDE RECORDS SUMMARY | 2022-09-14 17:05 | XMS_ITS | Continuity of Care Document ---
Author Name Unknown Organization [facility] Address [address] [place] [address]- Care Team Providers Care Assistant Food Service Manager Name Role Phone Eric GRAY, Genesis Primary Care Physician Encounter [facility] [place] Date(s): 04/27/22 - 05/27/[address] [address]- Allergies, Adverse Reactions, Alerts Substance Reaction Severity Status codeine 1 Active lisinopril 2 Active amLODIPine 3 Active 1wheezes, chest congestion at [facility] 2Cough 3Pt reports itchy throat [...] EDT, Route to Pharmacy Electronically, [facility]/pharmacy #[id number], Partial fill upon patient request if the prescriptio... Start Date: 01/13/22 Stop Date: 05/13/22 Status: Ordered ferrous sulfate 325 mg oral enteric coated tablet 325 mg, 1, tablet, By Mouth, Daily, # 30 tablet, Refills 2, Tot. Refills 2, Maintenance, 01/13/22 11:56:00 EDT, Route to Pharmacy Electronically, [facility]/pharmacy #[id number], Partial fill upon patient requestif the prescription is for a schedule II opioid nahun... Start Date: 01/13/22 Status: Ordered fluconazole 150 mg oral tablet 1 tablet = 150 mg, By Mouth, Once, # 1 tablet, 0 Refills, Soft Stop, 05/21/22 16:40:00 EST, Tablet,[facility]/pharmacy #[id number], Partial fill upon patient request if the prescription is for a schedule II opioid drug., 178, cm, 05/20/22 14:59:00 EST, Height, 11... Start Date: 05/21/22 Status: Ordered FLUoxetine 20 mg oral tablet 1 tablet = 20 mg, By Mouth, Daily, [place] bentley media tableta para bentley semana. Despues de bentley semana, tome bentley tableta completa., # 30 tablet, 2 Refills, Maintenance, 10/15/21 11:30:00 EDT, [facility]/pharmacy #[id number], Partial fill upon patient request [...] 11 Refills, Maintenance, 04/22/22 11:58:00 EST,[facility]/pharmacy #[id number], 178, cm, 04/22/22 11:40:00 EST, Height, 118.5, kg, 10/20/21 14:00:00 EDT, Dry Weight Start Date: 04/22/22 Stop Date: 04/17/23 Status: Ordered hydrOXYzine hydrochloride 50 mg oral tablet See Instructions, TOME BENTLEY TABLETA CADA SEIS HORAS CUANDO SEA NECESARIO PARA ANXIEDAD Y BENTLEY TABLETAANTES DE DORMIR, # 40 tablet, 0 Refills, Maintenance, 03/04/22 14:44:00 EST, [facility] ST[facility] [id number], 178, cm, 12/08/21 13:45:00 EDT, Height, 118.5, kg, ... Start Date: 03/04/22 Status: Ordered naproxen 500 mg oral tablet 1 tablet = 500 mg, By Mouth, 2 times a day, PRN for pain, for 10 days, # 20 tablet, 0 Refills, Acute 05/30/22 15:21:00 EST, 05/20/22 15:21:00 EST, Tablet, [facility]/pharmacy #[id number], Partial fill upon patient request if the prescription is for a schedule II o... Start Date: 05/20/22 Stop Date: 05/30/22 Status: Ordered norethindrone 0.35 mg oral tablet 1 tablet = 0.35 mg, By Mouth, Daily, # 28 tablet, 11 Refills, Maintenance, 01/13/22 11:50:00 EDT, Tablet, [facility]/pharmacy #[id number], Partial fill upon patient request if the prescription is for a schedule II opioid drug., 178, cm, 12/08/21 13:45:00 EDT, Heig... Start Date: 01/13/22 Status: Ordered omeprazole 40 mg oral enteric coated capsule See Instructions, HUMERA HARTLEY SHAKIRAA DOS VECES AL BRANDIE, # 60 capsule, 2 Refills, Maintenance, 01/27/2215:33:00 EDT, [id number], 178, cm, 12/08/21 13:45:00 EDT, Height, 118.5, kg, 10/20/21 14:00:00EDT, Dry Weight Start Date: 01/27/22 Status: Ordered terconazole topical 0.4% cream 1 application, Vaginally, Daily at bedtime, for 7 days, # 45 Gm, 0 Refills, Acute 05/28/22 16:40:00EST, 05/21/22 16:40:00 EST, Cream, [facility]/pharmacy #[id number], Partial fill upon patient request [...] Professional Member Role: PCP Address: Address: [address] [place] [address]- Care Team Related Persons Name: AMY LEON Name: SANDRA ESTRELLA
--- OUTSIDE RECORDS SUMMARY | 2022-09-14 17:05 | XMS_ITS | Continuity of Care Document ---
Author Name Unknown Organization [facility] Address [address] [place] [address]- Care Team Providers Care Guillotine Trimmer Name Role Phone Eric GRAY, Genesis Primary Care Physician [phone] Encounter [facility] [place] [place] Date(s): 04/22/22 - 05/22/[address] [address]- Allergies, Adverse Reactions, Alerts Substance Reaction Severity Status codeine 1 Active lisinopril 2 Active amLODIPine 3 Active 1wheezes, chest congestion at [facility] 2Cough 3Pt reports itchy throat after [...] 01/13/22 11:55:00 EDT, Route to Pharmacy Electronically, [facility] [...] 0 Refills, Soft Stop, 05/21/22 16:40:00 EST, Tablet,[facility]/pharmacy #[id number], Partial fill upon patient request if the prescription is for a schedule II opioid drug., 178, cm, 05/20/22 14:59:00 EST, Height, 11... Start Date: 05/21/22 Status: Ordered FLUoxetine 20 mg oral tablet 1 tablet = 20 mg, By Mouth, Daily, [place] bentley media tableta para bentley semana. Despues de bentley semana, tome bentley tableta completa., # 30 tablet, 2 Refills, Maintenance, 10/15/21 11:30:00 EDT, [facility]/pharmacy #[id number], Partial fill [...] 30 capsule, 11 Refills, Maintenance, 04/22/22 11:58:00 EST,[facility]/pharmacy #[id number], 178, cm, 04/22/22 11:40:00 EST, Height, 118.5, kg, 10/20/21 14:00:00 EDT, Dry Weight Start Date: 04/22/22 Stop Date: 04/17/23 Status: Ordered hydrOXYzine hydrochloride 50 mg oral tablet See Instructions, TOME BENTLEY TABLETA CADA SEIS HORAS CUANDO SEA NECESARIO PARA ANXIEDAD Y BENTLEY TABLETAANTES DE DORMIR, # 40 tablet, 0 Refills, Maintenance, 03/04/22 14:44:00 EST, [facility] ST[facility] [id number], 178, cm, 12/08/21 13:45:00 EDT, Height, 118.5, kg, ... Start Date: 03/04/22 Status: Ordered naproxen 500 mg oral tablet 1 tablet = 500 mg, By Mouth, 2 times a day, PRN for pain, for 10 days, # 20 tablet, 0 Refills, Acute 05/30/22 15:21:00 EST, 05/20/22 15:21:00 EST, Tablet, [facility]/pharmacy #[id number], Partial fill upon patient request if the prescription is for a schedule II o... Start Date: 05/20/22 Stop Date: 05/30/22 Status: Ordered norethindrone 0.35 mg oral tablet 1 tablet = 0.35 mg, By Mouth, Daily, # 28 tablet, 11 Refills, Maintenance, 01/13/22 11:50:00 EDT, Tablet, [facility]/pharmacy #[id number], Partial fill upon patient request if the prescription is for a schedule II opioid drug., 178, cm, 12/08/21 13:45:00 EDT, Heig... Start Date: 01/13/22 Status: Ordered omeprazole 40 mg oral enteric coated capsule See Instructions, HUMERA HARTLEY SHAKIRAA DOS VECES AL BRANDIE, # 60 capsule, 2 Refills, Maintenance, 01/27/2215:33:00 EDT, [id number], 178, cm, 12/08/21 13:45:00 EDT, Height, 118.5, kg, 10/20/21 14:00:00EDT, Dry Weight Start Date: 01/27/22 Status: Ordered terconazole topical 0.4% cream 1 application, Vaginally, Daily at bedtime, for 7 days, # 45 Gm, 0 Refills, Acute 05/28/22 16:40:00EST, 05/21/22 16:40:00 EST, Cream, [id number], Partial fill upon patient [...] Professional Member Role: PCP Address: Address: [address] [place] [address]- Care Team Related Persons Name: AMY LEON Name: SANDRA ESTRELLA
--- OUTSIDE RECORDS SUMMARY | 2022-09-14 17:05 | XMS_ITS | Continuity of Care Document ---
Author Name Unknown Organization [facility] Address [address] [place] [address]- Care Team Providers Care Fiber Optic Splicer Name Role Phone Eric GRAY, Genesis Primary Care Physician [phone] Encounter [facility] [place] Date(s): 06/04/22 - 07/04/[address] [address]- Allergies, Adverse Reactions, Alerts Substance Reaction Severity Status codeine 1 Active lisinopril 2 Active amLODIPine 3 Active 1wheezes, chest congestion at [facility] 2Cough 3Pt reports itchy throat after [...] 09/03/21 11:12:00 EDT, Route to Pharmacy Electronically, [facility]/pharmacy #[id number], Partial fill upon patient request if the prescription is for a schedule II... Start Date: 09/03/21 Stop Date: 05/31/22 Status: Ordered Colace sodium 100 mg oral capsule 100 mg, 1, capsule, By Mouth, 2 times a day, PRN, # 60 capsule, Refills 3, Tot. Refills 3, Maintenance, for constipation, 01/13/22 11:55:00 EDT, Route to Pharmacy Electronically, [facility]/pharmacy #[id number], Partial fill upon patient request if the prescriptio... Start Date: 01/13/22 Stop Date: 05/13/22 Status: Ordered ferrous sulfate 325 mg oral enteric coated tablet 325 mg, 1, tablet, By Mouth, 2 times a day, # 180 tablet, Refills 0, Tot. Refills 0, Maintenance, 06/24/22 14:29:00 EDT, Route to Pharmacy Electronically, [facility]/pharmacy #[id number], Partial fill upon patient request if the prescription is for a schedule II o... Start Date: 06/24/22 Stop Date: 09/22/22 Status: Ordered FLUoxetine 20 mg oral tablet 1 tablet = 20 mg, By Mouth, Daily, [place] bentley media tableta para bentley semana. Despues [...] 30 capsule, 11 Refills, Maintenance, 04/22/22 11:58:00 EST,[facility]/pharmacy #[id number], 178, cm, 04/22/22 11:40:00 EST, Height, 118.5, kg, 10/20/21 14:00:00 EDT, Dry Weight Start Date: 04/22/22 Stop Date: 04/17/23 Status: Ordered hydrOXYzine hydrochloride 50 mg oral tablet See Instructions, TOME BENTLEY TABLETA CADA SEIS HORAS CUANDO SEA NECESARIO PARA ANXIEDAD Y BENTLEY TABLETAANTES DE DORMIR, # 40 tablet, 0 Refills, Maintenance, 03/04/22 14:44:00 EST, [id number], 178, cm, 12/08/21 13:45:00 EDT, Height, 118.5, kg, ... Start Date: 03/04/22 Status: Ordered norethindrone 0.35 mg oral tablet 1 tablet = 0.35 mg, By Mouth, Daily, # 28 tablet, 11 Refills, Maintenance, 01/13/22 11:50:00 EDT, Tablet, [facility]/pharmacy #[id number], Partial fill upon patient request if the prescription is for a schedule II opioid drug., 178, cm, 12/08/21 13:45:00 EDT, Heig... Start Date: 01/13/22 Status: Ordered omeprazole 40 mg oral enteric coated capsule See Instructions, TOME BENTLEY CAPSULA DOS VECES AL BRANDIE, # 60 capsule, 2 Refills, Maintenance, 01/27/2215:33:00 EDT, [id number], 178, cm, 12/08/21 13:45:00 EDT, Height, 118.5, [...] Team Personnel Name: Genesis Reyes NP Position: [facility] Associate Professional Member Role: PCP Address: Address: [address] [place] [address]- Care Team Related Persons Name: AMY LEON Name: SANDRA ESTRELLA
--- NOTE | 2022-09-14 17:53 | PC.NURSE ---
went to check on patient prior to pelvic procedure to be performed by dr rubio, pt not in room appeared to have eloped
== END 2022-09-14 17:54 | disposition left against medical advice (07) ==
PROVIDERS: Physician Assistant; Emergency Provider Emergency Medicine Emergency Medical Services
DX: J06.9 Acute upper respiratory infection, unspecified (principal); R10.2 Pelvic and perineal pain; R30.0 Dysuria; Z20.822 Contact with and (suspected) exposure to COVID-19; Z20.828 Contact with and (suspected) exposure to other viral communicable diseases; Z79.899 Other long term (current) drug therapy
CPT/HCPCS: 81001; 87502; 87635; 87651; 99282; 99283

== ENCOUNTER 2022-10-10 00:51 | Emergency (ER) | payer OTHER, SELFPAY ==
[2022-10-10 01:14] VITALS: BP 128/87; PULSE 80; RESP 18; TEMP 36.4; O2SAT 97; BMI 38.9
--- OUTSIDE RECORDS SUMMARY | 2022-10-10 01:32 | XMS_ITS | Continuity of Care Document ---
Author Name Unknown Organization [facility] Address [address] [place] [address]- Care Team Providers Care Automation Architect Name Role Phone Eric GRAY, Genesis Primary Care Physician Encounter [facility] [place] Date(s): 09/06/22 - 10/08/[address] [address]- Attending Physician: Not on Staff, Attending MD Allergies, Adverse Reactions, Alerts Substance Reaction Severity Status codeine 1 Active lisinopril 2 Active amLODIPine 3 Active 1wheezes, chest congestion at [facility] 2Cough 3Pt reports itchy throat [...] Date: 09/03/21 Stop Date: 05/31/22 Status: Ordered cetirizine 10 mg oral tablet, chewable 1 tablet = 10 mg, By Mouth, Daily, PRN for allergy symptoms, # 30 tablet, 0 Refills, Maintenance, 09/10/22 14:34:00 EDT, [facility]w Tablet, [id number], Partial fill upon patient [...] 30 capsule, 11 Refills, Maintenance, 04/22/22 11:58:00 EST,[facility]/pharmacy #[id number], 178, cm, 04/22/22 11:40:00 EST, Height, 118.5, kg, 10/20/21 14:00:00 EDT, Dry Weight Start Date: 04/22/22 Stop Date: 04/17/23 Status: Ordered hydrOXYzine hydrochloride 50 mg oral tablet See Instructions, TOME BENTLEY TABLETA CADA SEIS HORAS CUANDO SEA NECESARIO PARA ANXIEDAD Y BENTLEY TABLETAANTES DE DORMIR, # 40 tablet, 0 Refills, Maintenance, 09/10/22 14:33:00 EDT, [facility]/pharmacy #[id number], 178, cm, 06/15/22 8:57:00 EDT, Height, 118.5, kg, 09/26... Start Date: 09/10/22 Status: Ordered ibuprofen 600 mg oral tablet 600 mg, 1, tablet, By Mouth, 4 times a day, PRN, # 40 tablet, Refills 0, Tot. Refills 0, Maintenance, for pain, 09/10/22 14:33:00 EDT, Route to Pharmacy Electronically, [facility]/pharmacy #[id number], Partial fill upon patient request if the prescription is for a... Start Date: 09/10/22 Status: Ordered metFORMIN 500 mg oral tablet 1 tablet = 500 mg, By Mouth, Daily, # 90 tablet, 1 Refills, Maintenance, 07/08/22 18:41:00 EDT, [facility]/pharmacy #[id number], Partial fill upon patient request if the prescription is for a schedule II opioid drug., 178, cm, 06/15/22 8:57:00 EDT, Height, 118.5,... Start Date: 07/08/22 Stop Date: 01/04/23 Status: Ordered norethindrone 0.35 mg oral tablet 1 tablet = 0.35 mg, By Mouth, Daily, # 28 tablet, 11 Refills, Maintenance, 01/13/22 11:50:00 EDT, Tablet, [facility]/pharmacy #[id number], Partial fill upon patient request if the prescription is for a schedule II opioid drug., 178, cm, 12/08/21 13:45:00 EDT, [facility]... Start Date: 01/13/22 Status: Ordered omeprazole 40 mg oral enteric coated capsule See Instructions, TOME BENTLEY CAPSULA DOS GREGORIO AL BRANDIE, # 60 capsule, 2 Refills, Maintenance, 09/10/2313:33:00 EDT, [facility]/pharmacy #[id number], 178, cm, 06/15/22 8:57:00 EDT, Height, [...] Team Personnel Name: Genesis Reyes NP Position: [facility] Associate Professional Member Role: PCP Address: Address: [address] [place] [address]- Care Team Related Persons Name: AMY LEON Name: SANDRA ESTRELLA
--- OUTSIDE RECORDS SUMMARY | 2022-10-10 01:34 | XMS_ITS | Continuity of Care Document ---
Author Name Unknown Organization [facility] Address [address] [place] [address]- Care Team Providers Care Epic Anesthesia Analyst Name Role Phone Eric GRAY, Genesis Primary Care Physician [place] [facility] [place] - 10/08/[address] [address]- Attending Physician: Not on Staff, Attending MD Allergies, Adverse Reactions, Alerts Substance Reaction Severity Status codeine 1 Active lisinopril 2 Active amLODIPine 3 Active 1wheezes, chest congestion at [facility] 2Cough 3Pt reports itchy throat [...] 30 capsule, 11 Refills, Maintenance, 04/22/22 11:58:00 EST,[facility]/pharmacy #[id number], 178, cm, 04/22/22 11:40:00 EST, Height, 118.5, kg, 10/20/21 14:00:00 EDT, Dry Weight Start Date: 04/22/22 Stop Date: 04/17/23 Status: Ordered hydrOXYzine hydrochloride 50 mg oral tablet See Instructions, TOME BENTLEY TABLETA CADA SEIS HORAS CUANDO SEA NECESARIO PARA ANXIEDAD Y BENTLEY TABLETAANTES DE DORMIR, # 40 tablet, 0 Refills, Maintenance, 09/10/22 14:33:00 EDT, [facility]/pharmacy #[id number], 178, cm, 06/15/22 8:57:00 EDT, Height, 118.5, kg, 09/26... Start Date: 09/10/22 Status: Ordered ibuprofen 600 mg oral tablet 600 mg, 1, tablet, By Mouth, 4 times a day, PRN, # 40 tablet, Refills 0, Tot. Refills 0, Maintenance, for pain, 09/10/22 14:33:00 EDT, Route to Pharmacy Electronically, [facility]/pharmacy #[id number], Partial fill upon patient request if the prescription is for a... Start Date: 09/10/22 Status: Ordered metFORMIN 500 mg oral tablet 1 tablet = 500 mg, By Mouth, Daily, # 90 tablet, 1 Refills, Maintenance, 07/08/22 18:41:00 EDT, [facility]/pharmacy #[id number], Partial fill upon patient request if the prescription is for a schedule II opioid drug., 178, cm, 06/15/22 8:57:00 EDT, Height, 118.5,... Start Date: 07/08/22 Stop Date: 01/04/23 Status: Ordered norethindrone 0.35 mg oral tablet 1 tablet = 0.35 mg, By Mouth, Daily, # 28 tablet, 11 Refills, Maintenance, 01/13/22 11:50:00 EDT, Tablet, [facility]/pharmacy #[id number], Partial fill upon patient request if the prescription is for a schedule II opioid drug., 178, cm, 12/08/21 13:45:00 EDT, [facility]ig... Start Date: 01/13/22 Status: Ordered omeprazole 40 mg oral enteric coated capsule See Instructions, TOME BENTLEY SHAKIRAA DOS GREGORIO AL BRANDIE, # 60 capsule, 2 Refills, Maintenance, 09/10/2313:33:00 EDT, [facility]/pharmacy #[id number], 178, cm, 06/15/22 8:57:00 EDT, Height, [...] Team Personnel Name: Genesis Reyes NP Position: [facility] Associate Professional Member Role: PCP Address: Address: [address] [place] [address]- Care Team Related Persons Name: AMY LEON Name: SANDRA ESTRELLA
[2022-10-10 01:44] LABS: Appearance Urine Clear; Color Urine Yellow; Glucose Urine UA Negative (Negative); Leukocyte Esterase Urine Negative (Negative); Nitrite Urine Negative (Negative); PH 5.5 (5.0-9.0); Urine Blood Negative (Negative); Urine Ketones Negative (Negative); Urine Protein Trace mg/dL (Neg-Trace)
[2022-10-10 01:46] LABS: UPreg QC Valid YES; Urine Pregnancy NEGATIVE (NEGATIVE)
[2022-10-10 01:49] LABS: Bacteria Urine None Seen (None Seen); Hyaline Casts Urine 0-2 /LPF (0-2); RBC Urine 0-2 /HPF (0-2); WBC Urine 0-5 /HPF (0-5)
--- NOTE | 2022-10-10 02:43 | ED.ABDPAIN ---
HPI - Abdominal Pain General Chief Complaint: Abdominal Pain Stated Complaint: Pelvic pain Time Seen by Provider: 10/10/22 02:41 Source: patient Mode of arrival: ambulatory Limitations: no limitations History of Present Illness HPI narrative: Patient comes to the emergency room complaining of bilateral flank pain, dysuria. Denies hematuria, no fever or chills. Denies any history of trauma. Related Data Previous Rx's Medication Instructions Recorded albuterol sulfate 90 mcg/actuation 2 puff inhalation Q4-6H PRN 01/16/21 aerosol inhaler (ProAir HFA) Wheezing #8.5 grams benzonatate 100 mg capsule 100 mg PO TID PRN cough #20 caps 01/16/21 (Tessalon Perles) diltiazem HCl 120 mg 120 mg PO QAM #30 caps 01/16/21 capsule,extended release 24 hr (Cardizem CD) fluconazole 150 mg tablet 150 mg PO Q3D 2 doses #2 tabs 02/10/22 (Diflucan) metronidazole 500 mg tablet 500 mg PO BID 7 days #14 tabs 02/10/22 miconazole nitrate 200 mg/5 gram 1 appful vaginal BEDTIME 3 days 02/10/22 (4 %) vaginal cream #15 grams ferrous sulfate 325 mg (65 mg 325 mg PO DAILY #30 tabs 03/29/22 iron) tablet tramadol 50 mg tablet 50 mg PO Q6H PRN pain #20 tabs 03/29/22 acetaminophen 500 mg capsule 1,000 mg PO Q8H PRN pain #30 caps 05/15/22 cyclobenzaprine 5 mg tablet 5 mg PO TID PRN muscle spasm #14 05/15/22 tabs ibuprofen 600 mg tablet 600 mg PO Q6H PRN pain #20 tabs 05/15/22 oxycodone 5 mg tablet 5 mg PO Q6H PRN pain #14 tabs 05/15/22 Allergies Allergy/AdvReac Type Severity Reaction Status Date / Time No Known Allergies Allergy Verified 10/10/22 01:22 Review of Systems Review of Systems Constitutional : No Weight loss, No Fever, No Chills, No Night Sweats, No Fatigue, No Malaise ENT/Mouth : No Hearing loss, No Ear Pain, No Nasal Congestion, No Sinus Pain, No Hoarseness, No sore throat, No Rhinorrhea, No Swallowing Difficulty Eyes: No Eye Pain, No Swelling, No Redness, No Foreign Body, No Discharge, No Vision Changes Cardiovascular : No Chest Pain, No SOB, No Dyspnea on Exertion, No Orthopnea, No Edema, No Palpitations Respiratory : No Cough, No Sputum, No Wheezing, No Smoke Exposure, No Dyspnea Gastrointestinal : No Nausea, No Vomiting, No Diarrhea, No Constipation, No abdominal Pain, No Hematochezia, No Melena Genitourinary : no irregular bleeding, complaining of Dysuria, No Urinary Frequency, No Hematuria, No Urinary Incontinence, No Urgency, complaining of bilateral Flank Pain, No Urinary Flow Changes, No Hesitancy Musculoskeletal : No joint pain, No Myalgias, No Joint Swelling Skin : No Skin Lesions, No rash Neuro : No Weakness, No Numbness, No Paresthesias, No Loss of Consciousness, No Dizziness, No Headache Psych : No Anxiety/Panic, No Depression, No SI/HI/AH/VH, No Social Issues, Heme/Lymph: No Bruising, No Bleeding,No Lymphadenopathy Endocrine : No Polyuria, No Polydipsia, No Temperature Intolerance [facility] Past Medical History Medical History HTN (hypertension) Prediabetes Social History Social History Advance Directives: No Advance Directives Information Provided: Yes Physical Exam ED Vital Signs: Vital Signs - 24 hr 10/10/22 01:14 Temperature 97.5 F Pulse Rate 80 Respiratory Rate 18 Blood Pressure 128/87 Pulse Oximetry 97 Oxygen Delivery Method Room Air BMI result Body Mass Index 38.9 Const Other: Appearance: Alert. Oriented X3. No acute distress. Eyes: Pupils equal, round and reactive to light. ENT: Pharynx normal. Neck: Normal inspection. Neck supple. No lymph nodes noted. No crepitus CVS: Normal heart rate and rhythm. Pulses normal. Normal S1 and S2 Respiratory: No respiratory distress. Breath sounds normal. No Wheezing. No rales Abdomen: Soft and nontender. No rigidity. No distention. No CVA tenderness Skin: Skin warm and dry. Normal skin color. Normal skin turgor. Extremities: No lower extremity edema. No Lacerations. No Rash Neuro: Oriented X 3. No motor deficit. No sensory deficit. Moving all extremities. No slurred speech. CN 2 through 12 grossly intact Psych: calm, cooperative, normal affect Medical Decision Making Medical Decision Making [facility] Narrative: -my interpretation of labs: patient's urinalysis is negative for UTI. test negative -patient's pain in the back likely musculoskeletal. Patient does not have a UTI, pyelonephritis is not suspected. Differential Diagnosis Differential Diagnoses: The differential diagnosis associated with the presentation includes (Musculoskeletal pain, UTI, pyelonephritis) Lab Data [facility] Lab Attestation statement: I reviewed the patient's lab results. Labs: Lab Results 10/10/22 10/10/22 Range/Units 01:33 01:33 Urine Color Yellow Urine Appearance Clear Urine pH 5.5 (5.0-9.0) Ur Specific [place] 1.020 (1.005-1.025) Urine Protein Trace (Neg-Trace) mg/dL Urine Glucose (UA) Negative (Negative) mg/dL Urine Ketones Negative (Negative) mg/dL Urine Blood Negative (Negative) Urine Nitrite Negative (Negative) Ur Leukocyte Esterase Negative (Negative) Urine RBC 0-2 (0-2) /HPF Urine WBC 0-5 (0-5) /HPF Ur Squamous Epith Cells 3-5 (0-2) /HPF Urine Bacteria None Seen (None Seen) Hyaline Casts 0-2 (0-2) /LPF Urine Test NEGATIVE (NEGATIVE) Discharge Plan Discharge Clinical Impression: Dysuria Patient Disposition: Home, Self-Care Instructions: Dysuria (ED) Additional Instructions: Please follow-up with your primary care physician tomorrow. If you have any worsening or new symptoms, please return to the emergency room or call 911 Prescriptions: No Action diltiazem HCl [Cardizem CD] 120 mg capsule,extended release 24hr 120 mg PO QAM Qty: 30 0RF benzonatate [Tessalon Perles] 100 mg capsule 100 mg PO TID PRN (Reason: cough) Qty: 20 0RF albuterol sulfate [ProAir HFA] 90 mcg/actuation HFA aerosol inhaler 2 puff inhalation Q4-6H PRN (Reason: Wheezing) Qty: 8.5 0RF fluconazole [Diflucan] 150 mg tablet 150 mg PO Q3D 0 Days Qty: 2 0RF Rx Instructions: may repeat second dose 72 hrs after first dose if symptoms persist metronidazole 500 mg tablet 500 mg PO BID 7 Days Qty: 14 0RF miconazole nitrate 200 mg/5 gram (4 %) cream 1 appful vaginal BEDTIME 3 Days Qty: 15 0RF tramadol 50 mg tablet 50 mg PO Q6H PRN (Reason: pain) Qty: 20 0RF ferrous sulfate 325 mg (65 mg iron) tablet 325 mg PO DAILY Qty: 30 0RF oxycodone 5 mg tablet 5 mg PO Q6H PRN (Reason: pain) Qty: 14 0RF Rx Instructions: Partial Fill upon patient request. ibuprofen 600 mg tablet 600 mg PO Q6H PRN (Reason: pain) Qty: 20 0RF acetaminophen 500 mg capsule 1,000 mg PO Q8H PRN (Reason: pain) Qty: 30 0RF cyclobenzaprine 5 mg tablet 5 mg PO TID PRN (Reason: muscle spasm) Qty: 14 0RF
== END 2022-10-10 02:48 | disposition home or self-care (01) ==
PROVIDERS: Emergency Provider Emergency Medicine
DX: R30.0 Dysuria (principal); Z79.899 Other long term (current) drug therapy
CPT/HCPCS: 81001; 81025; 99282

== ENCOUNTER 2022-10-13 18:24 | Emergency (ER) | payer OTHER, SELFPAY ==
[2022-10-13 18:36] VITALS: BP 158/88; PULSE 78; RESP 18; TEMP 36.2; O2SAT 98; BMI 37.3
--- NOTE | 2022-10-13 18:36 | ED.ABDPAIN ---
HPI - Abdominal Pain General Chief Complaint: General Medical Stated Complaint: Lower abdominal pain, facial swelling Time Seen by Provider: 10/13/22 22:14 Source: patient Mode of arrival: ambulatory Limitations: no limitations History of Present Illness HPI narrative: Patient comes in the emergency room complaining of left eye swelling which occur in the morning, took 2 Benadryl and then self-resolved. Patient complaining of dysuria for several days, no hematuria. No fever chills, no flank pain. Related Data Previous Rx's Medication Instructions Recorded albuterol sulfate 90 mcg/actuation 2 puff inhalation Q4-6H PRN 01/16/21 aerosol inhaler (ProAir HFA) Wheezing #8.5 grams benzonatate 100 mg capsule 100 mg PO TID PRN cough #20 caps 01/16/21 (Tessalon Perles) diltiazem HCl 120 mg 120 mg PO QAM #30 caps 01/16/21 capsule,extended release 24 hr (Cardizem CD) fluconazole 150 mg tablet 150 mg PO Q3D 2 doses #2 tabs 02/10/22 (Diflucan) metronidazole 500 mg tablet 500 mg PO BID 7 days #14 tabs 02/10/22 miconazole nitrate 200 mg/5 gram 1 appful vaginal BEDTIME 3 days 02/10/22 (4 %) vaginal cream #15 grams ferrous sulfate 325 mg (65 mg 325 mg PO DAILY #30 tabs 03/29/22 iron) tablet tramadol 50 mg tablet 50 mg PO Q6H PRN pain #20 tabs 03/29/22 acetaminophen 500 mg capsule 1,000 mg PO Q8H PRN pain #30 caps 05/15/22 cyclobenzaprine 5 mg tablet 5 mg PO TID PRN muscle spasm #14 05/15/22 tabs ibuprofen 600 mg tablet 600 mg PO Q6H PRN pain #20 tabs 05/15/22 oxycodone 5 mg tablet 5 mg PO Q6H PRN pain #14 tabs 05/15/22 Allergies Allergy/AdvReac Type Severity Reaction Status Date / Time No Known Allergies Allergy Verified 10/13/22 18:36 Review of Systems Review of Systems Constitutional : No Weight loss, No Fever, No Chills, No Night Sweats, No Fatigue, No Malaise ENT/Mouth : Complaining of left eye swelling which resolved over 12 hours ago No Hearing loss, No Ear Pain, No Nasal Congestion, No Sinus Pain, No Hoarseness, No sore throat, No Rhinorrhea, No Swallowing Difficulty Eyes: No Eye Pain, No Swelling, No Redness, No Foreign Body, No Discharge, No Vision Changes Cardiovascular : No Chest Pain, No SOB, No Dyspnea on Exertion, No Orthopnea, No Edema, No Palpitations Respiratory : No Cough, No Sputum, No Wheezing, No Smoke Exposure, No Dyspnea Gastrointestinal : No Nausea, No Vomiting, No Diarrhea, No Constipation, No abdominal Pain, No Hematochezia, No Melena Genitourinary : no irregular bleeding, bleeding of Dysuria, No Urinary Frequency, No Hematuria, No Urinary Incontinence, No Urgency, No Flank Pain, No Urinary Flow Changes, No Hesitancy Musculoskeletal : Complaining of upper back pain: No joint pain, No Myalgias, No Joint Swelling Skin : No Skin Lesions, No rash Neuro : No Weakness, No Numbness, No Paresthesias, No Loss of Consciousness, No Dizziness, No Headache Psych : No Anxiety/Panic, No Depression, No SI/HI/AH/VH, No Social Issues, Heme/Lymph: No Bruising, No Bleeding,No Lymphadenopathy Endocrine : No Polyuria, No Polydipsia, No Temperature Intolerance [facility] Past Medical History Medical History HTN (hypertension) Prediabetes Social History Social History Advance Directives: No Advance Directives Information Provided: Yes Physical Exam ED Vital Signs: Vital Signs - 24 hr 10/13/22 18:36 Temperature 97.1 F Pulse Rate 78 Respiratory Rate 18 Blood Pressure 158/88 H Pulse Oximetry 98 Oxygen Delivery Method Room Air BMI result Body Mass Index 37.3 Const Other: Appearance: Alert. Oriented X3. No acute distress. Eyes: Pupils equal, round and reactive to light. No no swelling ENT: Pharynx normal. Neck: Normal inspection. Neck supple. No lymph nodes noted. No crepitus CVS: Normal heart rate and rhythm. Pulses normal. Normal S1 and S2 Respiratory: No respiratory distress. Breath sounds normal. No Wheezing. No rales Abdomen: Soft and nontender. No rigidity. No distention. No flank Back: Mild middle back pain with flexion extension and rotation, no CVA tenderness Skin: Skin warm and dry. Normal skin color. Normal skin turgor. Extremities: No lower extremity edema. No Lacerations. No Rash Neuro: Oriented X 3. No motor deficit. No sensory deficit. Moving all extremities. No slurred speech. CN 2 through 12 grossly intact Psych: calm, cooperative, normal affect Course Course Course Narrative: RME - 41 yo Armenian speaking female presents to the ER for evaluation of lower abdominal pain/pelvic pain x7 days along with new onset left sided facial swelling and left sided headache that started today. Took benadryl this morning with some improvement. She is s/p root canal to anterior tooth 11 days ago. No lip/oral swelling. Reports only very mild dental pain. No concern for STI. No vaginal discharge. Recent visit for lower abdominal pain/dysuria w/ negative UA. Started amoxicillin brought from [place] with no improvement. Plan: labs, UA Medical Decision Making Medical Decision Making [facility] Narrative: I reviewed the patient's labs, no acute abnormality, urine clean, no UTI, pyelonephritis have suspected -discussed the physical exam with the patient, source of pain likely musculoskeletal Differential Diagnosis Differential Diagnoses: The differential diagnosis associated with the presentation includes (UTI, pyelonephritis, musculoskeletal pain) Lab Data 10/13/22 18:57 10/13/22 18:57 Labs: Lab Results 10/13/22 10/13/22 10/13/22 Range/Units 18:57 18:57 18:57 WBC 9.6 (4.8-10.8) X10*3/uL RBC 5.15 (4.20-5.50) X10*6/uL Hgb 11.4 L (12.0-16.0) g/dl Hct 38.4 (37.0-47.0) % MCV 74.6 L (80.0-98.0) fL MCH 22.1 L (27.0-33.0) pg MCHC 29.7 L (31.0-35.0) g/dl RDW 17.1 H (11.0-16.0) % Plt Count 423 H (160-400) X10*3/uL MPV 9.8 (9.4-12.3) fL Immature Gran % (Auto) 0.3 (0.0-0.4) % Neut % (Auto) 68.3 (45-73) % Lymph % (Auto) 23.9 (20-40) % [place] % (Auto) 5.3 (2-11) % Eos % (Auto) 1.6 (0-4) % Baso % (Auto) 0.6 (0-2) % Lymph # (Auto) 2.3 (1.2-4.9) X10*3/uL [place] # (Auto) 0.5 (0.1-1.2) X10*3/uL Eos # (Auto) 0.2 (0.0-0.4) X10*3/uL Baso # (Auto) 0.1 (0.0-0.2) X10*3/uL Abs Immat Gran (auto) 0.03 (0.00-0.03) X10*3/uL Absolute Neuts (auto) 6.5 (2.0-8.3) x10*3/uL Absolute Nucleated RBC 0.000 (0.0-0.012) X10*3/uL Nucleated RBC % (auto) 0.0 (0.0-0.2) /100WBC Sodium 136 (135-145) mmol/L Potassium 3.7 (3.3-5.1) mmol/L Chloride 106 (96-108) mmol/L Carbon Dioxide 18 L (22-29) mmol/L Anion Gap TNP BUN 13 (9-16) mg/dL Creatinine 0.86 (0.5-1.4) mg/dL Estim Creat Clear Calc 117.5 Estimated GFR > 60 Random Glucose 143 H (60-115) mg/dL Calcium 9.0 D (8.4-10.2) mg/dL Magnesium 2.0 (1.6-2.6) mg/dL Total Bilirubin 0.2 (0.0-1.0) mg/dL Direct Bilirubin < 0.2 (0.0-0.5) mg/dL AST 17 (5-31) U/L ALT 19 (0-31) U/L Alkaline Phosphatase 72 (39-117) U/L Total Protein 7.8 (6.5-8.0) g/dL Albumin 4.3 (3.5-5.0) g/dL Urine Color Yellow Urine Appearance Clear Urine pH 5.5 (5.0-9.0) Ur Specific [place] 1.025 (1.005-1.025) Urine Protein Trace (Neg-Trace) mg/dL Urine Glucose (UA) Negative (Negative) mg/dL Urine Ketones Negative (Negative) mg/dL Urine Blood Negative (Negative) Urine Nitrite Negative (Negative) Ur Leukocyte Esterase Negative (Negative) Urine Test (NEGATIVE) 10/13/22 Range/Units 18:57 WBC (4.8-10.8) X10*3/uL RBC (4.20-5.50) X10*6/uL Hgb (12.0-16.0) g/dl Hct (37.0-47.0) % MCV (80.0-98.0) fL MCH (27.0-33.0) pg MCHC (31.0-35.0) g/dl RDW (11.0-16.0) % Plt Count (160-400) X10*3/uL MPV (9.4-12.3) fL Immature Gran % (Auto) (0.0-0.4) % Neut % (Auto) (45-73) % Lymph % (Auto) (20-40) % [place] % (Auto) (2-11) % Eos % (Auto) (0-4) % Baso % (Auto) (0-2) % Lymph # (Auto) (1.2-4.9) X10*3/uL [place] # (Auto) (0.1-1.2) X10*3/uL Eos # (Auto) (0.0-0.4) X10*3/uL Baso # (Auto) (0.0-0.2) X10*3/uL Abs Immat Gran (auto) (0.00-0.03) X10*3/uL Absolute Neuts (auto) (2.0-8.3) x10*3/uL Absolute Nucleated RBC (0.0-0.012) X10*3/uL Nucleated RBC % (auto) (0.0-0.2) /100WBC Sodium (135-145) mmol/L Potassium (3.3-5.1) mmol/L Chloride (96-108) mmol/L Carbon Dioxide (22-29) mmol/L Anion Gap BUN (9-16) mg/dL Creatinine (0.5-1.4) mg/dL Estim Creat Clear Calc Estimated GFR Random Glucose (60-115) mg/dL Calcium (8.4-10.2) mg/dL Magnesium (1.6-2.6) mg/dL Total Bilirubin (0.0-1.0) mg/dL Direct Bilirubin (0.0-0.5) mg/dL AST (5-31) U/L ALT (0-31) U/L Alkaline Phosphatase (39-117) U/L Total Protein (6.5-8.0) g/dL Albumin (3.5-5.0) g/dL Urine Color Urine Appearance Urine pH (5.0-9.0) Ur Specific [place] (1.005-1.025) Urine Protein (Neg-Trace) mg/dL Urine Glucose (UA) (Negative) mg/dL Urine Ketones (Negative) mg/dL Urine Blood (Negative) Urine Nitrite (Negative) Ur Leukocyte Esterase (Negative) Urine Test NEGATIVE (NEGATIVE) Discharge Plan Discharge Clinical Impression: Musculoskeletal back pain, Eye swelling, left Patient Disposition: Home, Self-Care Instructions: Musculoskeletal Pain (ED) Additional Instructions: Please follow-up with your primary care physician tomorrow. If you have any worsening or new symptoms, please return to the emergency room or call 911 Prescriptions: No Action diltiazem HCl [Cardizem CD] 120 mg capsule,extended release 24hr 120 mg PO QAM Qty: 30 0RF benzonatate [Tessalon Perles] 100 mg capsule 100 mg PO TID PRN (Reason: cough) Qty: 20 0RF albuterol sulfate [ProAir HFA] 90 mcg/actuation HFA aerosol inhaler 2 puff inhalation Q4-6H PRN (Reason: Wheezing) Qty: 8.5 0RF fluconazole [Diflucan] 150 mg tablet 150 mg PO Q3D 0 Days Qty: 2 0RF Rx Instructions: may repeat second dose 72 hrs after first dose if symptoms persist metronidazole 500 mg tablet 500 mg PO BID 7 Days Qty: 14 0RF miconazole nitrate 200 mg/5 gram (4 %) cream 1 appful vaginal BEDTIME 3 Days Qty: 15 0RF tramadol 50 mg tablet 50 mg PO Q6H PRN (Reason: pain) Qty: 20 0RF ferrous sulfate 325 mg (65 mg iron) tablet 325 mg PO DAILY Qty: 30 0RF oxycodone 5 mg tablet 5 mg PO Q6H PRN (Reason: pain) Qty: 14 0RF Rx Instructions: Partial Fill upon patient request. ibuprofen 600 mg tablet 600 mg PO Q6H PRN (Reason: pain) Qty: 20 0RF acetaminophen 500 mg capsule 1,000 mg PO Q8H PRN (Reason: pain) Qty: 30 0RF cyclobenzaprine 5 mg tablet 5 mg PO TID PRN (Reason: muscle spasm) Qty: 14 0RF
[2022-10-13 19:04] LABS: MANUAL DIFF FLAG NO
[2022-10-13 19:16] LABS: Appearance Urine Clear; Color Urine Yellow; Glucose Urine UA Negative (Negative); Leukocyte Esterase Urine Negative (Negative); Nitrite Urine Negative (Negative); PH 5.5 (5.0-9.0); Specific Gravity - Urine 1.025 (1.005-1.025); Urine Blood Negative (Negative); Urine Ketones Negative (Negative); Urine Protein Trace mg/dL (Neg-Trace)
[2022-10-13 19:17] LABS: UPreg QC Valid YES; Urine Pregnancy NEGATIVE (NEGATIVE)
[2022-10-13 19:24] LABS: Basophils Absolute Auto 0.1 X10*3/uL (0.0-0.2); Basophils Percent Auto 0.6 % (0-2); Eosinophils Absolute Auto 0.2 X10*3/uL (0.0-0.4); Eosinophils Percent Auto 1.6 % (0-4); Hematocrit 38.4 % (37.0-47.0); Hemoglobin 11.4 g/dl (12.0-16.0); Imm Gran Abs Auto 0.03 X10*3/uL (0.00-0.03); Imm Gran Pct Auto 0.3 % (0.0-0.4); Lymphocytes Absolute Auto 2.3 X10*3/uL (1.2-4.9); Lymphocytes Percent Auto 23.9 % (20-40); Mean Corpuscular HGB Conc 29.7 g/dl (31.0-35.0); Mean Corpuscular Hemoglobin 22.1 pg (27.0-33.0); Mean Corpuscular Volume 74.6 fL (80.0-98.0); Mean Platelet Volume 9.8 fL (9.4-12.3); Monocytes Absolute Auto 0.5 X10*3/uL (0.1-1.2); Monocytes Percent Auto 5.3 % (2-11); Neutrophils Absolute Auto 6.5 x10*3/uL (2.0-8.3); Neutrophils Percent Auto 68.3 % (45-73); Platelet Count 423 X10*3/uL (160-400); Red Blood Count 5.15 X10*6/uL (4.20-5.50); Red Cell Distribution Width 17.1 % (11.0-16.0); White Blood Count 9.6 X10*3/uL (4.8-10.8)
[2022-10-13 19:35] LABS: Alanine Aminotransferase 19 U/L (0-31); Albumin Level 4.3 g/dL (3.5-5.0); Alkaline Phosphatase 72 U/L (39-117); Aspartate Amino Transferase 17 U/L (5-31); Bilirubin Direct < 0.2 mg/dL (0.0-0.5); Bilirubin Total 0.2 mg/dL (0.0-1.0); Blood Urea Nitrogen 13 mg/dL (9-16); Chloride 106 mmol/L (96-108); Creatinine Clr Calc Pharmacy 117.5; Estimated Glomerular Filt Rate > 60; Glucose Random 143 mg/dL (60-115); Potassium 3.7 mmol/L (3.3-5.1); Sodium 136 mmol/L (135-145); Total Protein 7.8 g/dL (6.5-8.0)
[2022-10-13 22:49] LABS: Carbon Dioxide 18 mmol/L (22-29)
== END 2022-10-13 23:04 | disposition home or self-care (01) ==
PROVIDERS: Physician Assistant; Emergency Provider Emergency Medicine
DX: M79.18 Myalgia, other site (principal); H02.846 Edema of left eye, unspecified eyelid; I10 Essential (primary) hypertension; E11.9 Type 2 diabetes mellitus without complications; Z79.899 Other long term (current) drug therapy
CPT/HCPCS: 36415; 80048; 80076; 81003; 81025; 83735; 85025; 99282; 99283

== ENCOUNTER 2022-12-01 13:55 | Emergency (ER) | payer MEDICAID, SELFPAY ==
--- NOTE | 2022-12-01 14:38 | ED_ITS ---
HPI - URI/Sore Throat General Stated Complaint: Wants to get tested for COVID Time Seen by Provider: 12/01/22 14:01 Source: patient Mode of arrival: ambulatory Limitations: no limitations History of Present Illness HPI Narrative: 42-year-old female presents to the ER for evaluation of sore throat and headache along with poor p.o. intake that started this morning. She presents to the hospital today with her 2 teenage sons who just tested positive for COVID. She states she has had COVID twice already and is vaccinated x2. She denies any shortness of breath or chest pain. No fevers but she has had some chills this morning. MD elicited complaint: sore throat and other ( Headache and body aches) Onset (ago): hour(s) Consistency: constant Severity: moderate Able to tolerate fluids by mouth: Yes Exacerbating factors: nothing Relieving factors: nothing Context: sick contacts Associated symptoms: chills, myalgias and headache Treatments prior to arrival: none Related Data Previous Rx's Medication Instructions Recorded albuterol sulfate 90 mcg/actuation 2 puff inhalation Q4-6H PRN 01/16/21 aerosol inhaler (ProAir HFA) Wheezing #8.5 grams benzonatate 100 mg capsule 100 mg PO TID PRN cough #20 caps 01/16/21 (Tessalon Perles) diltiazem HCl 120 mg 120 mg PO QAM #30 caps 01/16/21 capsule,extended release 24 hr (Cardizem CD) fluconazole 150 mg tablet 150 mg PO Q3D 2 doses #2 tabs 02/10/22 (Diflucan) metronidazole 500 mg tablet 500 mg PO BID 7 days #14 tabs 02/10/22 miconazole nitrate 200 mg/5 gram 1 appful vaginal BEDTIME 3 days 02/10/22 (4 %) vaginal cream #15 grams ferrous sulfate 325 mg (65 mg 325 mg PO DAILY #30 tabs 03/29/22 iron) tablet tramadol 50 mg tablet 50 mg PO Q6H PRN pain #20 tabs 03/29/22 acetaminophen 500 mg capsule 1,000 mg PO Q8H PRN pain #30 caps 05/15/22 cyclobenzaprine 5 mg tablet 5 mg PO TID PRN muscle spasm #14 05/15/22 tabs ibuprofen 600 mg tablet 600 mg PO Q6H PRN pain #20 tabs 05/15/22 oxycodone 5 mg tablet 5 mg PO Q6H PRN pain #14 tabs 05/15/22 ondansetron 4 mg disintegrating 4 mg PO Q8H PRN nausea and 12/01/22 tablet vomiting #6 tabs Allergies Allergy/AdvReac Type Severity Reaction Status Date / Time No Known Allergies Allergy Verified 10/13/22 18:36 Review of Systems Review of Systems: Yes all other systems are reviewed and are negative [facility] Past Medical History Medical History HTN (hypertension) Prediabetes Social History Social History Advance Directives: No Advance Directives Information Provided: No Physical Exam Vital Signs: Vital Signs: Last Vital Signs Temp 98 F 12/01/22 16:09 Pulse 74 12/01/22 16:09 Resp 18 12/01/22 16:09 BP 134/68 12/01/22 16:09 Pulse Ox 98 12/01/22 16:09 O2 Del Method Room Air 12/01/22 16:09 BMI result Body Mass Index 30.2 Appearance: Alert. Oriented X3. No acute distress. Head: normocephalic, atraumatic. Eyes: Pupils equal, round and reactive to light. ENT: Pharynx normal. No tonsillar swelling or exudate. Neck: Normal inspection. Neck supple. CVS: Normal heart rate and rhythm. Pulses normal. Respiratory: No respiratory distress. Breath sounds normal. Abdomen: Soft and nontender. +BS x4 Skin: Skin warm and dry. Normal skin color. Normal skin turgor. No rashes. Extremities: No lower extremity edema. No joint swelling. Neuro/psych: Oriented X 3. grossly normal, nonfocal. Normal speech and cognition. Medical Decision Making Medical Decision Making MDM Narrative: 42-year-old Palestinian-speaking female presenting to the ER for evaluation of sore throat, headaches, myalgias that started this morning after known COVID contacts from her teenage sons. Her vital signs are stable. Her physical exam is unremarkable. She is vaccinated and has had COVID twice. We discussed diagnosis and supportive care along with return precautions. Comfortable discharge home. Differential Diagnosis Differential Diagnoses: The differential diagnosis associated with the presentation includes strep, covid, flu, rsv, other viral syndrome, bronchitis, pneumonia, no evidence of peritonsillar abcsess or retropharyngeal abscess Lab Data MDM Lab Attestation statement: I reviewed the patient's lab results. Labs: Lab Results 12/01/22 Range/Units 14:33 COVID-19 (SYLVIA) Negative (Negative) COVID-19 Clin Com See Note External Record Review External record reviewed: Prior outpatient labs Prescription Management I considered prescription management with: Antiviral Critical Care Time Critical Care Time Critical Care Time: No Discharge Plan Discharge Clinical Impression: COVID-19 Patient Disposition: Home, Self-Care Instructions: Covid-19 Viral Syndrome and Novel Coronavirus (ED) Hey/Ath Additional Instructions: You were found to be COVID-19 negative today on rapid test. This is most likely due to the fact that there is not enough virus in your nose. Your symptoms are most likely due to COVID-19 with known exposure to your sons. You can continue testing with over the counter tests at home if you wish. Treatment for any viral illness is rest and supportive care. Your exam and oxygen levels were normal. Rest. Drink plenty of fluids. Do not go out in public while you are not feeling well. Take over the counter cold/flu medications as needed for your symptoms. Take Tylenol and/or Motrin as needed for fevers and body aches. Follow up with your doctor as needed If you develop new or worsening symptoms call 911 or come back to the ER for further evaluation. Se descubri? que hoy usted noemy negativo en COVID-19 en bentley prueba r?pida. Lo m?s probable es que esto se deba al hecho de que no hay suficiente virus en la nariz. Lo m?s probable es que ema s?ntomas se deban al COVID-19 con exposici?n conocida de eam hijos. Puede continuar realizando pruebas con pruebas de venta aaliyah en casa si lo desea. El tratamiento para cualquier enfermedad viral es reposo y cuidados de apoyo. Kaufman examen y niveles de ox?nikki fueron normales. Descansar. Beber mucho l?quido. No salgas en p?blico mientras no te sientas katerina. Devine medicamentos de venta aaliyah para el resfriado o la gripe seg?n sea necesario para ema s?ntomas. Devine Tylenol y/o Motrin seg?n sea necesario para la fiebre y los sterling c orporales. Ritchie un seguimiento con kaufman m?dico seg?n sea necesario. Si desarrolla s?ntomas nuevos o que empeoran, llame al 911 o regrese a la rosario de emergencias para bentley evaluaci?n adicional. Prescriptions: New ondansetron 4 mg tablet,disintegrating 4 mg PO Q8H PRN (Reason: nausea and vomiting) Qty: 6 0RF No Action diltiazem HCl [Cardizem CD] 120 mg capsule,extended release 24hr 120 mg PO QAM Qty: 30 0RF benzonatate [Tessalon Perles] 100 mg capsule 100 mg PO TID PRN (Reason: cough) Qty: 20 0RF albuterol sulfate [ProAir HFA] 90 mcg/actuation HFA aerosol inhaler 2 puff inhalation Q4-6H PRN (Reason: Wheezing) Qty: 8.5 0RF fluconazole [Diflucan] 150 mg tablet 150 mg PO Q3D 0 Days Qty: 2 0RF Rx Instructions: may repeat second dose 72 hrs after first dose if symptoms persist metronidazole 500 mg tablet 500 mg PO BID 7 Days Qty: 14 0RF miconazole nitrate 200 mg/5 gram (4 %) cream 1 appful vaginal BEDTIME 3 Days Qty: 15 0RF tramadol 50 mg tablet 50 mg PO Q6H PRN (Reason: pain) Qty: 20 0RF ferrous sulfate 325 mg (65 mg iron) tablet 325 mg PO DAILY Qty: 30 0RF oxycodone 5 mg tablet 5 mg PO Q6H PRN (Reason: pain) Qty: 14 0RF Rx Instructions: Partial Fill upon patient request. ibuprofen 600 mg tablet 600 mg PO Q6H PRN (Reason: pain) Qty: 20 0RF acetaminophen 500 mg capsule 1,000 mg PO Q8H PRN (Reason: pain) Qty: 30 0RF cyclobenzaprine 5 mg tablet 5 mg PO TID PRN (Reason: muscle spasm) Qty: 14 0RF Discharge Date/Time: 12/01/22 16:02 Print Language: Palestinian
[2022-12-01 15:20] LABS: COVID-19 Test Negative (Negative); IDNOW Serial# 55D5AD1C
[2022-12-01 15:54] VITALS: BP 137/91; PULSE 74; RESP 20; TEMP 36.8; O2SAT 98
[2022-12-01 16:09] VITALS: BP 134/68; PULSE 74; RESP 18; TEMP 36.6; O2SAT 98; BMI 30.2
== END 2022-12-01 16:02 | disposition home or self-care (01) ==
PROVIDERS: Physician Assistant; Emergency Provider Emergency Medicine
DX: U07.1 COVID-19 (principal); J02.9 Acute pharyngitis, unspecified; R51.9 Headache, unspecified
CPT/HCPCS: 87635; 99283

== ENCOUNTER 2023-05-02 09:51 | Emergency (ER) | payer OTHER, SELFPAY ==
[2023-05-02 10:01] VITALS: BP 114/72; PULSE 81; RESP 20; TEMP 36.8; O2SAT 98; BMI 38.9
--- NOTE | 2023-05-02 11:23 | PC.NURSE ---
Pt is a&ox4 ambulating with steady gait, reports using someones Vaseline on nose and now she has a dry/itchy nose. Denies sob or any other symptoms.
--- NOTE | 2023-05-02 11:51 | ED_ITS ---
HPI - General Adult General Chief complaint: General Medical Stated complaint: Allergic rx to Vaseline Time Seen by Provider: 05/02/23 11:17 Source: patient, RN notes reviewed and old records reviewed Mode of arrival: ambulatory History of Present Illness HPI narrative: 42-year-old female with no significant past medical history presenting to the ED complaining of nasal itchiness/dry skin and intermittent epistaxis s/p using Vaseline that was previously used by friend that had a rash 3 weeks ago. Patient is suspicious/concerned for possible allergic reaction. Has tried multiple OTC medications without relief. Denies shortness of breath, wheezing, swelling, epistaxis at present, trauma, SOB/CP, other new exposures. Related Data Previous Rx's Medication Instructions Recorded albuterol sulfate 90 mcg/actuation 2 puff inhalation Q4-6H PRN 01/16/21 aerosol inhaler (ProAir HFA) Wheezing #8.5 grams benzonatate 100 mg capsule 100 mg PO TID PRN cough #20 caps 01/16/21 (Tessalon Perles) diltiazem HCl 120 mg 120 mg PO QAM #30 caps 01/16/21 capsule,extended release 24 hr (Cardizem CD) fluconazole 150 mg tablet 150 mg PO Q3D 2 doses #2 tabs 02/10/22 (Diflucan) metronidazole 500 mg tablet 500 mg PO BID 7 days #14 tabs 02/10/22 miconazole nitrate 200 mg/5 gram 1 appful vaginal BEDTIME 3 days 02/10/22 (4 %) vaginal cream #15 grams ferrous sulfate 325 mg (65 mg 325 mg PO DAILY #30 tabs 03/29/22 iron) tablet tramadol 50 mg tablet 50 mg PO Q6H PRN pain #20 tabs 03/29/22 acetaminophen 500 mg capsule 1,000 mg (2 x 500 mg) PO Q8H PRN 05/15/22 pain #30 caps cyclobenzaprine 5 mg tablet 5 mg PO TID PRN muscle spasm #14 05/15/22 tabs ibuprofen 600 mg tablet 600 mg PO Q6H PRN pain #20 tabs 05/15/22 oxycodone 5 mg tablet 5 mg PO Q6H PRN pain #14 tabs 05/15/22 ondansetron 4 mg disintegrating 4 mg PO Q8H PRN nausea and 09/06/23 tablet vomiting #6 tabs cetirizine 10 mg capsule (Zyrtec) 10 mg PO DAILY PRN allergy 05/02/23 symptoms #10 caps diphenhydramine HCl 2 % topical 1 appl topical BID PRN skin 05/02/23 gel (Benadryl) irritation #103 mL diphenhydramine HCl 25 mg capsule 25 mg PO TID PRN allergy symptoms 05/02/23 (Benadryl) #14 caps Allergies Allergy/AdvReac Type Severity Reaction Status Date / Time No Known Allergies Allergy Verified 05/02/23 10:09 Review of Systems Review of Systems: Constitutional: No Fever, No Chills ENT/Mouth: No Ear Pain, + Nasal pruritis, No Sinus Pain, No Hoarseness, No sore throat, No Rhinorrhea, No Swallowing Difficulty Cardiovascular: No Chest Pain, No SOB Respiratory: No Cough, No Sputum, No Wheezing Gastrointestinal: No Nausea, No Vomiting, No Abdominal pain Musculoskeletal: No joint pain, No Myalgias, No Joint Swelling Skin: No Skin Lesions, No rash Neuro: No Weakness Yes all other systems are reviewed and are negative Constitutional: Constitutional: Reports as per [facility] Past Medical History Attestation statement: The following information was validated with the patient. Source: old records reviewed Medical History Prediabetes HTN (hypertension) Social History Social History Smoked in Last 30 Days: No Use of substances other than those prescribed or required for medical reasons: No Advance Directives: No Physical Exam ED Vital Signs: Vital Signs - 24 hr 05/02/23 10:01 Temperature 98.2 F Pulse Rate 81 Respiratory Rate 20 Blood Pressure 114/72 Pulse Oximetry 98 Oxygen Delivery Method Room Air BMI result Body Mass Index 38.9 Const General: cooperative, healthy appearing and no acute distress Orientation/consciousness: patient oriented x3 Limitations: no limitations HENMT Other: No appreciable rash/lesions. Mild dry skin noted to perinasal area. No epistaxis. No septal hematoma. Uvula midline, talking complete sentences, no drooling Head: Yes normal to inspection and Yes atraumatic Ears: hearing grossly normal bilaterally, external ears normal, TM's normal bilaterally and mastoids abnormal General nose exam: Normal external nose present Face and sinus: Yes normal facial exam Mouth: no drooling Throat: Yes posterior oropharynx normal, Yes tonsils normal, Yes uvula midline, No uvula laterally displaced and No uvular edema Eyes General: appearance normal, both eyes and all related structures EOM: EOMs intact bilaterally Neck Neck: Yes normal visual inspection and Yes no meningeal signs Resp Effort & Inspection: normal respiratory effort, no respiratory distress and no stridor Auscultation: clear to auscultation bilaterally, no crackles and no wheezes Cardio Rate: regular rate Heart sounds: S1 normal heart sound present and S2 normal heart sound present Skin Rashes: no rashes Wounds: no wounds Neuro General: patient oriented x3, tone normal and no meningeal signs Cranial nerves: Yes CN's II-XII intact bilaterally Gait exam (Neuro): Normal gait present Extrem General: Yes normal to inspection Medical Decision Making Medical Decision Making MDM Narrative: 42-year-old female with no significant past medical history presenting to the ED complaining of nasal itchiness/dry skin and intermittent epistaxis s/p using Vaseline that was previously used by friend that had a rash 3 weeks ago. On exam vital signs stable, NAD, nontoxic appearing, physical exam as noted above with dry skin to perinasal area. No evidence of rash. Uvula midline, talking complete sentences, no drooling. Concern for dermatitis/dry scaling vs possible allergic reaction. No evidence of anaphylaxis. No evidence of [employer]/retropharyngeal abscess. No palm/sore mucous membrane involvement. No evidence of SJS/TENS Plan: Topical Benadryl, p.o. Benadryl/Zyrtec, dermatology follow-up Please refer to course for remaining clinical decision making, interpretation of labs/imaging results, and discussions with consultants and/or family members. Results discussed with patient including worrisome signs and symptoms and strict return precautions, and when to return to the emergency department. They verbalized understanding and feel safe for discharge at this time. Differential Diagnosis Differential Diagnoses: The differential diagnosis associated with the presentation includes As above Lab Data [facility] Lab Attestation statement: I reviewed the patient's lab results. Radiology Impression Discussion of test interpretation with radiology: I have reviewed the radiologist's reading. External Record Review External record reviewed: Inpatient record, Office record, Outpatient record, Prior outpatient labs, Prior outpatient radiology, Primary care record and Outside ED record Tests considered The following testing was considered but not selected: As above Discharge Plan Discharge Clinical Impression: Dry skin, Allergic reaction Patient Disposition: Home, Self-Care Instructions: Allergy Testing (ED) Additional Instructions: Please use topical Benadryl to itchy areas. You may also take oral Benadryl and Zyrtec for suspected allergic reaction, Benadryl will make you drowsy, take at night, please do not operate machinery or drive while taking Topical koph-wkn-atmmxve Eucerin should also help with her dry skin Follow-up with [facility] Benadryl t?gael en las ?reas que le pican. Tambi?n puede fran Benadryl y Zyrtec por v?a oral si sospecha bentley reacci?n al?rgica. Benadryl le provocar? somnolencia, t?briones por la noche, no opere maquinaria ni conduzca mientras lo jacob. Eucerin t?gael de venta aaliyah tambi?n deber?a ayudar con quinn piel seca Seguimiento con Dermatolog?a Prescriptions: New Benadryl 2 % gel 1 appl topical BID PRN (Reason: skin irritation) Qty: 103 0RF diphenhydramine HCl [Benadryl] 25 mg capsule 25 mg PO TID PRN (Reason: allergy symptoms) Qty: 14 0RF Zyrtec 10 mg capsule 10 mg PO DAILY PRN (Reason: allergy symptoms) Qty: 10 0RF No Action diltiazem HCl [Cardizem CD] 120 mg capsule,extended release 24hr 120 mg PO QAM Qty: 30 0RF benzonatate [Tessalon Perles] 100 mg capsule 100 mg PO TID PRN (Reason: cough) Qty: 20 0RF albuterol sulfate [ProAir HFA] 90 mcg/actuation HFA aerosol inhaler 2 puff inhalation Q4-6H PRN (Reason: Wheezing) Qty: 8.5 0RF fluconazole [Diflucan] 150 mg tablet 150 mg PO Q3D 0 Days Qty: 2 0RF Rx Instructions: may repeat second dose 72 hrs after first dose if symptoms persist metronidazole 500 mg tablet 500 mg PO BID 7 Days Qty: 14 0RF miconazole nitrate 200 mg/5 gram (4 %) cream 1 appful vaginal BEDTIME 3 Days Qty: 15 0RF tramadol 50 mg tablet 50 mg PO Q6H PRN (Reason: pain) Qty: 20 0RF ferrous sulfate 325 mg (65 mg iron) tablet 325 mg PO DAILY Qty: 30 0RF oxycodone 5 mg tablet 5 mg PO Q6H PRN (Reason: pain) Qty: 14 0RF Rx Instructions: Partial Fill upon patient request. ibuprofen 600 mg tablet 600 mg PO Q6H PRN (Reason: pain) Qty: 20 0RF acetaminophen 500 mg capsule 1,000 mg PO Q8H PRN (Reason: pain) Qty: 30 0RF cyclobenzaprine 5 mg tablet 5 mg PO TID PRN (Reason: muscle spasm) Qty: 14 0RF ondansetron 4 mg tablet,disintegrating 4 mg PO Q8H PRN (Reason: nausea and vomiting) Qty: 6 0RF Referrals: [facility] [Outside] Interventions: ED Discharge Assessment Last Done: 05/02/23 12:12 Discharge Date/Time: 05/02/23 12:20 Print Language: Uzbek
== END 2023-05-02 12:20 | disposition home or self-care (01) ==
PROVIDERS: Emergency Provider Emergency Medicine
DX: L50.0 Allergic urticaria (principal); Z79.899 Other long term (current) drug therapy
CPT/HCPCS: 99284

== ENCOUNTER 2023-07-22 08:52 | Emergency (ER) | payer OTHER, SELFPAY ==
[2023-07-22 09:07] VITALS: BP 129/72; PULSE 96; RESP 16; TEMP 36.6; O2SAT 97; BMI 38.2
[2023-07-22 12:04] LABS: Appearance Urine Clear; Color Urine Yellow; Glucose Urine UA Negative (Negative); Leukocyte Esterase Urine Trace (Negative); Nitrite Urine Negative (Negative); PH 7.5 (5.0-9.0); UMIC TRIGGER UACC YES; Urine Blood Trace (Negative); Urine Ketones Negative (Negative); Urine Protein Negative (Neg-Trace)
--- NOTE | 2023-07-22 12:04 | ED.FEMALEGU ---
HPI - Female Genitourinary General Chief complaint: Urogenital-Female Stated complaint: gen med ? wants to tell nurse Time Seen by Provider: 07/22/23 09:24 Source: patient Mode of arrival: ambulatory Limitations: no limitations History of Present Illness HPI Narrative: 42-year-old female no past medical history presents to ED for painful left/buttock labia mass for the past couple of days. patient presents to the history of ingrown hairs and folliculitis after shaving which have been recently. the patient was screaming sure there is no STD due to having unprotected sex last month. Patient states no vaginal discharge. Patient states no dysuria or hematuria. Related Data Previous Rx's ?Medication ?Instructions ?Recorded albuterol sulfate 90 mcg/actuation 2 puff inhalation Q4-6H PRN 01/16/21 aerosol inhaler (ProAir HFA) Wheezing #8.5 grams benzonatate 100 mg capsule 100 mg PO TID PRN cough #20 caps 01/16/21 (Tessalon Perles) diltiazem HCl 120 mg 120 mg PO QAM #30 caps 01/16/21 capsule,extended release 24 hr (Cardizem CD) fluconazole 150 mg tablet 150 mg PO Q3D 2 doses #2 tabs 02/10/22 (Diflucan) metronidazole 500 mg tablet 500 mg PO BID 7 days #14 tabs 02/10/22 miconazole nitrate 200 mg/5 gram 1 appful vaginal BEDTIME 3 days 02/10/22 (4 %) vaginal cream #15 grams ferrous sulfate 325 mg (65 mg 325 mg PO DAILY #30 tabs 03/29/22 iron) tablet tramadol 50 mg tablet 50 mg PO Q6H PRN pain #20 tabs 03/29/22 acetaminophen 500 mg capsule 1,000 mg (2 x 500 mg) PO Q8H PRN 05/15/22 pain #30 caps cyclobenzaprine 5 mg tablet 5 mg PO TID PRN muscle spasm #14 05/15/22 tabs ibuprofen 600 mg tablet 600 mg PO Q6H PRN pain #20 tabs 05/15/22 oxycodone 5 mg tablet 5 mg PO Q6H PRN pain #14 tabs 05/15/22 ondansetron 4 mg disintegrating 4 mg PO Q8H PRN nausea and 12/01/22 tablet vomiting #6 tabs cetirizine 10 mg capsule (Zyrtec) 10 mg PO DAILY PRN allergy 05/02/23 symptoms #10 caps diphenhydramine HCl 2 % topical 1 appl topical BID PRN skin 05/02/23 gel (Benadryl) irritation #103 mL diphenhydramine HCl 25 mg capsule 25 mg PO TID PRN allergy symptoms 05/02/23 (Benadryl) #14 caps doxycycline hyclate 100 mg capsule 100 mg PO BID 7 days #14 caps 07/22/23 naproxen 500 mg tablet 500 mg PO BID PRN pain 7 days #14 07/22/23 tabs Allergies Allergy/AdvReac Type Severity Reaction Status Date / Time cephalexin Allergy Hives Verified 07/22/23 13:25 Review of Systems Review of Systems: Yes all other systems are reviewed and are negative [facility] Past Medical History Medical History Prediabetes HTN (hypertension) Social History Social History Advance Directives: No Advance Directives Information Provided: No Physical Exam Vital Signs: Vital Signs: Last Vital Signs Temp 0 F L 07/22/23 13:30 Pulse 79 07/22/23 13:30 Resp 20 07/22/23 13:30 BP 147/92 H 07/22/23 13:30 Pulse Ox 100 07/22/23 13:30 O2 Del Method Room Air 07/22/23 13:30 BMI result Body Mass Index 38.2 Const: General: cooperative, healthy appearing, comfortable, no acute distress, well developed, alert, awake and Physically active Orientation/consciousness: oriented to person, oriented to place, oriented to time and patient oriented x3 HEENT: Head: Yes normal to inspection, Yes No palpable skull fracture present, Yes normocephalic and Yes atraumatic Eyes: General: appearance normal, both eyes and all related structures Neck: Neck: Yes normal visual inspection, Yes full ROM, Yes no lymphadenopathy, Yes no meningeal signs, Yes trachea midline, Yes supple, No anterior neck swelling and No tender Chest: Chest palpation & inspection: normal inspection of the chest and normal palpation of entire chest wall Resp: Effort & Inspection: normal respiratory effort and able to speak in complete sentences Auscultation: clear to auscultation bilaterally Cardio: Jugular venous distension: no JVD Heart sounds: S1 normal heart sound present and S2 normal heart sound present GI: Inspection: Yes normal to inspection Palpation (GI): Soft to palpation, not firm, nontender, no guarding and not rigid : General: Yes no CVA tenderness External Female Exam: normal external appearance Speculum Exam - Vagina: normal appearance of the vagina and normal palpation Speculum Exam - Cervix: normal appearance of the cervix Bimanual exam- vagina & uterus: normal bimanual exam and normal palpation Bimanual Exam- Adnexa, other: normal adnexae Female genitals images: 1. Small opening with drainage positive for palpable mass, but nonfluctuant. Negative for vesicular lesions. Negative for to chancre Back/Spine/Pelvis: Back: no CVA tenderness and No back tenderness Skin: General skin exam: no rashes or lesions noted, elasticity normal and turgor normal Neuro: General: oriented to person, oriented to place, oriented to time, patient oriented x3, gait normal, tone normal, moves all extremities, Normal light touch and pain sensation, no meningeal signs, no focal motor deficits, CN's II-XI intact bilaterally and normal sensation to monofilament Extrem: General: Yes normal to inspection, Yes full ROM and Yes capillary refill normal Psych: Appearance: grossly normal, well kempt and not disheveled Medical Decision Making Medical Decision Making MDM Narrative: 42-year-old female presents to ED for painful mass near left buttock lower labia past couple of days after shaving. Patient went to be evaluated make sure there is no STD. Patient does not want empiric treatment for STDs and would like to be called with results. Physical exam does not indicate vaginal abscess, bartholin cysts, herpes, syphilis, rectal abscess, tubo-ovarian abscess, or ovarian torsion. History physical exam indicate early left buttock abscess not ready to be drained. Patient recommended warm compresses discharged with antibiotics. Patient explained worrisome signs informed to return to the ED if he has Differential Diagnosis Differential Diagnoses: The differential diagnosis associated with the presentation includes ( herpes, abscess, but low says, chlamydia, gonorrhea) Admission/Observation Consideration of admission/observation: Escalation of care including admission/observation considered Lab Data Labs: Lab Results 07/22/23 Range/Units 11:47 Urine Color Yellow Urine Appearance Clear Urine pH 7.5 (5.0-9.0) Ur Specific [place] 1.010 (1.005-1.025) Urine Protein Negative (Neg-Trace) mg/dL Urine Glucose (UA) Negative (Negative) mg/dL Urine Ketones Negative (Negative) mg/dL Urine Blood Trace H (Negative) Urine Nitrite Negative (Negative) Ur Leukocyte Esterase Trace H (Negative) Urine RBC 0-2 (0-2) /HPF Urine WBC 0-5 (0-5) /HPF Ur Squamous Epith Cells 6-10 (0-2) /HPF Urine Bacteria None Seen (None Seen) Hyaline Casts 0-2 (0-2) /LPF Urine Test NEGATIVE (NEGATIVE) Olga species DNA Negative (Negative) Chlam trachomat DNA PCR NOT DETECTED (Not Detect.) Gardnerella DNA Probe Positive A (Negative) N.gonorrhoeae DNA (PCR) NOT DETECTED (Not Detect.) Trichomonas DNA Probe Negative (Negative) Independent Historian Clinical information obtained from an independent historian. History obtained from or confirmed by: Other (patient) External Record Review External record reviewed: Other (prior visits) Prescription Management I considered prescription management with: Antibiotic Discharge Plan Discharge Clinical Impression: Abscess Patient Disposition: Home, Self-Care Instructions: Abscess (ED) Additional Instructions: abscess not yet ready to be drained. Recommend warm compress 4 times a day for 15 minutes. You will be discharged with antibiotics. Return to the ED immediately for worsening pain, increased swelling, pus discharge, foul odor, lesions, or any other concerning symptoms. recommend follow-up with primary care provider. Prescriptions: New doxycycline hyclate 100 mg capsule 100 mg PO BID 7 Days Qty: 14 0RF naproxen 500 mg tablet 500 mg PO BID PRN (Reason: pain) 7 Days Qty: 14 0RF No Action diltiazem HCl [Cardizem CD] 120 mg capsule,extended release 24hr 120 mg PO QAM Qty: 30 0RF benzonatate [Tessalon Perles] 100 mg capsule 100 mg PO TID PRN (Reason: cough) Qty: 20 0RF albuterol sulfate [ProAir HFA] 90 mcg/actuation HFA aerosol inhaler 2 puff inhalation Q4-6H PRN (Reason: Wheezing) Qty: 8.5 0RF fluconazole [Diflucan] 150 mg tablet 150 mg PO Q3D 0 Days Qty: 2 0RF Rx Instructions: may repeat second dose 72 hrs after first dose if symptoms persist metronidazole 500 mg tablet 500 mg PO BID 7 Days Qty: 14 0RF miconazole nitrate 200 mg/5 gram (4 %) cream 1 appful vaginal BEDTIME 3 Days Qty: 15 0RF tramadol 50 mg tablet 50 mg PO Q6H PRN (Reason: pain) Qty: 20 0RF ferrous sulfate 325 mg (65 mg iron) tablet 325 mg PO DAILY Qty: 30 0RF oxycodone 5 mg tablet 5 mg PO Q6H PRN (Reason: pain) Qty: 14 0RF Rx Instructions: Partial Fill upon patient request. ibuprofen 600 mg tablet 600 mg PO Q6H PRN (Reason: pain) Qty: 20 0RF acetaminophen 500 mg capsule 1,000 mg PO Q8H PRN (Reason: pain) Qty: 30 0RF cyclobenzaprine 5 mg tablet 5 mg PO TID PRN (Reason: muscle spasm) Qty: 14 0RF ondansetron 4 mg tablet,disintegrating 4 mg PO Q8H PRN (Reason: nausea and vomiting) Qty: 6 0RF Benadryl 2 % gel 1 appl topical BID PRN (Reason: skin irritation) Qty: 103 0RF diphenhydramine HCl [Benadryl] 25 mg capsule 25 mg PO TID PRN (Reason: allergy symptoms) Qty: 14 0RF Zyrtec 10 mg capsule 10 mg PO DAILY PRN (Reason: allergy symptoms) Qty: 10 0RF Stand Alone Forms: Work/School Release Interventions: ED Discharge Assessment Last Done: 07/22/23 13:30 Discharge Date/Time: 07/22/23 13:31 Print Language: Khmer
[2023-07-22 12:05] LABS: UPreg QC Valid YES; Urine Pregnancy NEGATIVE (NEGATIVE)
[2023-07-22 12:07] LABS: Bacteria Urine None Seen (None Seen); Hyaline Casts Urine 0-2 /LPF (0-2); RBC Urine 0-2 /HPF (0-2); WBC Urine 0-5 /HPF (0-5)
[2023-07-22 13:30] VITALS: BP 147/92; PULSE 79; RESP 20; TEMP -17.7; TEMP 0; O2SAT 100
[2023-07-22 13:48] LABS: CT PCR NOT DETECTED (Not Detect.); NG PCR NOT DETECTED (Not Detect.)
[2023-07-23 15:25] LABS: BV Int Neg Control Negative (Negative); BV Int Pos Control Positive (Positive)
== END 2023-07-22 13:31 | disposition home or self-care (01) ==
PROVIDERS: Physician Assistant; Emergency Provider Student in an Organized Health Care Education/Training Program
DX: N76.4 Abscess of vulva (principal); N76.0 Acute vaginitis
CPT/HCPCS: 0353U; 81001; 81003; 81025; 87255; 87480; 87510; 87660; 99282; 99283

== ENCOUNTER 2025-01-20 16:27 | Emergency (ER) | payer OTHER, SELFPAY ==
--- NOTE | 2025-01-20 16:33 | ED_ITS ---
HPI - Skin/Abscess/Foreign Bdy General Chief complaint: Skin/Abscess/Foreign Body Stated complaint: abscess between breast Time Seen by Provider: 01/20/25 20:26 Source: patient Mode of arrival: ambulatory Limitations: no limitations History of Present Illness ED Provider: Omari MIN HPI narrative: The patient is a 44-year-old female presenting to the ED for evaluation of pain and swelling in the perineum that has been ongoing for the past 6 days. The patient reports she was seen yesterday by her PCP and advised to apply warm compresses, and take doxycycline. Patient reports she took 3 doses of doxycycline, has applied warm compresses, however has not experienced any relief, reports the area in fact seems to be enlarging. The patient denies associated fever/chills, nausea, vomiting, or other systemic complaint. Patient reports she has had swelling in his area before but it has always self resolved, denies previous I and D's. Related Data Previous Rx's ?Medication ?Instructions ?Recorded albuterol sulfate 90 mcg/actuation 2 puff inhalation Q 4-6H PRN 01/16/21 aerosol inhaler (ProAir HFA) Wheezing #8.5 grams benzonatate 100 mg capsule 100 mg PO TID PRN cough #20 caps 01/16/21 (Tessalon Perles) diltiazem HCl 120 mg 120 mg PO QAM #30 caps 01/16 capsule,extended release 24 hr (Cardizem CD) fluconazole 150 mg tablet 150 mg PO Q3D 2 doses #2 tab s 02/10/22 (Diflucan) metronidazole 500 mg tablet 500 mg PO BID 7 days #14 t abs 02/10/22 miconazole nitrate 200 mg/5 gram 1 appful vaginal BEDT MANOLO 3 days 02/10/22 (4 %) vaginal cream #15 grams ferrous sulfate 325 mg (65 mg 325 mg PO DAILY #30 tabs 03/29/22 iron) tablet tramadol 50 mg tablet 50 mg PO Q6H PRN pain #20 ta bs 03/29/22 acetaminophen 500 mg capsule 1,000 mg (2 x 500 mg) PO Q8H PRN 05/15/22 pain #30 caps cyclobenzaprine 5 mg tablet 5 mg PO TID PRN muscle spa sm #14 05/15/22 tabs ibuprofen 600 mg tablet 600 mg PO Q6H PRN pain #20 t abs 05/15/22 oxycodone 5 mg tablet 5 mg PO Q6H PRN pain #14 tab s 05/15/22 ondansetron 4 mg disintegrating 4 mg PO Q8H PRN nausea and 12/01/22 tablet vomiting #6 tabs cetirizine 10 mg capsule (Zyrtec) 10 mg PO DAILY PRN a llergy 05/02/23 symptoms #10 caps diphenhydramine HCl 2 % topical 1 appl topical BID PRN skin 05/02/23 gel (Benadryl) irritation #103 mL diphenhydramine HCl 25 mg capsule 25 mg PO TID PRN all ergy symptoms 05/02/23 (Benadryl) #14 caps doxycycline hyclate 100 mg capsule 100 mg PO BID 7 day s #14 caps 07/22/23 naproxen 500 mg tablet 500 mg PO BID PRN pain 7 day s #14 07/22/23 tabs metronidazole 0.75 % topical gel 1 appl topical BEDTIM E 5 days #45 07/25/23 grams Allergies Allergy/AdvReac Type Severity Reaction Status Date / Time cephalexin Allergy Hives Verified 01/20/25 16:39 codeine Allergy Unknown Verified 01/20/25 16:40 Review of Systems Review of Systems: Yes all other systems are reviewed and are negative PMFSH Past Medical History Medical History Prediabetes HTN (hypertension) Social History Social History Advance Directives: No Advance Directives Information Provided: No Physical Exam Vital Signs: Vital Signs: Last Vital Signs Temp 98 F 01/20/25 18: Pulse 74 01/20/25 18:26 Resp 18 01/20/25 18:26 BP 130/64 01/20/25 18:26 Pulse Ox 96 01/20/25 18:26 O2 Del Method Room Air 01/20/25 18:26 BMI result Body Mass Index 39.4 CONSTITUTIONAL: The patient appears non-toxic, well nourished and in no acute distress. Vital signs as documented. HEAD: Atraumatic, normocephalic. EYES: EOMs grossly intact, pupils equal, conjunctiva clear, no exudate. ENT: Nares patent, no discharge. Airway patent, no audible stridor, visible mucosa is pink and moist without noted lesions. NECK: trachea is midline, no obvious masses or gross abnormalities. CHEST: Symmetric movement, normal appearance. LUNGS: Non-labored work of breathing. CARDIAC: No evidence of hypoperfusion. ABDOMEN: Nondistended, no obvious injury. : Exam performed with DAI Allen present, exam reveals a 2 cm circular area of tender induration of the left anterolateral aspect of the perineum with underlying fluctuance, without significant overlying erythema. Findings consistent with abscess. No active drainage. EXTREMITIES: Moves all extremities spontaneously without reported pain. No obvious injury or deformity noted. NEURO: Alert and oriented x3, CN II-XII appear grossly intact. Cerebellar Functioning grossly intact. Speech clear and appropriate. SKIN: Warm, dry, color appropriate. No rashes or lesions noted. 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 Deferred additional HPI, ROS, PE to primary provider. 44 yo female here with complaints of abscess to genital area, started on antitiobic 2 days ago, feels it is getting worse. Unable to visualize in triage VSS Medical Decision Making Medical Decision Making MDM Narrative: 9:10 PM 01/20/2025 (Devonte MIN): The patient is a 44-year-old female presenting to the ED for evaluation of pain and swelling in the perineum that has been ongoing for the past 6 days. The patient reports she was seen yesterday by her PCP and advised to apply warm compresses, and take doxycycline. Patient reports she took 3 doses of doxycycline, has applied warm compresses, however has not experienced any relief, reports the area in fact seems to be enlarging. The patient denies associated fever/chills, nausea, vomiting, or other systemic complaint. Patient reports she has had swelling in his area before but it has always self resolved, denies previous I and D's. On exam patient has a 2 cm area of induration with underlying fluctuance noted to the left anterolateral perineum consistent with abscess. The patient's abscess was incised and drained with moderate purulent material expressed. Patient will be discharged with I and D instructions. Patient has been advised to continue doxycycline until finished. Admission/Observation Consideration of admission/observation: Escalation of care including admission/observation considered Prescription Management I considered prescription management with: Pain Medication and Antibiotic Procedures Abscess I/D Site: other (Perineum) Side (if applicable): right Local Anesthetic: lidocaine 1% Amount of anesthesia used (mL): 2 Technique: incised with blade (11) Amount of fluid expressed (mL): 2 Sent for culture/gram staining?: No Irrigation: No Packing used?: iodoform Discharge Plan Discharge Clinical Impression: Abscess of skin or subcutaneous tissue Qualifiers: Site of cutaneous abscess: trunk Site of cutaneous abscess of trunk: perineum Qualified Code(s): L02.215 - Cutaneous abscess of perineum Patient Disposition: Home, Self-Care Instructions: Abscess (ED), Abscess Incision and Drainage (DC) Additional Instructions: Danielle por elegir el [facility] [place] [facility] [place] para kaufman atenci?n m?dica hoy. Kaufman examen de hoy es compatible con el absceso. Se avel? y dren? el absceso, se extrajo bentley cantidad moderada de pus de la geovani y deber?a mejorar ema molestias. En katherine momento, no hay indicaci?n de ingreso hospitalario ni de observaci?n continua en urgencias, y es seguro darle de kathrin. Contin?e tomando los antibi?ticos seg?n lo prescrito por kaufman m?dico de cabecera hasta que los termine. Cambie el vendaje dos veces al d?a; tenga cuidado de no retirar el vendaje al cambiarlo. Acuda a bentley consulta de seguimiento con kaufman m?dico de cabecera en 2 o 3 d?as para bentley reevaluaci?n de la herida y la retirada del vendaje. Debe fran dosis alternas (escalonadas) de ibuprofeno 600 mg y Tylenol 1000 mg cada 4 horas seg?n sea necesario para cualquier dolor adicional. Mant?ngase katerina hidratado y descanse lo suficiente. Por favor, consulte con kaufman m?dico de cabecera para bentley reevaluaci?n, un tratamiento adicional de ema s?ntomas y atenci?n preventiva continua. Si no tiene un m?dico de cabecera, llame a [facility] al [phone] para asignarle yenni nuevo. Mientras espera la asignaci?n de kaufman nuevo m?dico de cabecera, puede llamar a nuestra Cl?michelle de Atenci?n Sin Susan Previa al [phone] para necesidades que no kendra de emergencia. Por favor, regrese al servicio de urgencias si presenta un cambio grave o repentino en ema s?ntomas, fiebre superior a 38 ?C que no mejora con Tylenol o ibuprofeno, v?mitos recurrentes o cualquier otro s?ntoma o inquietud nuevo o que empeore. Thank you for choosing [facility]'s Emergency Department for your care today. Your exam today is consistent with the abscess. Your abscess was cut and drained, a moderate amount of pus was expressed from the area and should improve your discomfort. At this time there is no indication for admission to the hospital or continued ED observation, and it is safe to discharge you home. Please continue taking your antibiotics as prescribed by your primary care provider until they are finished. Please change the dressing twice daily, please you caution to avoid removing the packing when changing the dressing. Please follow up with the your primary care provider in 2-3 days for re- evaluation of the wound and removal of the packing. You should take alternating (staggered) doses of ibuprofen 600mg and Tylenol 1000mg every 4 hours as needed for any additional pain. Please stay well hydrated and get plenty of rest. Please follow up with your primary care physician for re-evaluation, additional management of your symptoms, and continued preventative care. If you do not have a primary care physician, please call the [facility] at [phone] to establish a new primary care physician. While waiting to establish your new primary care physician, you can call our Walk-in Care [facility] at [phone] for non-emergency needs. Please return to the emergency department if you develop a severe or sudden change in your symptoms, a fever over 100.4 that does not improve with Tylenol or Ibuprofen, recurrent vomiting, or any other new or worsening symptoms or concerns. Prescriptions: No Action diltiazem HCl [Cardizem CD] 120 mg capsule,extended release 24hr 120 mg PO QAM Qty: 30 0RF benzonatate [Tessalon Perles] 100 mg capsule 100 mg PO TID PRN (Reason: cough) Qty: 20 0RF albuterol sulfate [ProAir HFA] 90 mcg/actuation HFA aerosol inhaler 2 puff inhalation Q4-6H PRN (Reason: Wheezing) Qty: 8.5 0RF fluconazole [Diflucan] 150 mg tablet 150 mg PO Q3D 0 Days Qty: 2 0RF Rx Instructions: may repeat second dose 72 hrs after first dose if symptoms persist metronidazole 500 mg tablet 500 mg PO BID 7 Days Qty: 14 0RF miconazole nitrate 200 mg/5 gram (4 %) cream 1 appful vaginal BEDTIME 3 Days Qty: 15 0RF tramadol 50 mg tablet 50 mg PO Q6H PRN (Reason: pain) Qty: 20 0RF ferrous sulfate 325 mg (65 mg iron) tablet 325 mg PO DAILY Qty: 30 0RF oxycodone 5 mg tablet 5 mg PO Q6H PRN (Reason: pain) Qty: 14 0RF Rx Instructions: Partial Fill upon patient request. ibuprofen 600 mg tablet 600 mg PO Q6H PRN (Reason: pain) Qty: 20 0RF acetaminophen 500 mg capsule 1,000 mg PO Q8H PRN (Reason: pain) Qty: 30 0RF cyclobenzaprine 5 mg tablet 5 mg PO TID PRN (Reason: muscle spasm) Qty: 14 0RF ondansetron 4 mg tablet,disintegrating 4 mg PO Q8H PRN (Reason: nausea and vomiting) Qty: 6 0RF Benadryl 2 % gel 1 appl topical BID PRN (Reason: skin irritation) Qty: 103 0RF diphenhydramine HCl [Benadryl] 25 mg capsule 25 mg PO TID PRN (Reason: allergy symptoms) Qty: 14 0RF Zyrtec 10 mg capsule 10 mg PO DAILY PRN (Reason: allergy symptoms) Qty: 10 0RF doxycycline hyclate 100 mg capsule 100 mg PO BID 7 Days Qty: 14 0RF naproxen 500 mg tablet 500 mg PO BID PRN (Reason: pain) 7 Days Qty: 14 0RF metronidazole 0.75 % gel 1 appl topical BEDTIME 5 Days Qty: 45 0RF Print Language: Danish
[2025-01-20 16:35] VITALS: BP 130/73; PULSE 88; RESP 18; TEMP 36.8; O2SAT 96; BMI 39.4
--- OUTSIDE RECORDS SUMMARY | 2025-01-20 18:22 | XMS_ITS | Encounter Summary ---
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 Name Role Phone Alvin Arreola MD Primary Care Provider [phone] Reason for Visit * Reason Onset Date Comments Results 01/10/2025 Encounter Details Date Type Department Care Team ([facility] st Contact Info) Description 01/10/2025 Telephone Obstetrics and Gynecology - [place] [address], [place] [phone] Kristy Cherry, [facility] [address] [place], [place] Social History Tobacco Use Types Packs/Day Years Used Date Smoking Tobacco: Never Smokeless Tobacco: Never Alcohol Use Standard Drinks/Week Comments Never 0 (1 standard drink = 0.6 oz pur e alcohol) Interpersonal Safety Answer Date Record ed Physical Abuse Unrecognized value 07/20/2024 Verbal Abuse Unrecognized value 07/20/2024 Comments No Sex and Gender Information Value Date Recorded Sex Assigned at Not on file Legal Sex Female 4:32 AM EST Gender Identity Not on file Sexual Orientation Not on file documented as of this encounter Progress Notes * Savanah Arguelles - 01/11/2025 3:36 PM EDT Pt called back was given message below * Radha Soto RN - 01/11/2025 8:52 AM EDT No u/s results as of this time. * Radha Soto RN - 01/10/2025 11:41 AM EDT No results from U/s as of this time. * Jenn Tarango - 01/10/2025 11:36 AM EDT Pt calling for u/s result from yesterday, states she has clear vag watery discharge today after yesterdays u/s. documented in this encounter Plan of Treatment Not on file documented as of this encounter Visit Diagnoses Not on filedocumented in this encounter Care Teams Carbon Brusher Assembler Relationship Specialty Start Date End Date Alvin Arreola MD [address] [address] PCP - General Internal Medicine 04/11/24 documented as of this encounter
--- OUTSIDE RECORDS SUMMARY | 2025-01-20 18:22 | XMS_ITS | Encounter Summary ---
Author Organization [facility] Address [address] [place] [address] Care Team Providers Care Certified Breastfeeding Educator Name Role Phone Alvin Arreola MD Primary Care Provider [phone] Reason for Referral * Consultation (Routine) - Closed Specialty Diagnoses / Procedures Referred By Marjorie johnson Referred To Contact Gynecologic Oncology Diagnoses Complex cyst of left ovary Thickened endometrium Kristy Cherry CNM [address] [place] [address] Phone: tel: fax: [facility] Gynecologic Oncology [facility] [address] [place] [address] Phone: tel: fax: Referral ID Status Reason Start Date Expiration Date V isits Requested Visits Authorized [id number] Closed Consult and Treat 01/17/2025 01/17/2026 1 1 * Imaging (Routine) - Authorized Specialty Diagnoses / Procedures Referred By Marjorie johnson Referred To Contact Radiology Diagnoses Complex cyst of left ovary Thickened endometrium Procedures MR Pelvis wo and w Contrast Kristy Cherry CNM [address] [place], [place] Phone: tel: fax: [facility] [address] [place] [address] Phone: tel: Referral ID Status Reason Start Date Expiration Date V isits Requested Visits Authorized [id number] Authorized 01/14/2025 01/14/2026 1 1 Encounter Details Date Type Department Care Team (Late st Contact Info) Description 01/14/2025 Results Follow-Up Obstetrics and Gynecology - [place] [address] [place], [place] [phone] Kristy Cherry CNM [address], [place] Social History Tobacco Use Types Packs/Day [...] on file documented as of this encounter Plan of Treatment Scheduled Orders Name Type Priority Associated Diagnoses Orde r Schedule MR Pelvis wo and w Contrast Imaging Routine Complex cyst of left ovary Thickened endometrium Expected: 01/14/2025, Expires: 01/14/2026 Scheduled Referrals Name Type Priority Associated Diagnoses Order Schedule Ambulatory referral to Gynecologic Oncology Outpatient Referral Routine Complex cyst of left ovary Thickened endometrium 1 Occurrences starting 01/17/2025 until 01/17/2026 documented as of this encounter Visit Diagnoses Diagnosis Thickened endometrium- Primary Nonspecific (abnormal) findings on radiological and other examination of genitourinary organs Complex cyst of left ovary documented in this encounter Care Teams Certified Breastfeeding Educator Relationship Specialty Start Date End Date Alvin Arreola MD [address] [address] PCP - General Internal Medicine 04/11/24 documented as of this encounter
--- OUTSIDE RECORDS SUMMARY | 2025-01-20 18:22 | XMS_ITS | Encounter Summary ---
Author Organization [facility] Address [address] [place] [address] Care Team Providers Care Layout Former Name Role Phone Alvin Arreola MD Primary Care Provider [phone] Reason for Visit * Reason Onset Date Comments Referral 01/18/2025 Encounter Details Date Type Department Care Team ([facility] st Contact Info) Description 01/18/2025 Telephone Obstetrics and Gynecology - [place] [id number] [place], [place] [phone] Kristy Cherry, [facility] [address] [place], [place] Social History Tobacco Use Types Packs/Day [...] as of this encounter Progress Notes * Betsy Mcallister RN - 01/18/2025 11:17 AM EDT Referral [facility] adult health clinical nurse specialist/onc approved and letter sent to pt 01/17/25 with instructions of being contacted with an appt. Pt called and notified. * Melissa De Leon - 01/18/2025 10:48 AM EDT Pt calling, states an referral was place to ob/ oncology to [facility] [phone]. Pt states he called and they told her she needs to contact our office as they stated they have not received the referral or the office notes. Pls advise documented in this encounter Plan of Treatment Not on file documented as of this encounter Visit Diagnoses Not on filedocumented in this encounter Care Teams Layout Former Relationship Specialty Start Date End [place] [address] PCP - General Internal Medicine 04/11/24 documented as of this encounter
--- OUTSIDE RECORDS SUMMARY | 2025-01-20 18:22 | XMS_ITS | Clinical Summary ---
Author Organization [address] Address [address] [place] [address] Phone Care Team Providers Care Armament Installer Name Role Phone Alvin Arreola MD Primary Care Provider [phone] Allergies Active Allergy Reactions Criticality Noted Date Comments Amlodipine 01/01/2025 Pt reports itchy throat after taking amlodipine 01/15. Medication discontinued, denied addl allergy sxs at that time. Cephalexin Unknown 11/08/2023 Codeine Nausea And Vomiting High 01/11/2022 Yqb-[id number]-Kqlzh minophen Hives 01/21/2023 Lisinopril 01/01/2025 Cough Medications atorvastatin (LIPITOR) 40 mg tablet Take 1 Tablet by mouth daily. Active ferrous sulfate 137 mg (45 mg iron) tablet extended release Take 137 mg by mouth 1 (one) time each day. Ferrous Sulfate ER 45 MG Tab CR Take by mouth. Active metFORMIN (GLUCOPHAGE) 500 mg tablet Take 1 tablet (500 mg total) by mouth 2 (two) times a day with meals. Take 1 Tablet by mouth 2 times daily (with meals). Active omeprazole OTC (PriLOSEC OTC) 20 mg EC tablet Take 1 tablet (20 mg total) by mouth 1 (one) time each day. Do not crush, chew, or split. Active acetaminophen (TYLENOL) 500 mg tablet TAKE 2 TABLETS BY MOUTH 3 TIMES A DAY NEEDED FOR FEVER 5 Active albuterol 2.5 mg /3 mL (0.083 %) nebulizer solution INHALE 1 VIAL EVERY 6 HOURS CUANDO SEA NECESARIO FOR WHEEZING/SHORTNE SS OF BREATH 5 Active ascorbic acid (VITAMIN C) 500 mg tablet TOME 1 TABLETA POR V A ORAL TODOS LOS D 5 Active blood sugar diagnostic (FreeStyle Lite Strips) test strip UTILIZE PARA CHEQUEAR LA AZUCAR SI TIENE SINTOMAS DE HYPOGLYCEMIA, ODILIA VEZ AL BRANDIE. 5 Active cetirizine (ZyrTEC) 10 mg tablet TOME 1 TABLETA POR V A ORAL TODOS LOS D 5 Active docusate sodium (COLACE) 100 mg capsule TAKE 1 CAPSULE BY MOUTH 2 TIMES A DAY CUANDO SEA NECESARIO FOR CONSTIPATION 5 Active Jardiance 10 mg tablet TOME ODILIA TABLETA POR V A ORAL CADA MA SHERLEY 5 Active fluconazole (DIFLUCAN) 150 mg tablet 5 Active gabapentin (NEURONTIN) 100 mg capsule take 2 capsules by mouth daily at bedtime 5 Active hydrOXYzine pamoate (VISTARIL) 50 mg capsule TOME 1 C PSULA POR V A ORAL TODOS LOS D X30 DAYS NEEDED FOR ANXIETY 5 Active ibuprofen (ADVIL,MOTRIN) 600 mg tablet TAKE ONE TABLET BY MOUTH EVERY 6 HOURS NEEDED FOR FLU 5 Active ibuprofen (ADVIL,MOTRIN) 800 mg tablet TOME 1 TABLETA POR V A ORAL PADMAJA VECES AL D A 5 Active meloxicam (MOBIC) 7.5 mg tablet TOME 1 TABLETA POR V A ORAL TODOS LOS D 5 Active metroNIDAZOLE (FLAGYL) 500 mg tablet 5 Active omeprazole (PriLOSEC) [address] capsule TOME 1 CAPSULA POR VIA ORAL TODOS LOS MCRAE ON EMPTY STOMACH 30 MINS BEFORE BREAKFAST 5 Active penicillin v potassium (VEETID) 500 mg tablet TOME ODILIA TABLETA POR V A ORAL PADMAJA VECES AL D A FOR 10 DAYS 5 Active Active Problems Problem Noted Date Diagnosed Date Chronic constipation 06/15/2024 Diverticulosis 06/15/2024 Elevated hemoglobin A1c 06/15/2024 Essential hypertension 06/15/2024 Hepatic cyst 06/15/2024 Hyperlipidemia 06/15/2024 Iron deficiency anemia 06/15/2024 Depression 06/15/2024 Pre-diabetes 06/15/2024 Sebaceous cyst of left axilla 06/15/2024 Severe obesity (BMI 35.0-39. 9) with comorbidity (CMS/HCC V24, CMS/HCC V28) 06/15/2024 AVM (arteriovenous malformation) 04/12/2024 Assessment & Plan (04/12/2024 4:25 PM EST): Not clear if this is the case, but referred to Vascular to discuss possible treatment. Can also discuss treatment with IR for PCS at that time. Thickened endometrium 03/19/2024 Overview (03/19/2024): Medical records reviewed from [facility] H/O thicken endometrium with neg EMB MRI on 01/12/2023 revealed 1.no suspicious findings to suggest endometriosis 2. Serpiginous nonenhancing structures in the left myometrium in the lower segment and anterior uterine body extending to the fundus .these could represent thrombosed vessels/AVMs. 3. Focal adenomyomatosis in the anterior lower segment 4. Small exophytic subserosal fibroid measuring 1.2 cm 5. Thickened heterogeneous endometrium with out discrete soft tissue lesions Seen in [facility] ER 04/15/23 Cat Scan Abd/pelvis unremarkable redemonstration of thicken endometrial lining EMB 12/2023 negative Schedule MD consult Assessment & Plan (04/12/2024 4:26 PM EST): I explained to Ann that she does have RF for endometrial hyperplasia or malignancy. As such, I feel it would be worthwhile to perform hysteroscopy to ensure no focal lesion given EMB have been benign, but thickening persists. She agrees. She will need pre-op clearance from PCP. She was informed that she should hear back in 1-2 weeks with an appointment date. If not, she should call back to our office and inquire on getting this arranged. She voiced understanding and agreed. Given I do not feel this is related to her pain, I recommended she keep her GI follow up as scheduled. Chronic pelvic pain in female 01/20/2023 Resolved Problems Problem Noted Date Diagnosed Date Resolved Date Leiomyoma 06/15/2024 06/15/2024 Encounters Date Type Department Care Team Description 01/18/2025 Telephone Obstetrics and Gynecology - [address] [phone] Kristy Cherry CNM 01/14/2025 Results Follow-Up Obstetrics and Gynecology - [address] [phone] Kristy Cherry CNM 01/10/2025 Telephone Obstetrics and Gynecology - [address] [phone] Kristy Cherry CNM 01/09/2025 3:19 PM EDT - 01/09/2025 11:59 PM EDT Hospital Encounter [facility]trasound [facility] [address] [place] [id number] Adnexal cyst Discharge Disposition: Home or Self Care 01/07/2025 Results Follow-Up Obstetrics and Gynecology - [address] [phone] Kristy Cherry CNM 01/02/2025 11:00 AM EDT Office Visit Obstetrics & Gynecology - [address] [phone] Kristy Cherry CNM Adnexal cyst (Primary Dx); Pelvic pain; Urine frequency; test negative; Thickened endometrium 12/31/2024 Telephone Vascular Surgery - [place] [address] [place] [address] Asad Groves MD 12/28/2024 Telephone Obstetrics and Gynecology - [address] [phone] Kristy Cherry CNM from Last 3 Months Immunizations Immunization Administration Dates Next Due Hepatitis B (Olskksb-K-Wcehu , Recombivax HB-Adult) 19yo and older 09/19/2023,04/19/2022 Influenza Quadravalent, MDCK , 0.5ml, with preservative (Flucelvax) 6mo and older 03/19/2019 Tdap Tetanus diptheria acell ular pertussis (Boostrix; Adacel) 7yo and older 05/15/2022,11/17/2019,11/17/2019,2018,04/30/2018,11/16/2017 Surgical History Surgery Date Site/Laterality Comments THROAT SURGERY CHOLECYSTECTOMY TUBAL LIGATION TONSILLECTOMY N/A MASS EXCISION Left AXXILLARY Medical History Medical History Date Comments Hypertension Hyperlipidemia Prediabetes Diabetes mellitus ([facility] [place]24[place] [facility] [place]28[place] Leiomyoma 06/15/2024 Shortness of breath GERD (gastroesophageal reflux disease) Anemia Seizures ([facility] [place]24, [facility] [place] V28) X OF SEZURES A CHILD Abnormal uterine bleeding due to endometrial wilber yp Dizziness Meningitis as a child Diverticulosis Family History Medical History Relation Name Comments Breast cancer Neg Hx Colon cancer Neg Hx Ovarian cancer Neg Hx Uterine cancer Neg Hx Social History Tobacco Use Types Packs/Day Years Used Date Smoking Tobacco: Never Smokeless Tobacco: Never Tobacco Cessation:Counseling Given: Not Answered Alcohol Use Standard Drinks/Week Comments Never 0 (1 standard drink = 0.6 oz pur e alcohol) Interpersonal Safety Answer Date Record ed Physical Abuse Unrecognized value 07/20/2024 Verbal Abuse Unrecognized value 07/20/2024 Comments No Sex and Gender Information Value Date Recorded Sex Assigned at Not on file Legal Sex Female 4:32 AM EST Gender Identity Not on file Sexual Orientation Not on file Obstetrics History * This document contains information received from the source organization and may not represent a complete record from that organization. Para Term AB IAB SAB Ectopic Multiple Livin g Live Births 7 4 4 0 0 Date Outcome GA Total Labor Labor/2nd/3rd Weight Sex Type Anes PTL Renuka A1 A5 Name Clin Term Vag-Spo nt Term Vag-Spo nt Term Vag-Spo nt Term Vag-Spo nt Last Filed Vital Signs Vital Sign Reading Time Taken Comments Blood Pressure 123/87 01/02/2025 10:49 AM EDT Pulse 84 01/02/2025 10:49 AM EDT Temperature 36.8 C (98.3 F) 07/21/2024 1:27 PM EDT Respiratory Rate 17 07/21/2024 1:27 PM EDT Oxygen Saturation 98% 07/21/2024 1:27 PM EDT Inhaled Oxygen Concentration - - Weight 119 kg (263 lb 6.4 oz) 01/02/2025 10:49 A M EDT Height 177.8 cm (5' 10 ) 01/02/2025 10:49 AM EDT Body Mass Index 37.79 01/02/2025 10:49 AM EDT Plan of Treatment Health Maintenance Due Date Last Done Comments Breast Cancer Screening 1978 Colorectal Cancer Screening: Colonoscopy 1978 Cervical Cancer Screening: Pap Smear 10/15/1999 HIV Screening 02/28/2022 Hepatitis C Screening 02/28/2022 Social Influencers of Health Screening 02/28/2022 Hepatitis B Vaccines (3 of 3 - 19+ 3-dose series) 11/14/2023 09/19/2023, 04/19/2022 Depression Screening 03/28/2024 COVID-19 Vaccine ( - 2024- season) 2024 08/10/2020, 07/20/2020 Influenza Vaccine (#1) 2024 03/19/2019 Hypertension/CHF/CAD Annual BMP Blood Test 07/14/2025 07/14/2024, 02/09/2023 Cholesterol Screening (Lipid Panel) 02/10/2028 02/09/2023, 02/09/2023 DTaP,Tdap,and Td Vaccines (7 - Td or Tdap) 05/15/2032 05/15/2022, 11/17/2019, 11/17/2019, Additional history exists RSV Immunization Adult Patients (1 - 1-dose 75+ series) 2053 HIB Vaccines Aged Out No longer eligi ble based on patient's age to complete this topic HPV Vaccines Aged Out No longer eligi ble based on patient's age to complete this topic Hepatitis A Vaccines Aged Out No long er eligible based on patient's age to complete this topic IPV Vaccines Aged Out No longer eligi ble based on patient's age to complete this topic MMR Vaccines Aged Out No longer eligi ble based on patient's age to complete this topic Meningococcal ACWY Vaccine Aged Out N o longer eligible based on patient's age to complete this topic Meningococcal B Vaccine Aged Out No l onger eligible based on patient's age to complete this topic Pneumococcal Vaccine: Pediatrics (0 to 5 Years) and At-Risk Patients (6 to 49 Years) Aged Out No longer eligible based on patient's age to complete this topic RSV Immunization Patients Under 20 months Aged Out No longer eligible based on patient's age to complete this topic Varicella Vaccines Aged Out No longer eligible based on patient's age to complete this topic Procedures Procedure Name Priority Date/Time Associated Diagnosis Comments US PELVIS NON OB COMPLETE W TRANSVAGINAL Routine 01/09/2025 4:13 PM EDT Adnexal cyst POC , URINE DIAGNOSTIC Routine 01/02/2025 11:57 AM EDT Pelvic pain TRICHOMONAS VAGINALIS ANTIGEN Routine 01/02/2025 11:42 AM EDT Pelvic pain WET PREP, GENITAL Routine 01/02/2025 11: 42 AM EDT Pelvic pain CULTURE URINE Routine 01/02/2025 11:42 AM EDT Urine frequency COMPREHENSIVE METABOLIC PANEL STAT 07/14/2024 3:24 PM EDT from Last 3 Months or Most Recently Relevant to Health Maintenance Results * US Pelvis Non OB Complete w Transvaginal (01/09/2025 4:13 PM EDT) Anatomical Region Laterality Modality Body, Pelvis Ultrasound 01/11/2025 2:38 PM EDT Narrative 01/11/2025 2:47 PM EDT Pelvic ultrasound. History pelvic pain. Left ovarian cyst. Examination was performed transabdominally and transvaginally. Comparison with some CT scan from 07/14/2024 and MRI of the pelvis from 01/12/2023. Uterus measures 12.2 x 6.1 x 9.2 cm. There is marked thickening of the endometrium which measures up to 4.3 cm in thickness. There is trace amount of fluid within the endometrial cavity. No discrete polyps is seen. Posterior wall of the uterus appears to be thinned and could not be from the endometrium. There is no free fluid in the cul-de-sac. Right ovary was not visualized. Left ovary is enlarged with a volume of 108.2 cm. There is a 4.1 x 4.4 x 4 cm cyst with few internal echoes. CONCLUSIONS: Abnormal appearance of the uterus is 4.3 cm thickening of the endometrium and poorly defined posterior wall of the uterus. Possibility of the endometrial neoplasm should be considered. Mildly complex cyst in the left ovary. Contrast-enhanced MRI of the pelvis and clinical evaluation are recommended. -------- FINAL REPORT -------- Dictated By: Latha Owens Dictated Date: 01/11/2025 14:38 ET Assigned Physician: Latha Owens Reviewed and Electronically Signed By: Latha Ownes Signed Date: 01/11/2025 14:47 ET Workstation ID: [id number] Transcribed By: Self Edit Transcribed Date: 01/11/2025 14:38 ET Procedure Note Latha Owens MD - 01/11/2025 Pelvic ultrasound. History pelvic pain. Left ovarian cyst. Examination was performed transabdominally and transvaginally. Comparisonwith some CT scan from 07/14/2024 and MRI of the pelvis from 01/12/2023. Uterus measures 12.2 x 6.1 x 9.2 cm. There is marked thickening of theendometrium which measures up to 4.3 cm in thickness. There is traceamount of fluid within the endometrial cavity. No discrete polyps is seen.Posterior wall of the uterus appears to be thinned and could not beseparated from the endometrium. There is no free fluid in [id number]. Right ovary was not visualized. Left ovary is enlarged with a volume of108.2 cm. There is a 4.1 x 4.4 x 4 cm cyst with few internal echoes. CONCLUSIONS: Abnormal appearance of the uterus is 4.3 cm thickening of theendometrium and poorly defined posterior wall of the uterus. Possibilityof the endometrial neoplasm should be considered. Mildly complex cyst inthe left ovary. Contrast-enhanced MRI of the pelvis and clinicalevaluation are recommended. -------- FINAL REPORT -------- Dictated By: Latah Owens Dictated Date: 01/11/2025 14:38 ET Assigned Physician: Latha Owens Reviewed and Electronically Signed By: Latha Owens Signed Date: 01/11/2025 14:47 ET Workstation ID: [id number] Transcribed By: Self Edit Transcribed Date: 01/11/2025 14:38 ET us Kristy Cherry CNM IMG US PROCEDURES Final Result * POC , urine manually resulted (01/02/2025 11:57 AM EDT) HCG, Ur POC Negative Negative POC hCG Int QC Pass? Yes Yes Urine Urine specimen obtained by clean catch procedure / Unknown 01/02/2025 11:57 AM EDT us Kristy Cherry CNM POINT OF CARE TEST ENTER/EDIT ORDERABLES Final Result * Trichomonas vaginalis antigen (01/02/2025 11:42 AM EDT) Trichomonas vaginalis Negative Negative 01/02/2025 5:23 PM EDT [facility] Swab Cervix uteri structure / Unknown Non-blood Collection / Unknown 01/02/2025 11:42 AM EDT 01/02/2025 4:07 PM EDT us Kristy Cherry CNM LAB MICROBIOLOGY - GENERAL ORD ERABLES Final Result [facility] [address] [place] [address], * Wet prep, genital (01/02/2025 11:42 AM EDT) Clue Cells, Wet Prep Negative Negative 01/02/2025 5:11 PM EDT [facility] Yeast, Wet Prep Negative Negative 01/02/2025 5:11 PM EDT [facility] Trichomonas, Wet Prep Indeterminate Negative 01/02/2025 5:11 PM EDT [facility] Comment:Refer to Trichomonas antigen. Swab Cervix uteri structure / Unknown Non-blood Collection / Unknown 01/02/2025 11:42 AM EDT 01/02/2025 4:07 PM EDT us Kristy Cherry [facility] MICROBIOLOGY - GENERAL ORD ERABLES Final Result [facility] [address] [place] [address], [place] [phone] * Culture urine (01/02/2025 11:42 AM EDT) Pathologist [facility] Culture, Urine No growth 01/03/2025 7:48 AM EDT [facility] Urine Urine specimen obtained by clean catch procedure / Unknown Non-blood Collection / Unknown 01/02/2025 11:42 AM EDT 01/02/2025 4:08 PM EDT Kristy Cherry [facility] MICROBIOLOGY - GENERAL ORD ERABLES Final Result [facility] [address] [place] [address], [place] [phone] * (ABNORMAL) Comprehensive metabolic panel (07/14/2024 3:24 PM EDT) Sodium 136 133 - 145 mmol/L LAB CHEMISTRY METHOD 07/14/2024 4:29 PM EDT [facility] Potassium 4.5 3.5 - 5.5 mmol/L LAB CHEMISTRY METHOD 07/14/2024 4:29 PM EDT [facility] Chloride 105 96 - 110 mmol/L LAB CHEMISTRY METHOD 07/14/2024 4:29 PM EDT [facility] CO2 24 21 - 32 mmol/L LAB CHEMISTRY METHOD 07/14/2024 4:29 PM EDT [facility] Anion Gap 7 3 - 11 LAB CHEMISTRY METHOD 07/14/2024 4:29 PM EDT [facility] Glucose 182(H) 70 - 100 mg/dL LAB CHEMISTRY METHOD 07/14/2024 4:29 PM [facility] BUN 13 5 - 25 mg/dL LAB CHEMISTRY METHOD 07/14/2024 4:29 PM [facility] Creatinine 1.01 0.50 - 1.10 mg/dL LAB CHEMISTRY METHOD 07/14/2024 4:29 PM [facility] eGFR 70 >=60 mL/min/1. 73m2 LAB CHEMISTRY METHOD 07/14/2024 4:29 PM [facility] Comment:Calculation based on the Chronic Kidney Disease Epidemiology Collaboration (CKD-EPI) equation refit without adjustment for race. BUN/Creatinine Ratio 12.9 LAB CHEMISTRY METHOD 07/14/2024 4:29 PM [facility] Calcium 9.6 8.5 - 10.5 mg/dL LAB CHEMISTRY METHOD 07/14/2024 4:29 PM [facility] AST (SGOT) 15 10 - 42 unit/L LAB CHEMISTRY METHOD 07/14/2024 4:29 PM [facility] ALT (SGPT) 23 10 - 60 unit/L LAB CHEMISTRY METHOD 07/14/2024 4:29 PM [facility] Alkaline Phosphatase 89 42 - 121 unit/L LAB CHEMISTRY METHOD 07/14/2024 4:29 PM [facility] Total Protein 7.9 6.0 - 8.0 g/dL LAB CHEMISTRY METHOD 07/14/2024 4:29 PM [facility] Albumin 3.8 3.2 - 5.0 g/dL LAB CHEMISTRY METHOD 07/14/2024 4:29 PM [facility] Total Bilirubin 0.4 0.0 - 1.4 mg/dL LAB CHEMISTRY METHOD 07/14/2024 4:29 PM [facility] Blood Venous blood specimen / Unknown Venipuncture / Unknown 07/14/2024 3:24 PM EDT 07/14/2024 3:57 PM EDT us Praveen Montilla DO LAB BLOOD ORDERABLES Final Res ult [facility] [address] [place] [address], [place] [phone] from Last 3 Months or Most Recently Relevant to Health Maintenance Insurance [facility] MEDICAID ADVANTAGE Care Teams Armament Installer Relationship Specialty Start Date End Date Alvin Arreola MD [address] [id number] PCP - General Internal Medicine 04/11/24
--- OUTSIDE RECORDS SUMMARY | 2025-01-20 18:22 | XMS_ITS | Clinical Summary ---
Author Organization [facility] Address [address] [place] [address] Care Team Providers Care Diagram Clerk Name Role Phone Lurdes Montalvo NP Primary Care Provider Source Comments PLEASE NOTE, if this patient is a minor, it may be UNLAWFUL to discuss sensitive information that is contained in these records (such as FAMILY PLANNING, MENTAL HEALTH or SUBSTANCE ABUSE) with the minor patient's parent or other person without the patient's specific authorization.[facility] Allergies Active Allergy Reactions Criticality Noted Date Comments Utr-Eavlxmhwvio-Nufibzvazcioy Hives 2022 Medications hydrOXYzine HCL (ATARAX) 50 mg tablet Take 50 mg by mouth nightly at bedtime as needed for sleep Active guaiFENesin (MUCINEX) 600 mg [id number] iral upper respiratory tract infection Take 1 Tablet by mouth every 12 (twelve) hours as needed (cough) 14 Tablet 3 Active FLUoxetine (PROZAC) 20 mg capsuleIndication s:Medication refill Take 1 Capsule by mouth once daily for 360 days 30 Capsule 11 4 Active norethindrone, contraceptive, (MICRONOR) 0.35 mg tabletIndications :Medication refill Take 1 Tablet by mouth once daily for 84 days 84 Tablet 4 Active diclofenac sodium (VOLTAREN) 1 % gelIndications:Ch ronic pain of left knee Apply 2 g topically 2 (two) times daily 100 g 3 4 Active hydroCHLOROthiazi de (MICROZIDE) 12.5 mg capsuleIndication s:Primary hypertension Take 1 Capsule by mouth once daily for 90 days 30 Capsule 2 4 Active fluticasone (FLONASE) 50 mcg/actuation nasal sprayIndications: Viral upper respiratory tract infection Place 1 [place] in both nostrils once daily 16 g 1 4 Active metFORMIN (GLUCOPHAGE) 500 mg tabletIndications :Prediabetes Take 1 Tablet by mouth once daily with breakfast 90 Tablet 1 4 Active atorvastatin (LIPITOR) 40 mg tabletIndications :Hypercholesterol emia Take 1 Tablet by mouth nightly at bedtime for 90 days 90 Tablet 4 Active Active Problems Problem Noted Date Diagnosed Date Chronic pelvic pain in female 01/20/2023 Assessment & Plan (03/14/2023 2:20 PM EST): - Reviewed treatment options: Observation vs diagnostic lap vs hysterectomy - Pt will think about options and follow-up in 1 month Assessment & Plan (01/31/2023 5:03 PM EST): - - s/p pelvic MRI--> ( ) Review MRI images with radiologist - Follow-up for Surgical planning Social History Tobacco Use Types Packs/Day Years Used Date Smoking Tobacco: Never Smokeless Tobacco: Never Tobacco Cessation:Counseling Given: Not Answered Alcohol Use Standard Drinks/Week Comments Never 0 (1 standard drink = 0.6 oz pur e alcohol) Social Connections Answer Date Recorded Connectedness 0 12/31/2022 Financial Resource Strain Answer Date R ecorded Financial Resource Strain 0 2022 Stress Answer Date Recorded Stress 0 12/31/2022 Physical Activity Answer Date Recorded Physical Activity 0 06/20/2021 Food Insecurity Answer Date Recorded Food 0 12/31/2022 Transportation Needs Answer Date Record ed Transportation 0 12/31/2022 Housing Stability Answer Date Recorded Housing 0 12/31/2022 Safety and Environment Answer Date Rocky rded Safety 0 12/31/2022 Utilities Answer Date Recorded Utilities 0 12/31/2022 Employment Answer Date Recorded Stress 0 12/31/2022 Comments No Sex and Gender Information Value Date Recorded Sex Assigned at Female 12/31/2022 1:16 PM PDT Legal Sex Female 7:03 AM PST Gender Identity Female 12/31/2022 1:16 PM PDT Sexual Orientation Straight 12/31/2022 1: 16 PM PDT Last Filed Vital Signs Vital Sign Reading Time Taken Comments Blood Pressure 126/88 03/10/2023 3:31 PM EST Pulse 90 03/14/2023 1:03 PM EST Temperature 36.9 C (98.5 F) 03/10/2023 3:31 PM EST Respiratory Rate 20 03/10/2023 3:31 PM EST Oxygen Saturation 100% 03/14/2023 1:03 PM EST Inhaled Oxygen Concentration - - Weight 116.1 kg (256 lb) 03/10/2023 3:31 PM EST Height 177.8 cm (5' 10 ) 03/10/2023 3:31 PM EST Body Mass Index 36.73 03/10/2023 3:31 PM EST Plan of Treatment Health Maintenance Due Date Last Done Comments Anxiety Screening 1978 HPV Screening (self-collect) 1978 HPV Screening 1978 Hepatitis C Screening 1978 Tobacco Screening 1978 HIV Screening 1993 Breast Cancer Screening (Mammogram) 2018 Imm-Hepatitis B (2 of 3 - 19 + 3-dose series) 05/17/2022 04/19/2022 CT Colonography 10/15/2023 Colonoscopy 10/15/2023 Colorectal Cancer Screening 10/15/2023 FIT/gFOBT 10/15/2023 Fecal DNA 10/15/2023 Flexible Sigmoidoscopy 10/15/2023 Relationship Safety Screening/Counseling 01/01/2024 12/31/2022 Diabetes Screening 02/10/2024 02/09/2023, 02/09/2023 Hypertension Screening (#1) 03/09/2024 Alcohol and Drug Screen 03/28/2024 12/31/2022 Depression Annual Screen 03/28/2024 02/09/2023 Ici-YLOSL-23 ( season) 2024 05/2 021, 07/20/2020 Imm-Influenza (#1) 2024 03/19/2019 Pap Smear 01/20/2026 01/20/2023 Cervical Cancer Screening 01/21/2028 Pap + HPV 01/21/2028 01/20/2023 Lipid Screening 02/10/2028 02/09/2023 Imm-DTaP/Tdap/Td (5 - Td or Tdap) 05/15/2032 05/15/2022, 11/17/2019, 04/30/2018, Additional history exists Cervical Ablation/Cold-Knife Conization Discontinued Cervical Cryotherapy Discontinued Colposcopy Discontinued Excision/Leep Discontinued HPV Genotyping Discontinued Vaginal Pap Discontinued Vulvoscopy Discontinued Procedures Procedure Name Priority Date/Time Associated Diagnosis Comments COMPREHENSIVE METABOLIC PANEL Routine 02/09/2023 9:41 AM EST Prediabetes LIPID PANEL Routine 02/09/2023 9:41 AM EST Prediabetes THINPREP PAP & HPV MRNA E6/E7 RFLX HPV 16,18/[address]/NG Routine 01/20/2023 4:36 PM EDT Women's annual routine gynecological examination from Last 3 Months or Most Recently Relevant to Health Maintenance Results * (ABNORMAL) LIPID PANEL (02/09/2023 9:41 AM EST) CHOLESTEROL, TOTAL 187 <200 mg/dL Root[facility] HDL CHOLESTEROL 45(L) > OR = 50 mg/dL [facility] TRIGLYCERIDES 288(H) <150 mg/dL [facility] Comment: If a non-fasting specimen was collected, consider repeat triglyceride testing on a fasting specimen if clinically indicated. Smith et al. J. of Clin. Lipidol. 2015;9:129-169. LDL-CHOLESTEROL 101(H) 99 mg/dL (calc) Root[facility] Comment: Reference range: <100 Desirable range <100 mg/dL for primary prevention; <70 mg/dL for patients with CHD or diabetic patients with > or = 2 CHD risk factors. LDL-C is now calculated using the Jorge-Nisha calculation, which is a validated novel method providing better accuracy than the Friedewald equation in the estimation of LDL-C. Joreg MALCOLM et al. ASHLEY. 2013;310(19): 8633-6625 (http://education.[employer]/faq/CNT687) CHOL/HDLC RATIO 4.2 <5.0 (calc) [facility] NON-HDL CHOLESTEROL 142(H) <130 mg/dL (calc) Root[facility] Comment: For patients with diabetes plus 1 major ASCVD risk factor, treating to a non-HDL-C goal of <100 mg/dL (LDL-C of <70 mg/dL) is considered a therapeutic option. Blood Blood / Unknown 02/09/2023 9 :41 AM EST 02/09/2023 9:41 AM EST Narrative [facility] - 02/10/2023 8:47 PM EST FASTING:NO Michelle MIN LAB - BLOOD DRAW Final Result [facility] [address] [address], [facility] [address] [place] [address] * (ABNORMAL) COMPREHENSIVE METABOLIC PANEL (02/09/2023 9:41 AM EST) GLUCOSE 141(H) 65 - 139 mg/dL [facility] Comment: Non-fasting reference interval UREA NITROGEN (BUN) 14 7 - 25 mg/dL [facility] CREATININE (blood) 0.93 0.50 - 0.99 mg/dL [facility] EGFR 78 > OR = 60 mL/min/1. 73m2 [facility] BUN/CREATININE RATIO SEE NOTE: [facility] Comment: Not Reported: BUN and Creatinine are within reference range. SODIUM 137 135 - 146 mmol/L [facility] POTASSIUM 3.8 3.5 - 5.3 mmol/L [facility] CHLORIDE 102 98 - 110 mmol/L [facility] CARBON DIOXIDE 25 20 - 32 mmol/L [facility] CALCIUM 9.0 8.6 - 10.2 mg/dL [facility] PROTEIN, TOTAL 7.3 6.1 - 8.1 g/dL [facility] ALBUMIN 4.3 3.6 - 5.1 g/dL [facility] GLOBULIN 3.0 1.9 - 3.7 g/dL (calc) [facility] ALBUMIN/GLOBULI N RATIO 1.4 1.0 - 2.5 (calc) [facility] BILIRUBIN, TOTAL 0.3 0.2 - 1.2 mg/dL [facility] ALKALINE PHOSPHATASE 58 31 - 125 U/L [facility] AST 9(L) 10 - 30 U/L [facility] ALT 12 6 - 29 U/L [facility] Blood Blood / Unknown 02/09/2023 9 :41 AM EST 02/09/2023 9:41 AM EST Narrative [facility] - 02/10/2023 8:47 PM EST FASTING:NO Michelle Moran PA LAB - BLOOD DRAW Edited Result - Final [facility] [address] [address], [facility] [address] [place] [address] * THINPREP PAP & HPV MRNA E6/E7 RFLX HPV 16,18/[address]/NG (01/20/2023 4:36 PM EDT) CHLAMYDIA TRACHOMATIS RNA, TMA NOT DETECTED NOT DETECTED [facility] NEISSERIA GONORRHOEAE RNA, TMA NOT DETECTED NOT DETECTED [facility] COMMENT [facility] CLINICAL INFORMATION See Note [facility] Comment:Routine exam LMP See Note [facility] Comment:[id number] PREV. PAP See Note [facility] Comment:NONE GIVEN PREV. BX See Note [facility] Comment:NONE GIVEN SOURCE See Note [facility] Comment:Cervix STATEMENT OF ADEQUACY See Note [facility] Comment: Satisfactory for evaluation. Endocervical/transformation zone component present. INTERPRETATION/RESU LT See Note [facility] Comment: Cytology Results: Negative for intraepithelial lesion or malignancy. COMMENT See Note [facility] Comment: [place] portions of this case have been reviewed by one or more pathologists. BAD CREDIT COLLECTOR See Note [facility] [employer] Comment: EXJ, CT(ASCP) CT Screening Location: [address] [address] PATHOLOGIST See Note Root[facility] Comment: Ellie Friend D.O. Board Certified in Anatomic, Clinical and Cytopathology (electronic signature) Consulting Pathologist [facility] [address] [place] [id number] COMMENT Root[facility] HPV MRNA E6/E7 Not Detected Not Detected Root[facility] Comment: Methodology: Pet Counselor-Mediated Amplification This assay detects E6/E7 viral messenger RNA (mRNA) from 14 high-risk HPV types (16,18,31,33,35,39,45,51,52,56,58,59,66,68). Cervical sources are required for HPV testing. If a vaginal source from a patient who has had a total hysterectomy with removal of cervix was submitted, please contact the testing laboratory for alternative testing options. For additional information, please refer to http://[employer].Songfor/faq/KTJ227x9 (This link if provided for information/ educational purposes only.) CYTOLOGY Cervix uteri structure / Unknown 01/20/2023 4:36 PM EDT 01/21/2023 5:14 AM EDT Narrative [facility] - 01/25/2023 2:48 PM EDT EXPLANATORY NOTE: The Pap is a screening test for cervical cancer. It is not a diagnostic test and is subject to false negative and false positive results. It is most reliable when a satisfactory sample, regularly obtained, is submitted with relevant clinical findings and history, and when the Pap result is evaluated along with historic and current clinical information. The analytical performance characteristics of this assay, when used to test SurePath(TM) specimens have been determined by [employer]. The modifications have not been cleared or approved by the FDA. This assay has been validated pursuant to the CLIA regulations and is used for clinical purposes. For additional information, please refer to https://[employer].Songfor/faq/QNV970 (This link is being provided for information/ educational purposes only.) Brandie Formisano DO LAB - PATHOLOGY AND CYTOLOGY A MBULATORY Final Result [facility] [address] [address], [facility] [address] [address] from Last 3 Months or Most Recently Relevant to Health Maintenance [place] [address] [employer] Care Teams Diagram Clerk Relationship Specialty Start Date End Date Lurdes Montalvo NP [address] [place] [address] PCP - General Internal Medicine 04/21/23
[2025-01-20 18:26] VITALS: BP 130/64; PULSE 74; RESP 18; TEMP 36.6; O2SAT 96
[2025-01-20 21:23] VITALS: BP 130/64; PULSE 74; RESP 18; TEMP 36.6; O2SAT 96
[2025-01-20] MEDS: Lidocaine HCl 1 % 20 ML VIAL INFILTRATI (21:25)
== END 2025-01-20 21:25 | disposition home or self-care (01) ==
PROVIDERS: Emergency Provider Emergency Medicine
DX: L02.215 Cutaneous abscess of perineum (principal)
CPT/HCPCS: 10060; 99283; 99284; J2003